=== PATIENT | male | born 1950 | race Caucasian/White ===

== ENCOUNTER 2023-01-18 11:16 | Outpatient (OUT) | payer MEDICARE, SELFPAY ==
--- NOTE | 2023-01-18 11:25 | XR_ITS ---
[address] [address] Patient Name: JORDON JOHNSTON MRN: [id number] date: 1950 Sex: M Assigned Patient Location: RAD Current Patient Location: [facility] Accession/Order Number: [id number] Exam Date: 01/18/2023 11:35 Report Date: 01/18/2023 12:54 At the request of: YVES SNOWDEN Procedure: XR hip RT 2V w/ pelvis PROCEDURE: XR hip RT 2V w/ pelvis HISTORY: Pain in right hip M25.551 COMPARISON: None. FINDINGS: BONES:No fracture, acute abnormality, or significant arthropathy. SOFT TISSUES:No visible soft tissue swelling. EFFUSION:None visible. OTHER: Negative. IMPRESSION: 1. No acute bone abnormality. 2. Minimal degenerative changes. Electronically authenticated by: CINDY DUCKWORTH Date: 01/18/2023 12:54
--- NOTE | 2023-01-18 11:25 | XR_ITS ---
[address] [address] Patient Name: JORDON JOHNSTON MRN: [id number] date: 1950 Sex: M Assigned Patient Location: RAD Current Patient Location: [facility] Accession/Order Number: [id number] Exam Date: 01/18/2023 11:35 Report Date: 01/18/2023 12:46 At the request of: YVES SNOWDEN Procedure: XR lumbar spine 2-3V EXAM: XR lumbar spine 2-3V HISTORY: Low back pain M54.50 COMPARISON: None. TECHNIQUE: 2 views FINDINGS/IMPRESSION: Satisfactory alignment. Mild vertebral height loss of L4 and L5. Remainder of the vertebral body heights maintained. Maintained disc spaces. No acute fracture or subluxation. Unremarkable soft tissues. Electronically authenticated by: GUY JEFFERSON Date: 01/18/2023 12:46
== END 2023-01-18 11:17 | disposition home or self-care (01) ==
LOC: RAD 11:19
PROVIDERS: PCP Family Medicine; Visit Provider Family Medicine
DX: M54.40 Lumbago with sciatica, unspecified side (principal); M25.551 Pain in right hip; M16.11 Unilateral primary osteoarthritis, right hip; M48.8X6 Other specified spondylopathies, lumbar region
CPT/HCPCS: 72100; 73502

== ENCOUNTER 2023-01-25 08:52 | Outpatient (OUT) | payer MEDICARE, SELFPAY ==
--- NOTE | 2023-01-25 09:50 | P.CN_ITS ---
Consult Note: HPI Data of Consult Patient: new to practice Consult date: 01/25/23 Requesting Physician: Mercy Vincent MD Primary Care Provider: Smitha Cartagena MD Consult Narrative Reason for consult: Low back, right hip and leg pain Narrative: this is a pleasant 73-year-old gentleman who presents for evaluation. He notes that several months ago, he had to begin pain that began in his right low back that has now started to radiate into the right hip, groin, and lower extremity. He is engaged in chiropractic therapy for greater than three months. This has not provided any benefit. He has tried various medications, including a steroid Dosepak, ibuprofen eight hundred, tramadol, and Percocet. He recently underwent a right hip x-ray and lumbar spine x-rays, which showed age-appropriate degenerative changes, but no acute pathology. He otherwise denies of his medication side effects loss of bowel or bladder control. cc:: CC: Mercy Vincent MD Review of Systems ROS Status of ROS 10 or more systems reviewed and unremarkable except as noted in history and below Exam Constitutional Common normals: no apparent distress, oriented x3 and healthy appearing Respiratory Common normals: normal respiratory effort Effort & inspection: able to speak in complete sentences Back & Pelvis Other: tenderness to palpation throughout the lumbar spine paraspinal musculature. Pain is elicited with flexion, extension, and lateral rotation of the lumbar spine. Facet loading maneuvers are positive bilaterally. Strength noted to be unremark able throughout the bilateral lower extremities except for decreased strength rated 4/5 in the right quadriceps femoris, anterior tibialis. patient noted to be unremarkable throughout the bilateral lower extremities except for dysesthesia in the right L2, L3, L4 dermatomal distributions. coordination remains intact. Gait remains mildly antalgic. Extremity Common normals: normal to inspection Neuro Common normals: oriented x3, CN's II-XII intact bilaterally and no focal motor deficits Psych Common normals: mental status grossly normal and cooperative Assessment and Plan Assessment and Plan (1) Lumbar stenosis with neurogenic claudication: (2) Lumbar spondylosis: (3) Sacroiliac pain: Plan this is a pleasant 73-year-old gentleman who presents for evaluation. He has health physical and medical modalities, as listed above. He has undergone various conservative measures over the last three months, but these have failed to provide any reprieve. given his current symptomatology and exam parents, are likely to undergo a lumbar MRI without contrast to further assess for the etiology of his pain. He is in agreement with this plan. Medications were reviewed. I agreed to prescribe [place] 5 mg 3 times a day when necessary. He expressed understanding. A urine drug screen was obtained today. He will follow up after the imaging is complete.
== END 2023-01-25 08:53 | disposition home or self-care (01) ==
LOC: PM 08:53
PROVIDERS: PCP Family Medicine; Visit Provider Anesthesiology
DX: M47.816 Spondylosis without myelopathy or radiculopathy, lumbar region (principal); M48.062 Spinal stenosis, lumbar region with neurogenic claudication; M53.3 Sacrococcygeal disorders, not elsewhere classified
CPT/HCPCS: G0463

== ENCOUNTER 2023-01-26 08:43 | Outpatient (OUT) | payer MEDICARE, SELFPAY ==
--- NOTE | 2023-01-26 09:00 | MR_ITS ---
[address] [address] Patient Name: JORDON JOHNSTON MRN: [id number] date: 1950 Sex: M Assigned Patient Location: MRI Current Patient Location: MRI Accession/Order Number: [id number] Exam Date: 01/26/2023 09:00 Report Date: 01/26/2023 12:07 At the request of: PETERSON GIEDRALAVONNE Procedure: MR lumbar spine wo con EXAMINATION: MR lumbar spine wo con HISTORY: lumbar stenosis ; low back pain, acute right hip and leg pain COMPARISON: XR lumbar spine 01/18/2023, XR hip right 01/18/2023 TECHNIQUE: A variety of imaging planes and parameters were utilized for visualization of suspected pathology. FINDINGS: For the purposes of numbering, sagittal T2 image # 9 extends from the T11-12 vertebral body superiorly to the S2-3 level inferiorly. PARASPINAL AREA: Normal with no visible mass. BONES: No fracture, pars defect, or osseous lesion. CORD/CAUDA EQUINA: Normal caliber, contour, and signal intensity. DISC LEVELS: 12-L1: No significant disc/facet abnormality, spinal stenosis, or foraminal stenosis. L1-L2: No significant disc/facet abnormality, spinal stenosis, or foraminal stenosis. L2-L3: No significant disc/facet abnormality, spinal stenosis, or foraminal stenosis. L3-L4: Early degenerative disc disease is present without focal protrusion or neural impingement. L4-L5: Mild central canal and moderate bilateral foramen narrowing. Moderate diffuse disc bulging with mild disc height reduction. Mild degenerative facet arthropathy and ligamentum flavum thickening. L5-S1: No significant central canal narrowing. Moderate foramen narrowing bilaterally. Mild diffuse disc bulging and moderate degenerative facet arthropathy bilaterally. MR/MR lumbar spine wo con IMPRESSION: 1. Moderate foramen narrowing bilaterally at L4-5 and L5-S1 secondary to degenerative disc disease and facet arthropathy. 2. Mild central canal narrowing L4-5. Electronically authenticated by: CINDY DUCKWORTH Date: 01/26/2023 12:07
== END 2023-01-26 08:44 | disposition home or self-care (01) ==
LOC: MRI 08:44
PROVIDERS: PCP Family Medicine; Visit Provider Anesthesiology
DX: M48.061 Spinal stenosis, lumbar region without neurogenic claudication (principal)
CPT/HCPCS: 72148

== ENCOUNTER 2023-02-01 12:01 | Outpatient (OUT) | payer MEDICARE, SELFPAY ==
--- NOTE | 2023-02-01 13:14 | PM.CN ---
Consult Note: HPI Data of Consult Patient: known to practice within the last 3 years Consult date: 02/01/23 Requesting Physician: Mercy Vincent MD Primary Care Provider: Smitha Cartagena MD Consult Narrative Reason for consult: low back, right leg pain Narrative: this is a pleasant 73-year-old gentleman who presents for assessment. He notes persistence of pain that radiates from his low back into his right lower extremity. He recently underwent a lumbar MRI, which is significant for multilevel foraminal narrowing, worse at L4-L5 and L5-S1. He also has multilevel facet degeneration noted in the lower lumbar spine. He continues to engage in provider directed exercises, which she has attempted for greater than three months. He recently tried [place], but does not provide lasting relief. he previously tried ccbw-idn-waklims medications for greater than three months, which did not provide relief. He recently had a urine drug screen that came back with THC in his urine. He otherwise denies adverse medication side effects or loss of bowel or bladder control. cc:: CC: Mercy Vincent MD Review of Systems ROS Status of ROS 10 or more systems reviewed and unremarkable except as noted in history and below Meds Home Medications and Allergies Home Medications Medication Instructions Recorded Confirmed Type bupropion HCl 150 mg 24 hr tablet, 150 mg PO DAILY 01/25/23 01/25/23 History extended release hydrocodone 5 mg-acetaminophen 325 1 tab PO TID 01/25/23 01/25/23 History mg tablet ibuprofen 200 mg tablet 200 mg PO TID 01/25/23 01/25/23 History Allergies Allergy/AdvReac Type Severity Reaction Status Date / Time acetaminophen [From Percocet] Allergy Mild ITCH Verified 01/25/23 10:02 oxycodone [From Percocet] Allergy Mild ITCH Verified 01/25/23 10:02 Exam Constitutional Common normals: no apparent distress, oriented x3 and healthy appearing Respiratory Common normals: normal respiratory effort Effort & inspection: able to speak in complete sentences Back & Pelvis Other: tenderness to palpation throughout the lumbar spine and paraspinal musculature. Pain is elicited with flexion, extension, and lateral rotation of the lumbar spine. Facet loading maneuvers are positive bilaterally. Strength is noted to be unremarkable throughout the bilateral lower extremities except for decreased strength rated at four out of five in the right quadriceps femoris, anterior tibialis. Sensation noted to be unremarkable throughout the bilateral lower extremities except for dysesthesia in the right L3, L4, L5 dermatomal distributions. Tenderness to palpation over the right PSIS. Abdi's maneuver is positive on the right. Thigh thrust is positive on the right. Coordination remains intact. Gait remains nonantalgic. Extremity Common normals: normal to inspection Neuro Common normals: oriented x3, CN's II-XII intact bilaterally and no focal motor deficits Psych Common normals: mental status grossly normal and cooperative Assessment and Plan Assessment and Plan (1) Lumbar spondylosis: (2) Lumbar stenosis with neurogenic claudication: (3) Right hip pain: Plan this is a pleasant 73-year-old gentleman who presents for assessment. He has failed physical medical modalities, as listed above. his imaging was reviewed, as noted above. Given his symptomatology and imaging finding, it is prudent to attempt a right L4-L5, L5-S1 transfemoral epidural straight injection to provide analgesia. He may even benefit from a right sacroiliac joint injection. He is in agreement with this plan. Medications were reviewed. He will be deemed nonopioid candidate because of his THC in the urine drug screen. I will have him trial Lyrica 50 mg 3 times a day. He expressed understanding. I will also have him undergo a right hip x-ray to assess for any hip pathology. He expressed understanding. He will follow up after the imaging and procedure are complete.
== END 2023-02-01 12:02 | disposition home or self-care (01) ==
PROVIDERS: PCP Family Medicine; Visit Provider Anesthesiology
DX: R10.31 Right lower quadrant pain (principal); M47.816 Spondylosis without myelopathy or radiculopathy, lumbar region; M48.062 Spinal stenosis, lumbar region with neurogenic claudication; M25.551 Pain in right hip
CPT/HCPCS: 73502; G0463

== ENCOUNTER 2023-02-01 12:52 | Outpatient (OUT) | payer MEDICARE, SELFPAY ==
--- NOTE | 2023-02-01 13:05 | XR_ITS ---
[address] [address] Patient Name: JORDON JOHNSTON MRN: [id number] date: 1950 Sex: M Assigned Patient Location: [facility] Current Patient Location: Accession/Order Number: [id number] Exam Date: 02/01/2023 13:18 Report Date: 02/02/2023 07:20 At the request of: ANDRI GIEDRAITIS Procedure: XR hip RT min 2V PROCEDURE: XR hip RT min 2V COMPARISON: 01/18/2023 HISTORY: Right Groin Pain FINDINGS: BONES:No fracture, acute abnormality, or significant arthropathy. SOFT TISSUES:Negative. No visible soft tissue swelling. EFFUSION:None visible. OTHER: Negative. XR/XR hip RT min 2V IMPRESSION: No acute abnormality Electronically authenticated by: KEITH GOOD Date: 02/02/2023 07:20
== END 2023-02-01 12:53 | disposition home or self-care (01) ==
LOC: RAD 12:54
PROVIDERS: PCP Family Medicine; Visit Provider Anesthesiology
DX: R10.31 Right lower quadrant pain (principal)
CPT/HCPCS: 73502

== ENCOUNTER 2023-02-15 09:10 | Day surgery (SDC) | payer MEDICARE, SELFPAY ==
[2023-02-15 09:54] VITALS: BP 131/88; PULSE 72; RESP 16; TEMP 36.5; O2SAT 95
[2023-02-15] MEDS: BUPIVACAINE HCL 0.25% PF 25 MG/10 ML VIAL INJ (10:43)
[2023-02-15] MEDS: IOHEXOL 240 MG/ML - 10 ML VIAL INJ (10:43)
[2023-02-15] MEDS: LIDOCAINE HCL 2% PF 100 MG/5 ML VIAL INJ (10:43)
[2023-02-15] MEDS: TRIAMCINOLONE ACETONIDE 40 MG/ML VIAL INJ (10:44)
--- NOTE | 2023-02-15 10:46 | P.ON_ITS ---
Date of procedure: 02/15/23 Pre-op diagnosis: Lumbar stenosis with neurogenic claudication Post-op diagnosis: same Procedure: Procedure: Right L4-5, L5-S1 transforaminal epidural steroid injection Medications: Bupivacaine 0.25% 2cc, lidocaine 1% 1cc, kenalog 80mg The patient was seen and examined in the preoperative holding area.? Informed consent was obtained and placed on the chart.? Patient was brought to the medical procedure unit and placed in the prone position where a timeout was completed verifying the correct patient, procedure site, position, and planned special equipment using sterile aseptic technique.? Under direct fluoroscopic visualization a 25-gauge Quincke tipped spinal needle was advanced to the designated neural foramen where contrast dye was injected to show adequate spread.? The needle was inserted at level right L4-5. There was no evidence of vascular or adverse uptake.? Epidural spread was appreciated.? The above- mentioned injectate was then placed in a 1.5 mL aliquot preceded by negative aspiration.? The needle was removed. The needle was inserted and the procedure repeated at level right L5-S1.? The surgery site was covered.? Patient was taken to the postprocedural recovery area and monitored for an appropriate length of time before found suitable for discharge in the accompaniment of a responsible adult. Anesthesia: None Surgeon: Mercy Vincent Pathology: none sent Condition: stable Disposition: no change
[2023-02-15 14:17] VITALS: BP 160/88; BP 165/95; PULSE 68; PULSE 74; RESP 18; O2SAT 97
== END 2023-02-15 10:50 | disposition home or self-care (01) ==
LOC: SURGOUT 09:13
PROVIDERS: PCP Family Medicine; Visit Provider Anesthesiology
DX: M48.062 Spinal stenosis, lumbar region with neurogenic claudication (principal)
CPT/HCPCS: 64483; 64484; Q9966

== ENCOUNTER 2023-03-01 09:36 | Day surgery (SDC) | payer MEDICARE, SELFPAY ==
[2023-03-01 10:44] VITALS: BP 153/88; PULSE 64; RESP 16; TEMP 36.4; O2SAT 97
[2023-03-01] MEDS: LIDOCAINE HCL 2% PF 100 MG/5 ML VIAL INJ (11:18)
[2023-03-01] MEDS: BUPIVACAINE HCL 0.25% PF 25 MG/10 ML VIAL INJ (11:18)
[2023-03-01] MEDS: TRIAMCINOLONE ACETONIDE 40 MG/ML VIAL INJ (11:18)
[2023-03-01] MEDS: IOHEXOL 240 MG/ML - 10 ML VIAL INJ (11:19)
--- NOTE | 2023-03-01 11:19 | W.PM.PROCNOT ---
Date of procedure: 03/01/23 Pre-op diagnosis: Sacroiliitis, right Post-op diagnosis: same as pre-op Procedure: Procedure: Right block of the nerve innervating the sacroiliac joint Medications: Bupivacaine 0.25% 3cc, kenalog 40mg After informed consent was obtained, the patient was brought to the medical procedure unit and placed in the prone position, when a timeout was completed verifying correct patient, procedure, site, positioning, implant, and/or special equipment.? The skin overlying the area was prepped and draped in standard sterile fashion using alcohol.? A 25-gauge needle was inserted into the right sacroiliac joint under direct fluoroscopic imaging.? Needle tip was advanced until the joint surface was encountered.? Along the joint surface we instilled a total of 3 mL of solution.? Postoperatively needles were removed.? The patient tolerated the procedure well without complication.? The patient reported reduction in pain symptoms postoperatively. Anesthesia: None Surgeon: Mercy Vincent Pathology: none sent Condition: stable Disposition: no change
[2023-03-01 14:49] VITALS: BP 171/92; BP 190/91; PULSE 65; PULSE 70; RESP 16; RESP 20; O2SAT 97; O2SAT 98
== END 2023-03-01 11:24 | disposition home or self-care (01) ==
PROVIDERS: PCP Family Medicine; Visit Provider Anesthesiology
DX: M46.1 Sacroiliitis, not elsewhere classified (principal)
CPT/HCPCS: 64451; 77002; Q9966

== ENCOUNTER 2023-03-11 10:37 | Outpatient (OUT) | payer MEDICARE, SELFPAY ==
--- NOTE | 2023-03-11 10:44 | PM.CN ---
Consult Note: HPI Data of Consult Patient: known to practice within the last 3 years Requesting Physician: GRISELDA FISHER NP Primary Care Provider: Smitha Cartagena MD Consult Narrative Reason for consult: R L 4/5 L5/S1 TFESI and R SIJ injection f/u Narrative: Merlin Gamez a pleasant 73 year old male presents for evaluation of chronic low back and right hip pain. Pt underwent right L4/5 L5/S1 TFESI and R SIJ injection with 95-100% pain relief. Patient reports he has had nearly no pain since these injections. Patient has taken motrin 400mg PRN for mild pain. Patient stopped lyrica. Reports feeling really good an hardly any pain what so ever . cc:: CC: GRISELDA FISHER NP Review of Systems ROS Status of ROS 10 or more systems reviewed and unremarkable except as noted in history and below [facility] Medical History Surgical History Meds Home Medications and Allergies Home Medications Medication Instructions Recorded Confirmed Type bupropion HCl 150 mg 24 hr tablet, 150 mg PO DAILY 01/25/23 03/01/23 History extended release hydrocodone 5 mg-acetaminophen 325 1 tab PO TID 01/25/23 03/01/23 History mg tablet ibuprofen 200 mg tablet 200 mg PO TID 01/25/23 03/01/23 History Allergies Allergy/AdvReac Type Severity Reaction Status Date / Time oxycodone [From Percocet] Allergy Mild ITCH Verified 02/15/23 09:52 Exam Constitutional Documenting provider has reviewed patient's vital signs: yes Common normals: no apparent distress, oriented x3, no limitations, healthy appearing, alert and well nourished General appearance: cooperative [facility] Common normals: normocephalic, hearing grossly normal bilaterally and moist oral mucous membranes Head and scalp: normocephalic Eye Common normals: PERRL Pupil: PERRL Neck & C-Spine Common normals: full ROM General: normal visual inspection Chest Common normals: inspection of chest normal Respiratory Common normals: normal respiratory effort, no retractions and no use of accessory muscles Back & Pelvis Common normals: straight leg raise negative bilaterally Thoracic spine/upper back: normal to inspection and thoracic ROM normal Lumbar spine/lower back: normal to inspection and lumbar ROM normal Sacroiliac joints: SI joints normal Extremity Common normals: normal to inspection, full ROM and no joint enlargement Neuro Common normals: oriented x3, CN's II-XII intact bilaterally, moves all extremities, no focal motor deficits, no sensory deficits noted and deep tendon reflexes 2+ bilaterally Sensorium/orientation: alert Gait (neuro): normal gait Motor exam: strength 5/5 throughout and no movement abnormalities noted Psych Common normals: mental status grossly normal, thought process normal, cooperative, affect normal, speech normal and activity/motor behavior normal Speech: normal speech Thought process: normal thought process Results Additional Findings Additional findings: I have checked an OARRS report on this patient today and there are no aberrancies noted in the prescribing history.?? A drug screen was completed and reviewed within the last year, and if there has not been a drug screen completed we ordered one today to monitor higher risk, state monitored pain medication use. As part of providing excellent, safe, comprehensive care, the following was completed at our patient's visit: 1. A medication reconciliation and review to ensure accurate knowledge of current/active medications, including asking our patients to inform us about any puib-erk-ayzrtre medications or herbal remedies/nutritional supplements/alternative remedies. 2. A review to specifically ensure our patients have had annual screening for: elevated body mass index (BMI), tobacco use, screening for depression, and screening for unhealthy alcohol use. When screening is concerning, patients are provided with education and the specific recommendation to discuss the concerning health issue and treatment options with their primary care provider. Assessment and Plan Assessment and Plan (1) Right hip pain: (2) Lumbar spondylosis: (3) Sacroiliac pain: (4) Marijuana use: Assessment and Plan: non narcotic care plan, patient agreeable Plan ADAM kauffman, patient stopped taking on his own continue prn motrin use f/u 3 months, sooner if needed
== END 2023-03-11 10:38 | disposition home or self-care (01) ==
PROVIDERS: PCP Family Medicine; Visit Provider Nurse Practitioner
DX: M25.551 Pain in right hip (principal); M47.816 Spondylosis without myelopathy or radiculopathy, lumbar region; M53.3 Sacrococcygeal disorders, not elsewhere classified
CPT/HCPCS: G0463

== ENCOUNTER 2023-03-31 09:42 | Outpatient (OUT) | payer MEDICARE, SELFPAY ==
--- NOTE | 2023-03-31 09:45 | US_ITS ---
The [address] [address] Patient Name: JORDON JOHNSTON MRN: [id number] date: 1950 Sex: M Assigned Patient Location: US Current Patient Location: [place] Accession/Order Number: [id number] Exam Date: 03/31/2023 10:00 Report Date: 03/31/2023 11:08 At the request of: DOUGLAS BUSBY Procedure: US scrotum EXAMINATION: US scrotum HISTORY: Spermatocele N43.40 COMPARISON: No relevant comparison available. TECHNIQUE: High-resolution sonographic imaging of the scrotum and contents was performed. FINDINGS: The right testicle measures 4.8 x 3.2 x 3.0 cm. Normal color and Doppler flow. A 5 x 4 x 4 mm area of identical echotexture extends from the inferior testicle possibly a testicular appendage. The right epididymis is asymmetrically enlarged, heterogeneous with multiple cystic areas and septations. Small right hydrocele. No right varicocele The left testicle is normal in size, contour and echotexture measuring 4.3 x 2.7 x 3.0 cm. Normal color Doppler flow The left epididymis is within normal limits identified adjacent to the epididymis is 1.2 x 1 cm area of anechoic echogenicity is. Spermatocele versus epididymal cyst Small left hydrocele. No left varicocele. US/US scrotum IMPRESSION: 1.2 cm left epididymal cyst or spermatocele Heterogeneous right epididymis, nonspecific with no hypervascularity to suggest epididymitis Small bilateral hydroceles Electronically authenticated by: KEITH GOOD Date: 03/31/2023 11:08
== END 2023-03-31 09:43 | disposition home or self-care (01) ==
LOC: US 09:42
PROVIDERS: PCP Family Medicine; Visit Provider Urology
DX: N43.40 Spermatocele of epididymis, unspecified (principal)
CPT/HCPCS: 76870

== ENCOUNTER 2023-06-03 09:36 | Outpatient (OUT) | payer MEDICARE, SELFPAY ==
--- NOTE | 2023-06-03 09:55 | PM.CN ---
Consult Note: HPI Data of Consult Patient: known to practice within the last 3 years Requesting Physician: Bozena Carty NP Primary Care Provider: Smitha Cartagena MD Consult Narrative Reason for consult: f/u Narrative: Merlin Gamez a pleasant 73 year old male presents for evaluation and management of chronic low back and right SIJ pain. Pain today 2/10 in right buttock and posterior thigh cc:: CC: Bozena Carty NP Review of Systems ROS Status of ROS 10 or more systems reviewed and unremarkable except as noted in history and below Musculoskeletal Reports: joint pain PFSH PFSH Medical History Surgical History H/O elbow surgery ?Z98.890 - Other specified postprocedural states (ICD-10) History of tonsillectomy and adenoidectomy ?Z90.89 - Acquired absence of other organs (ICD-10) Meds Home Medications and Allergies Home Medications Medication Instructions Recorded Confirmed Type bupropion HCl 150 mg 24 hr tablet, 150 mg PO DAILY 01/25/23 03/01/23 History extended release hydrocodone 5 mg-acetaminophen 325 1 tab PO TID 01/25/23 03/01/23 History mg tablet ibuprofen 200 mg tablet 200 mg PO TID 01/25/23 03/01/23 History Allergies Allergy/AdvReac Type Severity Reaction Status Date / Time oxycodone [From Percocet] Allergy Mild ITCH Verified 02/15/23 09:52 Exam Constitutional Documenting provider has reviewed patient's vital signs: yes Common normals: no apparent distress, oriented x3, no limitations, healthy appearing, alert and well nourished General appearance: cooperative [facility] Common normals: normocephalic, hearing grossly normal bilaterally and moist oral mucous membranes Head and scalp: normocephalic Eye Common normals: PERRL Pupil: PERRL Neck & C-Spine Common normals: full ROM General: normal visual inspection Chest Common normals: inspection of chest normal Respiratory Common normals: normal respiratory effort, no retractions and no use of accessory muscles Back & Pelvis Common normals: straight leg raise negative bilaterally Thoracic spine/upper back: normal to inspection and thoracic ROM normal Lumbar spine/lower back: normal to inspection and lumbar ROM normal Sacroiliac joints: SI joints normal Extremity Common normals: normal to inspection, full ROM and no joint enlargement Neuro Common normals: oriented x3, CN's II-XII intact bilaterally, moves all extremities, no focal motor deficits, no sensory deficits noted and deep tendon reflexes 2+ bilaterally Sensorium/orientation: alert Gait (neuro): normal gait Motor exam: strength 5/5 throughout and no movement abnormalities noted Psych Common normals: mental status grossly normal, thought process normal, cooperative, affect normal, speech normal and activity/motor behavior normal Speech: normal speech Thought process: normal thought process Assessment and Plan Assessment and Plan (1) Marijuana use: (2) Sacroiliac pain: (3) Lumbar spondylosis: Plan repeat nerve block innervating right SIJ injection in the future as needed if pain worsens or functional ability decreases, mild to no pain at this time NNCP due to failed drug screen and THC use f/u as needed [place] 18% today
== END 2023-06-03 09:37 | disposition home or self-care (01) ==
LOC: PM 09:37
PROVIDERS: PCP Family Medicine; Visit Provider Nurse Practitioner
DX: Z79.899 Other long term (current) drug therapy (principal); M53.3 Sacrococcygeal disorders, not elsewhere classified; M47.816 Spondylosis without myelopathy or radiculopathy, lumbar region
CPT/HCPCS: G0463

== ENCOUNTER 2023-10-07 10:01 | Outpatient (OUT) | payer MEDICARE, SELFPAY ==
--- NOTE | 2023-10-07 10:03 | P.CN_ITS ---
Consult Note: HPI Data of Consult Patient: known to practice within the last 3 years Requesting Physician: Bozena Carty NP Primary Care Provider: Smitha Cartagena MD Consult Narrative Reason for consult: f/u Narrative: Merlin Gamez a pleasant 73 year old male presents for evaluation and management of chronic low back and right SIJ pain. Pain today 2/10 in right buttock and posterior thigh increasing to 7-8/10 with activity. Patient previously underwent right L4-5 L5-S1 TFESI and nerve block innervating right SIJ with >80% pain relief and functional improvement greater than 3 months. Patient reporting increase in pain over the last few weeks and wants to discuss repeating injections. cc:: CC: Bozena Carty NP Review of Systems ROS Status of ROS 10 or more systems reviewed and unremark able except as noted in history and below Musculoskeletal Reports: back pain and joint pain PFSH PFSH Medical History Surgical History History of tonsillectomy and adenoidectomy ?Z90.89 - Acquired absence of other organs (ICD-10) H/O elbow surgery ?Z98.890 - Other specified postprocedural states (ICD-10) Meds Home Medications and Allergies Home Medications ?Medication ?Instructions ?Recorded ?Confirmed ?Type bupropion HCl 150 mg 24 hr tablet, 150 mg PO DAILY 01/25/23 03/01/23 History extended release hydrocodone 5 mg-acetaminophen 325 1 tab PO TID 01/25/23 03/01/23 History mg tablet ibuprofen 200 mg tablet 200 mg PO TID 01/25/23 03/01/23 History Allergies Allergy/AdvReac Type Severity Reaction Status Date / Time oxycodone [From Percocet] Allergy Mild ITCH Verified 02/15/23 09:52 Exam Constitutional Documenting provider has reviewed patient's vital signs: yes Common normals: no apparent distress, oriented x3, healthy appearing, alert and well nourished General appearance: cooperative HENKY Common normals: normocephalic, hearing grossly normal bilaterally and moist oral mucous membranes Head and scalp: normocephalic Eye Common normals: PERRL Pupil: PERRL Neck & C-Spine Common normals: full ROM General: normal visual inspection Chest Common normals: inspection of chest normal Respiratory Common normals: normal respiratory effort, no retractions and no use of accessory muscles Effort & inspection: able to speak in complete sentences Back & Pelvis Other: tenderness to palpation throughout the lumbar spine and paraspinal musculature. Pain is elicited with flexion, extension, and lateral rotation of the lumbar spine. Facet loading maneuvers are positive bilaterally. Strength is noted to be unremarkable throughout the bilateral lower extremities except for decreased strength rated at four out of five in the right quadriceps femoris, anterior ti bialis. Sensation noted to be unremarkable throughout the bilateral lower extremities except for dysesthesia in the right L3, L4, L5 dermatomal distributions. Tenderness to palpation over the right PSIS. Abdi's maneuver is positive on the right. Thigh thrust is positive on the right. Coordination remains intact. Gait remains nonantalgic. Extremity Common normals: normal to inspection Neuro Common normals: oriented x3, CN's II-XII intact bilaterally, moves all extremities, no focal motor deficits, no sensory deficits noted and deep tendon reflexes 2+ bilaterally Sensorium/orientation: alert Motor exam: strength 5/5 throughout and no movement abnormalities noted Psych Common normals: mental status grossly normal, thought process normal, cooperative, affect normal, speech normal and activity/motor behavior normal Speech: normal speech Thought process: normal thought process Results Additional Findings Additional findings: If on a controlled substance or opioids, I have checked an [facility] report on this patient and there are no aberrancies noted in the prescribing history.??If on a controlled substance or opioid a drug screen was completed and reviewed within the last year, and if there has not been a drug screen completed we ordered one today to monitor higher risk, state monitored pain medication use. As part of providing excellent, safe, comprehensive care, the following was completed at our patient's visit: 1. A medication reconciliation and review to ensure accurate knowledge of current/active medications, including asking our patients to inform us about any [id number] medications or herbal remedies/nutritional suppleme nts/alternative remedies. 2. A review to specifically ensure our patients have had annual screening for screening for depression, screening for tobacco use, and screening for unhealthy alcohol use. For concerning screenings had a discussion with the patient, provided patient education, and recommended follow-up with primary care provider when appropriate. If patient noted with a risk of falling, they received education on strength, gait, and balance training to prevent future risk of falling. Assessment and Plan Assessment and Plan (1) Lumbar spondylosis: (2) Lumbar stenosis with neurogenic claudication: (3) Sacroiliac pain: Plan repeat right L4-5 L5-S1 TFESI and nerve block innervating right SIJ, pt to call to schedule, previously had significant functional improvement and pain relief greater than 80% greater than 3 months from these injections. Procedures to be completed under fluoroscopy continue HEP as tolerated f/u 2 weeks after completion of injections
--- OUTSIDE RECORDS SUMMARY | 2023-10-07 10:18 | XMS_ITS | CCD ---
Author Organization [facility] Care Team Providers Care Data Modeling Specialist Name Role Phone Julius Carson Admitting Unavailable Julius Carson Attending Unavailable Smitha Snowden Primary Care Unavailable Smitha Snowden Primary Care Provider Smitha Snowden MD Primary Care Provider SMITHA SNOWDEN Attending Unavailable SMITHA SNOWDEN Consulting Unavailable SMITHA SNOWDEN Primary Care Unavailable SMITHA SNOWDEN Admitting Unavailable Smitha Snowden Unavailable Melisa CRUZ, Mercy Gomes Attending Unavailable Gimaddie CRUZ, Andlefty Gomes Attending Unavailable Melisa CRUZ, Andrius Mireya Attending Unavailable Melisa CRUZ, Andrius Gomes Attending Unavailable SMITHA SNOWDEN Primary Care Unavailable KATHI HER Admitting Unavailable KATHI HER Attending Unavailable SMITHA SNOWDEN Primary Care Unavailable SMITHA SNOWDEN Referring Unavailable SMITHA SNOWDEN Primary Care Unavailable SMITHA SNOWDEN Referring Unavailable SP, SMITHA Primary Care Unavailable SP, SMITHA Primary Care Unavailable KATHI HER Admitting Unavailable KATHI HER Attending Unavailable SMITHA SNOWDEN Primary Care Physician Abdi MCINTOSH Attending Unavailable SMITHA SNOWDEN Referring Unavailable Abdi MCINTOSH Attending Unavailable Abdi MCINTOSH Attending Unavailable Allergies Allergy Classification Reported Allergen(s) Allergy Type Date of Onset Reaction(s) Facility (7 sources) Acetaminophen / oxyCODONE Drug Allergy itching [facility] Other (1 source) No Known Medication Allergies; Translations: [No Known Medication Allergies] Propensity to adverse reactions (disorder) [facility] Repository Medications Current Medications Medication Drug Class(es) Dates Sig (Normalized) Sig (Original) azithromycin 250 mg oral tablet (4 sources) Macrolide Antimicrobial Start: 06-30-2023 Azithromycin 250 MG as directed Orally 2 tabs po today, then 1 tab daily x 4 more days for 5 Jun, Active Start: 04-01-2023 Azithromycin 2 50 MG as directed Orally 2 tabs po today, then 1 tab daily x 4 more days for 5 Mar, Active 12 hr buPROPion hydrochloride 150 mg extended release oral tablet (14 sources) Aminoketone Start: 03-29-2023 take 1 tablet by mouth twice daily Wellbutrin SR 150 mg Tab-ER 150 mg = 1 tab(s), Oral, BID Start Date: 03/29/23 Status: Ordered buPROPion HCl ER (XL) 150 MG TAKE 1 TABLET EVERY DAY for 90 Active take 1 tablet by mouth once ofelia y buPROPion (WELLBUTRIN) 75 MG tablet Take 1 tablet by mouth daily 0 Active calcium chloride 0.0014 meq/ml / potassium chloride 0.004 meq/ml / sodium chloride 0.103 meq/ml / sodium lactate 0.028 meq/ml injectable solution (1 source) Start: 11-09-2022 lactated ringe rs IV soln infusion hydrOXYzine hydrochloride 25 mg oral tablet (8 sources) Antihistamine Start: 11-05-2022 take 0.5 tablet by mouth once daily hydrOXYzine HCl 25 MG 1/2 tab Orally Once a day for 90 days Oct, Active Start: 11-05-2022 take 1 tablet by charla th once daily at bedtime as needed hydrOXYzine HCl 25 MG 1 tablet at bedtime as needed for itching Orally Once a day for 90 days Oct, Active ibuprofen 200 mg oral tablet (1 source) Nonsteroidal Anti-inflammatory Drug take 1 tablet by mouth every six hours as needed for pain ibuprofen (ADVIL;MOTRIN) 200 MG tablet Take 1 tablet by mouth every 6 hours as needed for Pain 0 Active Multi Vitamin+ (1 source) Start: Multi Vitamin+ Start Date: 03/29/23 Status: Ordered phenylephrine hydrochloride 25 mg/ml ophthalmic solution (1 source) alpha-1 Adrenergic Agonist Start: phenylephrine (MYDFRIN) 2.5 % ophthalmic solution 1 drop predniSONE 20 mg oral tablet (1 source) Start: take 2 tablets by mouth every twenty-four hours predniSONE 20 MG 2 tablets Orally Once a day for 5 days Dec, Active proparacaine hydrochloride 5 mg/ml ophthalmic solution (1 source) Local Anesthetic Start: proparacaine (ALCAINE) 0.5 % ophthalmic solution 1 drop 1000 ml sodium chloride 9 mg/ml injection (4 sources) Start: 023 0.9 % sodium chloride infusion Start: 11-09-2022 sodium chlorid e flush 0.9 % injection 5-40 mL tamsulosin hydrochloride 0.4 mg oral capsule (5 sources) alpha-Adrenergic Tavia Start: 03-29-2023 take 1 capsule by mouth once daily tamsulosin 0.4 mg Cap 0.4 mg = 1 cap(s), Oral, Daily, # 30 cap(s), Refills(s) 11, Pharmacy: [facility] [id number], 175, cm, 03/29/23 11:17:00 EDT, Height/Length Dosing, 78.2, kg, 03/29/23 11:17:00 EDT, Weight Dosing Start Date: 03/29/23 Status: Ordered Flomax Active tetracaine hydrochloride 5 mg/ml ophthalmic solution (1 source) Mary Local Anesthetic Start: 11-09-2022 tetracaine (TETRAVISC) 0.5 % ophthalmic solution 1 drop traMADol hydrochloride 50 mg oral tablet (7 sources) Opioid Agonist Start: 01-18-2023 take 1 tablet by mouth three times daily as needed traMADol HCl 50 MG 1 tablet as needed Orally tid prn for 7 days Jan, Active tropicamide 10 mg/ml ophthalmic solution (1 source) Anticholinergic Start: 11-09-2022 tropicamide (MYDRIACYL) 1 % ophthalmic solution 1 drop zolpidem tartrate 10 mg oral tablet (8 sources) gamma-Aminobutyric Acid-ergic Agonist Start: 08-24-2023 take 1 tablet by mouth every twenty-four hours Ambien 10 MG 1 tablet at bedtime as needed Orally Once a day for 90 days Aug, Active Start: 11-05-2022 take 1 tablet by charla th every twenty-four hours Ambien 10 MG 1 tablet at bedtime as needed Orally Once a day for 90 days Oct, Active Completed/Discontinued Medications Medication Drug Class(es) Dates Sig (Normalized) Sig (Original) cephalexin 500 mg oral capsule (5 sources) Cephalosporin Antibacterial Start: 01-13-2014 End: 10-23-2022 take 1 capsule by mouth three times daily cephALEXin (KEFLEX) 500 MG capsule Take 1 capsule by mouth 3 times daily. 10 capsule 0 01/13/2014 10/23/2022 Discontinued (Therapy completed) triamcinolone acetonide 40 mg/ml injectable suspension (8 sources) Corticosteroid Start: 12-02-2022 Kenalog-40 November, 60 mg Problems Active Problems Problem Classification Problem Date Documented Da te Episodic/Chronic Allergic reactions (8 sources) Atopic dermatitis; Translations: [Atopic dermatitis, unspecified] Chronic Cataract (6 sources) Age-related nuclear cataract of left eye; Translations: [Age-related nuclear cataract, left eye] Onset: 11-08-2022 Resolved: 11-09-2022 Chronic Essential hypertension (12 sources) Essential (primary) hypertension; Translations: [Essential hypertension] Onset: 11-23-2022 Chronic Hyperplasia of prostate (10 sources) Benign prostatic hypertrophy with outflow obstruction; Translations: [Benign prostatic hyperplasia with lower urinary tract symptoms] Onset: 06-28-2023 Chronic Mood disorders (1 source) Depressive disorder 03-29-2023 Chronic Other circulatory disease (1 source) Hypotension, unspecified; Translations: [Hypotension, unspecified] Onset: 02-10-2023 Episodic Other diseases of kidney and ureters (8 sources) Disorder of urinary tract; Translations: [Other obstructive and reflux uropathy] Episodic Other inflammatory condition of skin (1 source) Pruritus, unspecified Episodic Other male genital disorders (1 source) Hydrocele of testis; Translations: [Hydrocele, unspecified] Onset: 06-28-2023 Episodic Other male genital disorders (2 sources) Spermatocele; Translations: [Spermatocele of epididymis, unspecified] Onset: 06-28-2023 Episodic Other male genital disorders (1 source) Disorder of male genital organ 06-28-2023 Episodic Other non-traumatic joint disorders (2 sources) Pain in right hip Episodic Other screening for suspected conditions (not mental disorders or infectious disease) (10 sources) Encounter for screening for malignant neoplasm of prostate; Translations: [Abnormal arterial blood gas] Onset: 11-26-2022 Episodic Other upper respiratory disease (8 sources) Allergic rhinitis due to pollen; Translations: [Allergic rhinitis due to pollen] Chronic Other upper respiratory infections (1 source) Acute maxillary sinusitis, unspecified Episodic Residual codes; unclassified (8 sources) Obstructive sleep apnea syndrome; Translations: [Obstructive sleep apnea (adult) (pediatric)] Chronic Residual codes; unclassified (4 sources) Obstructive sleep apnea (adult) (pediatric); Translations: [Obstructive sleep apnea (adult) (pediatric)] Onset: 12-29-2022 Chronic Residual codes; unclassified (8 sources) Insomnia; Translations: [Insomnia, unspecified] Episodic Residual codes; unclassified (8 sources) Family history of breast cancer; Translations: [Family history of malignant neoplasm of breast] Episodic Screening and history of mental health and substance abuse codes (2 sources) H/O: Disorder; Translations: [Personal history of nicotine dependence] Onset: 06-28-2023 Episodic Spondylosis; intervertebral disc disorders; other back problems (16 sources) Low back pain; Translations: [Low back pain, unspecified] Episodic Syncope (1 source) Syncope and collapse; Translations: [Syncope and collapse] Onset: 02-10-2023 Episodic Unclassified (1 source) Z12.11 - Encounter for screening for malignant neoplasm of colon; Translations: [Z12.11 - Encounter for screening for malignant neoplasm of colon] Onset: 10-05-2018 Unclassified (1 source) Acute tear of medial meniscus of left knee; Translations: [Acute medial meniscal tear, left, subsequent encounter] Past or Other Problems Problem Classification Problem Date Documented Da te Episodic/Chronic Unclassified (1 source) Lumbar pain M54.50 Results Test Name Value Interpretation Reference Range Facility Ambulatory Visit Summaryon 1 08-29-2022 Ambulatory Visit Summary MERLIN JOHNSTON :1950 Visit Date:06/28/2023 Ambulatory Visit Instructions Your Diagnosis BPH with urinary obstruction Spermatocele Hydrocele Former smoker Tests Performed Urnls Dip Stick Auto w/o Microscopy POC 51801 Your Care Team Attending Physician - KEHINDE CRUZ, Abdi Santana Primary Care Physician - SMITHA SNOWDEN MD This Is Your Medications List tamsulosin (tamsulosin 0.4 mg Cap) Contact prescribing physician if questions or concerns buPROPion (Wellbutrin SR 150 mg Tab-ER) multivitamin (Multi Vitamin+) Procedures Performed Cataract, Colonoscopy, Tonsillectomy. Discharge Vitals Heart Rate (Peripheral) 69 Respiratory Rate 16 Blood Pressure 129/72 Height 175 cm Height 69 in Weight 78 kg Weight 171.6 lb BMI 25.47 What to do next Scheduled Follow-Up Appointments Wednesday. 2023 10:45 AM EDT With: KEHINDE CRUZ, Abdi Santana Where: [facility] Patient Educationon 06-28-20 Patient Education Urology Testicular Self-Exam A self-examination of your testicles (testicular self-exam) involves looking at and feeling your testicles for abnormal lumps or swelling. Several things can cause swelling, lumps, or pain in your testicles. Some of these causes are: ? Injuries. ? Inflammation. ? Infection. ? Buildup of fluids around the testicle (hydrocele). ? Twisted testicles (testicular torsion). ? Testicular cancer. You may be at risk for testicular cancer if you have: ? An undescended testicle (cryptorchidism). ? A history of previous testicular cancer. ? A family history of testicular cancer. General tips and recommendations ? The testicles are easiest to examine after a warm bath or shower. They are more difficult to examine when you are cold because the muscles attached to the testicles retract and pull them up higher or into the abdomen. ? A normal testicle is egg-shaped and feels firm. It is smooth and not tender. ? It is normal to feel a firm, spaghetti-like cord at the back of your testicle. This is the spermatic cord. How to do a testicular self-exam 1. Stand and hold your penis away from your body. 2. Look at each testicle to check for changes in appearance, such as swelling or changes in size or shape. 3. Roll each testicle between your thumb and forefinger, feeling the entire testicle. Feel for: ? Lumps. ? Swelling. ? Discomfort. 4. Check the groin area between your abdomen and upper thighs on both sides of your body. Look and feel for any swelling or bumps that are tender. These could be enlarged lymph nodes. Contact a health care provider if: ? You find any bumps or lumps, such as a small, hard, pea-sized lump. ? You find swelling, pain, or soreness. ? You see or feel any other changes in your testicles. Summary ? A self-examination of your testicles (testicular self-exam) involves looking at and feeling your testicles for any changes. ? Check each of your testicles for lumps, swelling, or discomfort. These changes can be caused by many things. ? Check for swelling or tender bumps in your groin area between your lower abdomen and upper thighs. This information is not intended to replace advice given to you by your health care provider. Make sure you discuss any questions you have with your health care provider. Document Revised: 06/10/2020 Document Reviewed: 06/10/2020 [employer] Patient Education ? 2022 [place]. Spermatocele A spermatocele is a fluid-filled sac (cyst) inside the sac that holds the testicles (scrotum). This type of cyst often forms in the epididymis. The epididymis is a coiled tube at the top of each testicle, and this tube is where sperm are stored. The cyst sometimes forms along a tube called the vas deferens, which is a tube that carries sperm away from the epididymis. Spermatoceles are usually painless. Most cysts are small, but they can grow larger. Spermatoceles are not cancerous (are benign). What are the causes? The cause of this condition is not known. However, this condition usually results from a blockage in one of the many small tubes (tubules) that carry sperm from your testicle to your vas deferens. What are the signs or symptoms? In most cases, small cysts do not cause symptoms. However, symptoms sometimes occur. Symptoms of this condition include: ? Dull pain. ? A feeling of heaviness. ? An enlarged scrotum, if your cyst is large. How is this diagnosed? This condition is diagnosed based on a physical exam. ? You or your health care provider may notice your cyst when feeling your scrotum. ? Your health care provider may shine a light through (transilluminate) your scrotum to see if light will pass through your cyst. You may have an ultrasound of the scrotum to rule out a tumor. How is this treated? Small spermatoceles do not need to be treated. If your spermatocele has grown large or is uncomfortable, your health care provider may recommend surgery to remove it. Follow these instructions at home: ? Check your spermatocele regularly for any changes. ? Do regular self-exams of your scrotum. ? Keep all follow-up visits. This is important. Contact a health care provider if: ? Your spermatocele gets larger. ? You have pain in your scrotum. ? Your spermatocele comes back after treatment. Get help right away if: ? You experience severe pain and redness of your scrotum. Summary ? A spermatocele is a fluid-filled sac, or a cyst, inside the sac that holds the testicles (scrotum). This condition is usually painless, and it is not cancerous (is benign). ? Your health care provider may recommend surgery to remove your spermatocele if it grows large or is uncomfortable. ? If you have a spermatocele, check for any changes and do self-exams of your scrotum. ? Keep all follow-up visits. This is important. This information is not intended to replace advice given to you b (more content not included)... [facility] Urology Office/Clinic Noteon 06-28-2023 Urology Office/Clinic Note Chief Complaint 3m Scrotal US HPI Staff 3m Scrotal US DX: BPH & Spermatocele *Started on Tamsulosin 0.4mg qd therapy at time of last encounter Scrotal US 03/31/23 Now only getting 1x/night. Prior to Tamsulosin it was sometimes 3x/night. States he has always had good stream. Frequency depends on fluid intake and activity level. Denies to scrotal pain. History of Present Illness Tests reviewed: reviewed UA and Scrotal US. I have reviewed the previous health record information and history for this patient from . I have reviewed and verified the staff HPI to be accurate for this encounter. There have been no associated fever, chills, flank pain, or blood in the urine. Denies any urinary infections since last encounter. Review of Systems PHQ Score Initial Depression Screen Score: 0 SCORE ROS - Provider Constitutional: denies weight loss, denies hot flashes. Eyes: denies eye problems. Gastrointestinal: denies nausea, denies vomiting. Cardiovascular: denies chest pain or angina. Integumentary: no dryness Musculoskeletal: denies musculoskeletal symptoms. ENMT: denies otolaryngeal symptoms. Respiratory: no shortness of breath. Heme/Lymph: denies easy bleeding tendency, denies easy bruising tendency. Psychiatric: no confusion, no anxiety. Genitourinary: See HPI. Physical Exam Vitals & Measurements HR: 69(Peripheral) RR: 16 BP: 129/72 HT: 69 in HT: 175 cm WT: 78 kg WT: 171.6 lb BMI: 25.47 General Appearance: alert, no distress, well nourished, well developed male. Assessment/Plan 1. BPH with urinary obstruction (N40.1: Benign prostatic hyperplasia with lower urinary tract symptoms) PSA 07/09/22 - 1.70 11/23/22 - 2.45 LOLITA 03/29/23: 35gms. Pt is currently taking Tamsulosin 0.4mg QD. UA today shows trace leuks and no signs of blood. Pt states that he is now only getting 1x/night. Prior to Tamsulosin it was sometimes 3x/night. States he has always had good stream, strong, and frequency depends on fluid intake and activity level. Pt states that he feels he is emptying better, when he voids in the morning, he thinks he is empty, but has to void about 15 minutes later. Discussed increasing the dose of the Tamsulosin to BID to help with his morning sxs. Advised pt that if he wanted to try to take the one dose in the evening, he could but it is recommended to do BID. Pt states that he will try to start taking the Tamsulosin BID. Pt denies any burning when he voids, does have a strong smell but thins this is due to not drinking enough water. Advised pt that he should increase his water intake to prevent any possible infections. Advised pt that we will need to get a repeat PSA. Follow up in 6 mos w/PSA. All questions/concerns were discussed. Pt to call the office if he encounters any issues prior. Pt acknowledges understanding. -Will send new script for Tamsulosin 0.4mg BID to pharmacy on file. Discussed the medication side effects, and the patient will monitor closely for these, as well as for symptom improvement. If severe side effects occur, the medication should be stopped and the office notified. -Will order PSA. 2. Spermatocele (N43.40: Spermatocele of epididymis, unspecified) PE 03/29/23:Spermatocele on Lt Epididymis Scrotal US 03/31/23 - 1.2cm Lt epididymal cyst or spermatocele, heterogeneous Rt epididymis, nonspecific w/no hypervascularity to suggest epididymitis Pt denies to scrotal pain. Discussed imaging results with pt, has a small spermatocele. 3. Hydrocele (N43.3: Hydrocele, unspecified) Scrotal US 03/31/23 - small bilateral hydroceles. 4. Former smoker (Z87.891: Personal history of nicotine dependence) Quit in 2012, Smoked 1 PPD. Follow-up With When Contact Information Abdi MCINTOSH MD, URL In 6 months [facility] [address], [place] [address]- Additional Instructions: w/PSA Patient Education Testicular Self-Exam Spermatocele I, Alexa Cronin , personally scribed for Dr. Mcintosh on 06/28/2023 12:05:22. . Documentation recorded by the scribe, Alexa Cronin, accurately reflects the services(s) I performed and decisions made by me. Problem List/Past Medical History Ongoing BPH with urinary obstruction Depression Former smoker Hydrocele Spermatocele Historical No qualifying data Procedure/Surgical History Cataract, Colonoscopy, Tonsillectomy. Medications Multi Vitamin+ tamsulosin 0.4 mg Cap, 0.4 mg= 1 cap(s), Oral, Daily, 11 refills Wellbutrin SR 150 mg Tab-ER, 150 mg= 1 tab(s), Oral, BID Allergies No Known Medication Allergies Social History Tobacco Former smoker, quit more than 30 days ago Tobacco Use:. Never Smokeless Tobacco Use:. Cigarettes, Stopped age 63 Years. Household tobacco concerns: No. Yes, 06/28/2023 Family History Primary malignant neoplasm of bone: Father. Primary malignant neoplasm of female breast: Mother. Immunizat (more content not included)... [facility] Comment on above: Result Comment: Elec tronically Signed By: Abdi MCINTOSH MD\.br\Date and Time Signed: 06/28/23 12:06 EST\.br\Electronically Co-Signed By: Alexa Cronin.br\Date and Time Co-Signed: 06/28/23 12:05 EST Ambulatory Visit Summaryon 1 Ambulatory Visit Summary MERLIN JOHNSTON :1950 Visit Date:06/28/2023 Ambulatory Visit Instructions Your Care Team Attending Physician - KEHINDE CRUZ, Abdi Santana Primary Care Physician - SMITHA SNOWDEN MD This Is Your Medications List buPROPion (Wellbutrin SR 150 mg Tab-ER) multivitamin (Multi Vitamin+) tamsulosin (tamsulosin 0.4 mg Cap) Procedures Performed Cataract, Colonoscopy, Tonsillectomy. What to do next Scheduled Follow-Up Appointments Wednesday 10:30 AM EST With: Abdi MCINTOSH MD Where: [facility] RAD - Ultrasound Reporton RAD - Ultrasound Report [id number]: 127 [facility] Lab Reportson 03-30-2023 Lab Reports [id number]:1 27 [facility] Lab Reports [id number]: 127 [facility] Ambulatory Visit Summaryon 0 - Ambulatory Visit Summary MERLIN JHONSTON :1950 Visit Date:03/29/2023 Ambulatory Visit Instructions Your Diagnosis BPH with urinary obstruction Former smoker Spermatocele Tests Performed US Scrotum (Contents) -- Results Pending -- Please visit your patient portal for your results or contact your primary care physician. Your Care Team Attending Physician - KEHINDE CRUZ, Abdi Santana Primary Care Physician - SMITHA SNWODEN MD Referring Physician - SMITHA SNOWDEN MD This Is Your Medications List Contact prescribing physician if questions or concerns buPROPion (Wellbutrin SR 150 mg Tab-ER) multivitamin (Multi Vitamin+) Procedures Performed Cataract, Colonoscopy, Tonsillectomy. Discharge Vitals Heart Rate (Peripheral) 76 Blood Pressure 128/79 Height 175 cm Height 69 in Weight 78.2 kg Weight 172.04 lb BMI 25.53 What to do next You Need to Schedule the Following Appointments Follow Up with KEHINDE CRUZ, JOHN Miller When: In 3 months Comments: w/Scrotal US Where: [facility] [address], [place] [address]- [id number] Medications What How Much When Instructions Unchanged buPROPion (Wellbutrin SR 150 mg Tab-ER) 1 Tablets By Mouth 2 times a day Contact prescribing physician if questions or concerns Unchanged multivitamin (Multi Vitamin+) Contact prescribing physician if questions or concerns Allergies No Known Medication Allergies Problems Ongoing - Any problem that you are currently receiving treatment for. Depression Former smoker Spermatocele Education [employer] Benign Prostatic Hyperplasia Benign prostatic hyperplasia (BPH) is an enlarged prostate gland that is caused by the normal aging process. The prostate may get bigger as a man gets older. The condition is not caused by cancer. The prostate is a walnut-sized gland that is involved in the production of semen. It is located in front of the rectum and below the bladder. The bladder stores urine. The urethra carries stored urine out of the body. An enlarged prostate can press on the urethra. This can make it harder to pass urine. The buildup of urine in the bladder can cause infection. Back pressure and infection may progress to bladder damage and kidney (renal) failure. What are the causes? This condition is part of the normal aging process. However, not all men develop problems from this condition. If the prostate enlarges away from the urethra, urine flow will not be blocked. If it enlarges toward the urethra and compresses it, there will be problems passing urine. What increases the risk? This condition is more likely to develop in men older than 50 years. What are the signs or symptoms? Symptoms of this condition include: ? Getting up often during the night to urinate. ? Needing to urinate frequently during the day. ? Difficulty starting urine flow. ? Decrease in size and strength of your urine stream. ? Leaking (dribbling) after urinating. ? Inability to pass urine. This needs immediate treatment. ? Inability to completely empty your bladder. ? Pain when you pass urine. This is more common if there is also an infection. ? Urinary tract infection (UTI). How is this diagnosed? This condition is diagnosed based on your medical history, a physical exam, and your symptoms. Tests will also be done, such as: ? A post-void bladder scan. This measures any amount of urine that may remain in your bladder after you finish urinating. ? A digital rectal exam. In a rectal exam, your health care provider checks your prostate by putting a lubricated, gloved finger into your rectum to feel the back of your prostate gland. This exam detects the size of your gland and any abnormal lumps or growths. ? An exam of your urine (urinalysis). ? A prostate specific antigen (PSA) screening. This is a blood test used to screen for prostate cancer. ? An ultrasound. This test uses sound waves to electronically produce a picture of your prostate gland. Your health care provider may refer you to a specialist in kidney and prostate diseases (urologist). How is this treated? Once symptoms begin, your health care provider will monitor your condition (active surveillance or watchful waiting). Treatment for this condition will depend on the severity of your condition. Treatment may include: ? Observation and yearly exams. This may be the only treatment needed if your condition and symptoms are mild. ? Medicines to relieve your symptoms, including: ? Medicines to shrink the prostate. ? Medicines to relax the muscle of the prostate. ? Surgery in severe cases. Surgery may include: ? Prostatectomy. In this procedure, the prostate tissue is removed completely through an open incision or with a laparoscope or robotics. ? Transurethral resection of the prostate (TURP). In this procedure, a tool is inserted through the opening at the (more content not included)... Normal [facility] Formson 03-29-2023 Forms [id number]: 127 Normal [facility] Patient Educationon 03-29-20 23 Patient Education Urology Benign Prostatic Hyperplasia Benign prostatic hyperplasia (BPH) is an enlarged prostate gland that is caused by the normal aging process. The prostate may get bigger as a man gets older. The condition is not caused by cancer. The prostate is a walnut-sized gland that is involved in the production of semen. It is located in front of the rectum and below the bladder. The bladder stores urine. The urethra carries stored urine out of the body. An enlarged prostate can press on the urethra. This can make it harder to pass urine. The buildup of urine in the bladder can cause infection. Back pressure and infection may progress to bladder damage and kidney (renal) failure. What are the causes? This condition is part of the normal aging process. However, not all men develop problems from this condition. If the prostate enlarges away from the urethra, urine flow will not be blocked. If it enlarges toward the urethra and compresses it, there will be problems passing urine. What increases the risk? This condition is more likely to develop in men older than 50 years. What are the signs or symptoms? Symptoms of this condition include: ? Getting up often during the night to urinate. ? Needing to urinate frequently during the day. ? Difficulty starting urine flow. ? Decrease in size and strength of your urine stream. ? Leaking (dribbling) after urinating. ? Inability to pass urine. This needs immediate treatment. ? Inability to completely empty your bladder. ? Pain when you pass urine. This is more common if there is also an infection. ? Urinary tract infection (UTI). How is this diagnosed? This condition is diagnosed based on your medical history, a physical exam, and your symptoms. Tests will also be done, such as: ? A post-void bladder scan. This measures any amount of urine that may remain in your bladder after you finish urinating. ? A digital rectal exam. In a rectal exam, your health care provider checks your prostate by putting a lubricated, gloved finger into your rectum to feel the back of your prostate gland. This exam detects the size of your gland and any abnormal lumps or growths. ? An exam of your urine (urinalysis). ? A prostate specific antigen (PSA) screening. This is a blood test used to screen for prostate cancer. ? An ultrasound. This test uses sound waves to electronically produce a picture of your prostate gland. Your health care provider may refer you to a specialist in kidney and prostate diseases (urologist). How is this treated? Once symptoms begin, your health care provider will monitor your condition (active surveillance or watchful waiting). Treatment for this condition will depend on the severity of your condition. Treatment may include: ? Observation and yearly exams. This may be the only treatment needed if your condition and symptoms are mild. ? Medicines to relieve your symptoms, including: ? Medicines to shrink the prostate. ? Medicines to relax the muscle of the prostate. ? Surgery in severe cases. Surgery may include: ? Prostatectomy. In this procedure, the prostate tissue is removed completely through an open incision or with a laparoscope or robotics. ? Transurethral resection of the prostate (TURP). In this procedure, a tool is inserted through the opening at the tip of the penis (urethra). It is used to cut away tissue of the inner core of the prostate. The pieces are removed through the same opening of the penis. This removes the blockage. ? Transurethral incision (TUIP). In this procedure, small cuts are made in the prostate. This lessens the prostate's pressure on the urethra. ? Transurethral microwave thermotherapy (TUMT). This procedure uses microwaves to create heat. The heat destroys and removes a small amount of prostate tissue. ? Transurethral needle ablation (TUNA). This procedure uses radio frequencies to destroy and remove a small amount of prostate tissue. ? Interstitial laser coagulation (ILC). This procedure uses a laser to destroy and remove a small amount of prostate tissue. ? Transurethral electrovaporization (TUVP). This procedure uses electrodes to destroy and remove a small amount of prostate tissue. ? Prostatic urethral lift. This procedure inserts an implant to push the lobes of the prostate away from the urethra. Follow these instructions at home: ? Take fran-olb-vcoqjtg and prescription medicines only as told by your health care provider. ? Monitor your symptoms for any changes. Contact your health care provider with any changes. ? Avoid drinking large amounts of liquid before going to bed or out in public. ? Avoid or reduce how much caffeine or alcohol you drink. ? Give yourself time when you urinate. ? Keep all follow-up visits. This is important. Contact a health care provider if: ? You have unexplained back pain. ? Your symptoms do not get better with treatment. ? You develop side effects from the medicine (more content not included)... Normal [facility] Basic Metabolic Profon 02-10 Anion gap [Moles/Vol] 16 mmol/L Normal 9-17 [facility] Comment on above: Performed By: #### C DINORA RICE, TROPI #### [facility] [address] [place] [address] Tin Cutter: Ming Costello MD BUN/CRE Ratio 15 Normal - [facility] Comment on above: Performed By: #### C DINORA RICE, TROPI #### [facility] [address] [place], [place] [address] Tin Cutter: Ming Costello MD Calcium [Mass/Vol] 9.3 mg/dL Normal 8.6-10.4 [facility] Comment on above: Performed By: #### C DP, BMP, TROPI #### [facility] [address] [place], [place] [id number] Tin Cutter: Ming Costello MD Chloride [Moles/Vol] 93 mmol/L Low 98-107 [facility] Comment on above: Performed By: #### C DP, BMP, TROPI #### [facility] [address] [place], [place] [address] Tin Cutter: Ming Costello MD CO2 [Moles/Vol] 22 mmol/L Normal 20-31 [facility] Comment on above: Performed By: #### C DP, BMP, TROPI #### [facility] [address] [place], [place] [address] Tin Cutter: Ming Costello MD Creatinine [Mass/Vol] 0.8 mg/dL Normal 0.7-1.2 [facility] Comment on above: Performed By: #### C DP, BMP, TROPI #### [facility] [address] [place], [place] [address] Tin Cutter: Ming Costello MD GFR/1.73 sq M.predicted among non-blacks MDRD (S/P/Bld) [Vol rate/Area] mL/min/{1.73_m2} Normal >60 [facility] Comment on above: Result Comment: These results are not intended for use in patients <18 years of age. eGFR results are calculated without a race factor using the 2020 CKD-EPI equation. Careful clinical correlation is recommended, particularly when comparing to results calculated using previous equations. The CKD-EPI equation is less accurate in patients with extremes of muscle mass, extra-renal metabolism of creatine, excessive creatine ingestion, or following therapy that affects renal tubular secretion. Performed By: #### C DP, BMP, TROPI #### [facility] [address] [place], [place] [address] Tin Cutter: Ming Costello MD Glucose [Mass/Vol] 123 mg/dL High 70-99 [facility] Comment on above: Performed By: #### C DP, BMP, TROPI #### [facility] [address] [place] [address] Tin Cutter: Ming Costello MD Potassium [Moles/Vol] 3.9 mmol/L Normal 3.7-5.3 [facility] Comment on above: Performed By: #### C DP, BMP, TROPI #### [facility] [address] [place], [place] [address] Tin Cutter: Ming Costello MD Sodium [Moles/Vol] 131 mmol/L Low 135-144 [facility] Comment on above: Performed By: #### C DP, BMP, TROPI #### [facility] [address] [place], [place] [address] Tin Cutter: Ming Costello MD Urea nitrogen [Mass/Vol] 12 mg/dL Normal 8-23 [facility] Comment on above: Performed By: #### C DP, BMP, TROPI #### [facility] [address] [place], [place] [address] Tin Cutter: Ming Costello MD CBC with Diffon 02-10-2023 Abs. Basophil 0.06 k/uL Normal 0.00-0.20 [facility] Comment on above: Performed By: #### C DP, BMP, TROPI #### [facility] [address] [place], [place] [address] Tin Cutter: Ming Costello MD Abs.Imm.Granulocyte 0.03 k/uL Normal 0.00-0.30 [facility] Comment on above: Performed By: #### C DP, BMP, TROPI #### [facility] [address] [place], [facility]83 Tin Cutter: Ming Costello MD Abs.Neutrophil (Seg) 5.01 k/uL Normal 1.50-8.10 [facility] Comment on above: Performed By: #### C DP, BMP, TROPI #### [address] [place], [place] [address] Tin Cutter: Ming Costello MD Basophils/100 WBC (Bld) 1 % Normal 0-2 [facility] Comment on above: Performed By: #### C DP, BMP, TROPI #### [address] [place], [place] [address] Tin Cutter: Ming Costello MD Eosinophils (Bld) [#/Vol] 0.39 10*3/uL Normal 0.00-0.44 [facility] Comment on above: Performed By: #### C DP, BMP, TROPI #### [address] [place], [place] [address] Tin Cutter: Ming Costello MD Eosinophils/100 WBC (Bld) 4 % Normal 1-4 [facility] Comment on above: Performed By: #### C DP, BMP, TROPI #### [address] [place], [facility]83 Tin Cutter: Ming Costello MD Erythrocyte distribution width (RBC) [Ratio] 12.8 % Normal 11.8-14.4 [facility] Comment on above: Performed By: #### C DP, BMP, TROPI #### [address] [place], [facility]83 Tin Cutter: Ming Costello MD Hematocrit (Bld) [Volume fraction] 45.4 % Normal 40.7-50.3 [facility] Comment on above: Performed By: #### C DP, BMP, TROPI #### [address] [place], [facility]83 Tin Cutter: Ming Costello MD Hemoglobin (Bld) [Mass/Vol] 15.3 g/dL Normal 13.0-17.0 [facility] Comment on above: Performed By: #### C DP, BMP, TROPI #### [address] [place], [place] [address] Tin Cutter: Ming Costello MD Immature granulocytes/100 WBC (Bld) 0 % Normal 0 [facility] Comment on above: Performed By: #### C DP, BMP, TROPI #### [address] [place], [facility]83 Tin Cutter: Ming Costello MD Lymphocytes (Bld) [#/Vol] 2.63 10*3/uL Normal 1.10-3.70 [facility] Comment on above: Performed By: #### C DP, BMP, TROPI #### [address] [place], [facility]83 Tin Cutter: Ming Costello MD Lymphocytes/100 WBC (Bld) 29 % Normal 24-43 [facility] Comment on above: Performed By: #### C DP, BMP, TROPI #### [address] [place], [facility]83 Tin Cutter: Ming Costello MD MCH (RBC) [Entitic mass] 30.8 pg Normal 25.2-33.5 [facility] Comment on above: Performed By: #### C DP, BMP, TROPI #### [address] [place] [address] Tin Cutter: Ming Costello MD MCHC (RBC) [Mass/Vol] 33.7 g/dL Normal 28.4-34.8 [facility] Comment on above: Performed By: #### C DP, BMP, TROPI #### [address] [place], [place] [id number] Tin Cutter: Ming Costello MD MCV (RBC) [Entitic vol] 91.5 fL Normal 82.6-102.9 [facility] Comment on above: Performed By: #### C DP, BMP, TROPI #### [facility] [address] [place] [address] Tin Cutter: Ming Costello MD Monocytes (Bld) [#/Vol] 1.08 10*3/uL Normal 0.10-1.20 [facility] Comment on above: Performed By: #### C DP, BMP, TROPI #### [address] [place], [facility]83 Tin Cutter: Ming Costello MD Monocytes/100 WBC (Bld) 12 % Normal 3-12 [facility] Comment on above: Performed By: #### C DWAYNE, BMP, TROPI #### [address] [place], [facility]83 Tin Cutter: Ming Costello MD Neutrophil (Seg) 54 % Normal 36-65 [facility] Comment on above: Performed By: #### C DP, BMP, TROPI #### [address] [place], [place] [address] Tin Cutter: Ming Costello MD NRBC Automated 0.0 per 100 WBC Normal 0.0 [facility] Comment on above: Performed By: #### C DP, BMP, TROPI #### [facility] [address] [place] [address] Dr[address] [place], [place] [id number] Tin Cutter: Ming Costello MD Platelet mean volume (Bld) [Entitic vol] 9.6 fL Normal 8.1-13.5 [facility] Comment on above: Performed By: #### C DP, BMP, TROPI #### [facility] [address] [place], [place] [address] Tin Cutter: Ming Costello MD Platelets (Bld) [#/Vol] 289 10*3/uL Normal 138-453 [facility] Comment on above: Performed By: #### C DINORA RICE, TROPI #### [facility] [address] [place] [address] Tin Cutter: Ming Costello MD RBC (Bld) [#/Vol] 4.96 10*6/uL Normal 4.21-5.77 [facility] Comment on above: Performed By: #### C DINORA RICE, TROPI #### [facility] [address] [place] [address] Tin Cutter: Ming Costello MD WBC (Bld) [#/Vol] 9.2 10*3/uL Normal 3.5-11.3 [facility] Comment on above: Performed By: #### C DINORA RICE, TROPI #### [facility] [address] [place], [place] [address] Tin Cutter: Ming Costello MD CT HEAD WO CONTRASTon 2022 CT HEAD WO CONTRAST EXAMINATION: CT OF THE HEAD WITHOUT CONTRAST 02/10/2023 7:32 pm TECHNIQUE: CT of the head was performed without the administration of intravenous contrast. Automated exposure control, iterative reconstruction, and/or weight based adjustment of the mA/kV was utilized to reduce the radiation dose to as low as reasonably achievable. COMPARISON: None. HISTORY: ORDERING SYSTEM PROVIDED HISTORY: syncope TECHNOLOGIST PROVIDED HISTORY: syncope Decision Support Exception - unselect if not a suspected or confirmed emergency medical condition->Emergency Medical Condition (MA) FINDINGS: BRAIN/VENTRICLES: There is no acute intracranial hemorrhage, mass effect or midline shift. No abnormal extra-axial fluid collection. The jackson-white differentiation is maintained without evidence of an acute infarct. There is no evidence of hydrocephalus. Mild age-appropriate atrophy. ORBITS: The visualized portion of the orbits demonstrate no acute abnormality. SINUSES: The visualized paranasal sinuses and mastoid air cells demonstrate no acute abnormality. SOFT TISSUES/SKULL: No acute abnormality of the visualized skull or soft tissues. IMPRESSION: No acute intracranial abnormality. Mild age-appropriate atrophy. Interpreted by: Shayy Muse MD Signed by: Shayy Muse MD 02/10/23 Final result Normal [facility] Ethanol Alcoholon 02-10-2023 Ethanol [Mass/Vol] 159 mg/dL High <10 [facility] Comment on above: Performed By: #### A LCB #### [facility] [address] [place] [address] Tin Cutter: Ming Costello MD Ethanol percent 0.159 % High <0.010 [facility] Comment on above: Performed By: #### A LCB #### [facility] [address] [place] [address] Tin Cutter: Ming Costello MD Troponinon 02-10-2023 Troponin, High Sens 17 ng/L Normal 0-22 [facility] Comment on above: Result Comment: High Sensitivity Troponin values cannot be compared with other Troponin methodologies. Performed By: #### C DP, BMP, TROPI #### [facility] [address] [place] [address] Tin Cutter: Ming Costello MD XR CHEST PORTABLEon 02-11-20 XR CHEST PORTABLE EXAMINATION: ONE XRAY VIEW OF THE CHEST 02/10/2023 6:40 pm COMPARISON: March 08, 2019 HISTORY: ORDERING SYSTEM PROVIDED HISTORY: syncope TECHNOLOGIST PROVIDED HISTORY: syncope FINDINGS: The lungs are without acute focal process. There is no effusion or pneumothorax. Mild congestion. The cardiomediastinal silhouette is without acute process. The osseous structures are without acute process. IMPRESSION: No acute process. Mild congestion. Interpreted by: Shayy Muse MD Signed by: Shayy Muse MD 02/10/23 Final result Normal [facility] CBC AUTO DIFFon 11-23-2022 BASO # 0.1 103/ul Normal 0.0-0.1 [facility] Comment on above: Performed By: #### C BC #### [facility] [address] [place], [place] [address] Dr. Micheline Ventura Basophils/100 WBC (Bld) 1.0 % Normal 0.2-2.0 [facility] Comment on above: Performed By: #### C BC #### [facility] [address] [place] [address] Dr. Micheline Ventura EO # 0.3 103/ul Normal 0.0-0.7 [facility] Comment on above: Performed By: #### C BC #### [facility] [address] [place] [address] Dr. Micheline Ventura Eosinophils/100 WBC (Bld) 5.8 % Normal 0.9-7.0 [facility] Comment on above: Performed By: #### C BC #### [facility] [address] [place] [address] Dr. Micheline Ventura Erythrocyte distribution width (RBC) [Ratio] 13.3 % Normal 11.0-15.0 [facility] Comment on above: Performed By: #### C BC #### [facility] [address] [place] [address] Dr. Micheline Ventura Hematocrit (Bld) [Volume fraction] 45.8 % Normal 42.0-54.0 [facility] Comment on above: Performed By: #### C BC #### [facility] [address] [place] [address] Dr. Micheline Ventura Hemoglobin (Bld) [Mass/Vol] 15.3 g/dL Normal 14.0-18.0 [facility] Comment on above: Performed By: #### C BC #### [facility] [address] [place] [address] Dr. Micheline Ventura IG # 0.00 10e3/ul Normal 0.00-0.03 [facility] Comment on above: Performed By: #### C BC #### [facility] [address] [place] [address] Dr. Micheline Ventura IG % 0.0 % Normal 0.0-0.[address] [facility] Comment on above: Performed By: #### C BC #### [facility] [address] [place] [address] Dr. Micheline Ventura LYMPH # 1.9 103/ul Normal 1.2-3.[address] [facility] Comment on above: Performed By: #### C BC #### [facility] [address] [place] [address] [address] Micheline Ventura Lymphocytes/100 WBC (Bld) 37.1 % Normal 20.5-60.0 [facility] Comment on above: Performed By: #### C BC #### [facility] [address] [place] [address] [address] Micheline Ventura MANUAL DIFF REQ NO Normal [facility] Comment on above: Performed By: #### C BC #### [facility] [address] [place] [address] Dr. Micheline Ventura MCH (RBC) [Entitic mass] 30.7 pg Normal 25.9-34.[address] [facility] Comment on above: Performed By: #### C BC #### [facility] [address] [place] [address] Dr. Micheline Ventura MCHC (RBC) [Mass/Vol] 33.4 g/dL Normal 29.9-35.[address] [facility] Comment on above: Performed By: #### C BC #### [facility] [address] [place] [address] Dr. Micheline Ventura MCV (RBC) [Entitic vol] 91.8 fL Normal 80.0-94.0 [facility] Comment on above: Performed By: #### C BC #### [facility] [address] [place] [address] Dr. Micheline Ventura MONO # 0.6 103/ul Normal 0.3-0.[address] [facility] Comment on above: Performed By: #### C BC #### [facility] [address] [place] [address] Dr. Micheline Ventura Monocytes/100 WBC (Bld) 11.3 % Normal 1.7-12.[address] [facility] Comment on above: Performed By: #### C BC #### [facility] [address] [place] [address] Dr. Micheline Ventura NEUT # 2.3 103/ul Normal 1.4-6.[address] [facility] Comment on above: Performed By: #### C BC #### [facility] [address] [place] [address] [address] Micheline Ventura Neutrophils/100 WBC (Bld) 44.8 % Normal 43.0-75.0 [facility] Comment on above: Performed By: #### C BC #### [facility] [address] [place] [address] Dr. Micheline Ventura Platelet mean volume (Bld) [Entitic vol] 9.5 fL Normal 9.5-13.[address] [facility] Comment on above: Performed By: #### C BC #### [facility] [address] [place] [address] Dr. Micheline Ventura PLT 292 103/ul Normal 150-450 [facility] Comment on above: Performed By: #### C BC #### [facility] [address] [place] [address] Dr. Micheline Ventura RBC 4.99 106/ul Normal 4.70-6.10 [facility] Comment on above: Performed By: #### C BC #### [facility] [address] [place] [address] Dr. Micheline Ventura WBC 5.2 103/ul Normal 4.0-11.0 [facility] Comment on above: Performed By: #### C BC #### [facility] [address] [place] [address] Dr. Micheline Ventura LIPID PROFILEon 11-23-2022 CHOL-HDL RATIO NORM SEE BELOW Normal [facility] Comment on above: Result Comment: 3.3 - 4.4 LOW RISK 4.4 - 7.1 AVERAGE RISK 7.1 - 11.0 MODERATE RISK >11.0 HIGH RISK Performed By: #### C MP, LIPID #### [facility] [address] [place] [address] Dr. Micheline Ventura Cholesterol [Mass/Vol] 169 mg/dL Normal <=[address] [facility] Comment on above: Performed By: #### C MP, LIPID #### [facility] [address] [place] [address] Dr. Micheline Ventura Cholesterol in HDL [Mass/Vol] 49 mg/dL Normal 40-[address] [facility] Comment on above: Performed By: #### C MP, LIPID #### [facility] [address] [address] [address] Micheline Ventura Cholesterol in LDL [Mass/Vol] 97.6 mg/dL Normal [facility] Comment on above: Performed By: #### C MP, LIPID #### [facility] [address] [address] [address] Micheline Ventura Cholesterol.total/C holesterol in HDL [Mass ratio] 3.4 {ratio} Normal [facility] Comment on above: Performed By: #### C MP, LIPID #### [facility] [address] [place] [address] Dr. Micheline Ventura HDL NORMAL > or = 60 mg/dl - LO W CARDIOVASCULAR RISK <40 mg/dl - HIGH CARDIOVASCULAR RISK Normal [facility] Comment on above: Performed By: #### C MP, LIPID #### [facility] [address] [place] [address] Dr. Micheline Ventura LDL CALC NORMAL SEE BELOW Normal [facility] Comment on above: Result Comment: <100 mg/dl OPTIMAL 100 - 129 mg/dl NEAR OR ABOVE OPTIMAL 130 - 159 mg/dl BORDERLINE HIGH 160 - 189 mg/dl HIGH >190 mg/dl VERY HIGH Performed By: #### C MP, LIPID #### [facility] [address] [place] [address] Dr. Micheline Ventura Triglyceride [Mass/Vol] 112 mg/dL Normal <=150 [facility] Comment on above: Performed By: #### C MP, LIPID #### [facility] [address] [place] [address] Dr. Micheline Ventura VLDL CALC 22.4 mg/dL Normal [facility] Comment on above: Performed By: #### C MP, LIPID #### [facility] [address] [place] [address] Dr. Micheline Ventura PROF 14(COMP METB)on 023 Albumin [Mass/Vol] 4.0 g/dL Normal 3.4-5.0 [facility] Comment on above: Performed By: #### C MP, LIPID #### [facility] [address] [place] [address] Dr. Micheline Ventura Albumin/Globulin [Mass ratio] 1.1 {ratio} Normal [facility] Comment on above: Performed By: #### C MP, LIPID #### [facility] [address] [place] [address] Dr. Michleine Ventura ALP [Catalytic activity/Vol] 70 U/L Normal 46-116 [facility] Comment on above: Performed By: #### C MP, LIPID #### [facility] [address] [place] [address] Dr. Micheline Ventura ALT [Catalytic activity/Vol] 80 U/L Critically high 16-63 [facility] Comment on above: Performed By: #### C MP, LIPID #### [facility] [address] [place] [address] Dr. Micheline Ventura Anion gap [Moles/Vol] 12.6 mmol/L Normal [facility] Comment on above: Performed By: #### C MP, LIPID #### [facility] [address] [place] [address] Dr. Micheline Ventura AST [Catalytic activity/Vol] 37 U/L Normal 15-37 [facility] Comment on above: Performed By: #### C MP, LIPID #### [facility] [address] [place] [address] Dr. Micheline Ventura Bilirubin [Mass/Vol] 1.1 mg/dL Critically high 0.2-1.0 [facility] Comment on above: Performed By: #### C MP, LIPID #### [facility] [address] [place] [address] Dr. Micheline Ventura Calcium [Mass/Vol] 9.5 mg/dL Normal 8.5-10.1 [facility] Comment on above: Performed By: #### C MP, LIPID #### [facility] [address] [place] [address] Dr. Micheline Ventura Chloride [Moles/Vol] 105 mmol/L Normal 98-107 [facility] Comment on above: Performed By: #### C MP, LIPID #### [facility] [address] [place] [address] Dr. Micheline Ventura CO2 [Moles/Vol] 29.8 mmol/L Normal 21.0-32.0 [facility] Comment on above: Performed By: #### C MP, LIPID #### [facility] [address] [place] [address] Dr. Micheline Ventura Creatinine [Mass/Vol] 0.99 mg/dL Normal 0.70-1.[address] [facility] Comment on above: Performed By: #### C MP, LIPID #### [facility] [address] [place] [address] Dr. Micheline Ventura EGFR-AF BENINESE >60 Normal >=60 [facility] Comment on above: Performed By: #### C MP, LIPID #### [facility] [address] [place] [address] Dr. Micheline Ventura EGFR-NON AF BENINESE >60 Normal >=[address] [facility] Comment on above: Performed By: #### C MP, LIPID #### [facility] [address] [place] [address] Dr. Micheline Ventura Globulin (S) [Mass/Vol] 3.8 g/dL Normal [facility] Comment on above: Performed By: #### C MP, LIPID #### [facility] [address] [place] [address] Dr. Micheline Ventura Glucose [Mass/Vol] 99 mg/dL Normal 74-106 [facility] Comment on above: Performed By: #### C MP, LIPID #### [facility] [address] [place] [address] Dr. Micheline Ventura Potassium [Moles/Vol] 4.4 mmol/L Normal 3.5-5.[address] [facility] Comment on above: Performed By: #### C MP, LIPID #### [facility] [address] [place] [address] Dr. Micheline Ventura Protein [Mass/Vol] 7.8 g/dL Normal 6.4-8.2 [facility] Comment on above: Performed By: #### C MP, LIPID #### [facility] [address] [place] [address] Dr. Micheline Ventura Sodium [Moles/Vol] 143 mmol/L Normal 136-145 [facility] Comment on above: Performed By: #### C MP, LIPID #### [facility] [address] [place], [place] [address] Dr. Micheline Ventura Urea nitrogen [Mass/Vol] 8.0 mg/dL Normal 7.0-18.0 [facility] Comment on above: Performed By: #### C MP, LIPID #### [facility] [address] [place], [place] [address] Dr. Micheline Ventura Urea nitrogen/Creatinine [Mass ratio] 8.1 mg/mg Normal [facility] Comment on above: Performed By: #### C MP, LIPID #### [facility] [address] [place], [place] [address] Dr. Micheline Ventura Basic Metabolic Panelon 02-17 Anion gap [Moles/Vol] 12 mmol/L 9 - 17 mmol/L [place] Bun/Cre Ratio 15 [place] Calcium [Mass/Vol] 10.3 mg/dL 8.6 - 10. 4 mg/dL [place] Chloride [Moles/Vol] 100 mmol/L 98 - 107 mmol/L [place] CO2 [Moles/Vol] 28 mmol/L 20 - 31 mmol/L [place] Creatinine [Mass/Vol] 0.79 mg/dL 0.7 - 1.2 mg/dL [place] GFR >60 >60 mL/min [place] GFR Non- >60 >60 mL/min [place] Glucose [Mass/Vol] 96 mg/dL 70 - 99 mg/dL [place] Potassium [Moles/Vol] 4.4 mmol/L 3.7 - 5.3 mmol/L [place] Sodium [Moles/Vol] 140 mmol/L 135 - 144 mmol/L [place] Urea nitrogen [Mass/Vol] 12 mg/dL 8 - 23 mg/dL [place] CBC Auto Differentialon 02-17 Basophils (Bld) [#/Vol] 0.05 10*3/uL [place] Basophils/100 WBC (Bld) 1 % 0 - 2 % [place] Differential Type NOT REPORTED [place] Eosinophils (Bld) [#/Vol] 0.35 10*3/uL [place] Eosinophils/100 WBC (Bld) 6 % High 1 - 4 % [place] Erythrocyte distribution width (RBC) [Ratio] 13.2 % 11.8 - 14.4 % [place] Hematocrit (Bld) [Volume fraction] 48.2 % 40.7 - 50.3 % [place] Hemoglobin (Bld) [Mass/Vol] 15.9 g/dL 13 - 17 g/dL [place] Immature granulocytes (Bld) [#/Vol] 0 % 0 [place] Immature granulocytes (Bld) [#/Vol] 10*3/uL [place] Interpretation and review of laboratory results Abnormal [place] Lymphocytes (Bld) [#/Vol] 2.00 10*3/uL [place] Lymphocytes/100 WBC (Bld) 32 % 24 - 43 % [place] MCH (RBC) [Entitic mass] 30.5 pg 25.2 - 33.5 pg [place] MCHC (RBC) [Mass/Vol] 33.0 g/dL 28.4 - 34.8 g/dL [place] MCV (RBC) [Entitic vol] 92.3 fL 82.6 - 102.9 fL [place] Monocytes (Bld) [#/Vol] 0.78 10*3/uL [place] Monocytes/100 WBC (Bld) 12 % 3 - 12 % [place] Platelet mean volume (Bld) [Entitic vol] 9.5 fL 8.1 - 13.5 fL [place] Platelets (Bld) [#/Vol] 248 10*3/uL [place] Platelets (Bld) [#/Vol] NOT REPORTED [place] RBC (Bld) [#/Vol] 5.22 10*6/uL 4.21 - 5.7 7 m/uL [place] RBC morphology finding Nom (Bld) NOT REPORTED [place] Segmented neutrophils/100 WBC (Bld) 49 % 36 - 65 % [place] Segs Absolute 3.13 [place] WBC (Bld) [#/Vol] 0.0 10*3/uL 0.0 per 10 0 WBC [place] WBC (Bld) [#/Vol] 6.3 10*3/uL [place] WBC Morphology NOT REPORTED [place] Metabolic Panelon 03-08-2019 GFR/1.73 sq M predicted among non-blacks MDRD (S/P/Bld) [Vol rate/Area] [place] Comment on above: Stage 1: Some kidney damage normal GFR Stage 2: Mild kidney damage GFR 60-89 Stage 3: Moderate kidney damage GFR 30-59 Stage 4: Severe kidney damage GFR 15-29 Stage 5: Severe kidney damage GFR <15 ESRD - chronic treatment by dialysis or transplant Average GFR for 60-6 9 years old: 85 mL/min/1.73sq m Chronic Kidney Disease: <60 mL/min/1.73sq m Kidney failure: <15 mL/min/1.73sq m eGFR calculated using average adult body mass. Additional eGFR calculator available at: http://www.Effective Measure/multiple_crcl_2012.htm XR CHEST STANDARD (2 VW)on 0 03-08-2019 No acute cardiopulmo nary process. [place] EXAMINATION: TWO XRA Y VIEWS OF THE CHEST 03/08/2019 9:49 am COMPARISON: None. HISTORY: ORDERING SYSTEM PROVIDED HISTORY: Acute medial meniscal tear, left, subsequent encounter TECHNOLOGIST PROVIDED HISTORY: left knee meniscus tear FINDINGS: The cardiomediastinal contours are within normal limits. The lungs are clear bilaterally. There is no evidence of focal consolidation, pulmonary edema, pleural effusion or pneumothorax. There is no blunting of the costophrenic angles on the lateral view. [place] Abran, [facility] Incoming Radiant Results From [employer] - 03/08/2019 10:48 AM EDT EXAMINATION: TWO XRAY VIEWS OF THE CHEST 03/08/2019 9:49 am COMPARISON: None. HISTORY: ORDERING SYSTEM PROVIDED HISTORY: Acute medial meniscal tear, left, subsequent encounter TECHNOLOGIST PROVIDED HISTORY: left knee meniscus tear FINDINGS: The cardiomediastinal contours are within normal limits. The lungs are clear bilaterally. There is no evidence of focal consolidation, pulmonary edema, pleural effusion or pneumothorax. There is no blunting of the costophrenic angles on the lateral view. IMPRESSION: No acute cardiopulmonary process. [facility] L ---- Specimen: [id number] Received: 10/05/18 Status: LEIDA Bates Num: [id number] Spec Type: Surgical Subm Dr: Julius Carson DO Tissues: A Colon - Polyp (COLON POLYP @ 70 CM) Procedures: HE Stain/2, Gross/Micro L4 Patient Age/Sex Location Account Attending Physician Merlin Johnston 68/M RT4 [id number] Julius Carson DO SPEC NUM: [id number] RECD: 10/05/18 STATUS: LEIDA BATES NUM: [id number] VAMSI: 10/05/18- SUBM DR: Julius Carson DO ENTERED: 10/05/18 [facility] : [facility] TYPE: Surgical DEPT: S ORDERED: HE Stain/2, Gross/Micro L4 ORDERED: HE Stain/2, Gross/Micro L4 Pathological Diagnosis Colon polyp at 70 cm, polypectomy: - Tubular adenoma. Specimen Clinical Information Screening; colonoscopy with polypectomy and cauterization of polyp Gross Received in formalin, labeled with the patient's name, number and colon polyp at 70 cm . The specimen consists of a narayan mucosal tissue measuring 0.3 x 0.2 x 0.1 cm. The specimen is entirely submitted in one cassette. (BraulioJ/leonela) Microscopic Two glass slides with H E stained material have been examined. The microscopic findings support the above pathologic diagnosis. [id number] A. - - COLON POLYP @ 70 CM Specimen: [id number] Received: 10/05/18 Status: LEIDA Bates Num: [id number] Spec Type: Surgical Subm Dr: Julius Carson DO Tissues: A Colon - Polyp (COLON POLYP @ 70 CM) Procedures: HE Stain/2, Gross/Micro L4 Patient: Merlin Johnston [id number] (Continued) Signed (signature on file) Chalo Ibrahim MD 10/06/18 1330 [facility] Vital Signs Date Time Vital Sign Value Performing Clinician Facility 06-28-2023 11:08-0500 Blood Pressure Location Abdi MCINTOSH [facility] 06-28-2023 11:08-0500 Diastolic blood pressure 72 mm[Hg] Abdi MCINTOSH [facility] 06-28-2023 11:08-0500 Heart rate 69 /min Abdi MCINTOSH [facility] 06-28-2023 11:08-0500 Respiratory rate 16 /min Abdi MCINTOSH [facility] 06-28-2023 11:08-0500 Systolic blood pressure 129 mm[Hg] Abdi MCINTOSH [facility] 05-10-2023 09:30-0400 Body height 177.8 cm Smitha Snowden Other [facility] Other 05-10-2023 09:30-0400 Body mass index (BMI) [Ratio] 25.54 kg/m2 Smitha Snowden Other [facility] Other 05-10-2023 09:30-0400 Body weight 80.74 kg Smitha Snowden Other [facility] Other 05-10-2023 09:30-0400 Diastolic blood pressure 86 mm[Hg] Smitha Snowden Other [facility] Other 05-10-2023 09:30-0400 Systolic blood pressure 146 mm[Hg] Smitha Snowden Other [facility] Other 01-18-2023 10:45-0400 Body height 177.8 cm Smitha Snowden Other [facility] Other 01-18-2023 10:45-0400 Body mass index (BMI) [Ratio] 25.54 kg/m2 Smitha Snowden Other [facility] Other 01-18-2023 10:45-0400 Body weight 80.74 kg Smitha Snowden Other [facility] Other 01-18-2023 10:45-0400 Diastolic blood pressure 79 mm[Hg] Smitha Snowden Other [facility] Other 01-18-2023 10:45-0400 Systolic blood pressure 129 mm[Hg] Smitha Snowden Other [facility] Other 11-09-2022 11:00-0400 Diastolic blood pressure 66 mm[Hg] Kathi Her DO Work Phone: [employer] 11-09-2022 11:00-0400 Heart rate 74 /min Kathi Francisco Javier DO Work Phone: [employer] 11-09-2022 11:00-0400 Respiratory rate 20 /min Kathi Her DO Work Phone: [employer] 11-09-2022 11:00-0400 SaO2% (BldA) [Mass fraction] 94 % Kathi Her DO Work Phone: [employer] 11-09-2022 11:00-0400 Systolic blood pressure 123 mm[Hg] Kathi Her DO Work Phone: [employer] 11-09-2022 10:30-0400 Body temperature 98.01 [degF] Kathi Her DO Work Phone: [employer] 11-09-2022 08:56-0400 Body height 177.8 cm Kathi Her DO Work Phone: [employer] 10-23-2022 13:11-0400 Body mass index (BMI) [Ratio] 40.18 kg/m2 Kathidarren Her DO Work Phone: [employer] 10-23-2022 13:11-0400 Body weight 127.01 kg Kathi Her DO Work Phone: [employer] Encounters Encounter Date Encounter Type Care Provider Facility Start: 01-03-2024 ambulatory Abdi Resendez ty:[facility] Start: 08-25-2023 End: 08-25-2023 ambulatory Smitha Snowden Other [facility] Other Start: 08-25-2023 Telephone encounter Smitha Snowden [facility] Start: 08-24-2023 End: 08-24-2023 ambulatory Smitha Sp Other [facility] Other Start: 08-24-2023 Telephone encounter Smitha Sp [facility] Start: 06-30-2023 (Televisit) Televisit Smitha Sp [facility] Start: 06-30-2023 End: 06-30-2023 ambulatory Smitha Sp Other [facility] Other Start: 06-28-2023 End: 06-29-2023 ambulatory Abdi MCINTOSH Facility:[facility] Start: 06-28-2023 End: 06-28-2023 Patient encounter procedure Abdi MCINTOSH [facility] Start: 05-10-2023 End: 05-10-2023 ambulatory Smitha Sp Other [facility] Other Start: 05-10-2023 Office outpatient visit 15 minutes Smitha Sp [facility] Start: 04-12-2023 End: 04-13-2023 ambulatory SMITHA SP [facility] Start: 04-01-2023 End: 04-01-2023 ambulatory Smitha Sp Other [facility] Other Start: 04-01-2023 Telephone encounter Smitha Sp [facility] Start: 03-29-2023 End: 03-30-2023 ambulatory Abdi MCINTOSH Facility:[facility] Start: 03-01-2023 End: 03-02-2023 ambulatory Mercy Vincent MD Facility:[facility] Start: 02-15-2023 End: 02-16-2023 [facility] Start: 02-10-2023 End: 02-10-2023 Emergency department patient visit SMITHA SNOWDEN [facility] Start: 02-01-2023 End: 02-02-2023 ambulatory Mercy Vincent MD Facility:[facility] Start: 01-25-2023 End: 01-26-2023 [facility] Start: 01-18-2023 End: 01-18-2023 ambulatory Smitha Snowden Other [facility] Other Start: 01-18-2023 Office outpatient visit 25 minutes Smitha Snowden [facility] Start: 01-18-2023 Telephone encounter Smitha Sp [facility] Start: 01-08-2023 End: 01-08-2023 ambulatory Smitha Snowden Other [facility] Other Start: 01-08-2023 Telephone encounter Smitha Sp [facility] Start: 12-29-2022 End: 12-30-2022 ambulatory [facility] SNOWDEN [facility] Start: 12-02-2022 [facility]ulatory [facility] Start: 11-23-2022 End: 11-23-2022 ambulatory [facility]A SNOWDEN [facility] Start: 11-23-2022 End: 11-24-2022 ambulatory SMITHA SONWDEN Facility: Start: 11-09-2022 End: 11-09-2022 ambulatory SMITHA SNOWDEN [facility] Start: 11-09-2022 End: 11-09-2022 Subsequent hospital visit by physician Kathi Her DO Work Phone: [facility] Start: 03-08-2019 End: 03-10-2019 Subsequent hospital visit by physician Nikos Hansen Dr Room 2 [facility] Comment on above: Acute medial menisca l tear, left, subsequent encounter Start: 10-05-2018 End: 10-05-2018 Patient encounter procedure Julius Carson Facility:[facility] Procedures Date Procedure Procedure Detail Performing Clinician Start: 11-23-2022 PSA screening SMITHA MATOS Comment on above: Performed By: #### P [facility] #### [facility] [address] [place] [address] Dr. Micheline Ventura Start: 03-08-2019 Radiologic exam ches t 2 views Trever Crystal Work Phone: Start: 03-08-2019 Ecg routine ecg w/le ast 12 lds w/i&r Trever Crystal Work Phone: Start: 03-08-2019 Basic metabolic pane l calcium total Trever Crystal Work Phone: Start: 03-08-2019 Blood count complete auto&auto difrntl wbc Trever Crystal Work Phone: Cataract (disorder) Abdi MCINTOSH Colonoscopy Abdi MCINTOSH Tonsillectomy Abdi MCINTOSH Plan of Treatment Date Care Activity Detail Author Start: 02-16-2023 Influenza vaccination Flu vacc ine (Season Ended) [facility] Start: 11-09-2022 End: 11-09-2022 Xcapsl ctrc rmvl insj io lens prosth w/o ecp EYE CATARACT EMULSIFICATION IOL IMPLANT Nuclear sclerotic cataract of both eyes 11/09/2022 10:05 AM EDT [facility] Start: 03-19-2019 Influenza vaccination Flu vaccine (# 1) [place] Start: 01-15-2016 Abdominal aortic aneurysm screening AAA screen [facility] Start: 01-15-2016 Pneumococcal 65+ yea rs Vaccine (1 - PCV) Pneumococcal 65+ years Vaccine (1 - PCV) [facility] Start: 01-15-2016 Pneumococcal 65+ yea rs Vaccine (1 of 2 - PCV13) Pneumococcal 65+ years Vaccine (1 of 2 - PCV13) [place] Start: 2001 Colon cancer screen colonoscopy Colon cancer screen colonoscopy [place], [place] Start: 2001 Shingles Vaccine (1 of 2) Shingles Vaccine (1 of 2) [facility] Start: 01-15-1996 Screening for malign ant neoplasm of colon [facility] Start: 1991 Lipid panel Lipids [facility] Start: 1991 Lipid screen Lipid screen [place], [place] Start: 1970 DTaP/Tdap/Td vaccine (1 - Tdap) DTaP/Tdap/Td vaccine (1 - Tdap) [facility] Start: 1969 Hepatitis C screening Hepatitis C sc reen [facility] Start: 1963 Depression Screen Depression Screen [facility] Start: 1950 COVID-19 Vaccine (#1) COVID-19 Vacci ne (#1) [facility] Start: 1950 AAA screen AAA screen [place], [place] Start: 1950 Hepatitis C screen Hepatitis C scree n [place] EKG 12 Lead EKG 12 Lead ECG Routine 03/08/2019 9:20 AM EDT [place] Oxygen therapy [[facility] Data Set] Initiate Oxygen Therapy Protocol Respiratory Care Routine Daily until discontinued starting 11/09/2022 [facility] Work Phone: Comment on above: Daily until disconti nued starting 11/09/2022 Immunizations Immunization Date Immunization Notes Care Provider Jitendra sargent 06-24-2023 influenza virus vacc ine, unspecified formulation [facility] 05-11-2022 influenza virus vacc ine, unspecified formulation [facility] 03-11-2022 zoster vaccine recombinant [facility] 12-25-2021 zoster vaccine recombinant [facility] 07-24-2021 influenza virus vacc ine, unspecified formulation [facility] 07-24-2021 pneumococcal conjuga te vaccine, 13 valent [facility] 07-03-2021 SARS-CoV-2 (COVID-19 ) mRNA-1273 vaccine Abdi MCINTOSH [facility] 10-16-2020 SARS-CoV-2 (COVID-19 ) mRNA-1273 vaccine Abdi MCINTOSH [facility] 09-17-2020 SARS-CoV-2 (COVID-19 ) mRNA-1273 vaccine Abdi MCINTOSH [facility] Comment on above: Result Comment: 2022: [id number] 06-08-2019 tetanus toxoid, redu triston diphtheria toxoid, and acellular pertussis vaccine, adsorbed Abdi MCINOTSH [facility] 04-24-2019 influenza virus vacc ine, unspecified formulation [facility] 05-13-2018 influenza virus vacc ine, unspecified formulation [facility] 05-13-2018 pneumococcal polysaccharide vaccine, 23 valent Abdi [facility] [facility] 04-22-2017 influenza virus vacc ine, unspecified formulation [facility] 04-22-2017 pneumococcal conjuga te vaccine, 13 valent Abdi MCINTOSH [facility] 04-25-2016 influenza virus vacc ine, unspecified formulation [facility] 05-05-2014 influenza virus vacc ine, unspecified formulation [facility] 05-18-2013 influenza virus vacc ine, unspecified formulation Abdi MCINTOSH [facility] Payers Date Payer Category Payer Medicare 2022 Unknown 2018 Medicare [id number] 2018 Self-pay 2018 Medicare MEDICARE MEDICAR E PART A AND B xxxxxxxxxxx 2018-Present [phone] [place] [address] xxxxxxxxxxx [id number] 2018 Unknown GENERIC COMMERCI AL GENERIC COMMERCIAL xxxxxxxxxx 2018-Present Indemnity xxxxxxxxxx [id number] 1959 Medicare [id number] 1959 Unknown [id number] 1951 Unknown [id number] 1951 Unknown [id number] [id number] 1951 Unknown [id number] 2.16.840.1.305025.3.579.2.196 1951 Unknown [id number] 2.16.840.1.570163.3.579.2.196 1951 Unknown [id number] 2.16.840.1.845124.3.579.2.196 1951 Unknown [id number] 2.16.840.1.588506.3.579.2.173 1951 Unknown [id number] 2.16.840.1.423064.3.579.2.173 1951 Unknown [id number] 2.16.840.1.944281.3.579.2.173 1951 Unknown [id number] 2.16.840.1.755878.3.579.2.173 1951 Unknown [id number] 2.16.840.1.118362.3.579.2.173 1951 Unknown [id number] 2.16.840.1.818511.3.579.2.727 1951 Unknown [id number] 2.16.840.1.588212.3.579.2.727 1951 Unknown [id number] 2.16.840.1.025896.3.579.2.727 1951 Unknown [id number] 2.16.840.1.878495.3.579.2.727 Unknown [id number] Social History Date Type Detail Facility Start: 01-13-2014 End: 06-28-2023 Tobacco smoking status NHIS Former smoker [place], [place] Start: 1950 Sex Assigned At Not on file [place] History of tobacco use Current smoker [employer] Phone: Start: 11-09-2022 Alcohol intake Current drinke r of alcohol (finding) [facility]: Start: 11-09-2022 Alcohol intake [facility] [email or web address] Phone: Start: 11-09-2022 Alcohol Comment daily GRZEGORZ [employer] [facility] [email or web address] Phone: Start: 10-30-2022 End: 11-09-2022 Exposure to SARS-CoV-2 (event) Not sure [employer] Phone: Sex Assigned At [facility] Tobacco smoking status Never [facility] Medical Equipment Procedure Code Equipment Code Equipment Origin al Text Equipment Identifier Dates Lens Intraocular Bcnvx 22+ Diopt 6x12.5 Mm Acryl Envista - [id number] Start: 11-09-2022 Functional Status Date Assessment Result Facility 06-28-2023 Functional Status N/A [facility] Clinical Notes 10-23-2022 to 08-25-2023 Note Date & Type Note Facility 08-25-2023 Evaluation note Encounter Date Diagnosis Assessment Notes Aug, Colon cancer screening (ICD-10 - Z12.11) [facility] Other 12-13-2023 Evaluation note* Encounter Date Diagnosis Assessment Notes Treatment Notes Treatment Clinical Notes Jun, Acute non-recurrent maxillary sinusitis (ICD-10 - J01.00) Sinus infections can be triggered by a secondary infection from a viral URI or even seasonal allergies. Take medications as directed. Use saline nasal spray prior to presciption nasal spray. Take medications as directed, and complete all doses of medication even if you start to feel better. Patient advised to follow up with PCP if symptoms persist or worsen. Patient verbalized understanding and agreement with treatment plan. [facility] Other 12-11-2023 Hospital Discharge instructions Patient Education 06/28/2023 11:53:30 Testicular Self-Exam Testicular Self-Exam A self-examination of your testicles (testicular self-exam) involves looking at and feeling your testicles for abnormal lumps or swelling. Several things can cause swelling, lumps, or pain in your testicles. Some of these causes are: Injuries. Inflammation. Infection. Buildup of fluids around the testicle (hydrocele). Twisted testicles (testicular torsion). Testicular cancer. You may be at risk for testicular cancer if you have: ?An undescended testicle (cryptorchidism). ?A history of previous testicular cancer. ?A family history of testicular cancer. General tips and recommendations The testicles are easiest to examine after a warm bath or shower. They are more difficult to examine when you are cold because the muscles attached to the testicles retract and pull them up higher orinto the abdomen. A normal testicle is egg-shaped and feels firm. It is smooth and not tender. It is normal to feel a firm, spaghetti-like cord at the back of your testicle. This is the spermatic cord. How to do a testicular self-exam 1.Stand and hold your penis away from your body. 2.Look at each testicle to check for changes in appearance, such as swelling or changes in size or shape. 3.Roll each testicle between your thumb and forefinger, feeling the entire testicle. Feel for: Lumps. Swelling. Discomfort. 4.Check the groin area between your abdomen and upper thighs on both sides of your body. Look and feel for any swelling or bumps that are tender. These could be enlarged lymph nodes. Contact a health care provider if: You find any bumps or lumps, such as a small, hard, pea-sized lump. You find swelling, pain, or soreness. You see or feel any other changes in your testicles. Summary A self-examination of your testicles (testicular self-exam) involves looking at and feeling your testicles for any changes. Check each of your testicles for lumps, swelling, or discomfort. These changes can be caused by many things. Check for swelling or tender bumps in your groin area between your lower abdomen and upper thighs. This information is not intended to replace advice given to you by your health care provider. Make sure you discuss any questions you have with your health care provider. Document Revised: 06/10/2020 Document Reviewed: 06/10/2020 [employer] Patient Education 2022 [employer] 06/28/2023 11:53:29 Spermatocele Spermatocele A spermatocele is a fluid-filled sac (cyst) inside the sac that holds the testicles (scrotum). Thistype of cyst often forms in the epididymis. The epididymis is a coiled tube at the top of each testicle, and this tube is where sperm are stored. The cyst sometimes forms along a tube called the vas deferens, which is a tube that carries sperm away from the epididymis. Spermatoceles are usually painless. Most cysts are small, but they can grow larger. Spermatoceles are not cancerous (are benign). What are the causes? The cause of this condition is not known. However, this condition usually results from a blockage in one of the many small tubes (tubules) that carry sperm from your testicle to your vas deferens. What are the signs or symptoms? In most cases, small cysts do not cause symptoms. However, symptoms sometimes occur. Symptoms of this condition include: Dull pain. A feeling of heaviness. An enlarged scrotum, if your cyst is large. How is this diagnosed? This condition is diagnosed based on a physical exam. You or your health care provider may notice your cyst when feeling your scrotum. Your health care provider may shine a light through (transilluminate) your scrotum to see if light will pass through your cyst. You may have an ultrasound of the scrotum to rule out a tumor. How is this treated? Small spermatoceles do not need to be treated. If your spermatocele has grown large or is uncomfortable, your health care provider may recommend surgery to remove it. Follow these instructions at home: Check your spermatocele regularly for any changes. Do regular self-exams of your scrotum. Keep all follow-up visits. This is important. Contact a health care provider if: Your spermatocele gets larger. You have pain in your scrotum. Your spermatocele comes back after treatment. Get help right away if: You experience severe pain and redness of your scrotum. Summary A spermatocele is a fluid-filled sac, or a cyst, inside the sac that holds the testicles (scrotum).This condition is usually painless, and it is not cancerous (is benign). Your health care provider may recommend surgery to remove your spermatocele if it grows large or isuncomfortable. If you have a spermatocele, check for any changes and do self-exams of your scrotum. Keep all follow-up visits. This is important. This information is not intended to replace advice given to you by your health care provider. Make sure you discuss any questions you have with your health care provider. Document Revised: 02/23/2022 Document Reviewed: 02/23/2022 [employer] Patient Education 2022 [employer]. Follow Up Care 03/29/2023 12:07:33 With:KEHINDE CRUZ, Abdi Santana, URL Address: [facility] [address], [place] [address]- When:Within 6 Month(s) Comments:w/PSA [facility] [place] 10-23-2023 Evaluation note* Encounter Date Diagnosis Assessment Notes Treatment Notes Treatment Clinical Notes Apr, MEHDI (obstructive sleep apnea) (ICD-10 - G47.33) Discussed MEHDI in detail today. Discussed contributing factors and how we can make lifestyle changes to improve outcomes. Discussed sleep studies as well as sleep medicine referral. Discussed CPAP and equipment briefly today. Discussed the countless benefits that can be had with CPAP use. [facility] Other 09-11-2023 NoteChief Complaint Referral HPI Staff New Pt. Referral per Smitha Snowden due to BPH. Never been seen before seen in our office. PSA 2.45 done 11/23/22, 1.70 done 07/09/22 Dysuria: denies pain or burning Incomplete bladder emptying: sometimes Hematuria: denies Frequency: more frequent in the morning vs the rest of the day Urgency: mild intermittent Nocturia: 2x a night Stream: denies hesitancy, yes weak stream, denies start/stop stream Leaking: denies Post void dripping: denies Wearing pads/ Depends: denies Urge incontinence: denies Stress incontinence: denies Incontinence without Sensory Awareness: denies Abdominal pain: denies Flank pain: denies Sexual complaints: denies History of Present Illness Tests reviewed: reviewed UA and External Records I have reviewed the previous health record information and history for this patient from External Provider. I have reviewed and verified the staff HPI to be accurate for this encounter. There have been no associated fever, chills, flank pain, or blood in the urine. Denies any urinary infections since last encounter. Review of Systems PHQ Score Initial Depression Screen Score: 0 ROS - Provider Constitutional: denies weight loss, denies hot flashes. Eyes: denies eye problems. Gastrointestinal: denies nausea, denies vomiting. Cardiovascular: denies chest pain or angina. Integumentary: no dryness Musculoskeletal: denies musculoskeletal symptoms. ENMT: denies otolaryngeal symptoms. Respiratory: no shortness of breath. Heme/Lymph: denies easy bleeding tendency, denies easy bruising tendency. Psychiatric: no confusion, no anxiety. Genitourinary: See HPI. Physical Exam Vitals & Measurements HR: 76(Peripheral) BP: 128/79 HT: 69 in HT: 175 cm WT: 78.2 kg WT: 172.04 lb BMI: 25.53 General Appearance: alert, no distress, well nourished, well developed male. Head: normocephalic . Eyes: normal orbit and globe. ENMT: normal examination of external ears. Chest: Lungs CTA, respirations non labored. Cardiovascular: regular rate and rhythm. Abdomen: soft, non distended, no tenderness, no mass or organomegaly, no hernia. Genitourinary: normal scrotum, normal testes, normal urethra, normal epididymis, 2cm spermatocele on the LT, normal vas deferens/spermatic cord. Flank Pain: none. Bladder: nonpalpable. Penis: normal shaft, normal glans. Prostate: normal prostate, estimated weight 35 gms, no hard nodule observed. Lymph Nodes: unremarkable palpation of the cervical area. Skin: warm, dry, no bruising. Psychiatric: cooperative, affect appropriate for age, normal judgement, euthymic mood. Assessment/Plan 1. BPH with urinary obstruction (N40.1: Benign prostatic hyperplasia with lower urinary tract symptoms) PSA 07/09/22 - 1.70 11/23/22 - 2.45 LOLITA: 35gms. Advised pt that his PSA is in the normal range, has increased slightly. Pt states that he gets up about 2-3x a night, normally gets leg cramps. Pt denies fam hx of prostate cancer. Pt states that his stream has gotten weak and he feels he does not empty completely due to having frequency. Discussed starting a new med to help with sxs. Pt inquired if sitting to void would help him empty better, advised pt that this is not the case. Will continue to monitor. -Will start Tamsulosin 0.4mg QD. Discussed the medication side effects, and the patient will monitor closely for these, as well as for symptom improvement. If severe side effects occur, the medication should be stopped and the office notified. 2. Former smoker (Z87.891: Personal history of nicotine dependence) Quit in 2012, Smoked 1 PPD. 3. Spermatocele (N43.40: Spermatocele of epididymis, unspecified) Found on PE today, on the Lt epididymis. Discussed getting a scrotal US done. -Will order Scrotal US. Follow up in 3 mos w/Scrotal US. All questions/concerns were discussed. Pt to call the office if heencounters any issues prior. Pt acknowledges understanding. Follow-up With When Contact Information KEHINDE CRUZ, Abdi R, URL In 3 months [facility] [address], [place] [address] [phone] Additional Instructions: w/Scrotal US Patient Education Benign Prostatic Hyperplasia I, Alexa Cronin , personally scribed for Dr. Mcintosh on 03/29/2023 12:01:28. . Documentation recorded by the scribe, Alexa Cronin, accurately reflects the services(s) I performed and decisions made by me. Problem List/Past Medical History Ongoing Depression Former smoker Spermatocele Historical No qualifying data Procedure/Surgical History Cataract, Colonoscopy, Tonsillectomy. Medications Multi Vitamin+ Wellbutrin SR 150 mg Tab-ER, 150 mg= 1 tab(s), Oral, BID Allergies No Known Medication Allergies Social History Tobacco Never (less than 100 in lifetime), Former smoker, quit more than 30 days ago Tobacco Use:. Never Smokeless Tobacco Use:. (more content not included)...[facility]Result Comment: Electronically Signed By: Abdi MCINTOSH MD\.br\Date and Time Signed: 03/29/23 12:08 EDT\.br\Electronically Co-Signed By: Alexa Cronin\.br\Date and Time Co- Signed: 03/29/23 12:01 [id number] Evaluation note* Encounter Date Diagnosis Assessment Notes Treatment Notes Treatment Clinical Notes Jan, Lumbago of lumbar region with sciatica (ICD-10 - M54.40) Pt agrees to pain med for short term and will get xray today. Will call w xray result patito Jan, Right hip pain (ICD-10 - M25.551) as above Jan, MEHDI (obstructive sleep apnea) (ICD-10 - G47.33) Discussed moderately + sleep test. He declines followup on this at [facility] at this time. Jan, Itching (ICD-10 - L29.9) Requests decreased dose of med. Educated him that it would make him tired. [facility] Other 07-03-2023 Evaluation note* Encounter Date Diagnosis Assessment Notes Treatment Notes Treatment Clinical Notes Jan, Lumbar pain (ICD-10 - M54.50) Jan, Right hip pain (ICD-10 - M25.551) [facility] Other 04-24-2023 Hospital Discharge instructions* Discharge Instructions* Kathi Braulio Francisco Javier, - 11/09/2022 10:35 AM EDT SAME DAY SURGERY DISCHARGE INSTRUCTIONS 1. Do not drive or operate hazardous machinery for 24 hours. 2. Do not make important personal or business decisions for 24 hours. 3. Do not drink alcoholic beverages for 24 hours. 4. Do not smoke tobacco products for 24 hours. 5. Limit your activities for 24 hours. Do not engage in heavy work until your surgeon gives you permission. 6. Patient should not be left alone for 12-24 hours following surgical procedure. 7. Wash hands before and after incision care. It is important to practice good personal hygiene during the post op period. 8. Report the following signs or any questions regarding your physical condition to your surgeon immediately: Excessive swelling of, or around the wound area. Redness. Temperature of 100 degrees (F) or above. Excessive pain. 9. Call your surgeon for any questions regarding your surgery. CATARACT DISCHARGE INSTRUCTIONS Do not remove eye patch/shield today. Protect the operated eye during sleep by covering it with clear plastic shield. Tape the shield securely to the face before retiring . Do this for one week after surgery. Avoid bumping the operated eye during the daytime. Sensitivity to light and watering of the eye is normal during the first month. Wearing of dark glasses will help these symptoms and this is optional. Minor crusting and discharge adherent to the lid margins will persist till the incision heals. Cleanse the lids by application of a warm compress several times a day as needed. Use of either the operated eye or unoperated eye is not harmful. Until the new glasses are prescribed, the operated eye may be out of focus and may not see details clearly. Vision maybe clearer in the operated eye without glasses. You may do everything necessary to care for yourself, including hair care, tooth brushing, dressing, etc. Light work,including stooping over and lifting, is not harmful. Please phone if any problems arise during the healing period. The office number is [phone]. Take surgery bag and all eye drops to Dr. Her's office tomorrow at 9:05am. You may resume your normal diet. Start your eye drops tomorrow after your post-op appointment: Ofloxacin/Polytrim one drop to the operated eye 4 times daily Prednisolone one drop to the operated eye 4 times daily [facility] [employer] Phone: [phone]) [phone] History of Present illness Narrative* Lori Weir RN - 10/23/2022 1:14 PM EDT Patient received NPO instructions and pre-op medication instructions to be taken on the day of the procedure with a small sip of water. Pt was also given pre-op eye drop instructions from Dr. Bouchersoffice. Instructed pt to take wellbutrin with a small sip of water prior to arriving to the hospital the day of surgery. Instructed pt to avoid smoking marijuana within 5 days of surgery. 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 documented in this encounter [facility] [employer] Phone: [email or web address] noteNo InformationNort [employer] Other History general Narrative - Reported* Type Description Date Medical History Essential (primary) hypertension Medical History Borderline low oxygen saturation level Medical History Low back pain, unspecified Medical History Atopic dermatitis Medical History Insomnia, persistent Medical History Family history of malignant neop lasm of breast Surgical History KNEE ARTHROSCOPY X2 Surgical History CATARACT SURGERY Hospitalization History SEE SURGICAL HX [facility] Other Hospital course Narrative No data available for this section [facility] progress note No data available for this section [facility] Summary Purpose Family History No Family History Records FoundNo Family History Records FoundNo Family History Records FoundNo Family History Records Found No data available for this section No Family History Records Found Advance Directives Documents on File Type Date Recorded 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 Thanks Diagnosis 1 Lumbar pain (M54.50) Referral Organization [facility] von Referring Provider First Name Smitha Referring Provider Last Name Sp Referring Provider Specialty Family [facility] Referred Organization [facility] Referred Address [address] [place], [place],[address] Referred Provider Specialty Pain Medicin e Referral Priority Routine Referral Appointment Date 2023-01-25 General Notes Jessica Mason 06:43:12 AM >received today, attachments made, referral faxed Jessica Mason 01/20/2023 03:44:38 PM >received fax with appt date Clinical Notes F: [id number] Additional Source Comments (unrecognized sect ion and content) No Status Records FoundNo Status Records FoundNo Status Records FoundNo Status Records FoundNo Status Records Found INFORMATION SOURCE (unrecogn ized section and content) DATE CREATED AUTHOR 10/20/2018 [facility] DATE CREATED AUTHOR AUTHOR'S ORGANIZ ATION 11/27/2022 [facility] DATE CREATED AUTHOR AUTHOR'S ORGANIZ ATION 03/11/2023 [facility] DATE CREATED AUTHOR AUTHOR'S ORGANIZ ATION 04/20/2023 [facility] DATE CREATED AUTHOR AUTHOR'S ORGANIZ ATION 07/04/2023 [facility] Reason for Visit (unrecogniz ed section and content) message Specialty Diagnoses / Procedures Referred By Rasheed funes Referred To Contact Diagnoses Nuclear sclerotic cataract of both eyes AGE RELATED NUCLEAR CAT 2+NS Procedures ID XCAPSL CTRC RMVL INSJ IO LENS PROSTH W/O ECP EYE CATARACT EMULSIFICATION IOL IMPLANT Kathi Her, DO [address] [place] [address] [facility] [address] [place] [address] Referral ID Status Reason Start Date Expiration Date Visits Re quested Visits Authorized [id number] 1 1 Scheduled Active and Recently Administ ered Medications (unrecognized section and content) Medication Order 11/07/2022 11/08/2022 11/09/2022 phenylephrine (MYDFRIN) 2.5 % ophthalmic solution 1 drop 1 drop, Left Eye, SEE ADMIN INSTRUCTIONS, 5 doses, Starting on Wed11/09/22 at 0844, Until Discontinued, To operative eye(s) for 3-5 doses every 5 minutes, starting 30 minutes prior to surgery until dilated, h - enter number of doses based on parameters defined by the physician in the admin. comments., Pre-op (day of surgery) 09 (Given - Provid er: Justina Gardner RN)09 (Given - Provider: Justina Gardner RN)0914 (Given - Provider: Justina Gardner RN) proparacaine (ALCAINE) 0.5 % ophthalmic solution 1 drop 1 drop, Left Eye, SEE ADMIN INSTRUCTIONS, Starting on Wed11/09/22 at 0844, Until Discontinued, Into the operative eye(s) every 5 minutes for PRN doses starting 30 minutes prior to surgery., Pre-op (day of surgery) 0901 (Given - Provid er: Justina Gardner RN)0907 (Given - Provider: Justina Gardner RN)0914 (Given - Provider: Justina Gradner RN) sodium chloride flush 0.9 % injection 5-40 mL 5-40 mL, IntraVENous, EVERY 12 HOURS SCHEDULED (2 times per day), First dose on Wed11/09/22 at 0900, Until Discontinued, For Line Patency: Peripheral IV = 5 mL; Midline or Central Line = 10 mL/lumen. If following IV push medication, administer flush at same rate as the IV push. Flush volume is determined by type of infusion therapy being given. For non-viscous solutions use: Peripheral IV = 5 mL Midline or Central Line = 10 mL/lumen For viscous solutions (i.e. blood components, parenteral nutrition, contrast media, or after obtaining blood sample) use: Peripheral IV = 10 mL Midline or Central Line = 20 mL/lumen, Pre-op (day of surgery) 0900 (Due)2100 (Due) tetracaine (TETRAVISC) 0.5 % ophthalmic solution 1 drop 1 drop, Left Eye, SEE ADMIN INSTRUCTIONS, Starting on Wed11/09/22 at 0844, Until Discontinued, Into the operative eye(s) every 5 minutes for PRN doses starting 30 minutes prior to surgery., Pre-op (day of surgery) tropicamide (MYDRIACYL) 1 % ophthalmic solution 1 drop 1 drop, Left Eye, SEE ADMIN INSTRUCTIONS, 5 doses, Starting on Wed11/09/22 at 0844, Until Discontinued, To operative eye(s) for 3-5 doses every 5 minutes, starting 30 minutes prior to surgery until dilated, RPh - enter number of doses based on parameters defined by the physician in the admin. comments., Pre-op (day of surgery) 0901 (Given - Provid er: Justina Gardner RN)0907 (Given - Provider: Justina Gardner RN)0914 (Given - Provider: Justina Gradner RN) Continuous Medication Order 11/07/2022 11/08/2022 11/09/2022 0.9 % sodium chloride infusion IntraVENous, at 125 mL/hr, CONTINUOUS, Starting on Wed11/09/22 at 0900, Pre-op (day of surgery) 0900 (Due) lactated ringers IV soln infusion IntraVENous, at 100 mL/hr, CONTINUOUS, Starting on Wed11/09/22 at 0900, Pre-op (day of surgery) 0913 (New Bag - Prov ider: Justina Gardner RN)1004 (NoRateChange - Provider: SHANA Tracey CELLO TEACHER)1036 (Rate/Dose Change - Provider: Eden L Adrien, BOX PULLER - CELLO TEACHER)1100 (Stopped - Provider: Rosy Shearer RN) PRN Medication Order 11/07/2022 11/08/2022 11/09/2022 0.9 % sodium chloride infusion IntraVENous, at 5-250 mL/hr, PRN, if patient receiving piggyback infusions and maintenance fluids are not ordered OR KVO fluids to protect IV site / prevent frequent line interruptions/ long duration, Starting on Wed11/09/22 at 0844, For piggyback infusion, administer at same rate as piggyback for a total of 25 mL. Enter 25 mL into dose field and piggyback rate into rate field of order. If piggyback is infusing at a rate less than 100 mL/hr, enter 25 mL into dose field and 100 mL/hr into rate field of order. For KVO fluids, enter rate of 20 mL/hr or less into rate field of order., Pre-op (day of surgery) balanced salts (BSS) 500 mL, EPINEPHrine (EPINEPHrine HCL) 1 mg/mL 0.5 mg (CANCELED) PRN, Starting on Wed11/09/22 at 1017, Intra-op 1017 (Given - Provid er: Kathi Her DO) lidocaine PF 1 % injection (CANCELED) PRN, Starting on Wed11/09/22 at 1017, Until Wed11/09/22 at 1035, Intra-op 1017 (Given - Provid er: Kathi Her DO) sodium chloride flush 0.9 % injection 5-40 mL 5-40 mL, IntraVENous, PRN, Starting on Wed11/09/22 at 0844, Until Discontinued, Line Care, After every IV line use, For Line Patency: Peripheral IV = 5 mL; Midline or Central Line = 10 mL/lumen. If following IV push medication, administer flush at same rate as the IV push. Flush volume is determined by type of infusion therapy being given. For non-viscous solutions use: Peripheral IV = 5 mL Midline or Central Line = 10 mL/lumen For viscous solutions (i.e. blood components, parenteral nutrition, contrast media, or after obtaining blood sample) use: Peripheral IV = 10 mL Midline or Central Line = 20 mL/lumen, Pre-op (day of surgery) tetracaine (TETRAVISC) 0.5 % ophthalmic solution (CANCELED) PRN, Starting on Wed11/09/22 at 1018, Until Wed11/09/22 at 1035, Intra-op 1018 (Given - Provid er: Kathi Her DO) Care Teams (unrecognized sec tion and content) Data Modeling Specialist Relationship Specialty Start Date End Date Smitha Snowden MD [address] [place], [place] [id number] PCP - General 01/13/14 FOR RECORDS PERTAINING TO PATIENTS WHO ARE OR HAVE BEEN ENROLLED IN A CHEMICAL DEPENDENCY/SUBSTANCEABUSE PROGRAM, SOME INFORMATION MAY BE OMITTED. This clinical summary was aggregated from multiple sources. Caution should be exercised in using it in the provision of clinical care. This summary normalizes information from multiple sources, and as a consequence, information in this document may materially change the coding, format and clinical context of patient data. In addition, data may be omitted in some cases. CLINICAL DECISIONS SHOULD BE BASED ON THE PRIMARY CLINICAL RECORDS. [employer] provides no warranty or guarantee of the accuracy or completeness of information in this document.
== END 2023-10-07 10:02 | disposition home or self-care (01) ==
LOC: PM 10:01
PROVIDERS: PCP Family Medicine; Visit Provider Nurse Practitioner
DX: M47.816 Spondylosis without myelopathy or radiculopathy, lumbar region (principal); M48.062 Spinal stenosis, lumbar region with neurogenic claudication; M53.3 Sacrococcygeal disorders, not elsewhere classified
CPT/HCPCS: G0463

== ENCOUNTER 2023-10-13 10:49 | Outpatient (OUT) | payer MEDICARE, SELFPAY ==
--- NOTE | 2023-10-13 10:51 | US_ITS ---
[address] [address] Patient Name: JORDON JOHNSTON MRN: [id number] date: 1950 Sex: M Assigned Patient Location: Current Patient Location: US Accession/Order Number: [id number] Exam Date: 10/13/2023 10:55 Report Date: 10/13/2023 13:15 At the request of: YVES SNOWDEN Procedure: US carotid duplex BI EXAMINATION: US carotid duplex BI HISTORY: Carotid Bruit R09.89 COMPARISON: No relevant comparison available. TECHNIQUE: Duplex Doppler ultrasound analysis of carotid and vertebral arteries. . Bilateral carotid arterial duplex examination was performed using B-mode, color flow and spectral analysis. Carotid stenosis is reported according to validated velocity parameters, similar to NASCET criteria. FINDINGS: RIGHT CAROTID ARTERY: No visible stenosis or significant plaque. RIGHT VERTEBRAL: Antegrade flow. Subclavian: PSV: 169.3 cm/s EDV: 0.0 cm/s CCA: Prox: PSV: 104.3 cm/s EDV: 23.0 cm/s Mid: PSV: 92.6 cm/s EDV: 18.3 cm/s Distal: PSV: 85.7 cm/s EDV: 16.0 cm/s BULB: PSV: 65.9 cm/s EDV: 10.2 cm/s ICA: Prox: PSV: 55.5 cm/s EDV: 12.8 cm/s Mid: PSV: 60.7 cm/s EDV: 18.0 cm/s Distal: PSV: 76.2 cm/s EDV: 20.6 cm/s ECA: PSV: 68.5 cm/s EDV: 11.5 cm/s VERTEBRAL: PSV: 38.7 cm/s EDV: 10.2 cm/s ICA/CCA ratio: PSV: 0.7 EDV: 0.9 LEFT CAROTID ARTERY: Moderate atherosclerotic disease of the bulb and ICA with 68% area reduction of proximal ICA. LEFT VERTEBRAL: Antegrade flow. Subclavian: PSV: 120.0 cm/s EDV: 0.0 cm/s CCA: Prox: PSV: 129.9 cm/s EDV: 21.5 cm/s Mid: PSV: 74.7 cm/s EDV: 17.5 cm/s Distal: PSV: 64.4 cm/s EDV: 14.4 cm/s BULB: PSV: 66.1 cm/s EDV: 12.8 cm/s ICA: Prox: PSV: 83.8 cm/s EDV: 22.4 cm/s Mid: PSV: 52.6 cm/s EDV: 19.7 cm/s Distal: PSV: 66.9 cm/s EDV: 19.7 cm/s ECA: PSV: 95.1 cm/s EDV: 12.8 cm/s VERTEBRAL: PSV: 36.5 cm/s EDV: 10.4 cm/s ICA/CCA ratio: PSV: 0.6 EDV: 1.0 US/US carotid duplex BI IMPRESSION: 1. 0-49% flow stenosis within the right and left carotid arteries. 2. 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 Spectral Doppler US Thresholds Stenosis (%) PSV (cm/sec) VICA/VCCA 0-49 <150 <2.5 50-69 150-225 2.5-4.0 >70 >225 >4.0 Electronically authenticated by: CINDY DUCKWORTH Date: 10/13/2023 13:15
--- OUTSIDE RECORDS SUMMARY | 2023-10-13 11:10 | XMS_ITS | CCD ---
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 Name Role Phone Julius Carson Admitting Unavailable [...] Care Physician Abdi MCINTOSH Attending Unavailable SMITHA SNWODEN Referring Unavailable Abdi MCINTOSH Attending Unavailable Abdi MCINTOSH Attending Unavailable Allergies Allergy Classification Reported Allergen(s) Allergy Type Date of Onset Reaction(s) Facility (7 sources) Acetaminophen / oxyCODONE Drug Allergy itching [facility] Other (1 source) No Known Medication Allergies; Translations: [No Known Medication Allergies] Propensity to adverse reactions (disorder) [facility] Repository Medications Current Medications Medication Drug Class(es) [...] Daily, # 30 cap(s), Refills(s) 11, Pharmacy: [facility] [id number], 175, cm, 03/29/23 11:17:00 EDT, Height/Length Dosing, [...] Urnls Dip Stick Auto w/o Microscopy POC [id number] Your Care Team Attending Physician - KEHINDE [...] CRUZ, Abdi Santana Where: [facility] Zahira Normal [facility] Patient Educationon 06-28-20 Patient Education Urology Testicular [...] provider. Document Revised: 06/10/2020 Document Reviewed: 06/10/2020 [employer] Patient Education ? 2022 [employer]. Spermatocele A spermatocele is a fluid-filled sac [...] you b (more content not included)... Normal [facility] Urology Office/Clinic Noteon 06-28-2023 Urology Office/Clinic Note [...] [facility] [address], [place] [address]- Additional Instructions: w/PSA Patient Education Testicular Self-Exam [...] Mother. Immunizat (more content not included)... Normal [facility] Comment on above: Result Comment: Elec tronically [...] Abdi MCINTOSH MD Where: [facility] RAD - Ultrasound Reporton RAD - Ultrasound Report [id number]: 127 [facility] Lab Reportson 03-30-2023 Lab Reports [id number]:1 27 Normal [facility] Lab Reports [id number]: 127 [facility] Ambulatory Visit Summaryon 0 - Ambulatory Visit Summary MERLIN JOHNSTON :1950 Visit Date:03/29/2023 Ambulatory Visit Instructions Your Diagnosis BPH with urinary obstruction Former smoker Spermatocele Tests Performed US Scrotum (Contents) -- Results Pending -- Please visit your patient portal for your results or contact your primary care physician. Your Care Team Attending Physician - KEHINDE CRUZ, Abdi Santana Primary Care Physician - SMITHA SNOWDEN MD Referring Physician - SMITHA SNOWDEN MD [...] [facility] [address], [place] [address] [id number] Medications What How Much When Instructions Unchanged [...] at the (more content not included)... Normal [facility] Formson 03-29-2023 Forms [id number]: 127 Normal [facility] Patient Educationon 03-29-20 23 Patient Education Urology [...] Follow these instructions at home: ? Take agvy-fgi-ljgeokr and prescription medicines only as told by [...] the medicine (more content not included)... Normal [facility] Basic Metabolic Profon 02-10 Anion gap [Moles/Vol] 16 mmol/L Normal 9-17 [facility] Comment on above: Performed By: #### C DINORA RICE, TROPI #### Lab [address] [place] [address] Health And Safety Instructor: Ming Costello MD BUN/CRE Ratio 15 Normal - [facility] Comment on above: Performed By: #### C DINORA RICE, TROPI #### Lab [address] [place], [place] [address]83 Health And Safety Instructor: Ming Costello MD Calcium [Mass/Vol] 9.3 mg/dL Normal 8.6-10.4 [facility] Comment on above: Performed By: #### C DP, BMP, TROPI #### Lab [address] [place], [place] 1299383 Health And Safety Instructor: Ming Costello MD Chloride [Moles/Vol] 93 mmol/L Low 98-107 [facility] Comment on above: Performed By: #### C DP, BMP, TROPI #### Lab [address] [place], [place] 829[address]83 Health And Safety Instructor: Ming Costello MD CO2 [Moles/Vol] 22 mmol/L Normal 20-31 [facility] Comment on above: Performed By: #### C DP, BMP, TROPI #### Lab [address] [place], [place] 1174283 Health And Safety Instructor: Ming Costello MD Creatinine [Mass/Vol] 0.8 mg/dL Normal 0.7-1.2 [facility] Comment on above: Performed By: #### C DP, BMP, TROPI #### [facility] [address] [place], [place] [id number] Health And Safety Instructor: Ming Costello MD GFR/1.73 sq M.predicted among non-blacks MDRD (S/P/Bld) [Vol rate/Area] mL/min/{1.73_m2} Normal >60 [facility] Comment on above: Result Comment: These [...] By: #### C DP, BMP, TROPI #### Lab [address] [place], [place] 1750083 Health And Safety Instructor: Ming Costello MD Glucose [Mass/Vol] 123 mg/dL High 70-99 [facility] Comment on above: Performed By: #### C DP, BMP, TROPI #### Lab [address] [place] [address] Health And Safety Instructor: Ming Costello MD Potassium [Moles/Vol] 3.9 mmol/L Normal 3.7-5.3 [facility] Comment on above: Performed By: #### C DP, BMP, TROPI #### Lab [address] [place], [place] [address]468583 Health And Safety Instructor: Ming Costello MD Sodium [Moles/Vol] 131 mmol/L Low 135-144 [facility] Comment on above: Performed By: #### C DP, BMP, TROPI #### Lab [address] [place], [place] 3806283 Health And Safety Instructor: Ming Costello MD Urea nitrogen [Mass/Vol] 12 mg/dL Normal 8-23 [facility] Comment on above: Performed By: #### C DP, BMP, TROPI #### Lab [address] [place], [place] 37[address]83 Health And Safety Instructor: Ming Costello MD CBC with Diffon 02-10-2023 Abs. Basophil 0.06 k/uL Normal 0.00-0.20 [facility] Comment on above: Performed By: #### C DP, BMP, TROPI #### Lab [address] [place], [place] 108[address]83 Health And Safety Instructor: Ming Costello MD Abs.Imm.Granulocyte 0.03 k/uL Normal 0.00-0.30 [facility] Comment on above: Performed By: #### C DP, BMP, TROPI #### [facility] [address] [place], [facility]83 Health And Safety Instructor: Ming Costello MD Abs.Neutrophil (Seg) 5.01 k/uL Normal 1.50-8.10 [facility] Comment on above: Performed By: #### C DP, BMP, TROPI #### [address] [place], [place] [address] Health And Safety Instructor: Ming Costello MD Basophils/100 WBC (Bld) 1 % Normal 0-2 [facility] Comment on above: Performed By: #### C DP, BMP, TROPI #### [address] [place], [place] [address] Health And Safety Instructor: Ming Costello MD Eosinophils (Bld) [#/Vol] 0.39 10*3/uL Normal 0.00-0.44 [facility] Comment on above: Performed By: #### C DP, BMP, TROPI #### [address] [place], [place] [address] Health And Safety Instructor: Ming Costello MD Eosinophils/100 WBC (Bld) 4 % Normal 1-4 [facility] Comment on above: Performed By: #### C DP, BMP, TROPI #### [address] [place], [facility]83 Health And Safety Instructor: Ming Costello MD Erythrocyte distribution width (RBC) [Ratio] 12.8 % Normal 11.8-14.4 [facility] Comment on above: Performed By: #### C DP, BMP, TROPI #### [address] [place], [facility]83 Health And Safety Instructor: Ming Costello MD Hematocrit (Bld) [Volume fraction] 45.4 % Normal 40.7-50.3 [facility] Comment on above: Performed By: #### C DP, BMP, TROPI #### [address] [place], [facility]83 Health And Safety Instructor: Ming Costello MD Hemoglobin (Bld) [Mass/Vol] 15.3 g/dL Normal 13.0-17.0 [facility] Comment on above: Performed By: #### C DP, BMP, TROPI #### [address] [place], [place] [address]83 Health And Safety Instructor: Ming Costello MD Immature granulocytes/100 WBC (Bld) 0 % Normal 0 [facility] Comment on above: Performed By: #### C DP, BMP, TROPI #### [address] [place], [facility]83 Health And Safety Instructor: Ming Costello MD Lymphocytes (Bld) [#/Vol] 2.63 10*3/uL Normal 1.10-3.70 [facility] Comment on above: Performed By: #### C DP, BMP, TROPI #### [address] [place], [facility]83 Health And Safety Instructor: Ming Costello MD Lymphocytes/100 WBC (Bld) 29 % Normal 24-43 [facility] Comment on above: Performed By: #### C DP, BMP, TROPI #### [address] [place], [facility]83 Health And Safety Instructor: Ming Costello MD MCH (RBC) [Entitic mass] 30.8 pg Normal 25.2-33.5 [facility] Comment on above: Performed By: #### C DP, BMP, TROPI #### [address] [place] [address] Health And Safety Instructor: Ming Costello MD MCHC (RBC) [Mass/Vol] 33.7 g/dL Normal 28.4-34.8 [facility] Comment on above: Performed By: #### C DP, BMP, TROPI #### [address] [place], [place] [address]83 Health And Safety Instructor: Ming Costello MD MCV (RBC) [Entitic vol] 91.5 fL Normal 82.6-102.9 [facility] Comment on above: Performed By: #### C DP, BMP, TROPI #### Lab [address] [place] [address] Health And Safety Instructor: Ming Costello MD Monocytes (Bld) [#/Vol] 1.08 10*3/uL Normal 0.10-1.20 [facility] Comment on above: Performed By: #### C DP, BMP, TROPI #### [address] [place], [facility]83 Health And Safety Instructor: Ming Costello MD Monocytes/100 WBC (Bld) 12 % Normal 3-12 [facility] Comment on above: Performed By: #### C DWAYNE, BMP, TROPI #### [address] [place], [facility]83 Health And Safety Instructor: Ming Costello MD Neutrophil (Seg) 54 % Normal 36-65 [facility] Comment on above: Performed By: #### C DP, BMP, TROPI #### [address] [place], [place] [address]83 Health And Safety Instructor: Ming Costello MD NRBC Automated 0.0 per 100 WBC Normal 0.0 [facility] Comment on above: Performed By: #### C DP, BMP, TROPI #### Lab [address] [place] [address] Dr. [place], [place] 9[address]83 Health And Safety Instructor: Ming Costello MD Platelet mean volume (Bld) [Entitic vol] 9.6 fL Normal 8.1-13.5 [facility] Comment on above: Performed By: #### C DP, BMP, TROPI #### [facility] [address] [place], [place] [address]83 Health And Safety Instructor: Ming Costello MD Platelets (Bld) [#/Vol] 289 10*3/uL Normal 138-453 [facility] Comment on above: Performed By: #### C DINORA RICE, TROPI #### Lab [address] [place] [address] Health And Safety Instructor: Ming Costello MD RBC (Bld) [#/Vol] 4.96 10*6/uL Normal 4.21-5.77 [facility] Comment on above: Performed By: #### C DINORA RICE, TROPI #### Lab [address] [place] [address] Health And Safety Instructor: Ming Costello MD WBC (Bld) [#/Vol] 9.2 10*3/uL Normal 3.5-11.3 [facility] Comment on above: Performed By: #### C DINORA RICE, TROPI #### [facility] [address] [place], [place] [address]83 Health And Safety Instructor: Ming Costello MD CT HEAD WO CONTRASTon [...] Shayy Muse MD 02/10/23 Final result Normal [facility] Ethanol Alcoholon 02-10-2023 Ethanol [Mass/Vol] 159 mg/dL High <10 [facility] Comment on above: Performed By: #### A LCB #### Lab [address] [place] [address] Health And Safety Instructor: Ming Costello MD Ethanol percent 0.159 % High <0.010 [facility] Comment on above: Performed By: #### A LCB #### Lab [address] [place] [address] Health And Safety Instructor: Ming Costello MD Troponinon 02-10-2023 Troponin, High Sens 17 ng/L Normal 0-22 [facility] Comment on above: Result Comment: High Sensitivity Troponin values cannot be compared with other Troponin methodologies. Performed By: #### C DP, BMP, TROPI #### Lab [address] [place] [address] Health And Safety Instructor: Ming Costello MD XR CHEST PORTABLEon 02-11-20 [...] Shayy Muse MD 02/10/23 Final result Normal [facility] CBC AUTO DIFFon 11-23-2022 BASO # 0.1 103/ul Normal 0.0-0.1 [facility] Comment on above: Performed By: #### C BC #### [facility] [address] [place], [place] [address] Dr. Micheline Ventura Basophils/100 WBC (Bld) 1.0 % Normal 0.2-2.0 [facility] Comment on above: Performed By: #### C BC #### [facility] [address] [place] [address] Dr. Micheline Ventura EO # 0.3 103/ul Normal 0.0-0.7 [facility] Comment on above: Performed By: #### C BC #### [facility] [address] [place] [address] Dr. Micheline Ventura Eosinophils/100 WBC (Bld) 5.8 % Normal 0.9-7.0 [facility] Comment on above: Performed By: #### C BC #### [facility] [address] [place] [address] Dr. Micheline Ventura Erythrocyte distribution width (RBC) [Ratio] 13.3 % Normal 11.0-15.0 [facility] Comment on above: Performed By: #### C BC #### [facility] [address] [place] [address] Dr. Micheline Ventura Hematocrit (Bld) [Volume fraction] 45.8 % Normal 42.0-54.0 [facility] Comment on above: Performed By: #### C BC #### [facility] [address] [place] [address] Dr. Micheline Ventura Hemoglobin (Bld) [Mass/Vol] 15.3 g/dL Normal 14.0-18.0 [facility] Comment on above: Performed By: #### C BC #### [facility] [address] [place] [address] Dr. Micheline Ventura IG # 0.00 10e3/ul Normal 0.00-0.03 [facility] Comment on above: Performed By: #### C BC #### [facility] [address] [place] [address] Dr. Micheline Ventura IG % 0.0 % Normal 0.0-0.5 [facility] Comment on above: Performed By: #### C BC #### [facility] [address] [place] [address] Dr. Micheline Ventura LYMPH # 1.9 103/ul Normal 1.2-3.8 [facility] Comment on above: Performed By: #### C BC #### [facility] [address] [place] [address] [address] Micheline Ventura Lymphocytes/100 WBC (Bld) 37.1 % Normal 20.5-60.0 [facility] Comment on above: Performed By: #### C BC #### [facility] [address] [place] [address] [address] Micheline Ventura MANUAL DIFF REQ NO Normal [facility] Comment on above: Performed By: #### C BC #### [facility] [address] [place] [address] Dr. Micheline Ventura MCH (RBC) [Entitic mass] 30.7 pg Normal 25.9-34.0 [facility] Comment on above: Performed By: #### C BC #### [facility] [address] [place] [address] Dr. Micheline Ventura MCHC (RBC) [Mass/Vol] 33.4 g/dL Normal 29.9-35.2 [facility] Comment on above: Performed By: #### C BC #### [facility] [address] [place] [address] Dr. Micheline Ventura MCV (RBC) [Entitic vol] 91.8 fL Normal 80.0-94.0 [facility] Comment on above: Performed By: #### C BC #### [facility] [address] [place] [address] Dr. Micheline Ventura MONO # 0.6 103/ul Normal 0.3-0.8 [facility] Comment on above: Performed By: #### C BC #### [facility] [address] [place] [address] Dr. Micheline Ventura Monocytes/100 WBC (Bld) 11.3 % Normal 1.7-12.0 [facility] Comment on above: Performed By: #### C BC #### [facility] [address] [place] [address] Dr. Micheline Ventura NEUT # 2.3 103/ul Normal 1.4-6.5 [facility] Comment on above: Performed By: #### C BC #### [facility] [address] [place] [address] [address] Micheline Ventura Neutrophils/100 WBC (Bld) 44.8 % Normal 43.0-75.0 [facility] Comment on above: Performed By: #### C BC #### [facility] [address] [place] [address] Dr. Micheline Ventura Platelet mean volume (Bld) [Entitic vol] 9.5 fL Normal 9.5-13.5 [facility] Comment on above: Performed By: #### C BC #### [facility] [address] [place] [address] Dr. Micheline Ventura PLT 292 103/ul Normal 150-450 [facility] Comment on above: Performed By: #### C BC #### [facility] [address] [place] [address] Dr. Micheline Ventura RBC 4.99 106/ul Normal 4.70-6.10 [facility] Comment on above: Performed By: #### C BC #### [facility] [address] [place] [address] Dr. Micheline Ventura WBC 5.2 103/ul Normal 4.0-11.0 [facility] Comment on above: Performed By: #### C BC #### [facility] [address] [place] [address] Dr. Micheline Ventura LIPID PROFILEon 11-23-2022 CHOL-HDL RATIO NORM SEE BELOW Normal [facility] Comment on above: Result Comment: 3.3 - 4.4 LOW RISK 4.4 - 7.1 AVERAGE RISK 7.1 - 11.0 MODERATE RISK >11.0 HIGH RISK Performed By: #### C MP, LIPID #### [facility] [address] [place] [address] Dr. Micheline Ventura Cholesterol [Mass/Vol] 169 mg/dL Normal <=200 [facility] Comment on above: Performed By: #### C MP, LIPID #### [facility] [address] [place] [address] Dr. Micheline Ventura Cholesterol in HDL [Mass/Vol] 49 mg/dL Normal 40-60 [facility] Comment on above: Performed By: #### C MP, LIPID #### [facility] [address] [place] [address] [address] Micheline Ventura Cholesterol in LDL [Mass/Vol] 97.6 mg/dL Normal [facility] Comment on above: Performed By: #### C MP, LIPID #### [facility] [address] [place] [address] [address] Micheline Ventura Cholesterol.total/C holesterol in HDL [Mass ratio] 3.4 {ratio} Normal [facility] Comment on above: Performed By: #### C MP, LIPID #### [facility] [address] [place] [address] Dr. Micheline Ventura HDL NORMAL > or = 60 mg/dl - LO W CARDIOVASCULAR RISK <40 mg/dl - HIGH CARDIOVASCULAR RISK Normal [facility] Comment on above: Performed By: #### C MP, LIPID #### [facility] [address] [place] [address] Dr. Micheline Ventura LDL CALC NORMAL SEE BELOW Normal [facility] Comment on above: Result Comment: <100 mg/dl OPTIMAL 100 - 129 mg/dl NEAR OR ABOVE OPTIMAL 130 - 159 mg/dl BORDERLINE HIGH 160 - 189 mg/dl HIGH >190 mg/dl VERY HIGH Performed By: #### C MP, LIPID #### [facility] [address] [place] [address] Dr. Micheline Ventura Triglyceride [Mass/Vol] 112 mg/dL Normal <=150 [facility] Comment on above: Performed By: #### C MP, LIPID #### [facility] [address] [place] [address] Dr. Micheline Ventura VLDL CALC 22.4 mg/dL Normal [facility] Comment on above: Performed By: #### C MP, LIPID #### [facility] [address] [place] [address] Dr. Micheline Ventura PROF 14(COMP METB)on 023 Albumin [Mass/Vol] 4.0 g/dL Normal 3.4-5.0 [facility] Comment on above: Performed By: #### C MP, LIPID #### [facility] [address] [place] [address] Dr. Micheline Ventura Albumin/Globulin [Mass ratio] 1.1 {ratio} Normal [facility] Comment on above: Performed By: #### C MP, LIPID #### [facility] [address] [place] [address] Dr. Micheline Ventura ALP [Catalytic activity/Vol] 70 U/L Normal 46-116 [facility] Comment on above: Performed By: #### C MP, LIPID #### [facility] [address] [place] [address] Dr. Micheline Ventura ALT [Catalytic activity/Vol] 80 U/L Critically high 16-63 [facility] Comment on above: Performed By: #### C MP, LIPID #### [facility] [address] [place] [address] Dr. Micheline Ventura Anion gap [Moles/Vol] 12.6 mmol/L Normal [facility] Comment on above: Performed By: #### C MP, LIPID #### [facility] [address] [place] [address] Dr. Micheline Ventura AST [Catalytic activity/Vol] 37 U/L Normal 15-37 [facility] Comment on above: Performed By: #### C MP, LIPID #### [facility] [address] [place] [address] Dr. Micheline Ventura Bilirubin [Mass/Vol] 1.1 mg/dL Critically high 0.2-1.0 [facility] Comment on above: Performed By: #### C MP, LIPID #### [facility] [address] [place] [address] Dr. Micheline Ventura Calcium [Mass/Vol] 9.5 mg/dL Normal 8.5-10.1 [facility] Comment on above: Performed By: #### C MP, LIPID #### [facility] [address] [place] [address] Dr. Micheline Ventura Chloride [Moles/Vol] 105 mmol/L Normal 98-107 [facility] Comment on above: Performed By: #### C MP, LIPID #### [facility] [address] [place] [address] Dr. Micheline Ventura CO2 [Moles/Vol] 29.8 mmol/L Normal 21.0-32.0 [facility] Comment on above: Performed By: #### C MP, LIPID #### [facility] [address] [place] [address] Dr. Micheline Ventura Creatinine [Mass/Vol] 0.99 mg/dL Normal 0.70-1.30 [facility] Comment on above: Performed By: #### C MP, LIPID #### [facility] [address] [place] [address] Dr. Micheline Ventura EGFR-AF KENYAN >60 Normal >=60 [facility] Comment on above: Performed By: #### C MP, LIPID #### [facility] [address] [place] [address] Dr. Micheline Ventura EGFR-NON AF KENYAN >60 Normal >=60 [facility] Comment on above: Performed By: #### C MP, LIPID #### [facility] [address] [place] [address] Dr. Micheline Ventura Globulin (S) [Mass/Vol] 3.8 g/dL Normal [facility] Comment on above: Performed By: #### C MP, LIPID #### [facility] [address] [place] [address] Dr. Micheline Ventura Glucose [Mass/Vol] 99 mg/dL Normal 74-106 [facility] Comment on above: Performed By: #### C MP, LIPID #### [facility] [address] [place] [address] Dr. Micheline Ventura Potassium [Moles/Vol] 4.4 mmol/L Normal 3.5-5.1 [facility] Comment on above: Performed By: #### C MP, LIPID #### [facility] [address] [place] [address] Dr. Micheline Ventura Protein [Mass/Vol] 7.8 g/dL Normal 6.4-8.2 [facility] Comment on above: Performed By: #### C MP, LIPID #### [facility] [address] [place] [address] Dr. Micheline Ventura Sodium [Moles/Vol] 143 mmol/L Normal 136-145 [facility] Comment on above: Performed By: #### C MP, LIPID #### [facility] [address] [place], [place] [address] Dr. Micheline Ventura Urea nitrogen [Mass/Vol] 8.0 mg/dL Normal 7.0-18.0 [facility] Comment on above: Performed By: #### C MP, LIPID #### [facility] [address] [place], [place] [address] Dr. Micheline Ventura Urea nitrogen/Creatinine [Mass ratio] 8.1 mg/mg Normal [facility] Comment on above: Performed By: #### C MP, LIPID #### [facility] [address] [place], [place] [address] Dr. Micheline Ventura Basic Metabolic Panelon 02-17 Anion gap [Moles/Vol] 12 mmol/L 9 - 17 mmol/L [place] Bun/Cre Ratio 15 [place] Calcium [Mass/Vol] 10.3 mg/dL 8.6 - 10. 4 mg/dL [place] Chloride [Moles/Vol] 100 mmol/L 98 - 107 mmol/L [place] CO2 [Moles/Vol] 28 mmol/L 20 - 31 mmol/L [place] Creatinine [Mass/Vol] 0.79 mg/dL 0.7 - 1.2 mg/dL [place] GFR >60 >60 mL/min [place] GFR Non- >60 >60 mL/min [place] Glucose [Mass/Vol] 96 mg/dL 70 - 99 mg/dL [place] Potassium [Moles/Vol] 4.4 mmol/L 3.7 - 5.3 mmol/L [place] Sodium [Moles/Vol] 140 mmol/L 135 - 144 mmol/L [place] Urea nitrogen [Mass/Vol] 12 mg/dL 8 - 23 mg/dL [place] CBC Auto Differentialon 02-17 Basophils (Bld) [#/Vol] 0.05 10*3/uL [place] Basophils/100 WBC (Bld) 1 % 0 - 2 % [place] Differential Type NOT REPORTED [place] Eosinophils (Bld) [#/Vol] 0.35 10*3/uL [place] Eosinophils/100 WBC (Bld) 6 % High 1 - 4 % [place] Erythrocyte distribution width (RBC) [Ratio] 13.2 % 11.8 - 14.4 % [place] Hematocrit (Bld) [Volume fraction] 48.2 % 40.7 - 50.3 % [place] Hemoglobin (Bld) [Mass/Vol] 15.9 g/dL 13 - 17 g/dL [place] Immature granulocytes (Bld) [#/Vol] 0 % 0 [place] Immature granulocytes (Bld) [#/Vol] 10*3/uL [place] Interpretation and review of laboratory results Abnormal [place] Lymphocytes (Bld) [#/Vol] 2.00 10*3/uL [place] Lymphocytes/100 WBC (Bld) 32 % 24 - 43 % [place] MCH (RBC) [Entitic mass] 30.5 pg 25.2 - 33.5 pg [place] MCHC (RBC) [Mass/Vol] 33.0 g/dL 28.4 - 34.8 g/dL [place] MCV (RBC) [Entitic vol] 92.3 fL 82.6 - 102.9 fL [place] Monocytes (Bld) [#/Vol] 0.78 10*3/uL [place] Monocytes/100 WBC (Bld) 12 % 3 - 12 % [place] Platelet mean volume (Bld) [Entitic vol] 9.5 fL 8.1 - 13.5 fL [place] Platelets (Bld) [#/Vol] 248 10*3/uL [place] Platelets (Bld) [#/Vol] NOT REPORTED [place] RBC (Bld) [#/Vol] 5.22 10*6/uL 4.21 - 5.7 7 m/uL [place] RBC morphology finding Nom (Bld) NOT REPORTED [place] Segmented neutrophils/100 WBC (Bld) 49 % 36 - 65 % [place] Segs Absolute 3.13 [place] WBC (Bld) [#/Vol] 0.0 10*3/uL 0.0 per 10 0 WBC [place] WBC (Bld) [#/Vol] 6.3 10*3/uL [place] WBC Morphology NOT REPORTED [place] Metabolic Panelon 03-08-2019 GFR/1.73 sq M predicted among non-blacks MDRD (S/P/Bld) [Vol rate/Area] [place] Comment on above: Stage 1: Some [...] body mass. Additional eGFR calculator available at: http://www.Twitt2go/multiple_crcl_2012.htm XR CHEST STANDARD (2 VW)on 0 03-08-2019 No acute cardiopulmo nary process. [place] EXAMINATION: TWO XRA Y VIEWS OF [...] the costophrenic angles on the lateral view. [place] Abran, Mhpn Incoming Radiant Results From [employer] - 03/08/2019 10:48 AM EDT EXAMINATION: TWO [...] lateral view. IMPRESSION: No acute cardiopulmonary process. [facility]2018 L ---- Specimen: [id number] Received: 10/05/18 Status: LEIDA Bates Num: [id number] Spec Type: Surgical Subm Dr: Julius Carson DO Tissues: A Colon - Polyp (COLON POLYP @ 70 CM) Procedures: HE Stain/2, Gross/Micro L4 Patient Age/Sex Location Account Attending Physician Merlin Johnston 68/M RT4 [id number] Julius Carson DO SPEC NUM: [id number] RECD: 10/05/18 STATUS: LEIDA BATES NUM: [id number] VAMSI: 10/05/18- SUBM DR: Julius Carson DO ENTERED: 10/05/18 [facility] : [facility] TYPE: Surgical DEPT: S [...] microscopic findings support the above pathologic diagnosis. [id number] A. - - COLON POLYP @ 70 CM Specimen: [id number] Received: 10/05/18 Status: LEIDA Bates Num: [id number] Spec Type: Surgical Subm Dr: Julius Carson DO Tissues: A Colon - Polyp (COLON POLYP @ 70 CM) Procedures: HE Stain/2, Gross/Micro L4 Patient: Merlin Johnston [id number] (Continued) Signed (signature on file) Chalo Ibrahim MD 10/06/18 1330 [facility] Vital Signs Date Time Vital Sign Value Performing Clinician Facility 06-28-2023 11:08-0500 Blood Pressure Location Abdi MCINTOSH [facility] 06-28-2023 11:08-0500 Diastolic blood pressure 72 mm[Hg] Abdi MCINTOSH [facility] 06-28-2023 11:08-0500 Heart rate 69 /min Abdi MCINTOSH [facility] 06-28-2023 11:08-0500 Respiratory rate 16 /min Abdi MCINTOSH [facility] 06-28-2023 11:08-0500 Systolic blood pressure 129 mm[Hg] Abdi MCINTOSH [facility] 05-10-2023 09:30-0400 Body height 177.8 cm Smitha Snowden Other [facility] Other 05-10-2023 09:30-0400 Body mass index (BMI) [Ratio] 25.54 kg/m2 Smitha Snowden Other [facility] Other 05-10-2023 09:30-0400 Body weight 80.74 kg Smitha Snowden Other [facility] Other 05-10-2023 09:30-0400 Diastolic blood pressure 86 mm[Hg] Smitha Snowden Other [facility] Other 05-10-2023 09:30-0400 Systolic blood pressure 146 mm[Hg] Smitha Snowden Other [facility] Other 01-18-2023 10:45-0400 Body height 177.8 cm Smitha Snowden Other [facility] Other 01-18-2023 10:45-0400 Body mass index (BMI) [Ratio] 25.54 kg/m2 Smitha Snowden Other [facility] Other 01-18-2023 10:45-0400 Body weight 80.74 kg Smitha Snowden Other [facility] Other 01-18-2023 10:45-0400 Diastolic blood pressure 79 mm[Hg] Smitha Snowden Other [facility] Other 01-18-2023 10:45-0400 Systolic blood pressure 129 mm[Hg] Smitha Snowden Other [facility] Other 11-09-2022 11:00-0400 Diastolic blood pressure 66 mm[Hg] Kathi Her DO Work Phone: [employer] 11-09-2022 11:00-0400 Heart rate 74 /min Kathi Francisco Javier DO Work Phone: [employer] 11-09-2022 11:00-0400 Respiratory rate 20 /min Kathi Her DO Work Phone: [employer] 11-09-2022 11:00-0400 SaO2% (BldA) [Mass fraction] 94 % Kathi Her DO Work Phone: [employer] 11-09-2022 11:00-0400 Systolic blood pressure 123 mm[Hg] Kathi Her DO Work Phone: [employer] 11-09-2022 10:30-0400 Body temperature 98.01 [degF] Kathi Her DO Work Phone: [employer] 11-09-2022 08:56-0400 Body height 177.8 cm Kathi Her DO Work Phone: [employer] 10-23-2022 13:11-0400 Body mass index (BMI) [Ratio] 40.18 kg/m2 Kathidarren Her DO Work Phone: [employer] 10-23-2022 13:11-0400 Body weight 127.01 kg Kathi Her DO Work Phone: [employer] Encounters Encounter Date Encounter Type Care Provider Facility Start: 01-03-2024 ambulatory Abdi Resendez ty:[facility] [place] Start: 08-25-2023 End: 08-25-2023 ambulatory Smitha Snowden Other [facility] Other Start: 08-25-2023 Telephone encounter Smitha Snowden [facility] Start: 08-24-2023 End: 08-24-2023 ambulatory Smitha Sp Other [facility] Other Start: 08-24-2023 Telephone encounter Smitha Sp [facility] Start: 06-30-2023 (Televisit) Televisit Smitha Sp [facility] Start: 06-30-2023 End: 06-30-2023 ambulatory Smitha Sp Other [facility] Other Start: 06-28-2023 End: 06-29-2023 ambulatory Abdi MCINTOSH Facility:[facility] [place] Start: 06-28-2023 End: 06-28-2023 Patient encounter procedure Abdi MCINTOSH [facility] Start: 05-10-2023 End: 05-10-2023 ambulatory Smitha Sp Other [facility] Other Start: 05-10-2023 Office outpatient visit 15 minutes Smitha Sp [facility] Start: 04-12-2023 End: 04-13-2023 ambulatory SMITAH SP [facility] Start: 04-01-2023 End: 04-01-2023 ambulatory Smitha Sp Other [facility] Other Start: 04-01-2023 Telephone encounter Smitha Sp [facility] Start: 03-29-2023 End: 03-30-2023 ambulatory Abdi MCINTOSH Facility:[facility] Start: 03-01-2023 End: 03-02-2023 ambulatory Mercy Vincent MD Facility:[facility] [place] Start: 02-15-2023 End: 02-16-2023 ambulatory [facility] Start: 02-10-2023 End: 02-10-2023 Emergency department patient visit SMITHA SNOWDEN [facility] Start: 02-01-2023 End: 02-02-2023 ambulatory Mercy Vincent MD Facility:[facility] [place] Start: 01-25-2023 End: 01-26-2023 [facility]ulatory [facility] Start: 01-18-2023 End: 01-18-2023 ambulatory Smitha Snowden Other [facility] Other Start: 01-18-2023 Office outpatient visit 25 minutes Smitha Snowden [facility] Start: 01-18-2023 Telephone encounter Smitha Sp [facility] Start: 01-08-2023 End: 01-08-2023 ambulatory Smitha Snowden Other [facility] Other Start: 01-08-2023 Telephone encounter Smitha Sp [facility] Start: 12-29-2022 End: 12-30-2022 ambulatory [facility]ITHA SNOWDEN [facility] Start: 12-02-2022 ambulatory [facility] Start: 11-23-2022 End: 11-23-2022 ambulatory SMITHA SNOWDEN [facility] Start: 11-23-2022 End: 11-24-2022 ambulatory SMITHA SNOWDEN Facility: Start: 11-09-2022 End: 11-09-2022 ambulatory SMITHA SNOWDEN [facility] Start: 11-09-2022 End: 11-09-2022 Subsequent hospital visit by physician Kathi Her DO Work Phone: [facility] Start: 03-08-2019 End: 03-10-2019 Subsequent hospital visit by physician Nikos Hansen Dr Room 2 [facility] Comment on above: Acute medial menisca l tear, left, subsequent encounter Start: 10-05-2018 End: 10-05-2018 Patient encounter procedure Julius Carson Facility:[facility] Procedures Date Procedure Procedure Detail Performing Clinician Start: 11-23-2022 PSA screening SMITHA MATOS Comment on above: Performed By: #### P [facility] #### [facility] [address] [place] [address] Dr. Micheline Ventura Start: 03-08-2019 Radiologic exam [...] Influenza vaccination Flu vacc ine (Season Ended) [facility] Start: 11-09-2022 End: 11-09-2022 Xcapsl ctrc rmvl insj io lens prosth w/o ecp EYE CATARACT EMULSIFICATION IOL IMPLANT Nuclear sclerotic cataract of both eyes 11/09/2022 10:05 AM EDT Start: 03-19-2019 Influenza vaccination Flu vaccine (# 1) [place] Start: 01-15-2016 Abdominal aortic aneurysm screening AAA screen [facility] Start: 01-15-2016 Pneumococcal 65+ yea rs Vaccine (1 - PCV) Pneumococcal 65+ years Vaccine (1 - PCV) [facility] Start: 01-15-2016 Pneumococcal 65+ yea rs Vaccine (1 of 2 - PCV13) Pneumococcal 65+ years Vaccine (1 of 2 - PCV13) [place] Start: 2001 Colon cancer screen colonoscopy Colon cancer screen colonoscopy [place] Start: 2001 Shingles Vaccine (1 of 2) Shingles Vaccine (1 of 2) [facility] Start: 01-15-1996 Screening for malign ant neoplasm of colon [facility] Start: 1991 Lipid panel Lipids [facility] Start: 1991 Lipid screen Lipid screen [place], [place] Start: 1970 DTaP/Tdap/Td vaccine (1 - Tdap) DTaP/Tdap/Td vaccine (1 - Tdap) [facility] Start: 1969 Hepatitis C screening Hepatitis C sc reen [facility] Start: 1963 Depression Screen Depression Screen [facility] Start: 1950 COVID-19 Vaccine (#1) COVID-19 Vacci ne (#1) [facility] Start: 1950 AAA screen AAA screen [place], [place] Start: 1950 Hepatitis C screen Hepatitis C scree [place] EKG 12 Lead EKG 12 Lead ECG Routine 03/08/2019 9:20 AM EDT [place] Oxygen therapy [[facility] Data Set] Initiate Oxygen Therapy Protocol Respiratory Care Routine Daily until discontinued starting 11/09/2022 [facility] Work Phone: Comment on above: Daily until disconti nued starting 11/09/2022 Immunizations Immunization Date Immunization Notes Care Provider Jitendra sargent 06-24-2023 influenza virus vacc ine, unspecified formulation [facility] 05-11-2022 influenza virus vacc ine, unspecified formulation [employer] [facility] 03-11-2022 zoster vaccine recombinant [employer] [facility] 12-25-2021 zoster vaccine recombinant [employer] [facility] 07-24-2021 influenza virus vacc ine, unspecified formulation [facility] 07-24-2021 pneumococcal conjuga te vaccine, 13 valent [facility] 07-03-2021 SARS-CoV-2 (COVID-19 ) mRNA-1273 vaccine Abdi MCINTOSH [facility] 10-16-2020 SARS-CoV-2 (COVID-19 ) mRNA-1273 vaccine Abdi MCINTOSH [facility] 09-17-2020 SARS-CoV-2 (COVID-19 ) mRNA-1273 vaccine Abdi MCINTOSH [facility] Comment on above: Result Comment: 2022: [id number] 06-08-2019 tetanus toxoid, redu triston diphtheria toxoid, and acellular pertussis vaccine, adsorbed Abdi MCINTOSH [facility] 04-24-2019 influenza virus vacc ine, unspecified formulation [employer] [facility] 05-13-2018 influenza virus vacc ine, unspecified formulation [employer] [facility] 05-13-2018 pneumococcal polysaccharide vaccine, 23 valent Abdi Zouxiu [facility] 04-22-2017 influenza virus vacc ine, unspecified formulation [employer] [facility] 04-22-2017 pneumococcal conjuga te vaccine, 13 valent Abdi MCINTOSH [facility] 04-25-2016 influenza virus vacc ine, unspecified formulation [employer] [facility] 05-05-2014 influenza virus vacc ine, unspecified formulation [employer] [facility] 05-18-2013 influenza virus vacc ine, unspecified formulation Abdi MCINTOSH [facility] Payers Date Payer Category Payer Medicare 2022 Unknown 2018 Medicare [id number] 2018 Self-pay 2018 Medicare MEDICARE MEDICAR E PART A AND B xxxxxxxxxxx 2018-Present [phone] [place] [address] xxxxxxxxxxx [id number] 2018 Unknown GENERIC [employer]ER[employer]IC COMMERCIAL xxxxxxxxxx 2018-Present Indemnity xxxxxxxxxx [id number] 1959 Medicare [id number] 1959 Unknown [id number] 1951 Unknown [id number] 1951 Unknown [id number] 2.16.840.1.755912.3.579.2.196 1951 Unknown [id number] 2.16.840.1.525316.3.579.2.196 1951 Unknown [id number] 2.16.840.1.505856.3.579.2.196 1951 Unknown [id number] 2.16.840.1.888120.3.579.2.196 1951 Unknown [id number] 2.16.840.1.194168.3.579.2.173 1951 Unknown [id number] 2.16.840.1.785382.3.579.2.173 1951 Unknown [id number] 2.16.840.1.051214.3.579.2.173 1951 Unknown [id number] 2.16.840.1.527799.3.579.2.173 1951 Unknown [id number] 2.16.840.1.423362.3.579.2.173 1951 Unknown [id number] 2.16.840.1.842144.3.579.2.727 1951 Unknown [id number] 2.16.840.1.817380.3.579.2.727 1951 Unknown [id number] 2.16.840.1.999995.3.579.2.727 1951 Unknown [id number] [id number] Unknown [id number] [id number] Social History Date Type Detail Facility Start: 01-13-2014 End: 06-28-2023 Tobacco smoking status NHIS Former smoker [place], [place] Start: 1950 Sex Assigned At Not on file [place] History of tobacco use Current smoker [employer] Phone: Start: 11-09-2022 Alcohol intake Current drinke r of alcohol (finding) [employer] [facility]: Start: 11-09-2022 Alcohol intake [employer] Phone: Start: 11-09-2022 Alcohol Comment daily [employer] Phone: Start: 10-30-2022 End: 11-09-2022 Exposure to SARS-CoV-2 (event) Not sure [employer] Phone: Sex Assigned At [facility] Tobacco smoking status Never [facility] Medical Equipment Procedure Code Equipment Code Equipment Origin al Text Equipment Identifier Dates Lens Intraocular Bcnvx 22+ Diopt 6x12.5 Mm Acryl [employer] - [id number] Start: 11-09-2022 Functional Status Date Assessment Result Facility 06-28-2023 Functional Status N/A [facility] Clinical Notes 10-23-2022 to 08-25-2023 Note Date & Type Note Facility 08-25-2023 Evaluation note Encounter Date Diagnosis Assessment Notes Aug, Colon cancer screening (ICD-10 - Z12.11) [facility] Other 12-13-2023 Evaluation note* Encounter Date Diagnosis [...] verbalized understanding and agreement with treatment plan. [facility] Other 12-11-2023 Hospital Discharge instructions Patient Education [...] provider. Document Revised: 06/10/2020 Document Reviewed: 06/10/2020 [employer] Patient Education 2022 [employer] 06/28/2023 11:53:29 Spermatocele Spermatocele A spermatocele [...] provider. Document Revised: 02/23/2022 Document Reviewed: 02/23/2022 [employer] Patient Education 2022 [employer]. Follow Up Care 03/29/2023 12:07:33 With:KEHINDE CRUZ, Abdi Santana, URL Address: [facility] [address], [place] [address]- When:Within 6 Month(s) Comments:w/PSA [facility] [place] 10-23-2023 Evaluation note* Encounter Date Diagnosis [...] that can be had with CPAP use. [facility] Other 09-11-2023 NoteChief Complaint Referral HPI Staff [...] [facility] [address], [place] [address] [phone] Additional Instructions: w/Scrotal US Patient Education Benign [...] Never Smokeless Tobacco Use:. (more content not included)...[facility]Result Comment: Electronically Signed By: Abdi MCINTOSH MD\.br\Date and Time Signed: 03/29/23 12:08 EDT\.br\Electronically Co-Signed By: Alexa Cronin\.br\Date and Time Co- Signed: 03/29/23 12:01 [id number] Evaluation note* Encounter Date Diagnosis Assessment Notes [...] test. He declines followup on this at [facility] at this time. Jan, Itching (ICD-10 - L29.9) Requests decreased dose of med. Educated him that it would make him tired. [facility] Other 07-03-2023 Evaluation note* Encounter Date Diagnosis Assessment Notes Treatment Notes Treatment Clinical Notes Jan, Lumbar pain (ICD-10 - M54.50) Jan, Right hip pain (ICD-10 - M25.551) [facility] Other 04-24-2023 Hospital Discharge instructions* Discharge Instructions* [...] the healing period. The office number is [phone]. Take surgery bag and all eye drops to Dr. Her's office tomorrow at 9:05am. You may resume your normal diet. Start your eye drops tomorrow after your post-op appointment: Ofloxacin/Polytrim one drop to the operated eye 4 times daily Prednisolone one drop to the operated eye 4 times daily [facility] [employer] Phone: [phone] 139-220204-07-2023 History of Present illness Narrative* Lori Weir [...] 5 days of surgery. documented [facility] [employer] Phone: evaluation + Plan note Future Appointments Appointment Date:01/03/2024 10:45:00 AM Scheduled Provider:Abdi MCINTOSH MD Location:[facility] Appointment Type:URO Office Visit Diagnostic Tests Pending * PSA Total 06/28/23 [facility] evaluation note* Diagnosis 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 documented in this encounter [facility] [employer] Phone: [email or web address] noteNo InformationNort [employer] Other History general Narrative - Reported* Type Description Date Medical History Essential (primary) hypertension Medical History Borderline low oxygen saturation level Medical History Low back pain, unspecified Medical History Atopic dermatitis Medical History Insomnia, persistent Medical History Family history of malignant neop lasm of breast Surgical History KNEE ARTHROSCOPY X2 Surgical History CATARACT SURGERY Hospitalization History SEE SURGICAL HX [facility] Other Hospital course Narrative No data available for this section [facility] progress note No data available for this section [facility] Summary Purpose Family History No Family History Records FoundNo Family History Records FoundNo Family History Records FoundNo Family History Records Found No data available for this section No Family History Records Found Advance Directives Documents on File Type Date Recorded Patient Scratcher Expl anation Advance Directives and Living Will Power of Marine Steward Latest Code Status on File Code Status Date Activated Date Inactivated Comments Full Code 11/09/2022 8:44 AM Assessments Diagnosis Acute medial meniscal tear, left, subsequent encounter Reason for Referral Reason 01/25/23 Last OV a nd xrays from today. Thanks Diagnosis 1 Lumbar pain (M54.50) Referral Organization [facility] von Referring Provider First Name Smitha Referring Provider Last Name Sp Referring Provider Specialty [facility] Referred Organization [facility] Referred Address [address] [place], [place],[address] Referred Provider Specialty Pain Medicin e Referral Priority Routine Referral Appointment Date 2023-01-25 General Notes Jessica Mason 06:43:12 AM >received today, attachments made, referral faxed Jessica Mason 01/20/2023 03:44:38 PM >received fax with appt date Clinical Notes F: [id number] Additional Source Comments (unrecognized sect ion and content) No Status Records FoundNo Status Records FoundNo Status Records FoundNo Status Records FoundNo Status Records Found INFORMATION SOURCE (unrecogn ized section and content) DATE CREATED AUTHOR 10/20/2018 [facility] DATE CREATED AUTHOR AUTHOR'S ORGANIZ ATION 11/27/2022 [facility] DATE CREATED AUTHOR AUTHOR'S ORGANIZ ATION 03/11/2023 [facility] DATE CREATED AUTHOR AUTHOR'S ORGANIZ ATION 04/20/2023 [facility] DATE CREATED AUTHOR AUTHOR'S ORGANIZ ATION 07/04/2023 [facility] Reason for Visit (unrecogniz ed section and content) message Specialty Diagnoses / Procedures Referred By Rasheed funes Referred To Contact Diagnoses Nuclear sclerotic cataract of both eyes AGE RELATED NUCLEAR CAT 2+NS Procedures GA XCAPSL CTRC RMVL INSJ IO LENS PROSTH W/O ECP EYE CATARACT EMULSIFICATION IOL IMPLANT Kathi Her, DO [address] [place] [address] [facility] [address] [place] [address] Referral ID Status Reason Start Date Expiration Date Visits Re quested Visits Authorized [id number] 1 1 Scheduled Active and Recently Administ [...] RN)[id number] (Given - Provider: Justina Gardner RN) sodium chloride flush 0.9 % injection [...] Provider: Justina Gardner RN)0914 (Given - Provider: uJstina Gardner RN) Continuous Medication Order 11/07/2022 11/08/2022 11/09/2022 0.9 % sodium chloride infusion IntraVENous, at 125 mL/hr, CONTINUOUS, Starting on Wed11/09/22 at 0900, Pre-op (day of surgery) 0900 (Due) lactated ringers IV soln infusion IntraVENous, at 100 mL/hr, CONTINUOUS, Starting on Wed11/09/22 at 0900, Pre-op (day of surgery) 0913 (New Bag - Prov ider: Justina Gardner RN)1004 (NoRateChange - Provider: SHANA Tracey TEXTILE EXAMINER)1036 (Rate/Dose Change - Provider: Eden L Adrien, ASSEMBLER DIELECTRIC HEATER - TEXTILE EXAMINER)1100 (Stopped - Provider: Rosy Shearer RN) PRN [...] Care Teams (unrecognized sec tion and content) Board Lining Machine Operator Relationship Specialty Start Date End Date Smitha Snowden MD [address] [place] [id number] PCP - General 01/13/14 FOR RECORDS PERTAINING [...] BE BASED ON THE PRIMARY CLINICAL RECORDS. [employer] provides no warranty or guarantee of the accuracy or completeness of information in this document.
== END 2023-10-13 10:50 | disposition home or self-care (01) ==
LOC: US 10:49
PROVIDERS: PCP Family Medicine; Visit Provider Family Medicine
DX: R09.89 Other specified symptoms and signs involving the circulatory and respiratory systems (principal)
CPT/HCPCS: 93880

== ENCOUNTER 2023-12-20 10:25 | Day surgery (SDC) | payer MEDICARE, SELFPAY ==
--- OUTSIDE RECORDS SUMMARY | 2023-12-20 10:48 | XMS_ITS | CCD ---
Author Organization [facility] Care Team Providers Care Switch Technician Name Role Phone Julius Carson Admitting Unavailable Julius Carson Attending Unavailable Smitha Snowden Primary Care Unavailable Smitha Snowden Primary Care Provider Smitha Snowden MD Primary Care Provider [phone] SMITHA SNOWDEN Attending Unavailable SMITHA SNOWDEN Consulting Unavailable SMITHA SNOWDEN Primary Care Unavailable SMITHA SNOWDEN Admitting Unavailable Smitha Snowden Unavailable Melisa CRUZ, Mercy Gomes Attending Unavailable Melisa CRUZ, Mercy Gomes Attending Unavailable Melisa CRUZ, Mercy Gomes Attending Unavailable Melisa CRUZ, Mercy Gomes Attending Unavailable SMITHA SNOWDEN Primary Care Unavailable KATHI HER Admitting Unavailable KATHI HER Attending Unavailable SMITHA SNOWDEN Primary Care Unavailable SMITHA SNOWDEN Referring Unavailable SMITHA SNOWDEN Primary Care Unavailable SMITHA SNOWDEN Referring Unavailable SMITHA SNOWDEN Primary Care Unavailable SMITHA SNOWDEN Primary Care Unavailable KATHI HER Admitting Unavailable KATHI HER Attending Unavailable SMITHA SNOWDEN Primary Care Physician [phone] Abdi MCINTOSH Attending Unavailable SMITHA SNOWDEN Referring Unavailable Abdi MCINTOSH Attending Unavailable Abdi MCINTOSH Attending Unavailable Allergies Allergy Classification Reported Allergen(s) Allergy Type Date of Onset Reaction(s) Facility (7 sources) Acetaminophen / oxyCODONE Drug Allergy itching [facility] Other (1 source) No Known Medication Allergies; Translations: [No Known Medication Allergies] Propensity to adverse reactions (disorder) [facility] Repository Medications Current Medications Medication Drug [...] hydrochloride 150 mg extended release oral tablet (15 sources) Aminoketone Start: 03-29-2023 take 1 tablet by mouth twice daily Wellbutrin SR 150 mg Tab-ER 150 mg = 1 tab(s), Oral, BID Start Date: 03/29/23 Status: Ordered Start: 09-09-2018 take 1 tablet by charla th once daily in the morning Bupropion Hcl (Wellbutrin Xl) 300 mg Tablet Extended Release 24 Hr Active 300 MG PO Every morning September 09, 2018 1:00am buPROPion HCl ER (XL) 150 MG TAKE 1 TABLET EVERY DAY for 90 Active take 1 tablet by charla th once daily buPROPion (WELLBUTRIN) 75 MG tablet Take 1 [...] 0 Active Multi Vitamin+ (1 source) Start: 023 Multi Vitamin+ Start Date: 03/29/23 Status: Ordered [...] chloride 9 mg/ml injection (4 sources) Start: 0.9 % sodium chloride infusion Start: 11-09-2022 sodium chlorid e flush 0.9 % injection 5-40 mL tamsulosin hydrochloride 0.4 mg oral capsule (6 sources) alpha-Adrenergic Tavia Start: 11-03-2023 Tamsu losin Active MG PO November 03, 2023 12:00am Start: 03-29-2023 take 1 capsule by [facility] once daily tamsulosin 0.4 mg Cap 0.4 mg = 1 cap(s), Oral, Daily, # 30 cap(s), Refills(s) 11, Pharmacy: [facility] [id number], 175, cm, 03/29/23 11:17:00 EDT, Height/Length Dosing, [...] capsule 0 01/13/2014 10/23/2022 Discontinued (Therapy completed) diclofenac sodium 75 mg delayed release oral tablet (1 source) Nonsteroidal Anti-inflammatory Drug Start: 09-09-2018 End: 11-03-2023 take 1 tablet by mouth once daily Diclofenac Sodium Discontinued 1 TAB PO Daily September 09, 2018 1:00am November 03, 2023 11:03am triamcinolone acetonide 40 mg/ml injectable suspension (8 [...] Translations: [Hypotension, unspecified] Onset: 02-10-2023 Episodic Other circulatory disease (1 source) Carotid bruit; Translations: [Other specified symptoms and signs involving the circulatory and respiratory systems] 10-01-2023 Episodic Other diseases of kidney and ureters [...] conditions (not mental disorders or infectious disease) (1 source) Carotid artery finding; Translations: [Abnormal findings on diagnostic imaging of other specified body structures] 10-19-2023 Chronic Other screening for suspected conditions (not mental [...] Urnls Dip Stick Auto w/o Microscopy POC [id number] Your Care Team Attending Physician - KEHINDE [...] CRUZ, Abdi Santana Where: [facility] Patient Educationon 06-28-20 Patient Education Urology Testicular [...] provider. Document Revised: 06/10/2020 Document Reviewed: 06/10/2020 [employer] Patient Education ? 2022 [employer]. Spermatocele A spermatocele is a fluid-filled sac [...] you b (more content not included)... Normal [facility] Urology Office/Clinic Noteon 06-28-2023 Urology Office/Clinic Note Chief Complaint Scrotal US HPI Staff Scrotal US DX: BPH & Spermatocele *Started [...] 1 PPD. Follow-up With When Contact Information KEHINDE CRUZ, Abdi Santana, JOHN In 6 months [facility] [address], [place] [address]- Additional Instructions: w/PSA Patient Education Testicular Self-Exam [...] Mother. Immunizat (more content not included)... Normal [facility] Comment on above: Result Comment: Elec tronically Signed By: Abdi MCINTOSH MD\.br\Date and Time Signed: 06/28/23 12:06 EST\.br\Electronically Co-Signed By: Alexa Cronin\.br\Date and Time Co-Signed: 06/28/23 12:05 EST Ambulatory Visit Summaryon 1 Ambulatory Visit Summary MERLIN JOHNSTON :1950 Visit Date:06/28/2023 Ambulatory Visit Instructions Your Care Team Attending Physician - Abdi MCINTOSH MD Primary Care Physician - SMITHA SNOWDEN MD This Is Your Medications List buPROPion (Wellbutrin SR 150 mg Tab-ER) multivitamin (Multi Vitamin+) tamsulosin (tamsulosin 0.4 mg Cap) Procedures Performed Cataract, Colonoscopy, Tonsillectomy. What to do next Scheduled Follow-Up Appointments Wednesday 10:30 AM EST With: Abdi MCINTOSH MD Where: [facility] RAD - Ultrasound Reporton RAD - Ultrasound Report [id number]: 127 [facility] Ambulatory Visit Summaryon 0 03-29-2023 Ambulatory Visit Summary MERLIN JOHNSTON :1950 Visit Date:03/29/2023 Ambulatory Visit Instructions Your Diagnosis BPH with urinary obstruction Former smoker Spermatocele Tests Performed US Scrotum (Contents) -- Results Pending -- Please visit your patient portal for your results or contact your primary care physician. Your Care Team Attending Physician - Abdi MCINTOSH MD Primary Care Physician - SMITHA SNOWDEN MD [...] Following Appointments Follow Up with KEHINDE CRUZ, Abdi Santana, URL When: In 3 months Comments: w/Scrotal US Where: [facility] [address], [place] [address]- [id number] Medications What How Much When Instructions Unchanged [...] at the (more content not included)... Normal [facility] Formson 03-29-2023 Forms [id number]: 127 Normal [facility] Patient Educationon 03-29-20 Patient Education Urology Benign Prostatic Hyperplasia Benign [...] Follow these instructions at home: ? Take haky-kib-kveqhay and prescription medicines only as told by [...] the medicine (more content not included)... Normal [facility] Basic Metabolic Profon 02-10 Anion gap [Moles/Vol] 16 mmol/L Normal -17 [facility] Comment on above: Performed By: #### C DP, BMP, TROPI #### [facility] [address] [place], [place] [id number] Manager Technical Services: Ming Costello MD BUN/CRE Ratio 15 Normal 9- [facility] Comment on above: Performed By: #### C DP, BMP, TROPI #### [facility] [address] [place], [place] [id number] Manager Technical Services: Ming Costello MD Calcium [Mass/Vol] 9.3 mg/dL Normal 8.6-10.4 [facility] Comment on above: Performed By: #### C DP, BMP, TROPI #### [facility] [address] [place] [address] Manager Technical Services: Ming Costello MD Chloride [Moles/Vol] 93 mmol/L Low 98-107 [facility] Comment on above: Performed By: #### C DP, BMP, TROPI #### [facility] [address] [place], [place] [id number] Manager Technical Services: Ming Costello MD CO2 [Moles/Vol] 22 mmol/L Normal 20-31 [facility] Comment on above: Performed By: #### C DP, BMP, TROPI #### [facility] [address] [place], [place] [phone] Manager Technical Services: Ming Costello MD Creatinine [Mass/Vol] 0.8 mg/dL Normal 0.7-1.2 [facility] Comment on above: Performed By: #### C DP, BMP, TROPI #### [facility] [address] [place] [address] Manager Technical Services: Ming Costello MD GFR/1.73 sq M.predicted among non-blacks MDRD (S/P/Bld) [Vol rate/Area] mL/min/{1.73_m2} Normal >60 [facility] Comment on above: Result Comment: These [...] renal tubular secretion. Performed By: #### C DWAYNE BMP, TROPI #### [address] [place] [address] Manager Technical Services: Ming Costello MD Glucose [Mass/Vol] 123 mg/dL High 70-99 [facility] Comment on above: Performed By: #### C DWAYNE BMP, TROPI #### [address] [place] [address] Manager Technical Services: Ming Costello MD Potassium [Moles/Vol] 3.9 mmol/L Normal 3.7-5.3 [facility] Comment on above: Performed By: #### C DWAYNE BMP, TROPI #### [address] [place] [address] Manager Technical Services: Ming Costello MD Sodium [Moles/Vol] 131 mmol/L Low 135-144 [facility] Comment on above: Performed By: #### C DWAYNE BMP, TROPI #### [address] [place] [address] Manager Technical Services: Ming Costello MD Urea nitrogen [Mass/Vol] 12 mg/dL Normal 8-23 [facility] Comment on above: Performed By: #### C DP BMP, TROPI #### [address] [place], [facility]83 Manager Technical Services: Ming Costello MD CBC with Diffon 02-10-2023 Abs. Basophil 0.06 k/uL Normal 0.00-0.20 [facility] Comment on above: Performed By: #### C DP, BMP, TROPI #### [facility] [address] [place] [address] [address]. [place] [phone] Manager Technical Services: Ming Costello MD Abs.Imm.Granulocyte 0.03 k/uL Normal 0.00-0.30 [facility] Comment on above: Performed By: #### C DP, BMP, TROPI #### [address] [place] [address] Manager Technical Services: Ming Costello MD Abs.Neutrophil (Seg) 5.01 k/uL Normal 1.50-8.10 [facility] Comment on above: Performed By: #### C DP, BMP, TROPI #### [facility] [address] [place] [address] Dr. [place], [place] [address] Manager Technical Services: Ming Costello MD Basophils/100 WBC (Bld) 1 % Normal 0-2 [facility] Comment on above: Performed By: #### C DP, BMP, TROPI #### [address] [place], [place] [address] Manager Technical Services: Ming Costello MD Eosinophils (Bld) [#/Vol] 0.39 10*3/uL Normal 0.00-0.44 [facility] Comment on above: Performed By: #### C DP, BMP, TROPI #### [address] [place] [address] Manager Technical Services: Ming Costello MD Eosinophils/100 WBC (Bld) 4 % Normal 1-4 [facility] Comment on above: Performed By: #### C DP, BMP, TROPI #### [address] [place] [phone] Manager Technical Services: Ming Costello MD Erythrocyte distribution width (RBC) [Ratio] 12.8 % Normal 11.8-14.4 [facility] Comment on above: Performed By: #### C DP, BMP, TROPI #### [facility] [address] [place], [place] [phone] Manager Technical Services: Ming Costello MD Hematocrit (Bld) [Volume fraction] 45.4 % Normal 40.7-50.3 [facility] Comment on above: Performed By: #### C DP, BMP, TROPI #### [facility] [address] [place] [phone] Manager Technical Services: Ming Costello MD Hemoglobin (Bld) [Mass/Vol] 15.3 g/dL Normal 13.0-17.0 [facility] Comment on above: Performed By: #### C DP, BMP, TROPI #### [facility] [address] [place], [place] [address] Manager Technical Services: Ming Costello MD Immature granulocytes/100 WBC (Bld) 0 % Normal 0 [facility] Comment on above: Performed By: #### C DP, BMP, TROPI #### [facility] [address] [place], [facility]83 Manager Technical Services: Ming Costello MD Lymphocytes (Bld) [#/Vol] 2.63 10*3/uL Normal 1.10-3.70 [facility] Comment on above: Performed By: #### C DP, BMP, TROPI #### [facility] [address] [place], [place] [phone] Manager Technical Services: Ming Costello MD Lymphocytes/100 WBC (Bld) 29 % Normal 24-43 [facility] Comment on above: Performed By: #### C DP, BMP, TROPI #### [facility] [address] [place], [facility]83 Manager Technical Services: Ming Costello MD MCH (RBC) [Entitic mass] 30.8 pg Normal 25.2-33.5 [facility] Comment on above: Performed By: #### C DP, BMP, TROPI #### [facility] [address] [place], [place] [phone] Manager Technical Services: Ming Costello MD MCHC (RBC) [Mass/Vol] 33.7 g/dL Normal 28.4-34.8 [facility] Comment on above: Performed By: #### C DP, BMP, TROPI #### [facility] [address] [place], [place] [phone] Manager Technical Services: Ming Costello MD MCV (RBC) [Entitic vol] 91.5 fL Normal 82.6-102.9 [facility] Comment on above: Performed By: #### C DP, BMP, TROPI #### [address] [place], [facility]83 Manager Technical Services: Ming Costello MD Monocytes (Bld) [#/Vol] 1.08 10*3/uL Normal 0.10-1.20 [facility] Comment on above: Performed By: #### C DP, BMP, TROPI #### [address] [place] [address] Manager Technical Services: Ming Costello MD Monocytes/100 WBC (Bld) 12 % Normal 3-12 [facility] Comment on above: Performed By: #### C DP, BMP, TROPI #### [facility] [address] [place] [address] Manager Technical Services: Ming Costello MD Neutrophil (Seg) 54 % Normal 36-65 [facility] Comment on above: Performed By: #### C DP, BMP, TROPI #### [facility] [address] [place], [place] [phone] Manager Technical Services: Ming Costello MD NRBC Automated 0.0 per 100 WBC Normal 0.0 [facility] Comment on above: Performed By: #### C DP, BMP, TROPI #### [address] [place], [facility]83 Manager Technical Services: Ming Costello MD Platelet mean volume (Bld) [Entitic vol] 9.6 fL Normal 8.1-13.5 [facility] Comment on above: Performed By: #### C DP, BMP, TROPI #### [address] [place] [address] Manager Technical Services: Ming Costello MD Platelets (Bld) [#/Vol] 289 10*3/uL Normal 138-453 [facility] Comment on above: Performed By: #### C DP BMP, TROPI #### [address] [place], [facility]83 Manager Technical Services: Ming Costello MD RBC (Bld) [#/Vol] 4.96 10*6/uL Normal 4.21-5.77 [facility] Comment on above: Performed By: #### C DWAYNE BMP, TROPI #### [address] [place], [place] [phone] Manager Technical Services: Ming Costello MD WBC (Bld) [#/Vol] 9.2 10*3/uL Normal 3.5-11.3 [facility] Comment on above: Performed By: #### C DP, BMP, TROPI #### [address] [place], [facility]83 Manager Technical Services: Ming Costello MD CT HEAD WO CONTRASTon [...] Shayy Muse MD 02/10/23 Final result Normal [facility] Ethanol Alcoholon 02-10-2023 Ethanol [Mass/Vol] 159 mg/dL High <10 [facility] Comment on above: Performed By: #### A LCB #### [facility] [address] [place] [address] Manager Technical Services: Ming Costello MD Ethanol percent 0.159 % High <0.010 [facility] Comment on above: Performed By: #### A LCB #### [facility] [address] [place] [address] Manager Technical Services: Ming Costello MD Troponinon 02-10-2023 Troponin, High Sens 17 ng/L Normal 0-22 [facility] Comment on above: Result Comment: High Sensitivity Troponin values cannot be compared with other Troponin methodologies. Performed By: #### C DP, BMP, TROPI #### [facility] [address] [place] [address] Manager Technical Services: Ming Costello MD XR CHEST PORTABLEon 02-11-20 [...] Shayy Muse MD 02/10/23 Final result Normal [facility] CBC AUTO DIFFon 11-23-2022 BASO # 0.1 103/ul Normal 0.0-0.1 [facility] Comment on above: Performed By: #### C BC #### [facility] [address] [place] [address] [address] Micheline Ventura Basophils/100 WBC (Bld) 1.0 % Normal 0.2-2.0 [facility] Comment on above: Performed By: #### C BC #### [facility] [address] [place] [address] Dr. iMcheline Ventura EO # 0.3 103/ul Normal 0.0-0.7 [facility] Comment on above: Performed By: #### C BC #### [facility] [address] [place] [address] [address] Micheline Ventura Eosinophils/100 WBC (Bld) 5.8 % Normal 0.9-7.0 [facility] Comment on above: Performed By: #### C BC #### [facility] [address] [place] [address] Dr. Micheline Ventura Erythrocyte distribution width (RBC) [Ratio] 13.3 % Normal 11.0-15.0 [facility] Comment on above: Performed By: #### C BC #### [facility] [address] [place] [address] Dr. Mciheline Ventura Hematocrit (Bld) [Volume fraction] 45.8 % Normal 42.0-54.0 [facility] Comment on above: Performed By: #### C BC #### [facility] [address] [place] [address] Dr. Micheline Ventura Hemoglobin (Bld) [Mass/Vol] 15.3 g/dL Normal 14.0-18.0 [facility] Comment on above: Performed By: #### C BC #### [facility] [address] [place] [address] Dr. Micheline Ventura IG # 0.00 10e3/ul Normal 0.00-0.03 [facility] Comment on above: Performed By: #### C BC #### [facility] [address] [place] [address] Dr. Micheline Ventura IG % 0.0 % Normal 0.0-0.5 [facility] Comment on above: Performed By: #### C BC #### [facility] [address] [place] [address] Dr. Micheline Ventura LYMPH # 1.9 103/ul Normal 1.2-3.8 [facility] Comment on above: Performed By: #### C BC #### [facility] [address] [place] [address] Dr. Micheline Ventura Lymphocytes/100 WBC (Bld) 37.1 % Normal 20.5-60.0 [facility] Comment on above: Performed By: #### C BC #### [facility] [address] [place] [address] Dr. Micheline Ventura MANUAL DIFF REQ NO Normal [facility] Comment on above: Performed By: #### C BC #### [facility] [address] [place] [address] Dr. Micheline Ventura MCH (RBC) [Entitic mass] 30.7 pg Normal 25.9-34.0 [facility] Comment on above: Performed By: #### C BC #### [facility] [address] [place] [address] Dr. Micheline Ventura MCHC (RBC) [Mass/Vol] 33.4 g/dL Normal 29.9-35.2 [facility] Comment on above: Performed By: #### C BC #### [facility] [address] [place] [address] Dr. Micheline Ventura MCV (RBC) [Entitic vol] 91.8 fL Normal 80.0-94.0 [facility] Comment on above: Performed By: #### C BC #### [facility] [address] [place] [address] Dr. Micheline Ventura MONO # 0.6 103/ul Normal 0.3-0.8 [facility] Comment on above: Performed By: #### C BC #### [facility] [address] [place] [address] [address] Micheline Ventura Monocytes/100 WBC (Bld) 11.3 % Normal 1.7-12.0 [facility] Comment on above: Performed By: #### C BC #### [facility] [address] [place] [address] [address] Micheline Ventura NEUT # 2.3 103/ul Normal 1.4-6.5 [facility] Comment on above: Performed By: #### C BC #### [facility] [address] [place] [address] Dr. Micheline Ventura Neutrophils/100 WBC (Bld) 44.8 % Normal 43.0-75.0 [facility] Comment on above: Performed By: #### C BC #### [facility] [address] [place] [address] Dr. Micheline Ventura Platelet mean volume (Bld) [Entitic vol] 9.5 fL Normal 9.5-13.5 [facility] Comment on above: Performed By: #### C BC #### [facility] [address] [place] [address] Dr. Micheline Ventura PLT 292 103/ul Normal 150-450 [facility] Comment on above: Performed By: #### C BC #### [facility] [address] [place] [address] Dr. Micheline Ventura RBC 4.99 106/ul Normal 4.70-6.10 [facility] Comment on above: Performed By: #### C BC #### [facility] [address] [place] [address] Dr. Micheline Ventura WBC 5.2 103/ul Normal 4.0-11.0 [facility] Comment on above: Performed By: #### C BC #### [facility] [address] [place] [address] Dr. Micheline Ventura LIPID PROFILEon 11-23-2022 CHOL-HDL RATIO NORM SEE BELOW Normal [facility] Comment on above: Result Comment: 3.3 - 4.4 LOW RISK 4.4 - 7.1 AVERAGE RISK 7.1 - 11.0 MODERATE RISK >11.0 HIGH RISK Performed By: #### C MP, LIPID #### [facility] [address] [address] [address] Micheline Ventura Cholesterol [Mass/Vol] 169 mg/dL Normal <=200 [facility] Comment on above: Performed By: #### C MP, LIPID #### [facility] [address] [address] [address] Micheline Ventura Cholesterol in HDL [Mass/Vol] 49 mg/dL Normal 40-60 [facility] Comment on above: Performed By: #### C MP, LIPID #### [facility] [address] [place] [address] Dr. Micheline Ventura Cholesterol in LDL [Mass/Vol] 97.6 mg/dL Normal [facility] Comment on above: Performed By: #### C MP, LIPID #### [facility] [address] [place] [address] Dr. Micheline Ventura Cholesterol.total/C holesterol in HDL [Mass ratio] 3.4 {ratio} Normal [facility] Comment on above: Performed By: #### C MP, LIPID #### [facility] [address] [place] [address] Dr. Micheline Ventura HDL NORMAL > or = 60 mg/dl - LO W CARDIOVASCULAR RISK <40 mg/dl - HIGH CARDIOVASCULAR RISK Normal [facility] Comment on above: Performed By: #### C MP, LIPID #### [facility] [address] [place] [address] Dr. Micheline Ventura LDL CALC NORMAL SEE BELOW Normal [facility] Comment on above: Result Comment: <100 mg/dl OPTIMAL 100 - 129 mg/dl NEAR OR ABOVE OPTIMAL 130 - 159 mg/dl BORDERLINE HIGH 160 - 189 mg/dl HIGH >190 mg/dl VERY HIGH Performed By: #### C MP, LIPID #### [facility] [address] [place] [address] Dr. Micheline Ventura Triglyceride [Mass/Vol] 112 mg/dL Normal <=150 [facility] Comment on above: Performed By: #### C MP, LIPID #### [facility] [address] [address] [address] Micheline Ventura VLDL CALC 22.4 mg/dL Normal [facility] Comment on above: Performed By: #### C MP, LIPID #### [facility] [address] [address] [address] Micheline Ventura PROF 14(COMP METB)on 023 Albumin [Mass/Vol] 4.0 g/dL Normal 3.4-5.0 [facility] Comment on above: Performed By: #### C MP, LIPID #### [facility] [address] [address] [address] Micheline Ventura Albumin/Globulin [Mass ratio] 1.1 {ratio} Normal [facility] Comment on above: Performed By: #### C MP, LIPID #### [facility] [address] [place] [address] Dr. Micheline Ventura ALP [Catalytic activity/Vol] 70 U/L Normal 46-116 [facility] Comment on above: Performed By: #### C MP, LIPID #### [facility] [address] [address] [address] Micheline Ventura ALT [Catalytic activity/Vol] 80 U/L Critically high 16-63 [facility] Comment on above: Performed By: #### C MP, LIPID #### [facility] [address] [place] [address] Dr. Micheline Ventura Anion gap [Moles/Vol] 12.6 mmol/L Normal [facility] Comment on above: Performed By: #### C MP, LIPID #### [facility] [address] [place] [address] Dr. Micheline Ventura AST [Catalytic activity/Vol] 37 U/L Normal 15-37 [facility] Comment on above: Performed By: #### C MP, LIPID #### [facility] [address] [address] [address] Micheline Ventura Bilirubin [Mass/Vol] 1.1 mg/dL Critically high 0.2-1.0 [facility] Comment on above: Performed By: #### C MP, LIPID #### [facility] [address] [address] [address] Micheline Ventura Calcium [Mass/Vol] 9.5 mg/dL Normal 8.5-10.1 [facility] Comment on above: Performed By: #### C MP, LIPID #### [facility] [address] [address] [address] Micheline Ventura Chloride [Moles/Vol] 105 mmol/L Normal 98-107 [facility] Comment on above: Performed By: #### C MP, LIPID #### [facility] [address] [address] [address] Micheline Ventura CO2 [Moles/Vol] 29.8 mmol/L Normal 21.0-32.0 [facility] Comment on above: Performed By: #### C MP, LIPID #### [facility] [address] [place] [address] Dr. Micheline Ventura Creatinine [Mass/Vol] 0.99 mg/dL Normal 0.70-1.30 [facility] Comment on above: Performed By: #### C MP, LIPID #### [facility] [address] [address] [address] Micheline Ventura EGFR-AF NIUEAN >60 Normal >=60 [facility] Comment on above: Performed By: #### C MP, LIPID #### [facility] [address] [place] [address] Dr. Micheline Ventura EGFR-NON AF NIUEAN >60 Normal >=60 [facility] Comment on above: Performed By: #### C MP, LIPID #### [facility] [address] [address] [address] Micheline Ventura Globulin (S) [Mass/Vol] 3.8 g/dL Normal [facility] Comment on above: Performed By: #### C MP, LIPID #### [facility] [address] [address] [address] Micheline Ventura Glucose [Mass/Vol] 99 mg/dL Normal 74-106 [facility] Comment on above: Performed By: #### C MP, LIPID #### [facility] [address] [address] [address] Micheline Ventura Potassium [Moles/Vol] 4.4 mmol/L Normal 3.5-5.1 [facility] Comment on above: Performed By: #### C MP, LIPID #### [facility] [address] [address] [address] Micheline Ventura Protein [Mass/Vol] 7.8 g/dL Normal 6.4-8.2 [facility] Comment on above: Performed By: #### C MP, LIPID #### [facility] [address] [address] [address] Micheline Ventura Sodium [Moles/Vol] 143 mmol/L Normal 136-145 [facility] Comment on above: Performed By: #### C MP, LIPID #### [facility] [address] [address] [address] Micheline Ventura Urea nitrogen [Mass/Vol] 8.0 mg/dL Normal 7.0-18.0 [facility] Comment on above: Performed By: #### C MP, LIPID #### [facility] [address] [address] [address] Micheline Ventura Urea nitrogen/Creatinine [Mass ratio] 8.1 mg/mg Normal [facility] Comment on above: Performed By: #### C MP, LIPID #### [facility] [address] [address] [address] Micheline Ventura Basic Metabolic Panelon 08-2 Anion gap [Moles/Vol] 12 mmol/L 9 - 17 mmol/L [place] Bun/Cre Ratio 15 [place] Calcium [Mass/Vol] 10.3 mg/dL 8.6 - 10. 4 mg/dL [place] Chloride [Moles/Vol] 100 mmol/L 98 - 107 mmol/L [place] CO2 [Moles/Vol] 28 mmol/L 20 - 31 mmol/L [place] Creatinine [Mass/Vol] 0.79 mg/dL 0.7 - 1.2 mg/dL [place] GFR >60 >60 mL/min [place] GFR Non- >60 >60 mL/min [place] Glucose [Mass/Vol] 96 mg/dL 70 - 99 mg/dL [place] Potassium [Moles/Vol] 4.4 mmol/L 3.7 - 5.3 mmol/L [place] Sodium [Moles/Vol] 140 mmol/L 135 - 144 mmol/L [place] Urea nitrogen [Mass/Vol] 12 mg/dL 8 - 23 mg/dL [place] CBC Auto Differentialon 02-17 Basophils (Bld) [#/Vol] 0.05 10*3/uL [place] Basophils/100 WBC (Bld) 1 % 0 - 2 % [place] Differential Type NOT REPORTED [place] Eosinophils (Bld) [#/Vol] 0.35 10*3/uL [place] Eosinophils/100 WBC (Bld) 6 % High 1 - 4 % [place] Erythrocyte distribution width (RBC) [Ratio] 13.2 % 11.8 - 14.4 % [place] Hematocrit (Bld) [Volume fraction] 48.2 % 40.7 - 50.3 % [place] Hemoglobin (Bld) [Mass/Vol] 15.9 g/dL 13 - 17 g/dL [place] Immature granulocytes (Bld) [#/Vol] 0 % 0 [place] Immature granulocytes (Bld) [#/Vol] 10*3/uL [place] Interpretation and review of laboratory results Abnormal [place] Lymphocytes (Bld) [#/Vol] 2.00 10*3/uL [place] Lymphocytes/100 WBC (Bld) 32 % 24 - 43 % [place] MCH (RBC) [Entitic mass] 30.5 pg 25.2 - 33.5 pg [place] MCHC (RBC) [Mass/Vol] 33.0 g/dL 28.4 - 34.8 g/dL [place] MCV (RBC) [Entitic vol] 92.3 fL 82.6 - 102.9 fL [place] Monocytes (Bld) [#/Vol] 0.78 10*3/uL [place] Monocytes/100 WBC (Bld) 12 % 3 - 12 % [place] Platelet mean volume (Bld) [Entitic vol] 9.5 fL 8.1 - 13.5 fL [place] Platelets (Bld) [#/Vol] 248 10*3/uL [place] Platelets (Bld) [#/Vol] NOT REPORTED [place] RBC (Bld) [#/Vol] 5.22 10*6/uL 4.21 - 5.7 7 m/uL [place] RBC morphology finding Nom (Bld) NOT REPORTED [place] Segmented neutrophils/100 WBC (Bld) 49 % 36 - 65 % [place] Segs Absolute 3.13 [place] WBC (Bld) [#/Vol] 0.0 10*3/uL 0.0 per 10 0 WBC [place] WBC (Bld) [#/Vol] 6.3 10*3/uL [place] WBC Morphology NOT REPORTED [place] Metabolic Panelon 03-08-2019 GFR/1.73 sq M predicted among non-blacks MDRD (S/P/Bld) [Vol rate/Area] [place] Comment on above: Stage 1: Some [...] body mass. Additional eGFR calculator available at: http://www.Unruly.SNSplus/multiple_crcl_2011.htm XR CHEST STANDARD (2 VW)on 0 03-08-2019 No acute cardiopulmo nary process. [place] EXAMINATION: TWO XRA Y VIEWS OF [...] the costophrenic angles on the lateral view. [place] Abran, Mhpn Incoming Radiant Results From Scrip-t - 03/08/2019 10:48 AM EDT EXAMINATION: TWO [...] lateral view. IMPRESSION: No acute cardiopulmonary process. [place] Kamari 10-05-2018 L ---- Specimen: [id number] Received: 10/05/18 Status: LEIDA Bates Num: [id number] Spec Type: Surgical Subm Dr: Julius Carson DO Tissues: A Colon - Polyp (COLON POLYP @ 70 CM) Procedures: HE Stain/2, Gross/Micro L4 Patient Age/Sex Location Account Attending Physician Merlin Johnston 68/M RT4 [id number] Julius Carson DO SPEC NUM: [id number] RECD: 10/05/18-4 STATUS: LEIDA BATES NUM: [id number] VAMSI: 10/05/18- SUBM DR: Julius Carson DO ENTERED: 10/05/18-1015 [facility] VIKA STALLWORTH TYPE: Surgical DEPT: S ORDERED: HE Stain/2, [...] specimen is entirely submitted in one cassette. (LANCE/leonela) Microscopic Two glass slides with H E stained material have been examined. The microscopic findings support the above pathologic diagnosis. [id number] A. - - COLON POLYP @ 70 CM Specimen: [id number] Received: 10/05/18 Status: LEIDA Jana Num: [id number] Spec Type: Surgical Subm Dr: Julius Carson DO Tissues: A Colon - Polyp (COLON POLYP @ 70 CM) Procedures: HE Stain/2, Gross/Micro L4 Patient: Merlin Johnston [id number] (Continued) Signed (signature on file) Chalo Ibrahim MD 10/06/18 1330 [facility] Vital Signs Date Time Vital Sign Value Performing Clinician Facility 11-03-2023 11:06-0400 Body height 177.8 cm [facility] 11-03-2023 11:06-0400 Body mass index (BMI) [Ratio] 26.5 kg/m2 [facility] 11-03-2023 11:06-0400 Body temperature 97.8 [degF] [facility] 11-03-2023 11:06-0400 Body weight 83.91 kg [facility] 11-03-2023 11:06-0400 Diastolic blood pressure 80 mm[Hg] [facility] 11-03-2023 11:06-0400 Heart rate 77 /min [facility] 11-03-2023 11:06-0400 SaO2% (BldA) [Mass fraction] 97 % [facility] 11-03-2023 11:06-0400 Systolic blood pressure 130 mm[Hg] [facility] 06-28-2023 11:08-0500 Blood Pressure Location Abdi MCINTOHS [facility] 06-28-2023 11:08-0500 Diastolic blood pressure 72 mm[Hg] Abdi MCINTOSH [facility] 06-28-2023 11:08-0500 Heart rate 69 /min Abdi MCINTOSH [facility] 06-28-2023 11:08-0500 Respiratory rate 16 /min Abdi MCINTOSH [facility] 06-28-2023 11:08-0500 Systolic blood pressure 129 mm[Hg] Abdi MCINTOSH [facility] 05-10-2023 09:30-0400 Body height 177.8 cm Smitha Snowden Other [facility] Other 05-10-2023 09:30-0400 Body mass index (BMI) [Ratio] 25.54 kg/m2 Smitha Snowden Other [facility] Other 05-10-2023 09:30-0400 Body weight 80.74 kg Smitha Snowden Other [facility] Other 05-10-2023 09:30-0400 Diastolic blood pressure 86 mm[Hg] Smitha Snowden Other [facility] Other 05-10-2023 09:30-0400 Systolic blood pressure 146 mm[Hg] Smitha Snowden Other [facility] Other 01-18-2023 10:45-0400 Body height 177.8 cm Smitha Snowden Other [facility] Other 01-18-2023 10:45-0400 Body mass index (BMI) [Ratio] 25.54 kg/m2 Smitha Snowden Other [facility] Other 01-18-2023 10:45-0400 Body weight 80.74 kg Smitha Snowden Other [facility] Other 01-18-2023 10:45-0400 Diastolic blood pressure 79 mm[Hg] Smitha Snowden Other [facility] Other 01-18-2023 10:45-0400 Systolic blood pressure 129 mm[Hg] Smitha Snowden Other [facility] Other 11-09-2022 11:00-0400 Diastolic blood pressure 66 mm[Hg] Kathi Francisco Javier DO Work Phone: [employer] 11-09-2022 11:00-0400 Heart rate 74 /min Kathi Francisco Javier DO Work Phone: [employer] [facility] 11-09-2022 11:00-0400 Respiratory rate 20 /min Kathi Francisco Javier DO Work Phone: [facility] 11-09-2022 11:00-0400 SaO2% (BldA) [Mass fraction] 94 % Kathi Her DO Work Phone: [employer] [facility] 11-09-2022 11:00-0400 Systolic blood pressure 123 mm[Hg] Kathi Her DO Work Phone: [facility] 11-09-2022 10:30-0400 Body temperature 98.01 [degF] Kathi Her DO Work Phone: [facility] [employer] 11-09-2022 08:56-0400 Body height 177.8 cm Kathi Her DO Work Phone: [facility] 10-23-2022 13:11-0400 Body mass index (BMI) [Ratio] 40.18 kg/m2 Kathi Her DO Work Phone: [facility] 10-23-2022 13:11-0400 Body weight 127.01 kg Kathi Her DO Work Phone: [employer] Encounters Encounter Date Encounter Type Care Provider Facility Start: 01-24-2024 ambulatory Abdi Resendez ty:[facility] [place] Start: 11-03-2023 End: 11-03-2023 ambulatory [facility] Work Phone: Start: 11-03-2023 End: 11-03-2023 Patient encounter procedure [facility] Work Phone: Start: 08-25-2023 End: 08-25-2023 ambulatory Smitha Snowden Other [facility] Other Start: 08-25-2023 Telephone encounter Smitha Snowden [facility] Start: 08-24-2023 End: 08-24-2023 ambulatory Smitha Snowden Other [facility] Other Start: 08-24-2023 Telephone encounter Smitha Snowden [facility] Start: 06-30-2023 (Televisit) Televisit Smitha Pascual [facility] Start: 06-30-2023 End: 06-30-2023 ambulatory Smitha Snowden Other [facility] Other Start: 06-28-2023 End: 06-29-2023 ambulatory Abdi MCINTOSH Facility: [place] Start: 06-28-2023 End: 06-28-2023 Patient encounter procedure Abdi MCINTOSH [facility] Start: 05-10-2023 End: 05-10-2023 ambulatory Smitha Snowden Other [facility] Other Start: 05-10-2023 Office outpatient visit 15 minutes Smitha Snowden [facility] Start: 04-12-2023 End: 04-13-2023 ambulatory SMITHA SNOWDEN [facility] Start: 04-01-2023 End: 04-01-2023 ambulatory Smitha Snowden Other [facility] Other Start: 04-01-2023 Telephone encounter Smitha Snowden [facility] Start: 03-29-2023 End: 03-30-2023 ambulatory Abdi MCINTOSH Facility: [place] Start: 03-01-2023 End: 03-02-2023 ambulatory Mercy Vincent MD Facility: [place] Start: 02-15-2023 End: 02-16-2023 ambulatory Mercy Vincent MD Facility: [place] Start: 02-10-2023 End: 02-10-2023 Emergency department patient visit SMITHA SNOWDEN [facility] Start: 02-01-2023 End: 02-02-2023 ambulatory Mercy Vincent MD Facility: [place] Start: 01-25-2023 End: 01-26-2023 ambulatory Mercy Vincent MD Facility: [place] Start: 01-18-2023 End: 01-18-2023 ambulatory Smitha Snowden Other [facility] Other Start: 01-18-2023 Office outpatient visit 25 minutes Smitha Snowden [facility] Start: 01-18-2023 Telephone encounter Smitha Snowden [facility] Start: 01-08-2023 End: 01-08-2023 ambulatory Smitha Snowden Other [facility] Other Start: 01-08-2023 Telephone encounter Smitha Snowden [facility] Start: 12-29-2022 End: 12-30-2022 ambulatory [facility]A SNOWDEN [facility] Start: 11-23-2022 End: 11-23-2022 ambulatory SMITHA SNOWDEN [facility] Start: 11-23-2022 End: 11-24-2022 ambulatory SMITHA Charles SNOWDEN Facility: Start: 11-09-2022 End: 11-09-2022 ambulatory SMITHA SNOWDEN [facility] Start: 11-09-2022 End: 11-09-2022 Subsequent hospital visit by physician Kathi Her DO Work Phone: [facility] Start: 03-08-2019 End: 03-10-2019 Subsequent hospital visit by physician Nikos Hansen Dr Room 2 [facility] Comment on above: Acute medial menisca l tear, left, subsequent encounter Start: 10-05-2018 End: 10-05-2018 Patient encounter procedure Julius Carson Facility:[facility] Procedures Date Procedure Procedure Detail Performing Clinician Start: 11-23-2022 PSA screening SMITHA MATOS Comment on above: Performed By: #### P [facility] #### [facility] [address] [place] [address] Dr. Micheline Ventura Start: 03-08-2019 Radiologic exam ches t 2 views Trever Crystal Work Phone: Start: 03-08-2019 Ecg routine ecg w/le ast 12 lds w/i&r Trever Crystal Work Phone: Start: 03-08-2019 Basic metabolic pane l calcium total Trever Crystal Work Phone: Start: 03-08-2019 Blood count complete auto&auto difrntl wbc Trever Arslan Crystal Work Phone: Cataract (disorder) Abdi MCINTOSH Colonoscopy Abdi MCINTOSH Tonsillectomy Abdi MCINTOSH Plan of Treatment Date Care Activity Detail Author Start: 02-16-2023 Influenza vaccination Flu vacc ine (Season Ended) [facility] Start: 11-09-2022 End: 11-09-2022 Xcapsl ctrc rmvl insj io lens prosth w/o ecp EYE CATARACT EMULSIFICATION IOL IMPLANT Nuclear sclerotic cataract of both eyes 11/09/2022 10:05 AM EDT [facility] Start: 03-19-2019 Influenza vaccination Flu vaccine (# 1) [place] Start: 01-15-2016 Abdominal aortic aneurysm screening AAA screen [facility] Start: 01-15-2016 Pneumococcal 65+ yea rs Vaccine (1 - PCV) Pneumococcal 65+ years Vaccine (1 - PCV) [facility] Start: 01-15-2016 Pneumococcal 65+ yea rs Vaccine (1 of 2 - PCV13) Pneumococcal 65+ years Vaccine (1 of 2 - PCV13) [place] Start: 2001 Colon cancer screen colonoscopy Colon cancer screen colonoscopy [place] Start: 2001 Shingles Vaccine (1 of 2) Shingles Vaccine (1 of 2) [facility] Start: 01-15-1996 Screening for malign ant neoplasm of colon [facility] Start: 1991 Lipid panel Lipids [facility] Start: 1991 Lipid screen Lipid screen [place], [place] Start: 1970 DTaP/Tdap/Td vaccine (1 - Tdap) DTaP/Tdap/Td vaccine (1 - Tdap) [facility] Start: 1969 Hepatitis C screening Hepatitis C sc reen [facility] Start: 1963 Depression Screen Depression Screen [facility] Start: 1950 COVID-19 Vaccine (#1) COVID-19 Vacci ne (#1) [facility] Start: 1950 AAA screen AAA screen [place], [place] Start: 1950 Hepatitis C screen Hepatitis C scree [place] EKG 12 Lead EKG 12 Lead ECG Routine 03/08/2019 9:20 AM EDT [place] Oxygen therapy [[facility] Data Set] Initiate Oxygen Therapy Protocol Respiratory Care Routine Daily until discontinued starting 11/09/2022 [facility] Work Phone: Comment on above: Daily until disconti nued starting 11/09/2022 Immunizations Immunization Date Immunization Notes Care Provider Jitendra sargent 06-24-2023 influenza virus vacc ine, unspecified formulation Abdi Lalina [facility] 05-11-2022 influenza virus vacc ine, unspecified formulation Abdi Lalina [facility] 03-11-2022 zoster vaccine recombinant TappnGo [facility] 12-25-2021 zoster vaccine recombinant TappnGo [facility] 07-24-2021 influenza virus vacc ine, unspecified formulation Abdi Lalina [facility] 07-24-2021 pneumococcal conjuga te vaccine, 13 valent Abdi Lalina [facility] 07-03-2021 SARS-CoV-2 (COVID-19 ) mRNA-1273 vaccine Abdi Lalina [facility] 10-16-2020 SARS-CoV-2 (COVID-19 ) mRNA-1273 vaccine Adbi Lalina [facility] 09-17-2020 SARS-CoV-2 (COVID-19 ) [id number] vaccine Abdi MCINTOSH [facility] Comment on above: Result Comment: 2022: [id number] 06-08-2019 tetanus toxoid, redu triston diphtheria toxoid, and acellular pertussis vaccine, adsorbed Abdi MCINTOSH [facility] 04-24-2019 influenza virus vacc ine, unspecified formulation Abdi MCINTOSH [facility] 05-13-2018 influenza virus vacc ine, unspecified formulation Abdi MCINTOSH [facility] 05-13-2018 pneumococcal polysaccharide vaccine, 23 valent bAdi MCINTOSH [facility] 04-22-2017 influenza virus vacc ine, unspecified formulation Abdi MCINTOSH [facility] 04-22-2017 pneumococcal conjuga te vaccine, 13 valent Abdiluisa MCINTOSH [facility] 04-25-2016 influenza virus vacc ine, unspecified formulation Abdi MCINTOSH [facility] 05-05-2014 influenza virus vacc ine, unspecified formulation Abdi MCINTOSH [facility] 05-18-2013 influenza virus vacc ine, unspecified formulation Abdi Lalina [facility] Payers Date Payer Category Payer Medicare 2022 Unknown 2018 Medicare [id number] 2018 Self-pay 2018 Medicare MEDICARE MEDICAR E PART A AND B xxxxxxxxxxx 2018-Present [phone] [place] [address] xxxxxxxxxxx [id number] 2018 Unknown GENERIC COMMERCI AL GENERIC COMMERCIAL xxxxxxxxxx 2018-Present Indemnity xxxxxxxxxx [id number] 1959 Medicare [id number] 1959 Unknown [id number] 1951 Unknown [id number] 1951 Unknown [id number] [id number] 1951 Unknown [id number] 2.16.840.1.811780.3.579.2.196 1951 Unknown [id number] 2.16.840.1.367541.3.579.2.196 1951 Unknown [id number] 2.16.840.1.048020.3.579.2.196 1951 Unknown [id number] 2.16.840.1.707431.3.579.2.173 1951 Unknown [id number] 2.16.840.1.631806.3.579.2.173 1951 Unknown [id number] 2.16.840.1.451687.3.579.2.173 1951 Unknown [id number] 2.16.840.1.017976.3.579.2.173 1951 Unknown [id number] 2.16.840.1.666277.3.579.2.173 1951 Unknown [id number] 2.16.840.1.542366.3.579.2.727 1951 Unknown [id number] 2.16.840.1.452834.3.579.2.727 1951 Unknown [id number] [id number] Unknown [id number] [id number] Unknown [facility] [id number] Social History Date Type Detail Facility Start: 01-13-2014 End: 06-28-2023 Tobacco smoking status NHIS Former smoker [facility] [place] Start: 1950 Sex Assigned At Not on file [place] History of tobacco use Current smoker [facility] Phone: Start: 11-09-2022 Alcohol intake Current drinke r of alcohol (finding) [facility] Phone: Start: 11-09-2022 Alcohol intake [facility] Phone: Start: 11-09-2022 Alcohol Comment daily [facility] [employer] [facility] Phone: Start: 10-30-2022 End: 11-09-2022 Exposure to SARS-CoV-2 (event) Not sure [facility] Phone: Sex Assigned At [facility] Tobacco smoking status Never [facility] Start: 1950 Sex Assigned At Male F [facility] Medical Equipment Procedure Code Equipment Code Equipment Origin al Text Equipment Identifier Dates Lens Intraocular Bcnvx 22+ Diopt 6x12.5 Mm Acryl Envista - [id number] Start: 11-09-2022 Functional Status Date Assessment Result Facility 06-28-2023 Functional Status N/A [facility] Clinical Notes 10-23-2022 to 02-07-2024 Note Date & Type Note Facility 08-25-2023 Evaluation note Encounter Date Diagnosis Assessment Notes Aug, Colon cancer screening (ICD-10 - Z12.11) [facility] Other 12-13-2023 Evaluation note* Encounter Date Diagnosis [...] verbalized understanding and agreement with treatment plan. [facility] Other 12-11-2023 Hospital Discharge instructions Patient Education [...] provider. Document Revised: 06/10/2020 Document Reviewed: 06/10/2020 [employer] Patient Education 2022 [employer]. 06/28/2023 11:53:29 Spermatocele Spermatocele A spermatocele is [...] provider. Document Revised: 02/23/2022 Document Reviewed: 02/23/2022 [employer] Patient Education 2022 [employer]. Follow Up Care 03/29/2023 12:07:33 With:KEHINDE CRUZ, Abdi Santana, URL Address: [facility] [address], [place] [address]- When:Within 6 Month(s) Comments:[facility] Evaluation note* Encounter Date Diagnosis Assessment [...] that can be had with CPAP use. [facility] Other 09-11-2023 NoteChief Complaint Referral HPI Staff [...] With When Contact Information KEHINDE CRUZ, Abdi Santana, URL In 3 months [facility] [address], [place] [address] [id number] Additional Instructions: w/Scrotal US Patient Education Benign Prostatic Hyperplasia I, Alexa Cronin , personally scribed for Dr. Mcintosh on 03/29/2023 12:01:28. . Documentation recorded by the namrataibAlexa matos, accurately reflects the services(s) I performed and [...] Never Smokeless Tobacco Use:. (more content not included)...[facility]Result Comment: Electronically Signed By: Abdi MCINTOSH MD\.br\Date and Time Signed: 03/29/23 12:08 EDT\.br\Electronically Co-Signed By: Alexa Cronin\.br\Date and Time Co- Signed: 03/29/23 12:01 [id number] Evaluation note* Encounter Date Diagnosis Assessment Notes [...] test. He declines followup on this at [facility] at this time. Jan, Itching (ICD-10 - L29.9) Requests decreased dose of med. Educated him that it would make him tired. [facility] Other 07-03-2023 Evaluation note* Encounter Date Diagnosis Assessment Notes Treatment Notes Treatment Clinical Notes Jan, Lumbar pain (ICD-10 - M54.50) Jan, Right hip pain (ICD-10 - M25.551) [facility] Other 04-24-2023 Hospital Discharge instructions* Discharge Instructions* Kathi Her, DO - 11/09/2022 10:35 AM EDT SAME DAY [...] the healing period. The office number is [phone]. Take surgery bag and all eye drops to Dr. Her's office tomorrow at 9:05am. You may resume your normal diet. Start your eye drops tomorrow after your post-op appointment: Ofloxacin/Polytrim one drop to the operated eye 4 times daily Prednisolone one drop to the operated eye 4 times daily [facility] [place] Phone: [phone]) 998-804004-07-2023 History of Present illness Narrative* Lori Weir RN - 10/23/2022 1:14 PM EDT Patient received NPO instructions and pre-op medication instructions to be taken on the day of the procedure with a small sip of water. Pt was also given pre-op eye drop instructions from Dr. Johnson. Instructed pt to take wellbutrin with a small sip of water prior to arriving to the hospital the day of surgery. Instructed pt to avoid smoking marijuana within 5 days of surgery. documented in [facility] [place] Phone: evaluation + Plan note Future Appointments Appointment Date:01/03/2024 10:45:00 AM Scheduled Provider:Abdi MCINTOSH MD [facility] Appointment Type:URO Office Visit Diagnostic Tests Pending * PSA Total 06/28/[address] [facility] evalzciget note* Diagnosis 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 documented in this encounter [facility] Work Phone: evaluation noteNo InformationNortGeisinger St. [facility] [place] Other Evaluation noteNo assessment information available [facility] Work Phone: History general Narrative - Reported* Type Description Date Medical History Essential (primary) hypertension Medical History Borderline low oxygen saturation level Medical History Low back pain, unspecified Medical History Atopic dermatitis Medical History Insomnia, persistent Medical History Family history of malignant neop lasm of breast Surgical History KNEE ARTHROSCOPY X2 Surgical History CATARACT SURGERY Hospitalization History SEE SURGICAL HX [facility] [place] Other Hospital course Narrative No data available for this section [facility] progress note No data available for this section [facility] Summary Purpose Family History No Family History Records Found Relationship Condition Age at Onset Recorded Date/T manoj father Malignant neoplasm Unknown Family history of lung cancer Unknown Not Specified Malignant neoplasm of breast Unknown Malignant neoplasm Unknown Advance Directives No Advanced Directives Records FoundDocuments on File Type Date Recorded Patient Sand Bobber Expl anation Advance Directives and Living Will Power of Aviation Program Manager Latest Code Status on File Code Status Date Activated Date Inactivated Comments Full Code 11/09/2022 8:44 AM Advance Directive Response Recorded Date/ Time Advance Directives No October 03 2:25pm Assessments Diagnosis Acute medial meniscal tear, left, subsequent encounter Reason for Referral Reason 01/25/23 Last OV a nd xrays from today. Thanks Diagnosis 1 Lumbar pain (M54.50) Referral Organization [facility] von Referring Provider First Name Smitha Referring Provider Last Name Osiel Referring Provider Specialty Family [facility] cine Referred Organization [facility] Referred Address [address] [place], [place],[address] Referred Provider Specialty Pain Medicin e Referral Priority Routine Referral Appointment Date 2023-01-25 General Notes Jessica Mason 06:43:12 AM >received today, attachments made, referral faxed Jessica Mason 01/20/2023 03:44:38 PM >received fax with appt date Clinical Notes F: [id number] Chief Complaint and Reason for Visit Chief Complaint Referred carotid art nidia narrowing; duplex at [facility] Additional Source Comments (unrecognized sect ion and content) No Status Records FoundNo Status Records FoundNo Status Records FoundNo Status Records FoundNo Status Records Found INFORMATION SOURCE (unrecogn ized section and content) DATE CREATED AUTHOR 10/20/2018 [facility] DATE CREATED AUTHOR AUTHOR'S ORGANIZ ATION 11/27/2022 [facility] DATE CREATED AUTHOR AUTHOR'S ORGANIZ ATION 03/11/2023 [facility] DATE CREATED AUTHOR AUTHOR'S ORGANIZ ATION 04/20/2023 [facility] DATE CREATED AUTHOR AUTHOR'S ORGANIZ ATION 12/15/2023 [facility] Reason for Visit (unrecogniz ed section and content) Specialty Diagnoses / Procedures Referred By Rasheed funes Referred To Contact Diagnoses Nuclear sclerotic cataract of both eyes AGE RELATED NUCLEAR CAT 2+NS Procedures DC XCAPSL CTRC RMVL INSJ IO LENS PROSTH W/O ECP EYE CATARACT EMULSIFICATION IOL IMPLANT Francisco Javier Kathi Y, DO [address] [place] [address] [facility] [id number] [place] [address] Referral ID Status Reason Start Date Expiration Date Visits Re quested Visits Authorized [id number] 1 1 Scheduled Active and Recently Administ [...] Justina Gardner RN)0914 (Given - Provider: Justina Gardner, RN) proparacaine (ALCAINE) 0.5 % ophthalmic solution 1 drop 1 drop, Left Eye, SEE ADMIN INSTRUCTIONS, Starting on Wed11/09/22 at 0844, Until Discontinued, Into the operative eye(s) every 5 minutes for PRN doses starting 30 minutes prior to surgery., Pre-op (day of surgery) 09 (Given - [...] RN)0914 (Given - Provider: Justina Gardner RN) Continuous Medication Order 11/07/2022 11/08/2022 11/09/2022 0.9 % sodium chloride infusion IntraVENous, at 125 mL/hr, CONTINUOUS, Starting on Wed11/09/22 at 0900, Pre-op (day of surgery) 0900 (Due) lactated ringers IV soln infusion IntraVENous, at 100 mL/hr, CONTINUOUS, Starting on Wed11/09/22 at 0900, Pre-op (day of surgery) 0913 (New Bag - Prov ider: Justina Gardner RN)1004 (NoRateChange - Provider: Eden Jurado APRN - FLANGING ROLL OPERATOR)1036 (Rate/Dose Change - Provider: Eden Jurado, COORDINATE MEASURING EQUIPMENT OPERATOR - FLANGING ROLL OPERATOR)1100 (Stopped - Provider: Rosy Shearer RN) PRN [...] Care Teams (unrecognized sec tion and content) Switch Technician Relationship Specialty Start Date End Date Smitha Snowden MD [facility] [place] [address] PCP - General 01/13/14 Team Status: Active Member Role Status Dates Smitha Snowden MD Primary Care Provider Active Team Status: Inactive Member Role Status Dates Smitha Snowden MD Primary Care Provide r, Referring Provider Active Start: November 03, 2023 End: November 03, 2023 Elías Abraham MD Attending Provider Active Start: November 03, 2023 End: November 03, 2023 Goals (unrecognized section and content) Goals may be documented in a n alternate section FOR RECORDS PERTAINING TO PATIENTS WHO ARE [...] BE BASED ON THE PRIMARY CLINICAL RECORDS. [facility] [employer] [facility]. provides no warranty or guarantee of the accuracy or completeness of information in this document.
[2023-12-20 11:36] VITALS: BP 166/90; PULSE 72; TEMP 36.6; O2SAT 97
[2023-12-20] MEDS: 0.9 % SODIUM CHLORIDE 10 ML SYRINGE - SALINE FLUSH INJ (12:05)
[2023-12-20] MEDS: BUPIVACAINE HCL 0.25% PF 25 MG/10 ML VIAL INJ (12:05)
[2023-12-20] MEDS: TRIAMCINOLONE ACETONIDE 40 MG/ML VIAL INJ (12:06)
[2023-12-20] MEDS: IOHEXOL 240 MG/ML - 10 ML VIAL INJ (12:06)
[2023-12-20] MEDS: LIDOCAINE HCL 2% PF 100 MG/5 ML VIAL INJ (12:07)
[2023-12-20 12:08] VITALS: BP 172/94; BP 186/89; PULSE 75; PULSE 82; O2SAT 96; O2SAT 97
--- NOTE | 2023-12-20 12:08 | P.ON_ITS ---
Date of procedure: 12/20/23 Pre-op diagnosis: Lumbar stenosis with neurogenic claudication Post-op diagnosis: same as pre-op Procedure: Procedure: Right L4-5, L5-S1 transforaminal epidural steroid injection Medications: Bupivacaine 0.25% 2cc, lidocaine 2% 1cc, kenalog 80mg The patient was seen and examined in the preoperative holding area.? Informed consent was obtained and placed on the chart.? Patient was brought to the medical procedure unit and placed in the prone position where a timeout was completed verifying the correct patient, procedure site, position, and planned special equipment using sterile aseptic technique.? Under direct fluoroscopic visualization a 25-gauge Quincke tipped spinal needle was advanced to the designated neural foramen where contrast dye was injected to show adequate spread.? The needle was inserted at level right L4-5. There was no evidence of vascular or adverse uptake.? Epidural spread was appreciated.? The above- mentioned injectate was then placed in a 1.5 mL aliquot preceded by negative aspiration.? The needle was removed. The needle was inserted and the procedure repeated at level right L5-S1.? The surgery site was covered.? Patient was taken to the postprocedural recovery area and monitored for an appropriate length of time before found suitable for discharge in the accompaniment of a responsible adult. Anesthesia: Local Surgeon: Mercy Vincent Pathology: none sent Condition: stable Disposition: no change
== END 2023-12-20 12:12 | disposition home or self-care (01) ==
LOC: SURGOUT 10:26
PROVIDERS: PCP Family Medicine; Visit Provider Anesthesiology
DX: Z00.00 Encounter for general adult medical examination without abnormal findings (principal); M48.062 Spinal stenosis, lumbar region with neurogenic claudication; Z12.5 Encounter for screening for malignant neoplasm of prostate; I10 Essential (primary) hypertension
CPT/HCPCS: 36415; 64483; 64484; 80053; 80061; 85025; G0103; Q9966

== ENCOUNTER 2023-12-20 10:30 | Outpatient (OUT) | payer MEDICARE, SELFPAY ==
[2023-12-20 11:01] LABS: Basophils Absolute Auto 0.1 10^3/uL (0.0-0.1); Basophils Percent Auto 1.1 % (0.2-2.0); Eosinophils Absolute Auto 0.3 10^3/uL (0.0-0.7); Eosinophils Percent Auto 4.6 % (0.9-7.0); Hematocrit 45.4 % (42.0-54.0); Hemoglobin 15.1 g/dL (14.0-18.0); Immature Granulocytes Abs Auto 0.01 10^3/uL (0.00-0.03); Immature Granulocytes Pct Auto 0.2 % (0.0-0.5); Lymphocytes Absolute Auto 1.8 10^3/uL (1.2-3.8); Lymphocytes Percent Auto 32.7 % (20.5-60.0); Mean Corpuscular HGB Conc 33.3 g/dL (29.9-35.2); Mean Corpuscular Hemoglobin 30.6 pg (25.9-34.0); Mean Corpuscular Volume 92.1 fL (80.0-94.0); Mean Platelet Volume 9.4 fL (9.5-13.5); Monocytes Absolute Auto 0.6 10^3/uL (0.3-0.8); Monocytes Percent Auto 11.5 % (1.7-12.0); Neutrophils Absolute Auto 2.7 10^3/uL (1.4-6.5); Neutrophils Percent Auto 49.9 % (43.0-75.0); Platelet Count 268 10^3/uL (150-450); Red Blood Count 4.93 10^6/uL (4.70-6.10); Red Cell Distribution Width 13.3 % (11.0-15.0); White Blood Count 5.5 10^3/uL (4.0-11.0)
[2023-12-20 12:02] LABS: Alanine Aminotransferase 43 U/L (16-63); Albumin Globulin Ratio 1.1; Albumin Level 4.1 g/dL (3.4-5.0); Alkaline Phosphatase 84 U/L (46-116); Anion Gap 13.6; Aspartate Amino Transferase 29 U/L (15-37); BUN Creatinine Ratio 7.3; Bilirubin Total 1.3 mg/dL (0.2-1.0); Calcium 9.8 mg/dL (8.5-10.1); Carbon Dioxide 28.8 mmol/L (21.0-32.0); Chloride 104 mmol/L (98-107); Cholesterol 173 mg/dL (<=200); Estimated GFR (African America >60 (>=60); Estimated GFR (Non-African Ame >60 (>=60); Globulin 3.6 g/dL; Glucose 100 mg/dL (74-106); HDL Cholesterol 58 mg/dL (40-60); LDL Cholesterol Calculated 98.2 mg/dL; Potassium 4.4 mmol/L (3.5-5.1); Sodium 142 mmol/L (136-145); Total Protein 7.7 g/dL (6.4-8.2); Triglycerides 84 mg/dL (<=150); VLDL CHOLESTEROL 16.8 mg/dL
[2023-12-20 14:58] LABS: Prostate Specific Antigen Scrn 2.87 ng/mL (<=4.00)
== END 2023-12-20 10:31 | disposition home or self-care (01) ==
LOC: LAB 10:32
PROVIDERS: PCP Family Medicine; Visit Provider Family Medicine
DX: Z00.00 Encounter for general adult medical examination without abnormal findings (principal); I10 Essential (primary) hypertension; Z12.5 Encounter for screening for malignant neoplasm of prostate
CPT/HCPCS: 36415; 80053; 80061; 85025; G0103

== ENCOUNTER 2024-01-03 07:51 | Day surgery (SDC) | payer MEDICARE, SELFPAY ==
--- OUTSIDE RECORDS SUMMARY | 2024-01-03 07:55 | XMS_ITS | CCD ---
Author Organization [facility] Care Team Providers Care Band Manager Name Role Phone Julius Carson Admitting Unavailable Julius Carson Attending Unavailable Smitha Snowden Primary Care Unavailable Smitha Snowden Primary Care Provider Smitha Snowden MD Primary Care Provider SMITHA SNOWDEN Attending Unavailable SMITHA SNOWDEN Consulting Unavailable SMITHA SNOWDEN Primary Care Unavailable SMITHA SNOWDEN Admitting Unavailable mSitha Snowden Unavailable SMITHA SNOWDEN Primary Care Unavailable KATHI HER Admitting Unavailable KATHI HER Attending Unavailable SMITHA SNOWDEN Primary Care Unavailable SMITHA SNOWDEN Referring Unavailable SMITHA SNOWDEN Primary Care Unavailable SMITHA SNOWDEN Referring Unavailable SP, SMITHA Primary Care Unavailable SP, SMITHA Primary Care Unavailable KATHI HER Admitting Unavailable KATHI HER Attending Unavailable SMITHA SNOWDEN Primary Care Physician [phone] Abdi MCINTOSH Attending Unavailable SMITHA SNOWDEN Referring Unavailable Abdi MCINTOSH Attending Unavailable Abdi MCINTOSH Attending Unavailable Melisa CRUZ, Isidrarius Gomes Attending Unavailable Gimaddie CRUZ, Andrius Mireya Attending Unavailable Melisa CRUZ, Andrius Vlos Attending Unavailable Gimaddie CRUZ, Andrius Vyteli Attending Unavailable Gimaddie CRUZ, Andrius Mireya Attending Unavailable Allergies Allergy Classification Reported Allergen(s) Allergy Type Date of Onset Reaction(s) Facility (7 sources) Acetaminophen / oxyCODONE Drug Allergy itching [employer] Other (1 source) No Known Medication Allergies; Translations: [No Known Medication Allergies] Propensity to adverse reactions (disorder) [facility] Repository Medications Current Medications Medication Drug Class(es) [...] hydrochloride 150 mg extended release oral tablet (16 sources) Aminoketone Start: 03-29-2023 take 1 tablet [...] mL tamsulosin hydrochloride 0.4 mg oral capsule (7 sources) alpha-Adrenergic Tavia Start: 11-03-2023 Tamsu losin Active MG PO November 03, 2023 12:00am Start: 03-29-2023 take 1 capsule by [facility] once daily tamsulosin 0.4 mg Cap 0.4 mg = 1 cap(s), Oral, Daily, # 30 cap(s), Refills(s) 11, Pharmacy: [facility] [id number], 175, cm, 03/29/23 11:17:00 EDT, Height/Length Dosing, [...] drop zolpidem tartrate 10 mg oral tablet (9 sources) gamma-Aminobutyric Acid-ergic Agonist Start: 12-24-2023 take 10 mg by mouth once daily at bedtime Zolpidem Active 10 MG PO Daily at bedtime December 24, 2023 12:00am Start: 08-24-2023 take 1 tablet by charla th every [...] sodium 75 mg delayed release oral tablet (2 sources) Nonsteroidal Anti-inflammatory Drug Start: 09-09-2018 End: 11-03-2023 [...] Onset: 11-08-2022 Resolved: 11-09-2022 Chronic Essential hypertension (13 sources) Essential (primary) hypertension; Translations: [Essential hypertension] Onset: 11-23-2022 Chronic Hyperplasia of prostate (10 sources) Benign prostatic hypertrophy with outflow obstruction; Translations: [Benign prostatic hyperplasia with lower urinary tract symptoms] Onset: 06-28-2023 Chronic Mood disorders (1 source) Depressive disorder 03-29-2023 Chronic Other circulatory disease (1 source) Hypotension, unspecified; Translations: [Hypotension, unspecified] Onset: 02-10-2023 Episodic Other circulatory disease (2 sources) Carotid bruit; Translations: [Other specified symptoms and [...] conditions (not mental disorders or infectious disease) (3 sources) Carotid artery finding; Translations: [Abnormal findings on diagnostic imaging of other specified body structures] 10-19-2023 Chronic Other screening for suspected conditions (not mental disorders or infectious disease) (11 sources) Encounter for screening for malignant neoplasm [...] Test Name Value Interpretation Reference Range Facility Basophils Auto (Bld) [#/Vol] on 12-20-2023 Basophils (Bld) [#/Vol] 0.1 10 3/uL 0.0-0.1 [facility] Basophils/100 WBC Auto (Bld) on 12-20-2023 Basophils/100 WBC (Bld) 1.1 % 0.2-2.0 [facility] Cholesterol in LDL Calc [Mas s/Vol]on 12-20-2023 Cholesterol in LDL [Mass/Vol] 98.2 mg/dL [facility] Comment on above: <100 mg/dl [id number] 0-129 mg/dl NEAR OR ABOVE [id number] mg/dl BORDERLINE [id number] mg/dl HIGH>190 mg/dl VERY HIGH Cholesterol in VLDL Calc [Ma ss/Vol]on 12-20-2023 Cholesterol in VLDL [Mass/Vol] 16.8 mg/dL [facility] Eosinophils/100 WBC Auto (Bl d)on 12-20-2023 Eosinophils/100 WBC (Bld) 4.6 % 0.9-7.0 [facility] Erythrocyte distribution wid th Auto (RBC) [Ratio]on 12-20-2023 Erythrocyte distribution width (RBC) [Ratio] 13.3 % 11.0-15.0 [facility] Estimated glomerular filtrat ion rate (GFR) non- Americanon 12-20-2023 GFR/1.73 sq M.predicted among non-blacks MDRD (S/P/Bld) [Vol rate/Area] mL/min/{1.73_m2} >=60 [facility] Globulin Calc (S) [Mass/Vol] on 12-20-2023 Globulin (S) [Mass/Vol] 3.6 g/dL [facility] Hematocrit Auto (Bld) [Volum e fraction]on 12-20-2023 Hematocrit (Bld) [Volume fraction] 45.4 % 42.0-54.0 [facility] Hemoglobin [Mass/volume] in Bloodon 12-20-2023 Hemoglobin (Bld) [Mass/Vol] 15.1 g/dL 14.0-18.0 [facility] Laboratory - Chemistry and C hemistry - challengeon 12-20-2023 Albumin [Mass/Vol] 4.1 g/dL 3.4-5.0 [facility] ALP [Catalytic activity/Vol] 84 U/L 46-116 [facility] ALT [Catalytic activity/Vol] 43 U/L 16-63 [facility] AST [Catalytic activity/Vol] 29 U/L 15-37 [facility] Bilirubin [Mass/Vol] 1.3 mg/dL 0.2-1.0 [facility] Calcium [Mass/Vol] 9.8 mg/dL 8.5-10.1 [facility] Chloride [Moles/Vol] 104 mmol/L 98-107 [facility] Cholesterol [Mass/Vol] 173 mg/dL <=200 [facility] Cholesterol in HDL [Mass/Vol] 58 mg/dL 40-60 [facility] Comment on above: > or =60 mg/dl - LOW CARDIOVASCULAR RISK<40 mg/dl - HIGH CARDIOVASCULAR RISK CO2 [Moles/Vol] 28.8 mmol/L 21.0-32.0 [facility] Creatinine [Mass/Vol] 0.96 mg/dL 0.70-1.30 [facility] GFR/1.73 sq M.predicted MDRD (S/P/Bld) [Vol rate/Area] mL/min/{1.73_m2} >=60 [facility] Glucose [Mass/Vol] 100 mg/dL 74-106 [facility] Potassium [Moles/Vol] 4.4 mmol/L 3.5-5.1 [facility] Protein [Mass/Vol] 7.7 g/dL 6.4-8.2 [facility] Sodium [Moles/Vol] 142 mmol/L 136-145 [facility] Triglyceride [Mass/Vol] 84 mg/dL <=150 [facility] Urea nitrogen [Mass/Vol] 7.0 mg/dL 7.0-18.0 [facility] Urea nitrogen/Creatinine [Mass ratio] 7.3 mg/mg [facility] Laboratory - Hematology and Cell countson 12-20-2023 Immature granulocytes/100 WBC (Bld) 0.2 % 0.0-0.5 [facility] Leukocytes [#/volume] correc sophia for nucleated erythrocytes in Blood by Automated counon 12-20-2023 WBC corrected for nucl RBC Auto (Bld) [#/Vol] 5.5 10 3/uL 4.0-11.0 [facility] Lymphocytes Auto (Bld) [#/Vo l]on 12-20-2023 Lymphocytes (Bld) [#/Vol] 1.8 10 3/uL 1.2-3.8 [facility] Lymphocytes/100 WBC Auto (Bl d)on 12-20-2023 Lymphocytes/100 WBC (Bld) 32.7 % 20.5-60.0 [facility] MCH Auto (RBC) [Entitic mass ]on 12-20-2023 MCH (RBC) [Entitic mass] 30.6 pg 25.9-34.0 [facility] MCHC Auto (RBC) [Mass/Vol]on 12-20-2023 MCHC (RBC) [Mass/Vol] 33.3 g/dL 29.9-35.2 [facility] MCV Auto (RBC) [Entitic vol] on 12-20-2023 MCV (RBC) [Entitic vol] 92.1 fL 80.0-94.0 [facility] Monocytes Auto (Bld) [#/Vol] on 12-20-2023 Monocytes (Bld) [#/Vol] 0.6 10 3/uL 0.3-0.8 [facility] Monocytes/100 WBC Auto (Bld) on 12-20-2023 Monocytes/100 WBC (Bld) 11.5 % 1.7-12.0 [facility] Neutrophils Auto (Bld) [#/Vo l]on 12-20-2023 Neutrophils (Bld) [#/Vol] 2.7 10 3/uL 1.4-6.5 [facility] Neutrophils/100 WBC Auto (Bl d)on 12-20-2023 Neutrophils/100 WBC (Bld) 49.9 % 43.0-75.0 [facility] No Panel Informationon 12-19 Eosinophils # (Auto) 0.3 10 3/uL 0.0-0.7 [facility] Immature Granulocyte # (Auto) 0.01 10 3/uL 0.00-0.03 [facility] Prostate Specific Antigen Screen 2.87 ng/mL <=4.00 [facility] Platelet mean volume Auto (B ld) [Entitic vol]on 12-20-2023 Platelet mean volume (Bld) [Entitic vol] 9.4 fL 9.5-13.5 [facility] Platelets Auto (Bld) [#/Vol] on 12-20-2023 Platelets (Bld) [#/Vol] 268 10 3/uL 150-450 [facility] RBC Auto (Bld) [#/Vol]on RBC (Bld) [#/Vol] 4.93 10 6/uL 4.70-6.10 [facility] Serum or plasma albumin/glob ulin mass ratioon 12-20-2023 Albumin/Globulin [Mass ratio] 1.1 {ratio} [facility] Serum or plasma anion gap de terminationon 12-20-2023 Anion gap [Moles/Vol] 13.6 mmol/L [facility] Serum or plasma total choles terol/high density lipoprotein (HDL) cholesterol mass kaci 12-20-2023 Cholesterol.total/Ch olesterol in HDL [Mass ratio] 3.0 {ratio} [facility] Comment on above: 3.3 - 4.4 LOW RISK4. 4 - 7.1 AVERAGE RISK7.1 - 11.0 MODERATE RISK>11.0 HIGH RISK Ambulatory Visit Summaryon 1 08-29-2022 Ambulatory Visit Summary MERLIN JOHNSTON :1950 Visit Date:06/28/2023 Ambulatory Visit Instructions Your Diagnosis BPH with urinary obstruction Spermatocele Hydrocele Former smoker Tests Performed Urnls Dip Stick Auto w/o Microscopy POC 70625 Your Care Team Attending Physician - Abdi [...] to do next Scheduled Follow-Up Appointments Wednesday 10:45 AM EDT With: KEHINDE CRUZ, Abdi Santana Where: [facility] Patient Educationon 06-28-20 Patient Education [...] provider. Document Revised: 06/10/2020 Document Reviewed: 06/10/2020 [employer] Patient Education ? 2022 [employer]. Spermatocele A spermatocele is a fluid-filled sac [...] you b (more content not included)... Normal [facility] Urology Office/Clinic Noteon 06-28-2023 Urology Office/Clinic Note Chief Complaint 3m Scrotal US HPI Staff Scrotal US DX: [...] [facility] [address], [place] [address]- Additional Instructions: w/PSA Patient Education Testicular Self-Exam [...] Mother. Immunizat (more content not included)... Normal [facility] Comment on above: Result Comment: Elec tronically Signed By: Abdi MCINTOSH MD\.br\Date and Time Signed: 06/28/23 12:06 EST\.br\Electronically Co-Signed By: Alexa Cronin\.br\Date and Time Co-Signed: 06/28/23 12:05 EST Ambulatory Visit Summaryon 1 Ambulatory Visit Summary JOHNSTONMERLIN Katherine :1950 Visit Date:06/28/2023 Ambulatory Visit Instructions Your [...] Abdi MCINTOSH MD Where: [facility] RAD - Ultrasound Reporton RAD - Ultrasound Report [id number] D:127 Normal [facility] Ambulatory Visit Summaryon 0 03-29-2023 Ambulatory Visit Summary MERLIN JOHNSTON Katherine :1950 Visit Date:03/29/2023 Ambulatory Visit Instructions Your [...] w/Scrotal US Where: [facility] [address] , [place] [address]- [id number] Medications What How Much When Instructions Unchanged [...] at the (more content not included)... Normal [facility] Formson 03-29-2023 Forms [id number] D:127 Normal [facility] Patient Educationon 03-29-20 23 Patient Education [...] Follow these instructions at home: ? Take emco-kko-lozchao and prescription medicines only as told by [...] the medicine (more content not included)... Normal [facility] Basic Metabolic Profon 02-10 Anion gap [Moles/Vol] 16 mmol/L Normal - [facility] Comment on above: Performed By: #### C DP, BMP, TROPI #### [facility] [address] [place] [address] [employer] Operator: Ming Costello MD BUN/CRE Ratio 15 Normal 9-20 [facility] Comment on above: Performed By: #### C DP, BMP, TROPI #### [facility] [address] [place] [address] [employer] Operator: Ming Costello MD Calcium [Mass/Vol] 9.3 mg/dL Normal 8.6-10.4 [facility] Comment on above: Performed By: #### C DP, BMP, TROPI #### [facility] [address] [place] [address] [employer] Operator: Ming Costello MD Chloride [Moles/Vol] 93 mmol/L Low 98-107 [facility] Comment on above: Performed By: #### C DP, BMP, TROPI #### [facility] [address] [place] [address] [employer] Operator: Ming Costello MD CO2 [Moles/Vol] 22 mmol/L Normal 20-31 [facility] Comment on above: Performed By: #### C DP, BMP, TROPI #### [facility] [address] [place] [address] [employer] Operator: Ming Costello MD Creatinine [Mass/Vol] 0.8 mg/dL Normal 0.7-1.2 [facility] Comment on above: Performed By: #### C DP, BMP, TROPI #### [facility] [address] [place] [address] [employer] Operator: Ming Costello MD GFR/1.73 sq M.predicted among non-blacks MDRD (S/P/Bld) [Vol rate/Area] mL/min/{1.73_m2} Normal >60 [facility] Comment on above: Result Comment: These results [...] renal tubular secretion. Performed By: #### C DINORA RICE, TROPI #### [facility] [address] [place], [place] [id number] [employer] Operator: Ming Costello MD Glucose [Mass/Vol] 123 mg/dL High 70-99 [facility] Comment on above: Performed By: #### C DWAYNE BMP, TROPI #### [facility] [address] [place] [address] [employer] Operator: Ming Costello MD Potassium [Moles/Vol] 3.9 mmol/L Normal 3.7-5.3 [facility] Comment on above: Performed By: #### C DINORA RICE, TROPI #### [address] [place] [address] [employer] Operator: Ming Costello MD Sodium [Moles/Vol] 131 mmol/L Low 135-144 [facility] Comment on above: Performed By: #### C DINORA RICE, TROPI #### [address] [place] [address] [employer] Operator: Ming Costello MD Urea nitrogen [Mass/Vol] 12 mg/dL Normal 8-23 [facility] Comment on above: Performed By: #### C DINORA RICE, TROPI #### [facility] [address] [place] [address] [employer] Operator: Ming Costello MD CBC with Diffon 02-10-2023 Abs. Basophil 0.06 k/uL Normal 0.00-0.20 [facility] Comment on above: Performed By: #### C DWAYNE BMP, TROPI #### [facility] [address] [place], [place] [id number] [employer] Operator: Ming Costello MD Abs.Imm.Granulocyte 0.03 k/uL Normal 0.00-0.30 [facility] Comment on above: Performed By: #### C DP, BMP, TROPI #### [address] [place] [address] [employer] Operator: Ming Costello MD Abs.Neutrophil (Seg) 5.01 k/uL Normal 1.50-8.10 [facility] Comment on above: Performed By: #### C DP, BMP, TROPI #### [address] [place] [id number] [employer]: Ming Costello MD Basophils/100 WBC (Bld) 1 % Normal 0-2 [facility] Comment on above: Performed By: #### C DP, BMP, TROPI #### [address] [place] [id number] [employer]: Ming Costello MD Eosinophils (Bld) [#/Vol] 0.39 10*3/uL Normal 0.00-0.44 [facility] Comment on above: Performed By: #### C DP, BMP, TROPI #### [address] [place] [id number] [employer]: Ming Costello MD Eosinophils/100 WBC (Bld) 4 % Normal 1-4 [facility] Comment on above: Performed By: #### C DP, BMP, TROPI #### [address] [place], [facility] [employer] Operator: Ming Costello MD Erythrocyte distribution width (RBC) [Ratio] 12.8 % Normal 11.8-14.4 [facility] Comment on above: Performed By: #### C DP, BMP, TROPI #### [address] [place] [address] [employer] Operator: Ming Costello MD Hematocrit (Bld) [Volume fraction] 45.4 % Normal 40.7-50.3 [facility] Comment on above: Performed By: #### C DP, BMP, TROPI #### [facility] [address] [place], [place] [address] [employer] Operator: Ming Costello MD Hemoglobin (Bld) [Mass/Vol] 15.3 g/dL Normal 13.0-17.0 [facility] Comment on above: Performed By: #### C DP, BMP, TROPI #### [address] [place], [place] [address] [employer] Operator: Ming Costello MD Immature granulocytes/100 WBC (Bld) 0 % Normal 0 [facility] Comment on above: Performed By: #### C DP, BMP, TROPI #### [address] [place], [place] [address] [employer] Operator: Ming Costello MD Lymphocytes (Bld) [#/Vol] 2.63 10*3/uL Normal 1.10-3.70 [facility] Comment on above: Performed By: #### C DP, BMP, TROPI #### [address] [place], [place] [address] [employer] Operator: Ming Costello MD Lymphocytes/100 WBC (Bld) 29 % Normal 24-43 [facility] Comment on above: Performed By: #### C DP, BMP, TROPI #### [address] [place], [place] [address] [employer]: Ming Costello MD MCH (RBC) [Entitic mass] 30.8 pg Normal 25.2-33.5 [facility] Comment on above: Performed By: #### C DP, BMP, TROPI #### [address] [place], [facility]83 [employer] Operator: Ming Costello MD MCHC (RBC) [Mass/Vol] 33.7 g/dL Normal 28.4-34.8 [facility] Comment on above: Performed By: #### C DP, BMP, TROPI #### [facility] [address] [place] [address] [employer] Operator: Ming Costello MD MCV (RBC) [Entitic vol] 91.5 fL Normal 82.6-102.9 [facility] Comment on above: Performed By: #### C DP, BMP, TROPI #### [facility] [address] [place], [facility]83 [employer] Operator: Ming Costello MD Monocytes (Bld) [#/Vol] 1.08 10*3/uL Normal 0.10-1.20 [facility] Comment on above: Performed By: #### C DP, BMP, TROPI #### [address] [place], [facility]83 [employer] Operator: Ming Costello MD Monocytes/100 WBC (Bld) 12 % Normal 3-12 [facility] Comment on above: Performed By: #### C DP, BMP, TROPI #### [address] [place], [facility]83 [employer] Operator: Ming Costello MD Neutrophil (Seg) 54 % Normal 36-65 [facility] Comment on above: Performed By: #### C DP, BMP, TROPI #### [address] [place], [place] [address] [employer] Operator: Ming Costello MD NRBC Automated 0.0 per 100 WBC Normal 0.0 [facility] Comment on above: Performed By: #### C DP, BMP, TROPI #### [facility] [address] [place], [facility]83 [employer] Operator: Ming Costello MD Platelet mean volume (Bld) [Entitic vol] 9.6 fL Normal 8.1-13.5 [facility] Comment on above: Performed By: #### C DP, BMP, TROPI #### [facility] [address] [place], [place] [address] [employer]: Ming Costello MD Platelets (Bld) [#/Vol] 289 10*3/uL Normal 138-453 [facility] Comment on above: Performed By: #### C DP, BMP, TROPI #### [facility] [address] [place] [address] [employer] Operator: Ming Costello MD RBC (Bld) [#/Vol] 4.96 10*6/uL Normal 4.21-5.77 [facility] Comment on above: Performed By: #### C DP, BMP, TROPI #### [facility] [address] [place] [address] [employer] Operator: Ming Costello MD WBC (Bld) [#/Vol] 9.2 10*3/uL Normal 3.5-11.3 [facility] Comment on above: Performed By: #### C DP, BMP, TROPI #### [facility] [address] [place] [address] [employer] Operator: Ming Costello MD CT HEAD WO CONTRASTon [...] Shayy Muse MD 02/10/23 Final result Normal [facility] Ethanol Alcoholon 02-10-2023 Ethanol [Mass/Vol] 159 mg/dL High <10 [facility] Comment on above: Performed By: #### A LCB #### [facility] [address] [place] [place] [address] [employer] Operator: Ming Costello MD Ethanol percent 0.159 % High <0.010 [facility] Comment on above: Performed By: #### A LCB #### [facility] [address] [place] [place] [address] [employer] Operator: Ming Costello MD Troponinon 02-10-2023 Troponin, High Sens 17 ng/L Normal 0-22 [facility] Comment on above: Result Comment: High Sensitivity Troponin values cannot be compared with other Troponin methodologies. Performed By: #### C DP, BMP, TROPI #### [facility] [address] [place] [address] [employer] Operator: Ming Costello MD XR CHEST PORTABLEon 02-11-20 [...] Shayy Muse MD 02/10/23 Final result Normal [facility] CBC AUTO DIFFon 11-23-2022 BASO # 0.1 103/ul Normal 0.0-0.1 [facility] Comment on above: Performed By: #### C BC #### [facility] [address] [place] [address] Dr. Micheline Ventura Basophils/100 WBC (Bld) 1.0 % Normal 0.2-2.0 [facility] Comment on above: Performed By: #### C BC #### [facility] [address] [place] [address] Dr. Micheline Ventura EO # 0.3 103/ul Normal 0.0-0.7 [facility] Comment on above: Performed By: #### C BC #### [facility] [address] [place] [address] Dr. Micheline Ventura Eosinophils/100 WBC (Bld) 5.8 % Normal 0.9-7.0 [facility] Comment on above: Performed By: #### C BC #### [facility] [address] [place] [address] Dr. Micheline Ventura Erythrocyte distribution width (RBC) [Ratio] 13.3 % Normal 11.0-15.0 [facility] Comment on above: Performed By: #### C BC #### [facility] [address] [place] [address] Dr. Micheline Ventura Hematocrit (Bld) [Volume fraction] 45.8 % Normal 42.0-54.0 [facility] Comment on above: Performed By: #### C BC #### [facility] [address] [place] [address] Dr. Micheline Ventura Hemoglobin (Bld) [Mass/Vol] 15.3 g/dL Normal 14.0-18.0 [facility] Comment on above: Performed By: #### C BC #### [facility] [address] [place] [address] Dr. Micheline Ventura IG # 0.00 10e3/ul Normal 0.00-0.03 [facility] Comment on above: Performed By: #### C BC #### [facility] [address] [place] [address] Dr. Micheline Ventura IG % 0.0 % Normal 0.0-0.[address] [facility] Comment on above: Performed By: #### C BC #### [facility] [address] [place] [address] Dr. Micheline Ventura LYMPH # 1.9 103/ul Normal 1.2-3.8 [facility] Comment on above: Performed By: #### C BC #### [facility] [address] [place] [address] Dr. Micheline Ventura Lymphocytes/100 WBC (Bld) 37.1 % Normal 20.5-60.0 [facility] Comment on above: Performed By: #### C BC #### [facility] [facility] [address] [place] [address] Dr. Micheline Ventura MANUAL DIFF REQ NO Normal [facility] Comment on above: Performed By: #### C BC #### [facility] [address] [place] [address] Dr. Micheline Ventura MCH (RBC) [Entitic mass] 30.7 pg Normal 25.9-34.0 [facility] Comment on above: Performed By: #### C BC #### [facility] [address] [place] [address] Dr. Micheline Ventura MCHC (RBC) [Mass/Vol] 33.4 g/dL Normal 29.9-35.2 [facility] Comment on above: Performed By: #### C BC #### [facility] [address] [place] [address] Dr. Micheline Ventura MCV (RBC) [Entitic vol] 91.8 fL Normal 80.0-94.0 [facility] Comment on above: Performed By: #### C BC #### [facility] [address] [place] [address] Dr. Micheline Ventura MONO # 0.6 103/ul Normal 0.3-0.8 [facility] Comment on above: Performed By: #### C BC #### [facility] [address] [place] [address] Dr. Micheline Ventura Monocytes/100 WBC (Bld) 11.3 % Normal 1.7-12.0 [facility] Comment on above: Performed By: #### C BC #### [facility] [address] [place] [address] Dr. Micheline Ventura NEUT # 2.3 103/ul Normal 1.4-6.5 [facility] Comment on above: Performed By: #### C BC #### [facility] [address] [place] [address] Dr. Micheline Ventura Neutrophils/100 WBC (Bld) 44.8 % Normal 43.0-75.0 [facility] Comment on above: Performed By: #### C BC #### [facility] [address] [place] [address] Dr. Micheline Ventura Platelet mean volume (Bld) [Entitic vol] 9.5 fL Normal 9.5-13.5 [facility] Comment on above: Performed By: #### C BC #### [facility] [address] [place] [address] Dr. Micheline Ventura PLT 292 103/ul Normal 150-450 [facility] Comment on above: Performed By: #### C BC #### [facility] [address] [place] [address] Dr. Micheline Ventura RBC 4.99 106/ul Normal 4.70-6.10 [facility] Comment on above: Performed By: #### C BC #### [facility] [address] [place] [address] Dr. Micheline Ventura WBC 5.2 103/ul Normal 4.0-11.0 [facility] Comment on above: Performed By: #### C BC #### [facility] [address] [place] [address] Dr. Micheline Ventura LIPID PROFILEon 11-23-2022 CHOL-HDL RATIO NORM SEE BELOW Normal [facility] Comment on above: Result Comment: 3.3 - 4.4 LOW RISK 4.4 - 7.1 AVERAGE RISK 7.1 - 11.0 MODERATE RISK >11.0 HIGH RISK Performed By: #### C MP, LIPID #### [facility] [address] [place] [address] Dr. Micheline Ventura Cholesterol [Mass/Vol] 169 mg/dL Normal <=200 [facility] Comment on above: Performed By: #### C MP, LIPID #### [facility] [address] [place] [address] Dr. Micheline Ventura Cholesterol in HDL [Mass/Vol] 49 mg/dL Normal 40-60 [facility] Comment on above: Performed By: #### C MP, LIPID #### [facility] [address] [address] [address] Micheline Ventura Cholesterol in LDL [Mass/Vol] 97.6 mg/dL Normal [facility] Comment on above: Performed By: #### C MP, LIPID #### [facility] [address] [place] [address] Dr. Micheline Ventura Cholesterol.total/Ch olesterol in HDL [Mass ratio] 3.4 {ratio} Normal [facility] Comment on above: Performed By: #### C MP, LIPID #### [facility] [address] [place] [address] Dr. Micheline Ventura HDL NORMAL > or = 60 mg/dl - LO W CARDIOVASCULAR RISK <40 mg/dl - HIGH CARDIOVASCULAR RISK Normal [facility] Comment on above: Performed By: #### C MP, LIPID #### [facility] [address] [place] [address] Dr. Micheline Ventura LDL CALC NORMAL SEE BELOW Normal [facility] Comment on above: Result Comment: <100 mg/dl OPTIMAL 100 - 129 mg/dl NEAR OR ABOVE OPTIMAL 130 - 159 mg/dl BORDERLINE HIGH 160 - 189 mg/dl HIGH >190 mg/dl VERY HIGH Performed By: #### C MP, LIPID #### [facility] [address] [place] [address] Dr. Micheline Ventura Triglyceride [Mass/Vol] 112 mg/dL Normal <=150 [facility] Comment on above: Performed By: #### C MP, LIPID #### [facility] [address] [place] [address] Dr. Micheline Ventura VLDL CALC 22.4 mg/dL Normal [facility] Comment on above: Performed By: #### C MP, LIPID #### [facility] [address] [place] [address] Dr. Micheline Ventura PROF 14(COMP METB)on 023 Albumin [Mass/Vol] 4.0 g/dL Normal 3.4-5.0 [facility] Comment on above: Performed By: #### C MP, LIPID #### [facility] [address] [address] [address] Micheline Ventura Albumin/Globulin [Mass ratio] 1.1 {ratio} Normal [facility] Comment on above: Performed By: #### C MP, LIPID #### [facility] [address] [address] [address] Micheline Ventura ALP [Catalytic activity/Vol] 70 U/L Normal 46-116 [facility] Comment on above: Performed By: #### C MP, LIPID #### [facility] [address] [address] [address] Micheline Ventura ALT [Catalytic activity/Vol] 80 U/L Critically high 16-63 [facility] Comment on above: Performed By: #### C MP, LIPID #### [facility] [address] [address] [address] Micheline Ventura Anion gap [Moles/Vol] 12.6 mmol/L Normal [facility] Comment on above: Performed By: #### C MP, LIPID #### [facility] [address] [address] [address] Micheline Ventura AST [Catalytic activity/Vol] 37 U/L Normal 15-37 [facility] Comment on above: Performed By: #### C MP, LIPID #### [facility] [address] [address] [address] Micheline Ventura Bilirubin [Mass/Vol] 1.1 mg/dL Critically high 0.2-1.0 [facility] Comment on above: Performed By: #### C MP, LIPID #### [facility] [address] [address] [address] Micheline Ventura Calcium [Mass/Vol] 9.5 mg/dL Normal 8.5-10.1 [facility] Comment on above: Performed By: #### C MP, LIPID #### [facility] [address] [address] [address] Micheline Ventura Chloride [Moles/Vol] 105 mmol/L Normal 98-107 [facility] Comment on above: Performed By: #### C MP, LIPID #### [facility] [address] [address] [address] Micheline Ventura CO2 [Moles/Vol] 29.8 mmol/L Normal 21.0-32.0 [facility] Comment on above: Performed By: #### C MP, LIPID #### [facility] [address] [address] [address] Micheline Ventura Creatinine [Mass/Vol] 0.99 mg/dL Normal 0.70-1.[address] [facility] Comment on above: Performed By: #### C MP, LIPID #### [facility] [address] [address] [address] Micheline Ventura EGFR-AF SALVADOREAN >60 Normal >=60 [facility] Comment on above: Performed By: #### C MP, LIPID #### [facility] [address] [address] [address] Micheline Ventura EGFR-NON AF SALVADOREAN >60 Normal >=60 [facility] Comment on above: Performed By: #### C MP, LIPID #### [facility] [address] [address] [address] Micheline Ventura Globulin (S) [Mass/Vol] 3.8 g/dL Normal [facility] Comment on above: Performed By: #### C MP, LIPID #### [facility] [address] [address] [address] Micheline Ventura Glucose [Mass/Vol] 99 mg/dL Normal 74-106 [facility] Comment on above: Performed By: #### C MP, LIPID #### [facility] [address] [address] [address] Micheline Ventura Potassium [Moles/Vol] 4.4 mmol/L Normal 3.5-5.[address] [facility] Comment on above: Performed By: #### C MP, LIPID #### [facility] [address] [address] [address] Micheline Ventura Protein [Mass/Vol] 7.8 g/dL Normal 6.4-8.2 [facility] Comment on above: Performed By: #### C MP, LIPID #### [facility] [address] [place], [place] [address] Dr. Micheline Ventura Sodium [Moles/Vol] 143 mmol/L Normal 136-145 [facility] Comment on above: Performed By: #### C MP, LIPID #### [facility] [address] [place], [place] [address] Dr. Micheline Ventura Urea nitrogen [Mass/Vol] 8.0 mg/dL Normal 7.0-18.0 [facility] Comment on above: Performed By: #### C MP, LIPID #### [facility] [address] [place], [place] [address] Dr. Micheline Ventura Urea nitrogen/Creatinine [Mass ratio] 8.1 mg/mg Normal [facility] Comment on above: Performed By: #### C MP, LIPID #### [facility] [address] [address] [address] Micheline Ventura Basic Metabolic Panelon 02-17 Anion gap [Moles/Vol] 12 mmol/L 9 - 17 mmol/L [place] Bun/Cre Ratio 15 [place] Calcium [Mass/Vol] 10.3 mg/dL 8.6 - 10. 4 mg/dL [place] Chloride [Moles/Vol] 100 mmol/L 98 - 10 7 mmol/L [place] CO2 [Moles/Vol] 28 mmol/L 20 - 31 mmol/L [place] Creatinine [Mass/Vol] 0.79 mg/dL 0.7 - 1.2 mg/dL [place] GFR >60 >60 mL/min [place] GFR Non- >60 >60 mL/min [place] Glucose [Mass/Vol] 96 mg/dL 70 - 99 mg/dL [place] Potassium [Moles/Vol] 4.4 mmol/L 3.7 - 5.3 mmol/L [place] Sodium [Moles/Vol] 140 mmol/L 135 - 144 mmol/L [place] Urea nitrogen [Mass/Vol] 12 mg/dL 8 - 23 mg/dL [place] CBC Auto Differentialon 02-17 Basophils (Bld) [#/Vol] 0.05 10*3/uL [place] Basophils/100 WBC (Bld) 1 % 0 - 2 % [place] Differential Type NOT REPORTED [place] Eosinophils (Bld) [#/Vol] 0.35 10*3/uL [place] Eosinophils/100 WBC (Bld) 6 % High 1 - 4 % [place] Erythrocyte distribution width (RBC) [Ratio] 13.2 % 11.8 - 14.4 % [place] Hematocrit (Bld) [Volume fraction] 48.2 % 40.7 - 50.3 % [place] Hemoglobin (Bld) [Mass/Vol] 15.9 g/dL 13 - 17 g/dL [place] Immature granulocytes (Bld) [#/Vol] 0 % 0 [place] Immature granulocytes (Bld) [#/Vol] 10*3/uL [place] Interpretation and review of laboratory results Abnormal [place] Lymphocytes (Bld) [#/Vol] 2.00 10*3/uL [place] Lymphocytes/100 WBC (Bld) 32 % 24 - 43 % [place] MCH (RBC) [Entitic mass] 30.5 pg 25.2 - 33.5 pg [place] MCHC (RBC) [Mass/Vol] 33.0 g/dL 28.4 - 34.8 g/dL [place] MCV (RBC) [Entitic vol] 92.3 fL 82.6 - 102.9 fL [place] Monocytes (Bld) [#/Vol] 0.78 10*3/uL [place] Monocytes/100 WBC (Bld) 12 % 3 - 12 % [place] Platelet mean volume (Bld) [Entitic vol] 9.5 fL 8.1 - 13.5 fL [place] Platelets (Bld) [#/Vol] 248 10*3/uL [place] Platelets (Bld) [#/Vol] NOT REPORTED [place] RBC (Bld) [#/Vol] 5.22 10*6/uL 4.21 - 5.7 7 m/uL [place] RBC morphology finding Nom (Bld) NOT REPORTED [place] Segmented neutrophils/100 WBC (Bld) 49 % 36 - 65 % [place] Segs Absolute 3.13 [place] WBC (Bld) [#/Vol] 0.0 10*3/uL 0.0 per 10 0 WBC [place] WBC (Bld) [#/Vol] 6.3 10*3/uL [place] WBC Morphology NOT REPORTED [place] Metabolic Panelon 03-08-2019 GFR/1.73 sq M predicted among non-blacks MDRD (S/P/Bld) [Vol rate/Area] [place] Comment on above: Stage 1: Some [...] body mass. Additional eGFR calculator available at: http://www.Eviti.Imsys/multiple_crcl_2012.htm XR CHEST STANDARD (2 VW)on 0 03-08-2019 No acute cardiopulmonary process. [place] EXAMINATION: TWO XRA Y VIEWS OF [...] the costophrenic angles on the lateral view. [facility] [place], Mh[employer] Incoming Radiant Results From [employer] - 03/08/2019 10:48 AM EDT EXAMINATION: TWO [...] IMPRESSION: No acute cardiopulmonary process. [facility]2018 L --- Specimen: [id number] Received: 10/05/18 Status: LEIDA Bates Num: [id number] Spec Type: Surgical Subm Dr: Julius Carson DO Tissues: A Colon - Polyp (COLON POLYP @ 70 CM) Procedures: HE Stain/2, Gross/Micro L4 Patient Age/Sex Location Account Attending Physician Merlin Johnston 68/M RT4 [id number] Julius Carson DO SPEC NUM: [id number] RECD: 10/05/18 STATUS: LEIDA BATES NUM: [id number] VAMSI: 10/05/18- DR: Julius Carson DO ENTERED: 10/05/18 GABBIE ELDER: BASIM TYPE: Surgical DEPT: S ORDERED: HE [...] microscopic findings support the above pathologic diagnosis. [id number] A. - - COLON POLYP @ 70 CM Specimen: [id number] Received: 10/05/18 Status: LEIDA Bates Num: [id number] Spec Type: Surgical Subm Dr: Julius Carson DO Tissues: A Colon - Polyp (COLON POLYP @ 70 CM) Procedures: HE Stain/2, Gross/Micro L4 Patient: Merlin Johnston [id number] (Continued) Signed (signature on file) Chalo Ibrahim MD 10/06/18 1330 Normal [facility] Vital Signs Date Time Vital Sign Value Performing Clinician Facility 12-27-2023 11:14040 Body height 177.8 cm [facility] 12-27-2023 11:14-0400 Body mass index (BMI) [Ratio] 26.1 kg/m2 [facility] 12-27-2023 11:14040 Body weight 82.55 kg [facility] 12-27-2023 11:14-0400 Diastolic blood pressure 80 mm[Hg] [facility] 12-27-2023 11:14-0400 Heart rate 76 /min [facility] 12-27-2023 11:14-0400 Systolic blood pressure 130 mm[Hg] [facility] 11-03-2023 11:06-0400 Body height 177.8 cm [facility] 11-03-2023 11:06-0400 Body mass index (BMI) [Ratio] 26.5 kg/m2 [facility] 11-03-2023 11:06-0400 Body temperature 97.8 [degF] [facility] 11-03-2023 11:06-0400 Body weight 83.91 kg [facility] 11-03-2023 11:06-0400 Diastolic blood pressure 80 mm[Hg] [facility] 11-03-2023 11:06-0400 Heart rate 77 /min [facility] 11-03-2023 11:06-0400 SaO2% (BldA) [Mass fraction] 97 % [facility] 11-03-2023 11:06-0400 Systolic blood pressure 130 mm[Hg] [facility] 06-28-2023 11:08-0500 Blood Pressure Location Abdi MCINTOSH [facility] 06-28-2023 11:08-0500 Diastolic blood pressure 72 mm[Hg] Abdi MCINTOSH [facility] 06-28-2023 11:08-0500 Heart rate 69 /min Abdi MCINTOSH [facility] 06-28-2023 11:08-0500 Respiratory rate 16 /min Abdi MCINTOSH [facility] 06-28-2023 11:08-0500 Systolic blood pressure 129 mm[Hg] Abdi MCINTOSH [facility] 05-10-2023 09:30-0400 Body height 177.8 cm Smitha Snowden Other [employer] Other 05-10-2023 09:30-0400 Body mass index (BMI) [Ratio] 25.54 kg/m2 Smitha Snowden Other [employer] Other 05-10-2023 09:30-0400 Body weight 80.74 kg Smitha Snowden Other [employer] Other 05-10-2023 09:30-0400 Diastolic blood pressure 86 mm[Hg] Smitha Snowden Other [employer] Other 05-10-2023 09:30-0400 Systolic blood pressure 146 mm[Hg] Smitha Snowden Other [employer] Other 01-18-2023 10:45-0400 Body height 177.8 cm Smitha Snowden Other [employer] Other 01-18-2023 10:45-0400 Body mass index (BMI) [Ratio] 25.54 kg/m2 Smitha Snowden Other [employer] Other 01-18-2023 10:45-0400 Body weight 80.74 kg Smitha Snowden Other [employer] Other 01-18-2023 10:45-0400 Diastolic blood pressure 79 mm[Hg] Smitha Snowden Other [employer] Other 01-18-2023 10:45-0400 Systolic blood pressure 129 mm[Hg] Smitha Snowden Other [employer] Other 11-09-2022 11:00-0400 Diastolic blood pressure 66 mm[Hg] Kathi Her DO Work Phone: [facility] 11-09-2022 11:00-0400 Heart rate 74 /min Kathi Her DO Work Phone: [facility] 11-09-2022 11:00-0400 Respiratory rate 20 /min Kathi Her DO Work Phone: [facility] [employer] 11-09-2022 11:00-0400 SaO2% (BldA) [Mass fraction] 94 % Kathi Her DO Work Phone: [facility] 11-09-2022 11:00-0400 Systolic blood pressure 123 mm[Hg] Kathi Francisco Javier DO Work Phone: [facility] [employer] 11-09-2022 10:30-0400 Body temperature 98.01 [degF] Kathi Her DO Work Phone: [facility] [employer] 11-09-2022 08:56-0400 Body height 177.8 cm Kathi Francisco Javier [employer] Work Phone: [facility] 10-23-2022 13:11-0400 Body mass index (BMI) [Ratio] 40.18 kg/m2 Kathi Her Work Phone: [facility] 10-23-2022 13:11-0400 Body weight 127.01 kg Kathi Her DO Work Phone: [facility] [employer] Encounters Encounter Date Encounter Type Care Provider Facility Start: 01-24-2024 ambulatory Abdi Resendez ty:[facility] Start: 12-27-2023 End: 12-27-2023 ambulatory [facility] Work Phone: Start: 12-27-2023 End: 12-27-2023 Patient encounter procedure [facility] Work Phone: Start: 12-20-2023 Non-patient / Non-visit [facility] Work Phone: Start: 12-20-2023 End: 12-20-2023 ambulatory Mercy Vincent MD Facility: [facility] Start: 11-26-2023 Patient encounter status [facility] Start: 11-03-2023 End: 11-03-2023 ambulatory [facility] Work Phone: Start: 11-03-2023 End: 11-03-2023 Patient encounter procedure [facility] Work Phone: Start: 08-25-2023 End: 08-25-2023 ambulatory Smitha Snowden Other [employer] Other Start: 08-25-2023 Telephone encounter Smitha Snowden [facility] Start: 08-24-2023 End: 08-24-2023 ambulatory Smitha Snowden Other [employer] Other Start: 08-24-2023 Telephone encounter Smitha Snowden [facility] Start: 06-30-2023 (Televisit) Televisit Smitha Snowden [facility] Start: 06-30-2023 End: 06-30-2023 ambulatory Smitha Snowden Other [employer] Other Start: 06-28-2023 End: 06-29-2023 ambulatory Abdi MCINTOSH Facility:[facility] Start: 06-28-2023 End: 06-28-2023 Patient encounter procedure Abdi MCINTOSH [facility] Start: 05-10-2023 End: 05-10-2023 ambulatory Smitha Snowden Other [employer] Other Start: 05-10-2023 Office outpatient visit 15 minutes Smitha Snowden [facility] Start: 04-12-2023 End: 04-13-2023 ambulatory SMITHA SNOWDEN [facility] Start: 04-01-2023 End: 04-01-2023 ambulatory Smitha Snowden Other [employer] Other Start: 04-01-2023 Telephone encounter Smitha Snowden [facility] Start: 03-29-2023 End: 03-30-2023 ambulatory Abdi MCINTOSH Facility:[facility] Start: 03-01-2023 End: 03-01-2023 ambulatory Mercy Vincent MD Facility:[facility] Start: 02-15-2023 End: 02-15-2023 ambulatory Mercy Vincent MD Facility:[facility] Start: 02-10-2023 End: 02-10-2023 Emergency department patient visit SMITHA SNOWDEN [facility] Start: 02-01-2023 End: 02-01-2023 ambulatory Mercy Vincent MD Facility:[facility] Start: 01-25-2023 End: 01-25-2023 ambulatory Mercy Vincent MD Facility:[facility] Start: 01-18-2023 End: 01-18-2023 ambulatory Smitha Snowden Other [employer] Other Start: 01-18-2023 Office outpatient visit 25 minutes Smitha Snowden [facility] Start: 01-18-2023 Telephone encounter Smitha Sp [facility] Start: 01-08-2023 End: 01-08-2023 ambulatory Smitha Snowden Other [employer] Other Start: 01-08-2023 Telephone encounter Smitha Snowden [facility] Start: 12-29-2022 End: 12-30-2022 ambulatory SMITHA SP [facility] Start: 11-23-2022 End: 11-23-2022 [facility]ulatory [facility] Start: 11-23-2022 End: 11-24-2022 ambulatory SMITHA Charles SP Facility: Start: 11-09-2022 End: 11-09-2022 ambulatory SMITHA SNOWDEN [facility] Start: 11-09-2022 End: 11-09-2022 Subsequent hospital visit by physician Kathi Her DO Work Phone: [facility] Start: 03-08-2019 End: 03-10-2019 Subsequent hospital visit by physician Nikos Hansen Dr Room 2 [facility] Comment on above: Acute medial menisca l tear, left, subsequent encounter Start: 10-05-2018 End: 10-05-2018 Patient encounter procedure Julius Carson Facility:[facility] Procedures Date Procedure Procedure Detail Performing Clinician Start: 11-23-2022 PSA screening SMITHA MATOS Comment on above: Performed By: #### [facility] #### [facility] [address] [address] [address] Micheline Ventura Start: 03-08-2019 Radiologic exam [...] Influenza vaccination Flu vacc ine (Season Ended) [facility] Start: 11-09-2022 End: 11-09-2022 Xcapsl ctrc rmvl insj io lens prosth w/o ecp EYE CATARACT EMULSIFICATION IOL IMPLANT Nuclear sclerotic cataract of both eyes 11/09/2022 10:05 AM EDT [facility] Start: 03-19-2019 Influenza vaccination Flu vaccine (# 1) [place] Start: 01-15-2016 Abdominal aortic aneurysm screening AAA screen [facility] Start: 01-15-2016 Pneumococcal 65+ yea rs Vaccine (1 - PCV) Pneumococcal 65+ years Vaccine (1 - PCV) [facility] Start: 01-15-2016 Pneumococcal 65+ yea rs Vaccine (1 of 2 - PCV13) Pneumococcal 65+ years Vaccine (1 of 2 - PCV13) [place] Start: 2001 Colon cancer screen colonoscopy Colon cancer screen colonoscopy [place] Start: 2001 Shingles Vaccine (1 of 2) Shingles Vaccine (1 of 2) [facility] Start: 01-15-1996 Screening for malign ant neoplasm of colon [facility] Start: 1991 Lipid panel Lipids [facility] Start: 1991 Lipid screen Lipid screen [place], [place] Start: 1970 DTaP/Tdap/Td vaccine (1 - Tdap) DTaP/Tdap/Td vaccine (1 - Tdap) [facility] Start: 1969 Hepatitis C screening Hepatitis C sc reen [facility] Start: 1963 Depression Screen Depression Screen [facility] Start: 1951 COVID-19 Vaccine (#1) COVID-19 Vacci ne (#1) [facility] Start: 1951 AAA screen AAA screen [place], [place] Start: 1951 Hepatitis C screen Hepatitis C scree [place] EKG 12 Lead EKG 12 Lead ECG Routine 03/08/2019 9:20 AM EDT [place] Oxygen therapy [[facility] Data Set] Initiate Oxygen Therapy Protocol Respiratory Care Routine Daily until discontinued starting 11/09/2022 [facility] Work Phone: Comment on above: Daily until disconti nued starting 11/09/2022 Immunizations Immunization Date Immunization Notes Care Provider Jitendra sargent 06-24-2023 influenza virus vacc ine, unspecified formulation Abdi MCINTOSH [facility] 05-11-2022 influenza virus vacc ine, unspecified formulation Abdi MCINTOSH [facility] 03-11-2022 zoster vaccine recombinant [facility] [facility] 12-25-2021 zoster vaccine recombinant Abdi MCINTOSH [facility] 07-24-2021 influenza virus vacc ine, unspecified formulation [employer] [facility] 07-24-2021 pneumococcal conjuga te vaccine, 13 valent Abdiluisa MCINTOSH [facility] 07-03-2021 SARS-CoV-2 (COVID-19 ) mRNA-1273 vaccine [employer] [facility] 10-16-2020 SARS-CoV-2 (COVID-19 ) mRNA-1273 vaccine [employer] [facility] 09-17-2020 SARS-CoV-2 (COVID-19 ) mRNA-1273 vaccine [employer] [facility] Comment on above: Result Comment: 202211: [id number] 06-08-2019 tetanus toxoid, redu triston diphtheria toxoid, and acellular pertussis vaccine, adsorbed [employer] [facility] 04-24-2019 influenza virus vacc ine, unspecified formulation [employer] [facility] 05-13-2018 influenza virus vacc ine, unspecified formulation [employer] [facility] 05-13-2018 pneumococcal polysaccharide vaccine, 23 valent [employer] [facility] 04-22-2017 influenza virus vacc ine, unspecified formulation [employer] [facility] 04-22-2017 pneumococcal conjuga te vaccine, 13 valent Abdi MCINTOSH [facility] 04-25-2016 influenza virus vacc ine, unspecified formulation Abdi MCINTOSH [facility] 05-05-2014 influenza virus vacc ine, unspecified formulation Abdi MCINTOSH [facility] 05-18-2013 influenza virus vacc ine, unspecified formulation Abdi MCINTOSH [facility] Payers Date Payer Category Payer Medicare 2022 Unknown 2018 Medicare [id number] 2018 Self-pay 2018 Medicare MEDICARE MEDICAR E PART A AND B xxxxxxxxxxx 2018-Present [phone] [place] [address] xxxxxxxxxxx [id number] 2018 Unknown GENERIC [employer]IC [employer]ERCIAL xxxxxxxxxx 2018-Present Indemnity xxxxxxxxxx [id number] 1959 Medicare [id number] 1959 Unknown [id number] 1951 Unknown [id number] 2.16.840.1.932069.3.579.2.593 1950 Unknown [id number] 2.16.840.1.648504.3.579.2.173 1951 Unknown [id number] 2.16.840.1.985175.3.579.2.173 1951 Unknown [id number] 2.16.840.1.848586.3.579.2.173 1951 Unknown [id number] 2.16.840.1.440233.3.579.2.173 1951 Unknown [id number] 2.16.840.1.971291.3.579.2.173 1951 Unknown [id number] 2.16.840.1.175530.3.579.2.727 1951 Unknown [id number] 2.16.840.1.522677.3.579.2.727 1951 Unknown [id number] 2.16.840.1.767306.3.579.2.727 1951 Unknown [id number] 2.16.840.1.807093.3.579.2.196 1950 Unknown [id number] 2.16.840.1.140500.3.579.2.196 1951 Unknown [id number] 2.16.840.1.914397.3.579.2.196 1951 Unknown [id number] 2.16.840.1.344288.3.579.2.196 1950 Unknown [id number] 2.16.840.1.883478.3.579.2.196 Unknown [id number] 2.16.840.1.847017.3.579.2.531 Unknown [employer] [id number] Social History Date Type Detail Facility Start: 01-13-2014 End: 06-28-2023 Tobacco smoking status NHIS Former smoker [place], [place] Start: 1950 Sex Assigned At Not on file M [place], [place] History of tobacco use Current smoker [facility] [employer] Phone: Start: 11-09-2022 Alcohol intake Current drinke r of alcohol (finding) [facility] [employer] Phone: Start: 11-09-2022 Alcohol intake [facility] [employer] Phone: Start: 11-09-2022 Alcohol Comment daily [facility] [employer] Phone: Start: 10-30-2022 End: 11-09-2022 Exposure to SARS-CoV-2 (event) Not sure [facility] [employer] Phone: Sex Assigned At [facility] Tobacco smoking status Never [facility] Start: 1950 Sex Assigned At Male [facility] Medical Equipment Procedure Code Equipment Code Equipment Origin al Text Equipment Identifier Dates Lens Intraocular Bcnvx 22+ Diopt 6x12.5 Mm Acryl [employer] - [id number] Start: 11-09-2022 Functional Status Date Assessment Result Facility 06-28-2023 Functional Status N/A [facility] Clinical Notes 10-23-2022 to 08-25-2023 Note Date & Type Note Facility 08-25-2023 Evaluation note Encounter Date Diagnosis Assessment Notes Aug, Colon cancer screening (ICD-10 - Z12.11) [employer] Other 12-13-2023 Evaluation note* Encounter Date Diagnosis [...] verbalized understanding and agreement with treatment plan. [employer] Other 12-11-2023 Hospital Discharge instructions Patient Education [...] provider. Document Revised: 06/10/2020 Document Reviewed: 06/10/2020 [employer] Patient Education 2022 [employer] 06/28/2023 11:53:29 Spermatocele Spermatocele A spermatocele [...] provider. Document Revised: 02/23/2022 Document Reviewed: 02/23/2022 [employer] Patient Education 2022 [employer]. Follow Up Care 03/29/2023 12:07:33 With:KEHINDE CRUZ, Abdi Santana, URL Address: [facility] [address], [place] [address]- When:Within 6 Month(s) Comments:w/PSA [facility] [place] 10-23-2023 Evaluation note* Encounter Date [...] that can be had with CPAP use. [employer] Other 09-11-2023 NoteChief Complaint Referral HPI Staff [...] [facility] [address], [place] [address] [phone] Additional Instructions: w/Scrotal US Patient Education Benign [...] Never Smokeless Tobacco Use:. (more content not included)...[facility]Result Comment: Electronically Signed By: Abdi MCINTOSH MD\.br\Date and Time Signed: 03/29/23 12:08 EDT\.br\Electronically Co-Signed By: Alexa Cronin\.br\Date and Time Co- Signed: 03/29/23 12:01 [id number] Evaluation note* Encounter Date Diagnosis Assessment Notes [...] test. He declines followup on this at [facility] at this time. Jan, Itching (ICD-10 - L29.9) Requests decreased dose of med. Educated him that it would make him tired. [employer] Other 07-03-2023 Evaluation note* Encounter Date Diagnosis Assessment Notes Treatment Notes Treatment Clinical Notes Jan, Lumbar pain (ICD-10 - M54.50) Jan, Right hip pain (ICD-10 - M25.551) [facility] Other 04-24-2023 Hospital Discharge instructions* Discharge Instructions* Kathi Her, - 11/09/2022 10:35 AM EDT SAME DAY [...] the healing period. The office number is [phone]. Take surgery bag and all eye drops to Dr. Her's office tomorrow at 9:05am. You may resume your normal diet. Start your eye drops tomorrow after your post-op appointment: Ofloxacin/Polytrim one drop to the operated eye 4 times daily Prednisolone one drop to the operated eye 4 times daily [facility] [employer] Phone: [phone] History of Present illness Narrative* Lori Weir RN - 10/23/2022 1:14 PM EDT Patient received NPO instructions and pre-op medication instructions to be taken on the day of the procedure with a small sip of water. Pt was also given pre-op eye drop instructions from Dr. Her'soffice. Instructed pt to take wellbutrin with a small sip of water prior to arriving to the hospital the day of surgery. Instructed pt to avoid smoking marijuana within 5 days of surgery. [facility] [facility] Phone: evaluation + Plan note Future Appointments Appointment Date:01/03/2024 10:45:00 AM Scheduled Provider:Abdi MCINTOSH MD Location:[facility] Appointment Type:URO Office Visit Diagnostic Tests Pending * PSA Total 06/28/23 [facility] evaluation note* Diagnosis 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 documented in this encounter [facility] Work Phone: evaluation noteNo InformationNortSelect Specialty [facility] Other Evaluation noteNo assessment information available [facility] Work Phone: Evaluation note* Diagnosis Onset Date Resolution Status Abnormal carotid ultrasound acute [facility] Work Phone: History general Narrative - Reported* Type Description Date Medical History Essential (primary) hypertension Medical History Borderline low oxygen saturation level Medical History Low back pain, unspecified Medical History Atopic dermatitis Medical History Insomnia, persistent Medical History Family history of malignant neop lasm of breast Surgical History KNEE ARTHROSCOPY X2 Surgical History CATARACT SURGERY Hospitalization History SEE SURGICAL HX [facility] [employer] Other Hospital course Narrative No data available for this section [facility] progress note No data available for this section [facility] Summary Purpose Family History No Family History Records Found Relationship Condition Age at Onset Recorded Date/T manoj father Malignant neoplasm Unknown Family history of lung cancer Unknown Not Specified Malignant neoplasm of breast Unknown Malignant neoplasm Unknown Advance Directives No Advanced Directives Records FoundDocuments on File Type Date 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 Thanks Diagnosis 1 Lumbar pain (M54.50) Referral Organization [facility] Referring Provider First Name Smitha Referring Provider Last Name Sp Referring Provider Specialty Family [facility] cine Referred Organization [facility] Referred Address [address], [place],[address] Referred Provider Specialty Pain Medicin e Referral Priority Routine Referral Appointment Date 2023-01-25 General Notes RosalidnajohnJessica 06:43:12 AM >received today, attachments made, referral faxed Rosalindajohn Jessica 01/20/2023 03:44:38 PM >received fax with appt date Clinical Notes F: [id number] Chief Complaint and Reason for Visit Chief Complaint Referred carotid art nidia narrowing; duplex at [facility] Chief Complaint Referred carotid art nidia narrowing; duplex at [facility] MAWV Reason for Visit Abnormal carotid ult rasound Additional Source Comments (unrecognized sect ion and content) No Status Records FoundNo Status Records FoundNo Status Records FoundNo Status Records FoundNo Status Records Found INFORMATION SOURCE (unrecogn ized section and content) DATE CREATED AUTHOR 10/20/2018 [facility] DATE CREATED AUTHOR AUTHOR'S ORGANIZ ATION 11/27/2022 [facility] [place] [facility] DATE CREATED AUTHOR AUTHOR'S ORGANIZ ATION [facility] DATE CREATED AUTHOR AUTHOR'S ORGANIZ ATION 12/15/2023 [facility] DATE CREATED AUTHOR AUTHOR'S ORGANIZ ATION 12/30/2023 [facility] Reason for Visit (unrecogniz ed section and content) Specialty Diagnoses / Procedures Referred By Rasheed funes Referred To Contact Diagnoses Nuclear sclerotic cataract of both eyes AGE RELATED NUCLEAR CAT 2+NS Procedures NM XCAPSL CTRC RMVL INSJ IO LENS PROSTH W/O ECP EYE CATARACT EMULSIFICATION IOL IMPLANT Kathi Her Y, DO [address] [place] [address] [facility] [address] [place] [address] Referral ID Status Reason Start Date Expiration Date Visits Re quested Visits Authorized [id number] 1 1 Scheduled Active and Recently Administ ered Medications (unrecognized section and content) Medication Order 11/07/2022 11/08/2022 11/09/2022 phenylephrine (MYDFRIN) 2.5 % ophthalmic solution 1 drop 1 drop, Left Eye, SEE ADMIN INSTRUCTIONS, 5 doses, Starting on 11/09/22 at 0844, Until Discontinued, To operative eye(s) [...] Gardner RN)1004 (NoRateChange - Provider: SHANA Tracey ETL APPLICATION DEVELOPER)1036 (Rate/Dose Change - Provider: SHANA Tracey CRNA)1100 (Stopped - Provider: Rosy Shearer RN) PRN [...] Care Teams (unrecognized sec tion and content) Band Manager Relationship Specialty Start Date End Date Smitha Snowden MD [address] [place] [phone] PCP - General 01/13/14 Team Status: Active Member Role Status Dates Smitha Snowden MD Primary Care Provider Active Team Status: Inactive Member Role Status Dates Smitha Snowden MD Primary Care Provide r, Referring Provider Active Start: November 03, 2023 End: November 03, 2023 Elías Abraham MD Attending Provider Active Start: November 03, 2023 End: November 03, 2023 Team Status: Active Member Role Status Dates Smitha Snowden MD Primary Care Provide r, Attending Provider Active Start: December 20, 2023 Team Status: Inactive Member Role Status Dates Smitha Snowden MD Primary Care Provide r, Attending Provider Active Start: December 27, 2023 End: December 27, 2023 Goals (unrecognized section and content) Goals [...] BE BASED ON THE PRIMARY CLINICAL RECORDS. [facility] [employer] [facility]. provides no warranty or guarantee of the accuracy or completeness of information in this document.
[2024-01-03 08:48] VITALS: BP 129/77; PULSE 72; TEMP 36.3; O2SAT 97
[2024-01-03 09:22] VITALS: BP 174/90; PULSE 69; O2SAT 96
[2024-01-03] MEDS: BUPIVACAINE HCL 0.25% PF 25 MG/10 ML VIAL 5 ML INJ (09:22)
[2024-01-03] MEDS: TRIAMCINOLONE ACETONIDE 40 MG/ML VIAL INJ (09:23)
[2024-01-03] MEDS: LIDOCAINE HCL 2% 400 MG/20 ML MDV 15 ML INJ (09:23)
[2024-01-03] MEDS: IOHEXOL 240 MG/ML - 10 ML VIAL INJ (09:24)
--- NOTE | 2024-01-03 09:24 | W.PM.PROCNOT ---
Date of procedure: 01/03/24 Pre-op diagnosis: Pain due to right sacroiliitis Post-op diagnosis: same as pre-op Procedure: Procedure: Right sacroiliac joint injection Medications: Bupivacaine 0.25% 3cc, kenalog 40mg After informed consent was obtained, the patient was brought to the medical procedure unit and placed in the prone position, when a timeout was completed verifying correct patient, procedure, site, positioning, implant, and/or special equipment.? The skin overlying the area was prepped and draped in standard sterile fashion using alcohol.? A 25-gauge needle was inserted towards the right sacroiliac joint under direct fluoroscopic imaging.? Needle tip was advanced until the joint was encountered.? We instilled a total of 2 mL of solution.? Postoperatively needles were removed.? The patient tolerated the procedure well without complication.? The patient reported reduction in pain symptoms postoperatively. Anesthesia: Local Surgeon: Mercy Vincent Pathology: none sent Condition: stable Disposition: no change
[2024-01-03 09:25] VITALS: BP 180/84; PULSE 68; O2SAT 96
== END 2024-01-03 09:28 | disposition home or self-care (01) ==
LOC: SURGOUT 07:51
PROVIDERS: PCP Family Medicine; Visit Provider Anesthesiology
DX: M46.1 Sacroiliitis, not elsewhere classified (principal)
CPT/HCPCS: 27096; J0665; J3301; Q9966

== ENCOUNTER 2024-01-13 08:52 | Outpatient (OUT) | payer MEDICARE, SELFPAY ==
--- NOTE | 2024-01-13 08:57 | P.CN_ITS ---
Consult Note: HPI Data of Consult Patient: known to practice within the last 3 years Requesting Physician: Bozena Carty NP Primary Care Provider: Smitha Cartagena MD Consult Narrative Reason for consult: f/u Narrative: Merlin Gamez a pleasant 73 year old male presents for evaluation and management of chronic low back and right SIJ pain. Pain today 0/10, at worst pain 3-4/10 in low back and right leg. Patient reports >80% improvement in pain and functional ability as a result of recent right L4-5 L5-S1 TFESI and right SIJ injection. Patient noticing increase in spasms and cramps in low back and right leg, especially at night. continues to engage in HEP without significant improvement. cc:: CC: Bozena Carty NP Review of Systems ROS Status of ROS 10 or more systems reviewed and unremark able except as noted in history and below [facility] Medical History Surgical History History of tonsillectomy and adenoidectomy ?Z90.89 - Acquired absence of other organs (ICD-10) H/O elbow surgery ?Z98.890 - Other specified postprocedural states (ICD-10) Meds Home Medications and Allergies Home Medications ?Medication ?Instructions ?Recorded ?Confirmed ?Type bupropion HCl 150 mg 24 hr tablet, 150 mg PO DAILY 01/25/23 01/03/24 History extended release ibuprofen 200 mg tablet 200 mg PO TID 01/25/23 01/03/24 History zolpidem 10 mg tablet (Ambien) 10 mg PO DAILY 12/10/23 01/03/24 History aspirin 81 mg capsule 81 mg PO DAILY 01/03/24 01/03/24 History Allergies Allergy/AdvReac Type Severity Reaction Status Date / Time oxycodone [From Percocet] Allergy Mild ITCH Verified 01/03/24 08:46 Exam Constitutional Documenting provider has reviewed patient's vital signs: yes Common normals: no apparent distress, oriented x3, healthy appearing, alert and well nourished General appearance: cooperative HENNM Common normals: normocephalic, hearing grossly normal bilaterally and moist oral mucous membranes Head and scalp: normocephalic Eye Common normals: PERRL Pupil: PERRL Neck & C-Spine Common normals: full ROM General: normal visual inspection Chest Common normals: inspection of chest normal Respiratory Common normals: normal respiratory effort, no retractions and no use of access ory muscles Effort & inspection: able to speak in complete sentences Back & Pelvis Lumbar spine/lower back: lumbar ROM normal, paraspinal muscle spasm and straight leg raise negative bilaterally Sacroiliac joints: SI joints normal Extremity Common normals: normal to inspection and full ROM Neuro Common normals: oriented x3, CN's II-XII intact bilaterally, moves all extremities, no focal motor deficits, no sensory deficits noted, deep tendon reflexes 2+ bilaterally and gait normal Sensorium/orientation: alert Motor exam: strength 5/5 throughout and no movement abnormalities noted Psych Common normals: mental status grossly normal, thought process normal, cooperative, affect normal, speech normal and activity/motor behavior normal Speech: normal speech Thought process: normal thought process Results Additional Findings Additional findings: If on a controlled substance or opioids, I have checked an [place]AR[place] report on this patient and there are no aberrancies noted in the prescribing history.??If on a controlled substance or opioid a drug screen was completed and reviewed within the last year, and if there has not been a drug screen completed we ordered one today to monitor higher risk, state monitored pain medication use. As part of providing excellent, safe, comprehensive care, the following was completed at our patient's visit: 1. A medication reconciliation and review to ensure accurate knowledge of current/active medications, including asking our patients to inform us about any [id number] medications or herbal remedies/nutritional supplemen ts/alternative remedies. 2. A review to specifically ensure our patients have had annual screening for screening for depression, screening for tobacco use, and screening for unhealthy alcohol use. For concerning screenings had a discussion with the patient, provided patient education, and recommended follow-up with primary care provider when appropriate. If patient noted with a risk of falling, they received education on strength, gait, and balance training to prevent future risk of falling. Assessment and Plan Assessment and Plan (1) Lumbar spondylosis: (2) Lumbar stenosis with neurogenic claudication: (3) Sacroiliac pain: (4) Myofascial pain: Plan repeat right L4-5 L5-S1 TFESI and nerve block innervating right SIJ providing >80% improvement ongoing start baclofen 10mg BID PRN myofascial pain/spasms. risks vs benefits and side effects reviewed continue HEP as tolerated f/u 6 months, sooner if needed
== END 2024-01-13 08:53 | disposition home or self-care (01) ==
LOC: PM 08:52
PROVIDERS: PCP Family Medicine; Visit Provider Nurse Practitioner
DX: M47.816 Spondylosis without myelopathy or radiculopathy, lumbar region (principal); M48.062 Spinal stenosis, lumbar region with neurogenic claudication; M53.3 Sacrococcygeal disorders, not elsewhere classified; M79.18 Myalgia, other site
CPT/HCPCS: G0463

== ENCOUNTER 2024-06-12 14:24 | Outpatient (OUT) | payer MEDICARE, SELFPAY ==
--- NOTE | 2024-06-12 15:44 | P.CN_ITS ---
Consult Note: HPI Data of Consult Patient: known to practice within the last 3 years Consult date: 06/12/24 Requesting Physician: Mercy Vincent MD Primary Care Provider: Smitha Cartagena MD Consult Narrative Reason for consult: right low back, leg pain Narrative: 74yom who presents for assessment. increasing pain throughout low back and right leg, similar to pain prior to lumbar tfesi and sij injection. these provide >50% relief for >3 months at a time. imaging significant for stenosis at l4-5 and l5- s1. continues in series of provider directed home exercises >6 weeks. uses otc pain meds as needed. cc:: CC: Mercy Vincent MD Review of Systems ROS Status of ROS 10 or more systems reviewed and unremark able except as noted in history and below [facility] Medical History Surgical History History of tonsillectomy and adenoidectomy ?Z90.89 - Acquired absence of other organs (ICD-10) H/O elbow surgery ?Z98.890 - Other specified postprocedural states (ICD-10) Meds Home Medications and Allergies Home Medications ?Medication ?Instructions ?Recorded ?Confirmed ?Type bupropion HCl 150 mg 24 hr tablet, 150 mg PO DAILY 01/25/23 01/03/24 History extended release ibuprofen 200 mg tablet 200 mg PO TID 01/25/23 01/03/24 History zolpidem 10 mg tablet (Ambien) 10 mg PO DAILY 12/10/23 01/03/24 History aspirin 81 mg capsule 81 mg PO DAILY 01/03/24 01/03/24 History Allergies Allergy/AdvReac Type Severity Reaction Status Date / Time oxycodone (From Percocet) Allergy Mild ITCH Verified 01/03/24 08:46 Exam Narrative Exam Narrative: Psych-alert and oriented x 3. Attentive and appropriate, constitutionally normal, displays normal mood and affect per situation. There are no obvious deficits in memory, reasoning, or intellect.? Skin-no obvious rashes, bruising, erythema noted to the patient's area of pain.? Extremities- extremities are warm with minimal edema and palpable pulses. Lumbar-tenderness to palpation noted in the lumbar spine and paraspinal musculature. Pain is elicited with flexion, extension, and lateral rotation of the lumbar spine. Range of motion is diminished with these motions. Facet loading maneuvers are positive. Strength-noted to be unremarkable Sensory-no notable sensory deficits in the bilateral lower extremities to touch or pinprick in all dermatomal distributions with the exception to decreased sensation to the right L4, 5 dermatomal distribution Coordination remains intact.? Gait remains non-antalgic. Assessment and Plan Assessment and Plan (1) Lumbar stenosis with neurogenic claudication: (2) Sacroiliac pain: Plan 74yom who presents for assessment. failed conservative measures, as noted. imaging reviewed, as noted. given symptoms, imaging, and previous relief, prudent to attempt right l4-5, l5-s1 tfesi under fluoroscopic guidance. may even benefit from right sij injection under fluoroscopic guidance. he is in agreement. meds reviewed, no changes. follow up after procedure.
== END 2024-06-12 14:25 | disposition home or self-care (01) ==
LOC: PM 14:24
PROVIDERS: PCP Family Medicine; Visit Provider Anesthesiology
DX: M48.062 Spinal stenosis, lumbar region with neurogenic claudication (principal); M53.3 Sacrococcygeal disorders, not elsewhere classified
CPT/HCPCS: G0463

== ENCOUNTER 2024-06-26 08:55 | Day surgery (SDC) | payer MEDICARE, SELFPAY ==
[2024-06-26 09:28] VITALS: BP 122/83; PULSE 78; TEMP 37; O2SAT 94
[2024-06-26 10:18] VITALS: BP 170/91; PULSE 82; O2SAT 94
[2024-06-26 10:20] VITALS: BP 158/88; PULSE 78; O2SAT 93
[2024-06-26] MEDS: 0.9 % SODIUM CHLORIDE 10 ML SYRINGE - SALINE FLUSH INJ (10:24)
[2024-06-26] MEDS: TRIAMCINOLONE ACETONIDE 40 MG/ML VIAL 80 MG INJ (10:25)
[2024-06-26] MEDS: IOHEXOL 240 MG/ML - 10 ML VIAL 24 MG INJ (10:25)
[2024-06-26] MEDS: LIDOCAINE HCL 2% 400 MG/20 ML MDV 3 ML INJ (10:25)
[2024-06-26] MEDS: BUPIVACAINE HCL 0.25% PF 25 MG/10 ML VIAL INJ (10:25)
--- NOTE | 2024-06-26 10:25 | P.ON_ITS ---
Date of procedure: 06/26/24 Pre-op diagnosis: Pain due to lumbar stenosis with neurogenic claudication Post-op diagnosis: same as pre-op Procedure: Procedure: Right L4-5, L5-S1 transforaminal epidural steroid injection Medications: Bupivacaine 0.25% 2cc, lidocaine 2% 1cc, kenalog 80mg The patient was seen and examined in the preoperative holding area.? Informed consent was obtained and placed on the chart.? Patient was brought to the medical procedure unit and placed in the prone position where a timeout was completed verifying the correct patient, procedure site, position, and planned special equipment using sterile aseptic technique.? Under direct fluoroscopic visualization a 25-gauge Quincke tipped spinal needle was advanced to the designated neural foramen where contrast dye was injected to show adequate spread.? The needle was inserted at level right L4-5. There was no evidence of vascular or adverse uptake.? Epidural spread was appreciated.? The above- mentioned injectate was then placed in a 1.5 mL aliquot preceded by negative aspiration.? The needle was removed. The needle was inserted and the procedure repeated at level right L5-S1.? The surgery site was covered.? Patient was taken to the postprocedural recovery area and monitored for an appropriate length of time before found suitable for discharge in the accompaniment of a responsible adult. Anesthesia: Local Surgeon: Mercy Vincent Pathology: none sent Condition: stable Disposition: no change
== END 2024-06-26 10:30 | disposition home or self-care (01) ==
LOC: SURGOUT 08:56
PROVIDERS: PCP Family Medicine; Visit Provider Anesthesiology
DX: M48.062 Spinal stenosis, lumbar region with neurogenic claudication (principal)
CPT/HCPCS: 64483; 64484; J0665; J3301; Q9966

== ENCOUNTER 2024-07-06 08:56 | Outpatient (OUT) | payer MEDICARE, SELFPAY ==
--- OUTSIDE RECORDS SUMMARY | 2024-07-06 09:22 | XMS_ITS | CCD ---
Author Organization [facility] Inform ion Partnership [facility] Care Team Providers Care Clinical Nurse Leader Name Role Phone Julius Carson Admitting Unavailable Julius Carson Attending Unavailable Smitha Snowden Primary Care Unavailable Smitha Snowden Primary Care Provider [phone] Smitha Snowden MD Primary Care Provider SMITHA SNOWDEN Attending Unavailable SMITHA SNOWDEN Consulting Unavailable SMITHA SNOWDEN Primary Care Unavailable SMITHA SNOWDEN Admitting Unavailable Smitha Snowden Unavailable SMITHA SNOWDEN Primary Care Unavailable KATHI HER Admitting Unavailable KATHI HER Attending Unavailable SMITHA SNOWDEN Primary Care Unavailable SMITHA SNOWDEN Referring Unavailable SMITHA SNOWDEN Primary Care Unavailable SMITHA SNOWDEN Referring Unavailable SMITHA SNOWDEN Primary Care Unavailable SMITHA SNOWDEN Primary Care Unavailable KATHI HER Admitting Unavailable KATHI HER Attending Unavailable SMITHA SNOWDEN Primary Care Physician [phone] MICHAEL LENZ Attending Unavailable Melisa CRUZ, Mercy Gomes Attending Unavailable Melisa CRUZ, Mercy Gomes Attending Unavailable Melisa CRUZ, Mercy Gomes Attending Unavailable Abdi MCINTOSH Attending Unavailable Abdi MCINTOSH Attending Unavailable Allergies Allergy Classification Reported Allergen(s) Allergy Type Date of Onset Reaction(s) Facility (7 sources) Acetaminophen / oxyCODONE Drug Allergy itching [place] Other (1 source) No Known Medication Allergies; Translations: [No Known Medication Allergies] Propensity to adverse reactions (disorder) [facility] Repository Medications Current Medications Medication [...] hydrochloride 150 mg extended release oral tablet (17 sources) Aminoketone Start: 03-29-2023 take 1 tablet [...] needed for Pain 0 Active Multi Vitamin+ (2 sources) Start: Multi Vitamin+ Start Date: 03/29/23 Status: Ordered phenylephrine hydrochloride 25 mg/ml ophthalmic solution (1 source) alpha-1 Adrenergic Agonist Start: 04-24-2 023 phenylephrine (MYDFRIN) 2.5 % ophthalmic solution 1 [...] mL tamsulosin hydrochloride 0.4 mg oral capsule (8 sources) alpha-Adrenergic Tavia Start: 11-03-2023 Tamsu losin Active MG PO November 03, 2023 12:00am Start: 07-02-2023 take 1 capsule by [facility] twice daily tamsulosin 0.4 mg Cap 0.4 mg = 1 cap(s), Oral, BID, # 60 cap(s), Refills(s) 11, Pharmacy: [facility] [id number], 175, cm, 06/28/23 11:11:00 EST, Height/Length Dosing, 78, kg, 06/28/23 11:11:00 EST, Weight Dosing Start Date: 07/02/23 Status: Ordered Start: 03-29-2023 take 1 capsule by [facility] once daily tamsulosin 0.4 mg Cap 0.4 mg = 1 cap(s), Oral, Daily, # 30 cap(s), Refills(s) 11, Pharmacy: [facility] [id number], 175, cm, 03/29/23 11:17:00 EDT, Height/Length Dosing, [...] hypertension; Translations: [Essential hypertension] Onset: 11-23-2022 Chronic Genitourinary symptoms and ill-defined conditions (1 source) Proteinuria; Translations: [Proteinuria, unspecified] Onset: 01-24-2024 Episodic Hyperplasia of prostate (12 sources) Benign prostatic hypertrophy with outflow obstruction; Translations: [Benign prostatic hyperplasia with lower urinary tract symptoms] Onset: 06-28-2023 Chronic Mood disorders (2 sources) Depressive disorder 03-29-2023 Chronic Other circulatory disease [...] Pruritus, unspecified Episodic Other male genital disorders (2 sources) Hydrocele of testis; Translations: [Hydrocele, unspecified] Onset: 06-28-2023 Episodic Other male genital disorders (4 sources) Spermatocele; Translations: [Spermatocele of epididymis, unspecified] Onset: 06-28-2023 Episodic Other male genital disorders (2 sources) Disorder of male genital organ 06-28-2023 Episodic Other non-traumatic joint disorders (2 sources) Pain in right hip Episodic Other screening for suspected conditions (not mental disorders or infectious disease) (3 sources) Carotid artery finding; Translations: [Abnormal findings on diagnostic imaging of other specified body structures] 10-19-2023 Chronic Other screening for suspected conditions (not mental disorders or infectious disease) (12 sources) Encounter for screening for malignant neoplasm [...] of mental health and substance abuse codes (4 sources) H/O: Disorder; Translations: [Personal history of [...] [Acute medial meniscal tear, left, subsequent encounter] Unclassified (1 source) Measurement finding 01-24-2024 Past or Other Problems Problem Classification Problem Date Documented Da te Episodic/Chronic Unclassified (1 source) Lumbar pain M54.50 Results Test Name Value Interpretation Reference Range Facility Reminderson 06-27-2024 Reminders Reminders From: Kiera Escalante To: CROW Mcintosh; Sent: 01/24/2024 14:26:44 EDT Show up: 06/25/2024 13:26:00 EST Subject: PSA Due Date/Time: 07/26/2024 13:26:00 EST Reminder Message Pt to complete PSA in 6 months. Has f/u in 1 year with repeat level (from PCP). Called pt today to remind him of getting the 6 month PSA and he is scanning his calls so I left voicemail asking for a return call to know where to send the order. Will monitor Pt wanted order faxed to [facility]. He said he would get it next week. Normal [facility] Ambulatory Visit Summaryon 0 01-24-2024 Ambulatory Visit Summary Ambulatory Visit Summary MERLIN JOHNSTON :1950 Visit Date:01/24/2024 Ambulatory Visit Instructions Your Diagnosis Rising PSA level BPH with urinary obstruction Proteinuria Spermatocele Hydrocele Former smoker Your Care Team Attending Physician - Abdi MCINTOSH MD Primary Care Physician - SMITHA SNOWDEN MD This Is Your Medications List tamsulosin (tamsulosin 0.4 mg Cap) Contact prescribing physician if questions or concerns buPROPion (Wellbutrin SR 150 mg Tab-ER) multivitamin (Multi Vitamin+) Procedures Performed Cataract, Colonoscopy, Tonsillectomy. Discharge Vitals Heart Rate (Peripheral) 106 Respiratory Rate 16 Blood Pressure 136/83 Height 175 cm Height 69 in Weight 78 kg Weight 171.6 lb BMI 25.47 What to do next You Need to Schedule the Following Appointments Follow Up with KEHINDE CRUZ, Abdi Santana, URL When: Comments: 1 year w/ PSA from PCP (PSA in 6 mos as well, will call with reuslts) Where: [facility] [address], [place] [address]- [phone] Medications What How Much When Instructions Unchanged tamsulosin (tamsulosin 0.4 mg Cap) 1 Capsules By Mouth 2 times a day Unchanged buPROPion (Wellbutrin SR 150 mg Tab-ER) 1 Tablets By Mouth 2 times a day Contact prescribing physician if questions or concerns Unchanged multivitamin (Multi Vitamin+) Contact prescribing physician if questions or concerns Allergies No Known Medication Allergies Problems Ongoing - Any problem that you are currently receiving treatment for. BPH with urinary obstruction Depression Former smoker Hydrocele Rising PSA level Spermatocele Patient Survey You may receive a survey via text or e-mail asking about your office visit. Please share your experience with us by completing your survey. We appreciate your feedback and thank you for choosing us for your care. Education Materials Proteinuria Proteinuria is when there is too much protein in the urine. Proteins are important for building muscles and bones. Proteins are also needed to fight infections, help the blood to clot, and keep body fluids in balance. Proteinuria may be mild and temporary, or it may be an early sign of kidney disease. The kidneys make urine. Healthy kidneys also keep substances like proteins from leaving the blood and ending up in the urine. What are the causes? This condition may be caused by damage to the kidneys or by temporary causes such as fever or stress. Proteinuria may happen when the kidneys are not working well. Healthy kidneys have filters (glomeruli) that keep proteins out of the urine. Proteinuria may mean that the glomeruli are damaged. The main causes of this type of damage are: ? Diabetes. ? High blood pressure. Other causes of kidney damage can also cause proteinuria, such as: ? Diseases of the immune system, such as lupus, rheumatoid arthritis, sarcoidosis, and Goodpasture syndrome. ? Heart disease or heart failure. ? Kidney infection. ? Certain cancers, including kidney cancer, lymphoma, leukemia, and multiple myeloma. ? Amyloidosis. This is a disease that causes abnormal proteins to build up in body tissues. ? Reactions to certain medicines, such as NSAIDs. ? Injuries or poisons (toxins). ? High blood pressure that occurs during (preeclampsia and eclampsia). Temporary proteinuria may result from conditions that put stress on the kidneys. These conditions usually do not cause kidney damage. They include: ? Fever. ? Exposure to cold or heat. ? Emotional or physical stress. ? Extreme exercise. ? Standing for long periods of time. What increases the risk? You are more likely to develop this condition if you: ? Have diabetes. ? Have high blood pressure. ? Have heart disease or heart failure. ? Have an immune disease, cancer, or other disease that affects the kidneys. ? Have a family history of kidney disease. ? Are 65 years of age or older. ? Are overweight. ? Are of , , /, or descent. ? Are . ? Have an infection. What are the signs or symptoms? Mild proteinuria may not cause symptoms. As more proteins enter the urine, symptoms of kidney disease may develop, such as: ? Foamy urine. ? Swelling of the face, abdomen, hands, legs, or feet (edema). ? Needing to urinate frequently. ? Fatigue. ? Difficulty sleeping. ? Dry and itchy skin. ? Nausea and vomiting. ? Muscle cramps. ? Shortness of breath. How is this diagnosed? This condition may be diagnosed with a urine test. You may have this test as part of a routine physical exam or because you have symptoms of kidney disease or risk factors for kidney disease. You may also have: ? Blood tests to measure the level of a certain substance (creatinine) that i (more content not included)... Normal [facility] Urology Office/Clinic Noteon 01-24-2024 Urology Office/Clinic Note Urology Office/Clinic Note Chief Complaint 6m PSA HPI Staff 6 month f/u with PSA Dx: BPH with obstruction, spermatocele, hydrocele *Tamsulosin 0.4mg BID PSA 12/20/23 - 2.87 Denies pain/burning and visible blood in urine. Denies hesitancy. Strong stream. No concerns at this time. History of Present Illness Tests reviewed: reviewed UA, PSA I have reviewed the previous health record information and history for this patient from Dr. Mcintosh. I have reviewed and verified the staff HPI to be accurate for this encounter. Review of Systems PHQ Score Initial [...] HPI. Physical Exam Vitals & Measurements HR: 106(Peripheral) RR: 16 BP: 136/83 HT: 69 in HT: 175 cm WT: 78 kg WT: 171.6 lb BMI: 25.47 General Appearance: alert, no distress, well nourished, well developed male. Assessment/Plan 1. Rising PSA level (R97.20: Elevated prostate specific antigen [PSA]) PSA 07/09/22 - 1.70 11/23/22 - 2.45 12/20/23 - 2.87 LOLITA 03/29/23: 35gms. PSA continues to increase. No indication for bx at this time. Advised pt level will need repeated and next steps will be determined at that time, including prostate MRI or bx. -Repeat PSA in 6 mos -Will get PSA w/ PCP December 2023. -F/u in 1 year to review levels 2. BPH with urinary obstruction (N40.1: Benign prostatic hyperplasia with lower urinary tract symptoms) UA today negative for infection. Taking Tamsulosin 0.4mg bid, increased from qd at prior OV. Gets up 1-2x/night (1x). Good stream. States he drinks a lot of water. -Cont Tamsulosin 0.4mg bid. Pt to call for refills. 3. Proteinuria (R80.9: Proteinuria, unspecified) UA today shows trace protein (not on prior UA). Advised pt this indicates possible kidney dysfunction which can be secondary to high BP or uncontrolled DM. Pt denies either at this time. Follows with PCP annually, denies awareness of abnormal renal function labs. -Cont routine UAs. If amount of proteinuria increases, consider referral to nephrology 4. Spermatocele (N43.40: Spermatocele of epididymis, unspecified) PE 03/29/23:Spermatocele on Lt Epididymis Scrotal US 03/31/23 - 1.2cm Lt epididymal cyst or spermatocele, heterogeneous Rt epididymis, nonspecific w/no hypervascularity to suggest epididymitis [1] 5. Hydrocele (N43.3: Hydrocele, unspecified) Scrotal US 03/31/23 - small bilateral hydroceles. [2] 6. Former smoker (Z87.891: Personal history of nicotine dependence) Quit in 2012, Smoked 1 PPD. [3] Follow-up With When Contact Information KEHINDE CRUZ, Abdi Santana, URL [facility] [address], [place] [address] [phone] Additional Instructions: 1 year w/ PSA from PCP (PSA in 6 mos as well, will call with reuslts) Patient Education Proteinuria I, Kiera Escalante, personally scribed for Dr. Mcintosh on 01/24/2024 14:22:46. . Documentation recorded by the scribe, Kiera Escalante, accurately reflects the services(s) I performed and decisions made by me. Authenticated by Dr. Mcintosh on 01/24/2024 14:26:42. Problem List/Past Medical History Ongoing BPH with urinary obstruction Depression Former smoker Hydrocele Rising PSA level Spermatocele Historical No qualifying data Procedure/Surgical History Cataract, Colonoscopy, Tonsillectomy. Medications Multi Vitamin+ tamsulosin 0.4 mg Cap, 0.4 mg= 1 cap(s), Oral, BID, 11 refills Wellbutrin SR 150 mg Tab-ER, 150 mg= 1 tab(s), Oral, BID Allergies No Known Medication Allergies Social History Tobacco Former smoker, quit more than 30 days ago Tobacco Use:. Never Smokeless Tobacco Use:. Cigarettes, Stopped age 63 Years. Household tobacco concerns: No. Yes, 01/24/2024 Family History Primary malignant neoplasm of bone: Father. Primary malignant neoplasm of female breast: Mother. Immunizations Vaccine Date Status Comments influenza virus vaccine, inactivated 06/24/2023 Recorded influenza virus vaccine, inactivated 05/11/2022 Recorded zoster vaccine, inactivated 03/11/2022 Recorded zoster vaccine, inactivated 12/25/2021 Recorded pneumococcal 13-valent vaccine 07/24/2021 Recorded influenza virus vaccine, inactivated 07/24/2021 Recorded SARS-CoV-2 (COVID-19) mRNA-1273 vaccine 07/03/2021 Recorded SARS-CoV-2 (COVID-19) mRNA-1273 vaccine 10/16/2020 Recorded SARS-CoV-2 (COVID-19) mRNA-1273 vaccine 09/17/2020 Recorded 2023-06-28: [id number] diphtheria/pertussis, acel/tetanus adult 06/08/2019 Recorded in (more content not included)... Normal [facility] Comment on above: Result Comment: Elec tronically Signed By: Abdi MCINTOSH MD\.br\Date and Time Signed: 01/24/24 14:26 EDT\.br\Electronically Co-Signed By: Kiera Escalante\.br\Date and Time Co-Signed: 01/24/24 14:25 EDT Lab Reportson 01-12-2024 Lab Reports [id number]#1.00 TIFF Normal [facility] Basophils Auto (Bld) [#/Vol] on 12-20-2023 Basophils (Bld) [#/Vol] 0.1 10 3/uL 0.0-0.1 [facility] Basophils/100 WBC Auto (Bld) on 12-20-2023 Basophils/100 WBC (Bld) 1.1 % 0.2-2.0 [facility] Cholesterol in LDL Calc [Mas s/Vol]on 12-20-2023 Cholesterol in LDL [Mass/Vol] 98.2 mg/dL [facility] Comment on above: <100 mg/dl [id number] 0-129 mg/dl NEAR OR ABOVE [id number] mg/dl BORDERLINE [id number] mg/dl HIGH>190 mg/dl VERY HIGH Cholesterol in VLDL Calc [Ma ss/Vol]on 12-20-2023 Cholesterol in VLDL [Mass/Vol] 16.8 mg/dL [facility] Eosinophils/100 WBC Auto (Bl d)on 12-20-2023 Eosinophils/100 WBC (Bld) 4.6 % 0.9-7.0 [facility] Erythrocyte distribution wid th Auto (RBC) [Ratio]on 12-20-2023 Erythrocyte distribution width (RBC) [Ratio] 13.3 % 11.0-15.0 [facility] Estimated glomerular filtrat ion rate (GFR) non- Americanon 12-20-2023 GFR/1.73 sq M.predicted among non-blacks MDRD (S/P/Bld) [Vol rate/Area] mL/min/{1.73_m2} >=60 [facility] Globulin Calc (S) [Mass/Vol] on 12-20-2023 Globulin (S) [Mass/Vol] 3.6 g/dL [facility] Hematocrit Auto (Bld) [Volum e fraction]on 12-20-2023 Hematocrit (Bld) [Volume fraction] 45.4 % 42.0-54.0 [facility] Hemoglobin [Mass/volume] in Bloodon 12-20-2023 Hemoglobin (Bld) [Mass/Vol] 15.1 g/dL 14.0-18.0 [facility] Laboratory - Chemistry and C hemistry - challengeon 12-20-2023 Albumin [Mass/Vol] 4.1 g/dL 3.4-5.0 [facility] ALP [Catalytic activity/Vol] 84 U/L 46-116 [facility] ALT [Catalytic activity/Vol] 43 U/L 16-63 [facility] AST [Catalytic activity/Vol] 29 U/L 15-37 [facility] Bilirubin [Mass/Vol] 1.3 mg/dL 0.2-1.0 [facility] Calcium [Mass/Vol] 9.8 mg/dL 8.5-10.1 [facility] Chloride [Moles/Vol] 104 mmol/L 98-107 [facility] Cholesterol [Mass/Vol] 173 mg/dL <=200 [facility] Cholesterol in HDL [Mass/Vol] 58 mg/dL 40-60 [facility] Comment on above: > or =60 mg/dl - LOW CARDIOVASCULAR RISK<40 mg/dl - HIGH CARDIOVASCULAR RISK CO2 [Moles/Vol] 28.8 mmol/L 21.0-32.0 [facility] Creatinine [Mass/Vol] 0.96 mg/dL 0.70-1.30 [facility] GFR/1.73 sq M.predicted MDRD (S/P/Bld) [Vol rate/Area] mL/min/{1.73_m2} >=60 [facility] Glucose [Mass/Vol] 100 mg/dL 74-106 [facility] Potassium [Moles/Vol] 4.4 mmol/L 3.5-5.1 [facility] Protein [Mass/Vol] 7.7 g/dL 6.4-8.2 [facility] Sodium [Moles/Vol] 142 mmol/L 136-145 [facility] Triglyceride [Mass/Vol] 84 mg/dL <=150 [facility] Urea nitrogen [Mass/Vol] 7.0 mg/dL 7.0-18.0 [facility] Urea nitrogen/Creatinine [Mass ratio] 7.3 mg/mg [facility] Laboratory - Hematology and Cell countson 12-20-2023 Immature granulocytes/100 WBC (Bld) 0.2 % 0.0-0.5 [facility] Leukocytes [#/volume] correc sophia for nucleated erythrocytes in Blood by Automated counon 12-20-2023 WBC corrected for nucl RBC Auto (Bld) [#/Vol] 5.5 10 3/uL 4.0-11.0 [facility] Lymphocytes Auto (Bld) [#/Vo l]on 12-20-2023 Lymphocytes (Bld) [#/Vol] 1.8 10 3/uL 1.2-3.8 [facility] Lymphocytes/100 WBC Auto (Bl d)on 12-20-2023 Lymphocytes/100 WBC (Bld) 32.7 % 20.5-60.0 [facility] MCH Auto (RBC) [Entitic mass ]on 12-20-2023 MCH (RBC) [Entitic mass] 30.6 pg 25.9-34.0 [facility] MCHC Auto (RBC) [Mass/Vol]on 12-20-2023 MCHC (RBC) [Mass/Vol] 33.3 g/dL 29.9-35.2 [facility] MCV Auto (RBC) [Entitic vol] on 12-20-2023 MCV (RBC) [Entitic vol] 92.1 fL 80.0-94.0 [facility] Monocytes Auto (Bld) [#/Vol] on 12-20-2023 Monocytes (Bld) [#/Vol] 0.6 10 3/uL 0.3-0.8 [facility] Monocytes/100 WBC Auto (Bld) on 12-20-2023 Monocytes/100 WBC (Bld) 11.5 % 1.7-12.0 [facility] Neutrophils Auto (Bld) [#/Vo l]on 12-20-2023 Neutrophils (Bld) [#/Vol] 2.7 10 3/uL 1.4-6.5 [facility] Neutrophils/100 WBC Auto (Bl d)on 12-20-2023 Neutrophils/100 WBC (Bld) 49.9 % 43.0-75.0 [facility] No Panel Informationon 12-19 Eosinophils # (Auto) 0.3 10 3/uL 0.0-0.7 [facility] Immature Granulocyte # (Auto) 0.01 10 3/uL 0.00-0.03 [facility] Prostate Specific Antigen Screen 2.87 ng/mL <=4.00 [facility] Platelet mean volume Auto (B ld) [Entitic vol]on 12-20-2023 Platelet mean volume (Bld) [Entitic vol] 9.4 fL 9.5-13.5 [facility] Platelets Auto (Bld) [#/Vol] on 12-20-2023 Platelets (Bld) [#/Vol] 268 10 3/uL 150-450 [facility] RBC Auto (Bld) [#/Vol]on RBC (Bld) [#/Vol] 4.93 10 6/uL 4.70-6.10 [facility] Serum or plasma albumin/glob ulin mass ratioon 12-20-2023 Albumin/Globulin [Mass ratio] 1.1 {ratio} [facility] Serum or plasma anion gap de terminationon 12-20-2023 Anion gap [Moles/Vol] 13.6 mmol/L [facility] Serum or plasma total choles terol/high density lipoprotein (HDL) cholesterol mass kaci 12-20-2023 Cholesterol.total/Ch olesterol in HDL [Mass ratio] 3.0 {ratio} [facility] Comment on above: 3.3 - 4.4 LOW RISK4. 4 - 7.1 AVERAGE RISK7.1 - 11.0 MODERATE RISK>11.0 HIGH RISK Basic Metabolic Profon 02-10 Anion gap [Moles/Vol] 16 mmol/L Normal 9-17 [facility] Comment on above: Performed By: #### C DWAYNE BMP, TROPI #### [facility] [address] [place] [address] [place] [address] [employer]: Ming Costello MD BUN/CRE Ratio 15 Normal 9-20 [facility] Comment on above: Performed By: #### C DWAYNE BMP, TROPI #### [facility] [address] [place] [address] [place] [address] [employer]: Ming Costello MD Calcium [Mass/Vol] 9.3 mg/dL Normal 8.6-10.4 [facility] Comment on above: Performed By: #### C DWAYNE BMP, TROPI #### [facility] [address] [place] [address] [employer]: Ming Costello MD Chloride [Moles/Vol] 93 mmol/L Low 98-107 [facility] Comment on above: Performed By: #### C DP BMP, TROPI #### [facility] [address] [place] [address] [employer]: Ming Costello MD CO2 [Moles/Vol] 22 mmol/L Normal 20-31 [facility] Comment on above: Performed By: #### C DWAYNE BMP, TROPI #### [facility] [address] [place] [address] [employer]: Ming Costello MD Creatinine [Mass/Vol] 0.8 mg/dL Normal 0.7-1.2 [facility] Comment on above: Performed By: #### C DWAYNE BMP, TROPI #### [facility] [address] [place] [address] [employer]: Ming Costello MD GFR/1.73 sq M.predicted among non-blacks MDRD (S/P/Bld) [Vol rate/Area] mL/min/{1.73_m2} Normal >60 [facility] Comment on above: Result Comment: These [...] By: #### C DINORA RICE, TROPI #### [facility] [address] [place] [address] [place] [address] [employer]: Ming Costello MD Glucose [Mass/Vol] 123 mg/dL High 70-99 [facility] Comment on above: Performed By: #### C DWAYNE BMP, TROPI #### [facility] [address] [place] [address] [employer]: Ming Costello MD Potassium [Moles/Vol] 3.9 mmol/L Normal 3.7-5.3 [facility] Comment on above: Performed By: #### C DWAYNE BMP, TROPI #### [facility] [address] [place] [address] [employer]: Ming Costello MD Sodium [Moles/Vol] 131 mmol/L Low 135-144 [facility] Comment on above: Performed By: #### C DP, BMP, TROPI #### [facility] [address] [place] [address] [employer]: Ming Costello MD Urea nitrogen [Mass/Vol] 12 mg/dL Normal 8-23 [facility] Comment on above: Performed By: #### C DP, BMP, TROPI #### [facility] [address] [place], [place] [address] [employer]: Ming Costello MD CBC with Diffon 02-10-2023 Abs. Basophil 0.06 k/uL Normal 0.00-0.20 [facility] Comment on above: Performed By: #### C DP, BMP, TROPI #### [address] [address] [employer]: Ming Costello MD Abs.Imm.Granulocyte 0.03 k/uL Normal 0.00-0.30 [facility] Comment on above: Performed By: #### C DP, BMP, TROPI #### [address] [place] [address] [employer]: Ming Costello MD Abs.Neutrophil (Seg) 5.01 k/uL Normal 1.50-8.10 [facility] Comment on above: Performed By: #### C DP, BMP, TROPI #### [facility] [address] [place], [place] [address] [employer]: Ming Costello MD Basophils/100 WBC (Bld) 1 % Normal 0-2 [facility] Comment on above: Performed By: #### C DP, BMP, TROPI #### [facility] [address] [place], [facility] [employer]: iMng Costello MD Eosinophils (Bld) [#/Vol] 0.39 10*3/uL Normal 0.00-0.44 [facility] Comment on above: Performed By: #### C DP, BMP, TROPI #### [facility] [address] [place], [place] [address] [employer]: Ming Costello MD Eosinophils/100 WBC (Bld) 4 % Normal 1-4 [facility] Comment on above: Performed By: #### C DP, BMP, TROPI #### [facility] [address] [place], [place] [address] [employer]: Ming Costello MD Erythrocyte distribution width (RBC) [Ratio] 12.8 % Normal 11.8-14.4 [facility] Comment on above: Performed By: #### C DP, BMP, TROPI #### [facility] [address] [place] [address] Dr. [place], [place] [address] [employer]: Ming Costello MD Hematocrit (Bld) [Volume fraction] 45.4 % Normal 40.7-50.3 [facility] Comment on above: Performed By: #### C DP, BMP, TROPI #### [address] [place], [place] [address] [employer]: Ming Costello MD Hemoglobin (Bld) [Mass/Vol] 15.3 g/dL Normal 13.0-17.0 [facility] Comment on above: Performed By: #### C DP, BMP, TROPI #### [facility] [address] [place] [address] Dr. [place], [place] [address] [employer]: Ming Costello MD Immature granulocytes/100 WBC (Bld) 0 % Normal 0 [facility] Comment on above: Performed By: #### C DP, BMP, TROPI #### [facility] [address] [place], [facility]83 [employer]: Ming Costello MD Lymphocytes (Bld) [#/Vol] 2.63 10*3/uL Normal 1.10-3.70 [facility] Comment on above: Performed By: #### C DP, BMP, TROPI #### [facility] [address] [place], [place] [id number] [employer]: Ming Costello MD Lymphocytes/100 WBC (Bld) 29 % Normal 24-43 [facility] Comment on above: Performed By: #### C DP, BMP, TROPI #### [facility] [address] [place], [facility]83 [employer]: Ming Costello MD MCH (RBC) [Entitic mass] 30.8 pg Normal 25.2-33.5 [facility] Comment on above: Performed By: #### C DP, BMP, TROPI #### [address] [place], [facility]83 [employer]: Ming Costello MD MCHC (RBC) [Mass/Vol] 33.7 g/dL Normal 28.4-34.8 [facility] Comment on above: Performed By: #### C DP, BMP, TROPI #### [address] [place], [facility]83 [employer]: Ming Costello MD MCV (RBC) [Entitic vol] 91.5 fL Normal 82.6-102.9 [facility] Comment on above: Performed By: #### C DP, BMP, TROPI #### [address] [place], [place] [address] [employer]: Ming Costello MD Monocytes (Bld) [#/Vol] 1.08 10*3/uL Normal 0.10-1.20 [facility] Comment on above: Performed By: #### C DP, BMP, TROPI #### [facility] [address] [place], [place] [id number] [employer]: Ming Costello MD Monocytes/100 WBC (Bld) 12 % Normal 3-12 [facility] Comment on above: Performed By: #### C DP, BMP, TROPI #### [facility] [address] [place], [place] [id number] [employer]: Ming Costello MD Neutrophil (Seg) 54 % Normal 36-65 [facility] Comment on above: Performed By: #### C DP, BMP, TROPI #### [facility] [address] [place], [place] [id number] [employer]: Ming Costello MD NRBC Automated 0.0 per 100 WBC Normal 0.0 [facility] Comment on above: Performed By: #### C DP, BMP, TROPI #### [facility] [address] [place], [place] [id number] [employer]: Ming Costello MD Platelet mean volume (Bld) [Entitic vol] 9.6 fL Normal 8.1-13.5 [facility] Comment on above: Performed By: #### C DP, BMP, TROPI #### [address] [place], [place] [id number] [employer]: iMng Costello MD Platelets (Bld) [#/Vol] 289 10*3/uL Normal 138-453 [facility] Comment on above: Performed By: #### C DP, BMP, TROPI #### [address] [place], [place] [id number] [employer]: Ming Costello MD RBC (Bld) [#/Vol] 4.96 10*6/uL Normal 4.21-5.77 [facility] Comment on above: Performed By: #### C DP, BMP, TROPI #### [facility] [address] [place] [address] [employer]: Ming Costello MD WBC (Bld) [#/Vol] 9.2 10*3/uL Normal 3.5-11.3 [facility] Comment on above: Performed By: #### C DP, BMP, TROPI #### [facility] [address] [place] [address] [employer]: Ming Costello MD CT HEAD WO CONTRASTon [...] Shayy Muse MD 02/10/23 Final result Normal [facility] Ethanol Alcoholon 02-10-2023 Ethanol [Mass/Vol] 159 mg/dL High <10 [facility] Comment on above: Performed By: #### A LCB #### [facility] [address] [place] [address] [employer]: Ming Costello MD Ethanol percent 0.159 % High <0.010 [facility] Comment on above: Performed By: #### A LCB #### [facility] [address] [place] [address] [employer]: Ming Costello MD Troponinon 02-10-2023 Troponin, High Sens 17 ng/L Normal 0-22 [facility] Comment on above: Result Comment: High Sensitivity Troponin values cannot be compared with other Troponin methodologies. Performed By: #### C DP, BMP, TROPI #### [facility] [address] [place] [address] [employer]: Ming Costello MD XR CHEST PORTABLEon 02-11-20 [...] Shayy Muse MD 02/10/23 Final result Normal [facility] CBC AUTO DIFFon 11-23-2022 BASO # 0.1 103/ul Normal 0.0-0.1 [facility] Comment on above: Performed By: #### C BC #### [facility] [address] [place] [address] Dr. Micheline Ventura Basophils/100 WBC (Bld) 1.0 % Normal 0.2-2.0 [facility] Comment on above: Performed By: #### C BC #### [facility] [address] [place] [address] Dr. Micheline Ventura EO # 0.3 103/ul Normal 0.0-0.7 [facility] Comment on above: Performed By: #### C BC #### [facility] [address] [place] [address] Dr. Micheline Ventura Eosinophils/100 WBC (Bld) 5.8 % Normal 0.9-7.0 [facility] Comment on above: Performed By: #### C BC #### [facility] [address] [place] [address] Dr. Micheline Ventura Erythrocyte distribution width (RBC) [Ratio] 13.3 % Normal 11.0-15.0 [facility] Comment on above: Performed By: #### C BC #### [facility] [address] [place] [address] Dr. Micheline Ventura Hematocrit (Bld) [Volume fraction] 45.8 % Normal 42.0-54.0 [facility] Comment on above: Performed By: #### C BC #### [facility] [address] [place] [address] Dr. Micheline Ventura Hemoglobin (Bld) [Mass/Vol] 15.3 g/dL Normal 14.0-18.0 [facility] Comment on above: Performed By: #### C BC #### [facility] [address] [place] [address] Dr. Micheline Ventura IG # 0.00 10e3/ul Normal 0.00-0.03 [facility] Comment on above: Performed By: #### C BC #### [facility] [address] [place] [address] Dr. Micheline Ventura IG % 0.0 % Normal 0.0-0.5 [facility] Comment on above: Performed By: #### C BC #### [facility] [address] [place] [address] Dr. Micheline Ventura LYMPH # 1.9 103/ul Normal 1.2-3.8 [facility] Comment on above: Performed By: #### C BC #### [facility] [address] [place] [address] Dr. Micheline Ventura Lymphocytes/100 WBC (Bld) 37.1 % Normal 20.5-60.0 [facility] Comment on above: Performed By: #### C BC #### [facility] [address] [place] [address] Dr. Micheline Ventura MANUAL DIFF REQ NO Normal [facility] Comment on above: Performed By: #### C BC #### [facility] [address] [place] [address] Dr. Micheline Ventrua MCH (RBC) [Entitic mass] 30.7 pg Normal 25.9-34.0 [facility] Comment on above: Performed By: #### C BC #### [facility] [address] [place] [address] Dr. Micheline Ventura MCHC (RBC) [Mass/Vol] 33.4 g/dL Normal 29.9-35.2 [facility] Comment on above: Performed By: #### C BC #### [facility] [address] [address] [address] Micheline Ventura MCV (RBC) [Entitic vol] 91.8 fL Normal 80.0-94.0 [facility] Comment on above: Performed By: #### C BC #### [facility] [address] [place] [address] [address] Micheline Ventura MONO # 0.6 103/ul Normal 0.3-0.8 [facility] Comment on above: Performed By: #### C BC #### [facility] [address] [place] [address] [address] Micheline Ventura Monocytes/100 WBC (Bld) 11.3 % Normal 1.7-12.0 [facility] Comment on above: Performed By: #### C BC #### [facility] [address] [place] [address] Dr. Micheline Ventura NEUT # 2.3 103/ul Normal 1.4-6.5 [facility] Comment on above: Performed By: #### C BC #### [facility] [address] [place] [address] Dr. Micheline Ventura Neutrophils/100 WBC (Bld) 44.8 % Normal 43.0-75.0 [facility] Comment on above: Performed By: #### C BC #### [facility] [address] [place] [address] [address] Micheline Ventura Platelet mean volume (Bld) [Entitic vol] 9.5 fL Normal 9.5-13.5 [facility] Comment on above: Performed By: #### C BC #### [facility] [address] [place] [address] [address] Micheline Ventura PLT 292 103/ul Normal 150-450 [facility] Comment on above: Performed By: #### C BC #### [facility] [address] [place] [address] [address] Micheline Ventura RBC 4.99 106/ul Normal 4.70-6.10 [facility] Comment on above: Performed By: #### C BC #### [facility] [address] [place] [address] [address] Micheline Ventura WBC 5.2 103/ul Normal 4.0-11.0 [facility] Comment on above: Performed By: #### C BC #### [facility] [address] [place] [address] [address] Micheline Ventura LIPID PROFILEon 11-23-2022 CHOL-HDL RATIO NORM SEE BELOW Normal [facility] Comment on above: Result Comment: 3.3 - 4.4 LOW RISK 4.4 - 7.1 AVERAGE RISK 7.1 - 11.0 MODERATE RISK >11.0 HIGH RISK Performed By: #### C MP, LIPID #### [facility] [address] [place] [address] Dr. Micheline Ventura Cholesterol [Mass/Vol] 169 mg/dL Normal <=200 [facility] Comment on above: Performed By: #### C MP, LIPID #### [facility] [address] [place] [address] Dr. Micheline Ventura Cholesterol in HDL [Mass/Vol] 49 mg/dL Normal 40-60 [facility] Comment on above: Performed By: #### C MP, LIPID #### [facility] [address] [place] [address] Dr. Micheline Ventura Cholesterol in LDL [Mass/Vol] 97.6 mg/dL Normal [facility] Comment on above: Performed By: #### C MP, LIPID #### [facility] [address] [place] [address] Dr. Micheline Ventura Cholesterol.total/Ch olesterol in HDL [Mass ratio] 3.4 {ratio} Normal [facility] Comment on above: Performed By: #### C MP, LIPID #### [facility] [address] [place] [address] Dr. Micheline Ventura HDL NORMAL > or = 60 mg/dl - LO W CARDIOVASCULAR RISK <40 mg/dl - HIGH CARDIOVASCULAR RISK Normal [facility] Comment on above: Performed By: #### C MP, LIPID #### [facility] [address] [place] [address] Dr. Micheline Ventura LDL CALC NORMAL SEE BELOW Normal [facility] Comment on above: Result Comment: <100 mg/dl OPTIMAL 100 - 129 mg/dl NEAR OR ABOVE OPTIMAL 130 - 159 mg/dl BORDERLINE HIGH 160 - 189 mg/dl HIGH >190 mg/dl VERY HIGH Performed By: #### C MP, LIPID #### [facility] [address] [address] [address] Micheline Ventura Triglyceride [Mass/Vol] 112 mg/dL Normal <=150 [facility] Comment on above: Performed By: #### C MP, LIPID #### [facility] [address] [address] [address] Micheline Ventura VLDL CALC 22.4 mg/dL Normal [facility] Comment on above: Performed By: #### C MP, LIPID #### [facility] [address] [place] [address] Dr. Micheline Ventura PROF 14(COMP METB)on 023 Albumin [Mass/Vol] 4.0 g/dL Normal 3.4-5.0 [facility] Comment on above: Performed By: #### C MP, LIPID #### [facility] [address] [address] [address] Micheline Ventura Albumin/Globulin [Mass ratio] 1.1 {ratio} Normal [facility] Comment on above: Performed By: #### C MP, LIPID #### [facility] [address] [address] [address] Micheline Ventura ALP [Catalytic activity/Vol] 70 U/L Normal 46-116 [facility] Comment on above: Performed By: #### C MP, LIPID #### [facility] [address] [address] [address] Micheline Ventura ALT [Catalytic activity/Vol] 80 U/L Critically high 16-63 [facility] Comment on above: Performed By: #### C MP, LIPID #### [facility] [address] [address] [address] Micheline Ventura Anion gap [Moles/Vol] 12.6 mmol/L Normal [facility] Comment on above: Performed By: #### C MP, LIPID #### [facility] [address] [address] [address] Micheline Ventura AST [Catalytic activity/Vol] 37 U/L Normal 15-37 [facility] Comment on above: Performed By: #### C MP, LIPID #### [facility] [address] [address] [address] Micheline Ventura Bilirubin [Mass/Vol] 1.1 mg/dL Critically high 0.2-1.0 [facility] Comment on above: Performed By: #### C MP, LIPID #### [facility] [address] [address] [address] Micheline Ventura Calcium [Mass/Vol] 9.5 mg/dL Normal 8.5-10.1 [facility] Comment on above: Performed By: #### C MP, LIPID #### [facility] [address] [place] [address] Dr. Micheline Ventura Chloride [Moles/Vol] 105 mmol/L Normal 98-107 [facility] Comment on above: Performed By: #### C MP, LIPID #### [facility] [address] [place] [address] Dr. Micheline Ventura CO2 [Moles/Vol] 29.8 mmol/L Normal 21.0-32.[address] [facility] Comment on above: Performed By: #### C MP, LIPID #### [facility] [address] [place] [address] Dr. Micheline Ventura Creatinine [Mass/Vol] 0.99 mg/dL Normal 0.70-1.30 [facility] Comment on above: Performed By: #### C MP, LIPID #### [facility] [address] [place] [address] Dr. Micheline Ventura EGFR-AF HAITIAN >60 Normal >=[address] [facility] Comment on above: Performed By: #### C MP, LIPID #### [facility] [address] [address] [address] Micheline Ventura EGFR-NON AF HAITIAN >60 Normal >=60 [facility] Comment on above: Performed By: #### C MP, LIPID #### [facility] [address] [address] [address] Micheline Ventura Globulin (S) [Mass/Vol] 3.8 g/dL Normal [facility] Comment on above: Performed By: #### C MP, LIPID #### [facility] [address] [address] [address] Micheline Ventura Glucose [Mass/Vol] 99 mg/dL Normal 74-106 [facility] Comment on above: Performed By: #### C MP, LIPID #### [facility] [address] [address] [address] Micheline Ventura Potassium [Moles/Vol] 4.4 mmol/L Normal 3.5-5.1 [facility] Comment on above: Performed By: #### C MP, LIPID #### [facility] [address] [place] [address] Dr. Micheline Ventura Protein [Mass/Vol] 7.8 g/dL Normal 6.4-8.2 [facility] Comment on above: Performed By: #### C MP, LIPID #### [facility] [address] [address] [address] Micheline Ventura Sodium [Moles/Vol] 143 mmol/L Normal 136-145 [facility] Comment on above: Performed By: #### C MP, LIPID #### [facility] [address] [address] [address] Micheline Ventura Urea nitrogen [Mass/Vol] 8.0 mg/dL Normal 7.0-18.0 [facility] Comment on above: Performed By: #### C MP, LIPID #### [facility] [address] [address] [address] Micheline Ventura Urea nitrogen/Creatinine [Mass ratio] 8.1 mg/mg Normal [facility] Comment on above: Performed By: #### C MP, LIPID #### [facility] [address] [address] [address] Micheline Ventura Basic Metabolic Panelon 08-2 Anion gap [Moles/Vol] 12 mmol/L 9 - 17 mmol/L [facility] [place] Bun/Cre Ratio 15 [place], [place] Calcium [Mass/Vol] 10.3 mg/dL 8.6 - 10. 4 mg/dL [place] Chloride [Moles/Vol] 100 mmol/L 98 - 10 7 mmol/L [place] CO2 [Moles/Vol] 28 mmol/L 20 - 31 mmol/L [place] Creatinine [Mass/Vol] 0.79 mg/dL 0.7 - 1.2 mg/dL [place] GFR >60 >60 mL/min [place] GFR Non- >60 >60 mL/min [place] Glucose [Mass/Vol] 96 mg/dL 70 - 99 mg/dL [place] Potassium [Moles/Vol] 4.4 mmol/L 3.7 - 5.3 mmol/L [place] Sodium [Moles/Vol] 140 mmol/L 135 - 144 mmol/L [place] Urea nitrogen [Mass/Vol] 12 mg/dL 8 - 23 mg/dL [place] CBC Auto Differentialon -2 Basophils (Bld) [#/Vol] 0.05 10*3/uL [place] Basophils/100 WBC (Bld) 1 % 0 - 2 % [place] Differential Type NOT REPORTED [place] Eosinophils (Bld) [#/Vol] 0.35 10*3/uL [place] Eosinophils/100 WBC (Bld) 6 % High 1 - 4 % [place] Erythrocyte distribution width (RBC) [Ratio] 13.2 % 11.8 - 14.4 % [place] Hematocrit (Bld) [Volume fraction] 48.2 % 40.7 - 50.3 % [place] Hemoglobin (Bld) [Mass/Vol] 15.9 g/dL 13 - 17 g/dL [place] Immature granulocytes (Bld) [#/Vol] 0 % 0 [place] Immature granulocytes (Bld) [#/Vol] 10*3/uL [place] Interpretation and review of laboratory results Abnormal [place] Lymphocytes (Bld) [#/Vol] 2.00 10*3/uL [place] Lymphocytes/100 WBC (Bld) 32 % 24 - 43 % [place] MCH (RBC) [Entitic mass] 30.5 pg 25.2 - 33.5 pg [place] MCHC (RBC) [Mass/Vol] 33.0 g/dL 28.4 - 34.8 g/dL [place] MCV (RBC) [Entitic vol] 92.3 fL 82.6 - 102.9 fL [place] Monocytes (Bld) [#/Vol] 0.78 10*3/uL [place] Monocytes/100 WBC (Bld) 12 % 3 - 12 % [place] Platelet mean volume (Bld) [Entitic vol] 9.5 fL 8.1 - 13.5 fL [place] Platelets (Bld) [#/Vol] 248 10*3/uL [place] Platelets (Bld) [#/Vol] NOT REPORTED [place] RBC (Bld) [#/Vol] 5.22 10*6/uL 4.21 - 5.7 7 m/uL [place] RBC morphology finding Nom (Bld) NOT REPORTED [place] Segmented neutrophils/100 WBC (Bld) 49 % 36 - 65 % [place] Segs Absolute 3.13 [place] WBC (Bld) [#/Vol] 0.0 10*3/uL 0.0 per 10 0 WBC [place] WBC (Bld) [#/Vol] 6.3 10*3/uL [place] WBC Morphology NOT REPORTED [place] Metabolic Panelon 03-08-2019 GFR/1.73 sq M predicted among non-blacks MDRD (S/P/Bld) [Vol rate/Area] [place], [place] Comment on above: Stage 1: Some [...] body mass. Additional eGFR calculator available at: http://www.[employer]/multiple_crcl_2012.htm XR CHEST STANDARD (2 VW)on 0 03-08-2019 No acute cardiopulmonary process. [facility] TWO XRA Y VIEWS OF THE [...] the costophrenic angles on the lateral view. [facility], pn Incoming Radiant Results From [facility] - 03/08/2019 10:48 AM EDT EXAMINATION: TWO [...] lateral view. IMPRESSION: No acute cardiopulmonary process. [facility] 10-05-2018 L -- ---- Specimen: [id number] Received: 10/05/18 Status: LEIDA Bates Num: [id number] Spec Type: Surgical Subm Dr: Julius Carson DO Tissues: A Colon - Polyp (COLON POLYP @ 70 CM) Procedures: HE Stain/2, Gross/Micro L4 ---- Patient Age/Sex Location Account Attending Physician ---- Merlin Johnston 68/M RT4 [id number] Julius Carson DO ---- SPEC NUM: [id number] RECD: 10/05/18 STATUS: LEIDA OCAMPOLora NUM: [id number] VAMSI: 10/05/18- SUBM DR: Julius Carson DO ENTERED: 10/05/18 GABBIE ELDER: SPEC TYPE: Surgical DEPT: S ORDERED: HE Stain/2, [...] specimen is entirely submitted in one cassette. (YJ/myrnal) Microscopic Two glass slides with H E stained material have been examined. The microscopic findings support the above pathologic diagnosis. [id number] A. - - COLON POLYP @ 70 CM ---- ---- Specimen: [id number] Received: 10/05/18 Status: LEIDA Bates Num: [id number] Spec Type: Surgical Subm Dr: Julius Carson DO Tissues: A Colon - Polyp (COLON POLYP @ 70 CM) Procedures: HE Stain/2, Gross/Micro L4 ---- Patient: FrancoMerlin [id number] (Continued) ---- Signed (signature on file) Chalo Ibrahim MD 10/06/[address] [facility] Vital Signs Date Time Vital Sign Value Performing Clinician Facility 01-24-2024 13:26-0400 Blood Pressure Location Abdi MCINTOSH [facility] 01-24-2024 13:26-0400 Diastolic blood pressure 83 mm[Hg] Abdi MCINTOSH [facility] 01-24-2024 13:26-0400 Heart rate 106 /min Abdi MCINTOSH [facility] 01-24-2024 13:26-0400 Respiratory rate 16 /min Abdi MCINTOSH [facility] 01-24-2024 13:26-0400 Systolic blood pressure 136 mm[Hg] Abdi MCINTOSH [facility] 12-27-2023 11:14-0400 Body height 177.8 cm [facility] 12-27-2023 11:14-0400 Body mass index (BMI) [Ratio] 26.1 kg/m2 [facility] 12-27-2023 11:140400 Body weight 82.55 kg [facility] 12-27-2023 11:14-0400 Diastolic blood pressure 80 mm[Hg] [facility] 12-27-2023 11:14-0400 Heart rate 76 /min [facility] 12-27-2023 11:14-0400 Systolic blood pressure 130 mm[Hg] [facility] 11-03-2023 [id number] Body height 177.8 cm [facility] 11-03-2023 11:06-0400 Body mass index (BMI) [Ratio] 26.5 kg/m2 [facility] 11-03-2023 11:06-0400 Body temperature 97.8 [degF] [facility] 11-03-2023 11:06-0400 Body weight 83.91 kg [facility] 11-03-2023 11:06-0400 Diastolic blood pressure 80 mm[Hg] [facility] 11-03-2023 11:06-0400 Heart rate 77 /min [facility] 11-03-2023 11:06-0400 SaO2% (BldA) [Mass fraction] 97 % [facility] 11-03-2023 11:06-0400 Systolic blood pressure 130 mm[Hg] [facility] 06-28-2023 11:08-0500 Blood Pressure Location Abdi MCINTOSH [facility] 06-28-2023 11:08-0500 Diastolic blood pressure 72 mm[Hg] [facility] [facility] 06-28-2023 11:08-0500 Heart rate 69 /min Abdi MCINTOSH [facility] 06-28-2023 11:08-0500 Respiratory rate 16 /min Abdi MCINTOSH [facility] 06-28-2023 11:08-0500 Systolic blood pressure 129 mm[Hg] Abdi MCINTOSH [facility] 05-10-2023 09:30-0400 Body height 177.8 cm Smitha Snowden Other [facility] Other 05-10-2023 09:30-0400 Body mass index (BMI) [Ratio] 25.54 kg/m2 Smitha Snowden Other [facility] Other 05-10-2023 09:30-0400 Body weight 80.74 kg Smitha Snowden Other [facility] Other 05-10-2023 09:30-0400 Diastolic blood pressure 86 mm[Hg] Smitha Snowden Other [facility] Other 05-10-2023 09:30-0400 Systolic blood pressure 146 mm[Hg] Smitha Snowden Other [facility] Other 01-18-2023 10:45-0400 Body height 177.8 cm Smitha Snowden Other [facility] Other 01-18-2023 10:45-0400 Body mass index (BMI) [Ratio] 25.54 kg/m2 Smitha Snowden Other [facility] Other 01-18-2023 10:45-0400 Body weight 80.74 kg Smitha Snowden Other [facility] Other 01-18-2023 10:45-0400 Diastolic blood pressure 79 mm[Hg] Smitha Snowden Other [facility] Other 01-18-2023 10:45-0400 Systolic blood pressure 129 mm[Hg] Smitha Snowden Other [facility] Other 11-09-2022 11:00-0400 Diastolic blood pressure 66 mm[Hg] Kathi Francisco Javier DO Work Phone: [employer] 11-09-2022 11:00-0400 Heart rate 74 /min Kathi Francisco Javier DO Work Phone: [employer] 11-09-2022 11:00-0400 Respiratory rate 20 /min Kathi Francisco Javier DO Work Phone: [employer] 11-09-2022 11:00-0400 SaO2% (BldA) [Mass fraction] 94 % Kathi Her DO Work Phone: [facility] [employer] 11-09-2022 11:00-0400 Systolic blood pressure 123 mm[Hg] Kathi Her DO Work Phone: [employer] 11-09-2022 10:30-0400 Body temperature 98.01 [degF] Kathi Her DO Work Phone: [facility] [employer] 11-09-2022 08:56-0400 Body height 177.8 cm Kathi Her DO Work Phone: [facility] [employer] 10-23-2022 13:11-0400 Body mass index (BMI) [Ratio] 40.18 kg/m2 Kathi Her DO Work Phone: [facility] [employer] 10-23-2022 13:11-0400 Body weight 127.01 kg Kathi Her DO Work Phone: [facility] [employer] Encounters Encounter Date Encounter Type Care Provider Facility Start: 01-26-2025 ambulatory Abdi Resendez ty:[facility] Start: 06-12-2024 End: 06-12-2024 ambulatory Mercy Vincent MD Facility: [facility] Start: 02-01-2024 End: 02-01-2024 ambulatory MICHAEL LENZ Not Available Start: 01-24-2024 End: 01-24-2024 ambulatory Abdi MCINTOSH Facility:[facility] Start: 01-24-2024 End: 01-24-2024 Patient encounter procedure Abdi MCINTOSH [facility] Start: 01-03-2024 End: 01-03-2024 ambulatory Mercy Vincent MD Facility: [facility] Start: 12-27-2023 End: 12-27-2023 ambulatory [facility] Work Phone: Start: 12-27-2023 End: 12-27-2023 Patient encounter procedure [facility] Work Phone: Start: 12-20-2023 Non-patient / Non-visit [facility] [employer] Work Phone: Start: 12-20-2023 End: 12-20-2023 ambulatory Mercy Vincent MD Facility:[facility] Start: 11-26-[address] [facility] Start: 11-03-2023 End: 11-03-2023 ambulatory [facility] Work Phone: Start: 11-03-2023 End: 11-03-2023 Patient encounter procedure [facility] Physician [facility] Work Phone: Start: 08-25-2023 End: 08-25-2023 ambulatory Smitha Snowden Other [facility] Other Start: 08-25-2023 Telephone encounter Smitha Snowden [facility] Start: 08-24-2023 End: 08-24-2023 ambulatory Smitha Snowden Other [facility] Other Start: 08-24-2023 Telephone encounter Smitha Snowden [facility] Start: 06-30-2023 (Televisit) Televisit Smitha Snowden [facility] Start: 06-30-2023 End: 06-30-2023 ambulatory Smitha Snowden Other [facility] Other Start: 06-28-2023 End: 06-28-2023 Patient encounter procedure Abdi MCINTOSH [facility] Start: 05-10-2023 End: 05-10-2023 ambulatory Smitha Snowden Other [facility] Other Start: 05-10-2023 Office outpatient visit 15 minutes Smitha Snowden [facility] Start: 04-12-2023 End: 04-13-2023 ambulatory [facility] Start: 04-01-2023 End: 04-01-2023 ambulatory Smitha Snowden Other [facility] Other Start: 04-01-2023 Telephone encounter Smitha Snowden [facility] Start: 02-10-2023 End: 02-10-2023 [facility] department [facility] Start: 01-18-2023 End: 01-18-2023 ambulatory Smitha Snowden Other [facility] Other Start: 01-18-2023 Office outpatient visit 25 minutes Smitha Snowden [facility] Start: 01-18-2023 Telephone encounter Smitha Snowden [facility] Start: 01-08-2023 End: 01-08-2023 ambulatory Smitha Snowden Other [facility] Other Start: 01-08-2023 Telephone encounter Smitha Snowden [facility] Start: 12-29-2022 End: 12-30-2022 ambulatory [facility] Start: 11-23-2022 End: 11-23-2022 ambulatory [facility] Start: 11-23-2022 End: 11-24-2022 ambulatory SMITHA [facility] Facility: Start: 11-09-2022 End: 11-09-2022 ambulatory [facility] Start: 11-09-2022 End: 11-09-2022 Subsequent hospital visit by physician Kathi Her DO Work Phone: [facility] Start: 03-08-2019 End: 03-10-2019 Subsequent hospital visit by physician Nikos Hansen Dr Room 2 [facility] Comment on above: Acute medial menisca l tear, left, subsequent encounter Start: 10-05-2018 End: 10-05-2018 Patient encounter procedure Julius Carson Facility:[facility] Procedures Date Procedure Procedure Detail Performing Clinician Start: 11-23-2022 PSA screening SMITHA ALEXANDRA MATOS Comment on above: Performed By: #### [facility] #### [facility] [address] [place] [address] Dr. Micheline Ventura Start: 03-08-2019 Radiologic exam [...] vaccination Flu vacc ine (Season Ended) [facility] Start: 11-09-2022 End: 11-09-2022 Xcapsl ctrc rmvl insj io lens prosth w/o ecp EYE CATARACT EMULSIFICATION IOL IMPLANT Nuclear sclerotic cataract of both eyes 11/09/2022 10:05 AM EDT [facility] Start: 03-19-2019 Influenza vaccination Flu vaccine (# 1) [place], [place] Start: 01-15-2016 Abdominal aortic aneurysm screening AAA screen [facility] Start: 01-15-2016 Pneumococcal 65+ yea rs Vaccine (1 - PCV) Pneumococcal 65+ years Vaccine (1 - PCV) [facility] Start: 01-15-2016 Pneumococcal 65+ yea rs Vaccine (1 of 2 - PCV13) Pneumococcal 65+ years Vaccine (1 of 2 - PCV13) [place], [place] Start: 2001 Colon cancer screen colonoscopy Colon cancer screen colonoscopy [place], [place] Start: 2001 Shingles Vaccine (1 of 2) Shingles Vaccine (1 of 2) [facility] Start: 01-15-1996 Screening for malign ant neoplasm of colon [facility] Start: 1991 Lipid panel Lipids [facility] Start: 1991 Lipid screen Lipid screen [place], [place] Start: 1970 DTaP/Tdap/Td vaccine (1 - Tdap) DTaP/Tdap/Td vaccine (1 - Tdap) [facility] Start: 1969 Hepatitis C screening Hepatitis C sc reen [facility] Start: 1963 Depression Screen Depression Screen [facility] Start: 1950 COVID-19 Vaccine (#1) COVID-19 Vacci ne (#1) [facility] Start: 1950 AAA screen AAA screen [place], [place] Start: 1950 Hepatitis C screen Hepatitis C scree n [place], [place] EKG 12 Lead EKG 12 Lead ECG Routine 03/08/2019 9:20 AM EDT [place] Oxygen therapy [[facility] Heart Data Set] Initiate Oxygen Therapy Protocol Respiratory Care Routine Daily until discontinued starting 11/09/2022 [facility] Work Phone: Comment on above: Daily until disconti nued starting 11/09/2022 Immunizations Immunization Date Immunization Notes Care Provider Jitendra sargent 06-24-2023 influenza virus vacc ine, unspecified formulation IPPLEX [facility] 05-11-2022 influenza virus vacc ine, unspecified formulation [facility] 03-11-2022 zoster vaccine recombinant IPPLEX [facility] 12-25-2021 zoster vaccine recombinant IPPLEX [facility] 07-24-2021 influenza virus vacc ine, unspecified formulation IPPLEX [facility] 07-24-2021 pneumococcal conjuga te vaccine, 13 valent Abid MCINTOSH [facility] 07-03-2021 SARS-CoV-2 (COVID-19 ) mRNA-1273 vaccine Abdi MCINTOSH [facility] 10-16-2020 SARS-CoV-2 (COVID-19 ) mRNA-1273 vaccine [facility] 09-17-2020 SARS-CoV-2 (COVID-19 ) mRNA-1273 vaccine IPPLEX [facility] Comment on above: Result Comment: 2022: [id number] 06-08-2019 tetanus toxoid, redu triston diphtheria toxoid, and acellular pertussis vaccine, adsorbed Abdi MCINTOSH [facility] 04-24-2019 influenza virus vacc ine, unspecified formulation [facility]PPLEX [facility] 05-13-2018 influenza virus vacc ine, unspecified formulation IPPLEX [facility] 05-13-2018 pneumococcal polysaccharide vaccine, 23 valent Abdi MCINTOSH [facility] 04-22-2017 influenza virus vacc ine, unspecified formulation IPPLEX [facility] 04-22-2017 pneumococcal conjuga te vaccine, 13 valent Abdi MCINTOSH [facility] 04-25-2016 influenza virus vacc ine, unspecified formulation IPPLEX [facility] 05-05-2014 influenza virus vacc ine, unspecified formulation Abdi MCINTOSH [facility] 05-18-2013 influenza virus vacc ine, unspecified formulation Abid MCINTOSH [facility] Payers Date Payer Category Payer Medicare 2022 Unknown 2018 Medicare [id number] 2018 Self-pay 2018 Medicare MEDICARE MEDICAR E PART A AND B xxxxxxxxxxx 2018-Present [phone] [place] [address] xxxxxxxxxxx [id number] 2018 Unknown GENERIC COMMERCI AL GENERIC COMMERCIAL xxxxxxxxxx 2018-Present Indemnity xxxxxxxxxx [id number] 1959 Medicare [id number] 1959 Unknown [id number] 1951 Unknown [id number] 1951 Unknown [id number] 1951 Unknown [id number] 1951 Unknown [id number] 1951 Unknown [id number] 1951 Unknown [id number] 1951 Unknown [id number] [id number] 9 1951 Unknown [id number] [id number] 1951 Unknown [id number] [id number] 1951 Unknown [id number] [id number] 1951 Unknown [id number] 1951 Unknown [id number] [id number] Unknown [id number] Unknown [facility] [id number] Social History Date Type Detail Facility Start: 01-13-2014 End: 01-24-2024 Tobacco smoking status NHIS Former smoker [facility] Start: 1950 Sex Assigned At Not on file [place], [place] History of tobacco use Current smoker [facility] Phone: Start: 11-09-2022 Alcohol intake Current drinke r of alcohol (finding) [facility] Phone: Start: 11-09-2022 Alcohol intake [facility] [employer] Work Phone: Start: 11-09-2022 Alcohol Comment daily [facility] [employer] [employer] Phone: Start: 10-30-2022 End: 11-09-2022 Exposure to SARS-CoV-2 (event) Not sure [facility] Phone: Sex Assigned At [facility] Tobacco smoking status Never [facility] Start: 1950 Sex Assigned At Male [facility] Medical Equipment Procedure Code Equipment Code Equipment Origin al Text Equipment Identifier Dates Lens Intraocular Bcnvx 22+ Diopt 6x12.5 Mm Acryl [employer] - [id number] Start: 11-09-2022 Functional Status Date Assessment Result Facility 01-24-2024 Functional Status N/A [facility] 06-28-2023 Functional Status N/A [facility] Clinical Notes 10-23-2022 to 01-24-2024 Note Date & Type Note Facility 01-24-2024 Hospital Discharg e instructions Patient Education 01/24/2024 14:18:17 Proteinuria Proteinuria Proteinuria is when there is too much protein in the urine. Proteins are important for building muscles and bones. Proteins are also needed to fight infections, help the blood to clot, and keep body fluids in balance. Proteinuria may be mild and temporary, or it may be an early sign of kidney disease. The kidneys make urine. Healthy kidneys also keep substances like proteins from leaving the blood and ending up in the urine. What are the causes? This condition may be caused by damage to the kidneys or by temporary causes such as fever or stress. Proteinuria may happen when the kidneys are not working well. Healthy kidneys have filters (glomeruli) that keep proteins out of the urine. Proteinuria may mean that the glomeruli are damaged. The main causes of this type of damage are: Diabetes. High blood pressure. Other causes of kidney damage can also cause proteinuria, such as: Diseases of the immune system, such as lupus, rheumatoid arthritis, sarcoidosis, and Goodpasture syndrome. Heart disease or heart failure. Kidney infection. Certain cancers, including kidney cancer, lymphoma, leukemia, and multiple myeloma. Amyloidosis. This is a disease that causes abnormal proteins to build up in body tissues. Reactions to certain medicines, such as NSAIDs. Injuries or poisons (toxins). High blood pressure that occurs during (preeclampsia and eclampsia). Temporary proteinuria may result from conditions that put stress on the kidneys. These conditions usually do not cause kidney damage. They include: Fever. Exposure to cold or heat. Emotional or physical stress. Extreme exercise. Standing for long periods of time. What increases the risk? You are more likely to develop this condition if you: Have diabetes. Have high blood pressure. Have heart disease or heart failure. Have an immune disease, cancer, or other disease that affects the kidneys. Have a family history of kidney disease. Are 65 years of age or older. Are overweight. Are of , , /, or descent. Are . Have an infection. What are the signs or symptoms? Mild proteinuria may not cause symptoms. As more proteins enter the urine, symptoms of kidney disease may develop, such as: Foamy urine. Swelling of the face, abdomen, hands, legs, or feet (edema). Needing to urinate frequently. Fatigue. Difficulty sleeping. Dry and itchy skin. Nausea and vomiting. Muscle cramps. Shortness of breath. How is this diagnosed? This condition may be diagnosed with a urine test. You may have this test as part of a routine physical exam or because you have symptoms of kidney disease or risk factors for kidney disease. You may also have: Blood tests to measure the level of a certain substance (creatinine) that increases with kidney disease. Imaging tests of your kidney, such as a CT scan or an ultrasound, to look for signs of kidney damage. How is this treated? If your proteinuria is mild or temporary, treatment may not be needed for this condition. Your health care provider may show you how to monitor the level of protein in your urine at home. Identifying proteinuria early is important so that the cause of the condition can be treated. Treatment for this condition depends on the cause of your proteinuria. Treatment may include: Making diet and lifestyle changes. Getting blood pressure under control. Getting blood sugar under control, if you have diabetes. Managing any other medical conditions you have that affect your kidneys. Giving , if you are . Avoiding medicines that damage your kidneys. In severe cases, kidney disease may need to be treated with medicines or dialysis. Follow these instructions at home: Activity Return to your normal activities as told by your health care provider. Ask your health care provider what activities are safe for you. Ask your health care provider to recommend an exercise program. General instructions Check your protein levels at home if directed by your health care provider. Follow instructions from your health care provider about eating or drinking restrictions. If you are overweight, ask your health care provider about diets that can help you get to a healthy weight. Take gvtz-wwy-qropgxb and prescription medicines only as told by your health care provider. Keep all follow-up visits as told by your health care provider. This is important. Contact a health care provider if: You have new symptoms. Your symptoms get worse or do not improve. Get help right away if you: Have back pain. Have diarrhea. Vomit. Have a fever. Have a rash. Summary Proteinuria is when there is too much protein in the urine. Proteinuria may be mild and temporary, or it may be an early sign of kidney disease. This condition may be diagnosed with a urine test. Treatment for this condition depends on the cause of your proteinuria. Treatment may include diet and lifestyle changes, blood pressure and blood sugar management, and avoiding medicines that may damage the kidneys. If the proteinuria is severe, it may need to be treated with medicines or dialysis. This information is not intended to replace advice given to you by your health care provider. Make sure you discuss any questions you have with your health care provider. Document Revised: 10/12/2022 Document Reviewed: 02/24/2022 [employer] Patient Education 2022 [employer] Group. Follow Up Care 06/28/2023 12:08:24 With:KEHINDE CRUZ, Abdi Santana, URL Address: [facility] [address] , [place] [address]- [phone] When: Unknown Comments:1 year w/ PSA from PCP (PSA in 6 mos as well, will call with reuslts) [facility] 01-24-2024 Note Patient Education Immunology Proteinuria Proteinuria is when there is too much protein in the urine. Proteins are important for building muscles and bones. Proteins are also needed to fight infections, help the blood to clot, and keep body fluids in balance. Proteinuria may be mild and temporary, or it may be an early sign of kidney disease. The kidneys make urine. Healthy kidneys also keep substances like proteins from leaving the blood and ending up in the urine. What are the causes? This condition may be caused by damage to the kidneys or by temporary causes such as fever or stress. Proteinuria may happen when the kidneys are not working well. Healthy kidneys have filters (glomeruli) that keep proteins out of the urine. Proteinuria may mean that the glomeruli are damaged. The main causes of this type of damage are: ? Diabetes. ? High blood pressure. Other causes of kidney damage can also cause proteinuria, such as: ? Diseases of the immune system, such as lupus, rheumatoid arthritis, sarcoidosis, and Goodpasture syndrome. ? Heart disease or heart failure. ? Kidney infection. ? Certain cancers, including kidney cancer, lymphoma, leukemia, and multiple myeloma. ? Amyloidosis. This is a disease that causes abnormal proteins to build up in body tissues. ? Reactions to certain medicines, such as NSAIDs. ? Injuries or poisons (toxins). ? High blood pressure that occurs during (preeclampsia and eclampsia). Temporary proteinuria may result from conditions that put stress on the kidneys. These conditions usually do not cause kidney damage. They include: ? Fever. ? Exposure to cold or heat. ? Emotional or physical stress. ? Extreme exercise. ? Standing for long periods of time. What increases the risk? You are more likely to develop this condition if you: ? Have diabetes. ? Have high blood pressure. ? Have heart disease or heart failure. ? Have an immune disease, cancer, or other disease that affects the kidneys. ? Have a family history of kidney disease. ? Are 65 years of age or older. ? Are overweight. ? Are of , , /, or descent. ? Are . ? Have an infection. What are the signs or symptoms? Mild proteinuria may not cause symptoms. As more proteins enter the urine, symptoms of kidney disease may develop, such as: ? Foamy urine. ? Swelling of the face, abdomen, hands, legs, or feet (edema). ? Needing to urinate frequently. ? Fatigue. ? Difficulty sleeping. ? Dry and itchy skin. ? Nausea and vomiting. ? Muscle cramps. ? Shortness of breath. How is this diagnosed? This condition may be diagnosed with a urine test. You may have this test as part of a routine physical exam or because you have symptoms of kidney disease or risk factors for kidney disease. You may also have: ? Blood tests to measure the level of a certain substance (creatinine) that increases with kidney disease. ? Imaging tests of your kidney, such as a CT scan or an ultrasound, to look for signs of kidney damage. How is this treated? If your proteinuria is mild or temporary, treatment may not be needed for this condition. Your health care provider may show you how to monitor the level of protein in your urine at home. Identifying proteinuria early is important so that the cause of the condition can be treated. Treatment for this condition depends on the cause of your proteinuria. Treatment may include: ? Making diet and lifestyle changes. ? Getting blood pressure under control. ? Getting blood sugar under control, if you have diabetes. ? Managing any other medical conditions you have that affect your kidneys. ? Giving , if you are . ? Avoiding medicines that damage your kidneys. In severe cases, kidney disease may need to be treated with medicines or dialysis. Follow these instructions at home: Activity ? Return to your normal activities as told by your health care provider. Ask your health care provider what activities are safe for you. ? Ask your health care provider to recommend an exercise program. General instructions ? Check your protein levels at home if directed by your health care provider. ? Follow instructions from your health care provider about eating or drinking restrictions. ? If you are overweight, ask your health care provider about diets that can help you get to a healthy weight. ? Take djoh-srx-flmgnyi and prescription medicines only as told by your health care provider. ? Keep all follow-up visits as told by your health care provider. This is important. Contact a health care provider if: ? You have new symptoms. ? Your symptoms get worse or do not improve. Get help right away if you: ? Have back pain. ? Have diarrhea. ? Vomit. ? Have a fever. ? Have a rash. Summary ? Proteinuria is when there is too much protein in the urine. ? Proteinuria m (more content not included)... [facility] 08-25-2023 Evaluation note Encounter Date Diagnosis Assessment Notes Aug, Colon cancer screening (ICD-10 - Z12.11) [facility] Other 12-13-2023 Evaluation note* Encounter Date Diagnosis [...] verbalized understanding and agreement with treatment plan. [facility] Other 12-11-2023 Hospital Discharge instructions Patient Education [...] provider. Document Revised: 06/10/2020 Document Reviewed: 06/10/2020 [employer] Patient Education 2022 [employer]. 06/28/2023 11:53:29 Spermatocele Spermatocele A spermatocele is [...] provider. Document Revised: 02/23/2022 Document Reviewed: 02/23/2022 [employer] Patient Education 2022 [employer] Group. Follow Up Care 03/29/2023 12:07:33 With:KEHINDE CRUZ, Abdi Santana, URL Address: [facility] [address], [place] [address]- When:Within 6 Month(s) Comments[facility]* Encounter Date Diagnosis Assessment [...] that can be had with CPAP use. [facility] Other 07-03-2023 Evaluation note* Encounter Date Diagnosis [...] test. He declines followup on this at [facility] at this time. Jan, Itching (ICD-10 - L29.9) Requests decreased dose of med. Educated him that it would make him tired. [facility] Other 07-03-2023 Evaluation note* Encounter Date Diagnosis Assessment Notes Treatment Notes Treatment Clinical Notes Jan, Lumbar pain (ICD-10 - M54.50) Jan, Right hip pain (ICD-10 - M25.551) [facility] Other 04-24-2023 Hospital Discharge instructions* Discharge Instructions* Kathi Suarez Francisco Javier, DO - 11/09/2022 10:35 AM EDT SAME [...] the healing period. The office number is [phone]. Take surgery bag and all eye drops to Dr. Her's office tomorrow at 9:05am. You may resume your normal diet. Start your eye drops tomorrow after your post-op appointment: Ofloxacin/Polytrim one drop to the operated eye 4 times daily Prednisolone one drop to the operated eye 4 times daily documented in this encounterFR[facility] Phone: [phone]) 449-698504-07-2023 History of Present illness Narrative* Lori Weir [...] 5 days of surgery. documented in this encounterFR[facility] Phone: [email or web address] + Plan note Future Appointments Appointment Date:01/03/2024 10:45:00 AM Scheduled Provider:Abdi MCINTOSH MD Location:[facility] Appointment Type:URO Office Visit Diagnostic Tests Pending * PSA Total 06/28/23 [facility] evaluation + Plan note Future Appointments Appointment Date:01/26/2025 08:30:00 AM Scheduled Provider:Abdi MCINTOSH MD Location:[facility] Appointment Type:URO Office Visit Diagnostic Tests Pending * PSA Total 01/24/24 [facility] evalxbbovr note* Diagnosis 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 documented in this encounter [facility] Phone: evaluation noteNo [facility] Other Evaluation noteNo assessment information available [facility] Work Phone: Evaluation note* Diagnosis Onset Date Resolution Status Abnormal carotid ultrasound acute [facility] Work Phone: History general Narrative - Reported* Type Description Date Medical History Essential (primary) hypertension Medical History Borderline low oxygen saturation level Medical History Low back pain, unspecified Medical History Atopic dermatitis Medical History Insomnia, persistent Medical History Family history of malignant neop lasm of breast Surgical History KNEE ARTHROSCOPY X2 Surgical History CATARACT SURGERY Hospitalization History SEE SURGICAL HX [facility] Other Hospital course Narrative No data available for this section [facility] progress note No data available for this section [facility] Summary Purpose Family History No Family History Records Found Relationship Condition Age at Onset Recorded Date/T manoj father Malignant neoplasm Unknown Family history of lung cancer Unknown Not Specified Malignant neoplasm of breast Unknown Malignant neoplasm Unknown Advance Directives No Advanced Directives Records FoundDocuments on File Type Date Recorded 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 Directives and Living Will Power of Sash Sticker Latest Code Status on File Code Status [...] Last Name Sp Referring Provider Specialty Family [facility] Referred Organization [facility] Referred Address [address], [place],[address] Referred Provider Specialty Pain Medicin e Referral Priority Routine Referral Appointment Date 2023-01-25 General Notes Jessica Mason 06:43:12 AM >received today, attachments made, referral faxed Jessica Mason 01/20/2023 03:44:38 PM >received fax with appt date Clinical Notes F: [id number] Chief Complaint and Reason for Visit Chief Complaint Referred carotid art nidia narrowing; duplex at [facility] Chief Complaint Referred carotid art nidia narrowing; duplex at [facility] Reason for Visit Abnormal carotid ult rasound Additional Source Comments (unrecognized sect ion and content) No Status Records FoundNo Status Records FoundNo Status Records FoundNo Status Records FoundNo Status Records FoundNo Status Records Found INFORMATION SOURCE (unrecogn ized section and content) DATE CREATED AUTHOR 10/20/2018 [facility] DATE CREATED AUTHOR AUTHOR'S ORGANIZ ATION 11/27/2022 [facility] DATE CREATED AUTHOR AUTHOR'S ORGANIZ ATION 04/20/2023 [facility] DATE CREATED AUTHOR AUTHOR'S ORGANIZ ATION 02/05/2024 [facility] EPIC DATE CREATED AUTHOR AUTHOR'S ORGANIZ ATION 06/18/2024 [facility] DATE CREATED AUTHOR AUTHOR'S ORGANIZ ATION 06/30/2024 [facility] Reason for Visit (unrecogniz ed section and content) Specialty Diagnoses / Procedures Referred By Rasheed funes Referred To Contact Diagnoses Nuclear sclerotic cataract of both eyes AGE RELATED NUCLEAR CAT 2+NS Procedures ME XCAPSL CTRC RMVL INSJ IO LENS PROSTH W/O ECP EYE CATARACT EMULSIFICATION IOL IMPLANT Kathi Her Y, DO [address] [place] [address] [facility] [id number] [place] [address] Referral ID Status Reason Start Date Expiration Date Visits Re quested Visits Authorized [id number] 1 1 Scheduled Active and Recently Administ [...] Gardner RN)09 (Given - Provider: Justina Gardner RN)09 (Given - Provider: Justina Gardner RN) sodium [...] 0901 (Given - Provid er: Justina Gardner RN)09 [...] (NoRateChange - Provider: Eden Jurado APRN - PLC PROGRAMMER)1036 (Rate/Dose Change - Provider: SHANA Tracey [employer] PROGRAMMER)1100 (Stopped - Provider: Rosy Shearer RN) PRN [...] 1035, Intra-op 1018 (Given - Provid er: Ktahi Her DO) Care Teams (unrecognized sec tion and content) Clinical Nurse Leader Relationship Specialty Start Date End Date Smitha Snowden MD [address] [place] [id number] PCP - General 01/13/14 Team Status: [...] BE BASED ON THE PRIMARY CLINICAL RECORDS. [facility] provides no warranty or guarantee of the accuracy or completeness of information in this document.
[2024-07-06 09:55] LABS: Prostate Specific Antigen Dx 0.69 ng/mL (<=4.00)
== END 2024-07-06 08:57 | disposition home or self-care (01) ==
PROVIDERS: PCP Family Medicine; Visit Provider Urology
DX: R97.20 Elevated prostate specific antigen [PSA] (principal)
CPT/HCPCS: 36415; 84153

== ENCOUNTER 2024-07-06 09:10 | Outpatient (OUT) | payer MEDICARE, SELFPAY ==
--- NOTE | 2024-07-06 09:25 | P.CN_ITS ---
Consult Note: HPI Data of Consult Patient: known to practice within the last 3 years Consult date: 06/12/24 Requesting Physician: Bozena Carty NP Primary Care Provider: Smitha Cartagena MD Consult Narrative Reason for consult: right low back, leg pain Narrative: 74yom who presents for assessment. increasing pain throughout low back and right leg, similar to pain prior to lumbar tfesi and sij injection. these provide >50% relief for >3 months at a time. imaging significant for stenosis at l4-5 and l5- s1. continues in series of provider directed home exercises >6 weeks. uses otc pain meds as needed. pt underwent repeat right L4-5 L5-S1 TFESI with >90% improvement ongoing. pain 0/10 at this time cc:: CC: Bozena Carty NP Review of Systems ROS Status of ROS 10 or more systems reviewed and unremark able except as noted in history and below Musculoskeletal Denies: back pain or joint pain PFSH PFSH Medical History Surgical History History of tonsillectomy and adenoidectomy ?Z90.89 - Acquired absence of other organs (ICD-10) H/O elbow surgery ?Z98.890 - Other specified postprocedural states (ICD-10) Meds Home Medications and Allergies Home Medications ?Medication ?Instructions ?Recorded ?Confirmed ?Type bupropion HCl 150 mg 24 hr tablet, 150 mg PO DAILY 01/25/23 06/26/24 History extended release ibuprofen 200 mg tablet 200 mg PO TID 01/25/23 06/26/24 History baclofen 10 mg tablet mg 06/26/24 History Allergies Allergy/AdvReac Type Severity Reaction Status Date / Time oxycodone (From Percocet) Allergy Mild ITCH Verified 06/26/24 09:31 Exam Narrative Exam Narrative: Psych-alert and oriented x 3. Attentive and appropriate, constitutionally normal, displays normal mood and affect per situation. There are no obvious deficits in memory, reasoning, or intellect.? Skin-no obvious rashes, bruising, erythema noted to the patient's area of pain.? Extremities- extremities are warm with minimal edema and palpable pulses. Lumbar-no tenderness to palpation noted in the lumbar spine and paraspinal musculature. no pain is elicited with flexion, extension, and lateral rotation of the lumbar spine. Range of motion is not diminished with these motions. Facet loading maneuvers are negative. Strength-noted to be unremarkable Sensory-no notable sensory deficits in the bilateral lower extremities to touch or pinprick in all dermatomal distributions Coordination remains intact.? Gait remains non-antalgic. Assessment and Plan Assessment and Plan (1) Lumbar stenosis with neurogenic claudication: (2) Sacroiliac pain: Assessment and Plan: mildly positive right yotristian gaenslens thigh thrust. Plan defer right SIJ injection at this time, pt can call to schedule should pain worsen continue HEP as tolerated f/u 3 months, sooner if needed
--- OUTSIDE RECORDS SUMMARY | 2024-07-06 09:30 | XMS_ITS | CCD ---
Author Organization [facility] Inform ion Partnership [facility] Care Team Providers [place] [facility] Name Role Phone Julius Carson Admitting Unavailable Julius Carson Attending Unavailable Smitha Snowden Primary Care Unavailable Smitha Snowden Primary Care Provider [phone] Smitha Snowden MD Primary Care Provider SMITHA [...] Attending Unavailable SMITHA SNOWDEN Primary Care Physician [phone] MICHAEL LENZ Attending Unavailable Melisa CRUZ, Mercy Gomes Attending Unavailable Melisa CRUZ, Mercy Gomes Attending Unavailable Melisa CRUZ, Mercy Gomes Attending Unavailable Abdi MCINTOSH Attending Unavailable Abdi MCINTOSH Attending Unavailable Allergies Allergy Classification Reported Allergen(s) Allergy Type Date of Onset Reaction(s) Facility (7 sources) Acetaminophen / oxyCODONE Drug Allergy itching emoquo Other (1 source) No Known Medication Allergies; Translations: [No Known Medication Allergies] Propensity to adverse reactions (disorder) [facility] Repository Medications Current Medications Medication Drug [...] 12:00am Start: 07-02-2023 take 1 capsule by [facility] twice daily tamsulosin 0.4 mg Cap 0.4 mg = 1 cap(s), Oral, BID, # 60 cap(s), Refills(s) 11, Pharmacy: [facility] [id number], 175, cm, 06/28/23 11:11:00 EST, Height/Length Dosing, 78, kg, 06/28/23 11:11:00 EST, Weight Dosing Start Date: 07/02/23 Status: Ordered Start: 03-29-2023 take 1 capsule by [facility] once daily tamsulosin 0.4 mg Cap 0.4 mg = 1 cap(s), Oral, Daily, # 30 cap(s), Refills(s) 11, Pharmacy: [facility] [id number], 175, cm, 03/29/23 11:17:00 EDT, Height/Length Dosing, [...] Will monitor Pt wanted order faxed to [facility]. He said he would get it next week. Normal [facility] Ambulatory Visit Summaryon 0 01-24-2024 Ambulatory Visit [...] [facility] [address], [place] [address]- [phone] Medications What How Much When Instructions Unchanged [...] that i (more content not included)... Normal [facility] Urology Office/Clinic Noteon 01-24-2024 Urology Office/Clinic Note [...] [facility] [address], [place] [address] [id number] Additional Instructions: 1 year w/ PSA from [...] Recorded in (more content not included)... Normal [facility] Comment on above: Result Comment: Elec tronically Signed By: Abdi MCINTOSH MD\.br\Date and Time Signed: 01/24/24 14:26 EDT\.br\Electronically Co-Signed By: Kiera Escalante\.br\Date and Time Co-Signed: 01/24/24 14:25 EDT Lab Reportson 01-12-2024 Lab Reports [id number]#[id number] TIFF Normal [facility] Basophils Auto (Bld) [#/Vol] on 12-20-2023 Basophils (Bld) [#/Vol] 0.1 10 3/uL 0.0-0.1 [facility] Basophils/100 WBC Auto (Bld) on 12-20-2023 Basophils/100 WBC (Bld) 1.1 % 0.2-2.0 [facility] Cholesterol in LDL Calc [Mas s/Vol]on 12-20-2023 Cholesterol in LDL [Mass/Vol] 98.2 mg/dL [facility] Comment on above: <100 mg/dl [id number] 0-129 mg/dl NEAR OR ABOVE [id number] mg/dl BORDERLINE [id number] mg/dl HIGH>190 mg/dl VERY HIGH Cholesterol in VLDL Calc [Ma ss/Vol]on 12-20-2023 Cholesterol in VLDL [Mass/Vol] 16.8 mg/dL [facility] Eosinophils/100 WBC Auto (Bl d)on 12-20-2023 Eosinophils/100 WBC (Bld) 4.6 % 0.9-7.0 [facility] Erythrocyte distribution wid th Auto (RBC) [Ratio]on 12-20-2023 Erythrocyte distribution width (RBC) [Ratio] 13.3 % 11.0-15.0 [facility] Estimated glomerular filtrat ion rate (GFR) non- Americanon 12-20-2023 GFR/1.73 sq M.predicted among non-blacks MDRD (S/P/Bld) [Vol rate/Area] mL/min/{1.73_m2} >=60 [facility] Globulin Calc (S) [Mass/Vol] on 12-20-2023 Globulin (S) [Mass/Vol] 3.6 g/dL [facility] Hematocrit Auto (Bld) [Volum e fraction]on 12-20-2023 Hematocrit (Bld) [Volume fraction] 45.4 % 42.0-54.0 [facility] Hemoglobin [Mass/volume] in Bloodon 12-20-2023 Hemoglobin (Bld) [Mass/Vol] 15.1 g/dL 14.0-18.0 [facility] Laboratory - Chemistry and C hemistry - challengeon 12-20-2023 Albumin [Mass/Vol] 4.1 g/dL 3.4-5.0 [facility] ALP [Catalytic activity/Vol] 84 U/L 46-116 [facility] ALT [Catalytic activity/Vol] 43 U/L 16-63 [facility] AST [Catalytic activity/Vol] 29 U/L 15-37 [facility] Bilirubin [Mass/Vol] 1.3 mg/dL 0.2-1.0 [facility] Calcium [Mass/Vol] 9.8 mg/dL 8.5-10.1 [facility] Chloride [Moles/Vol] 104 mmol/L 98-107 [facility] Cholesterol [Mass/Vol] 173 mg/dL <=200 [facility] Cholesterol in HDL [Mass/Vol] 58 mg/dL 40-60 [facility] Comment on above: > or =60 mg/dl - LOW CARDIOVASCULAR RISK<40 mg/dl - HIGH CARDIOVASCULAR RISK CO2 [Moles/Vol] 28.8 mmol/L 21.0-32.0 [facility] Creatinine [Mass/Vol] 0.96 mg/dL 0.70-1.30 [facility] GFR/1.73 sq M.predicted MDRD (S/P/Bld) [Vol rate/Area] mL/min/{1.73_m2} >=60 [facility] Glucose [Mass/Vol] 100 mg/dL 74-106 [facility] Potassium [Moles/Vol] 4.4 mmol/L 3.5-5.1 [facility] Protein [Mass/Vol] 7.7 g/dL 6.4-8.2 [facility] Sodium [Moles/Vol] 142 mmol/L 136-145 [facility] Triglyceride [Mass/Vol] 84 mg/dL <=150 [facility] Urea nitrogen [Mass/Vol] 7.0 mg/dL 7.0-18.0 [facility] Urea nitrogen/Creatinine [Mass ratio] 7.3 mg/mg [facility] Laboratory - Hematology and Cell countson 12-20-2023 Immature granulocytes/100 WBC (Bld) 0.2 % 0.0-0.5 [facility] Leukocytes [#/volume] correc sophia for nucleated erythrocytes in Blood by Automated counon 12-20-2023 WBC corrected for nucl RBC Auto (Bld) [#/Vol] 5.5 10 3/uL 4.0-11.0 [facility] Lymphocytes Auto (Bld) [#/Vo l]on 12-20-2023 Lymphocytes (Bld) [#/Vol] 1.8 10 3/uL 1.2-3.8 [facility] Lymphocytes/100 WBC Auto (Bl d)on 12-20-2023 Lymphocytes/100 WBC (Bld) 32.7 % 20.5-60.0 [facility] MCH Auto (RBC) [Entitic mass ]on 12-20-2023 MCH (RBC) [Entitic mass] 30.6 pg 25.9-34.0 [facility] MCHC Auto (RBC) [Mass/Vol]on 12-20-2023 MCHC (RBC) [Mass/Vol] 33.3 g/dL 29.9-35.2 [facility] MCV Auto (RBC) [Entitic vol] on 12-20-2023 MCV (RBC) [Entitic vol] 92.1 fL 80.0-94.0 [facility] Monocytes Auto (Bld) [#/Vol] on 12-20-2023 Monocytes (Bld) [#/Vol] 0.6 10 3/uL 0.3-0.8 [facility] Monocytes/100 WBC Auto (Bld) on 12-20-2023 Monocytes/100 WBC (Bld) 11.5 % 1.7-12.0 [facility] Neutrophils Auto (Bld) [#/Vo l]on 12-20-2023 Neutrophils (Bld) [#/Vol] 2.7 10 3/uL 1.4-6.5 [facility] Neutrophils/100 WBC Auto (Bl d)on 12-20-2023 Neutrophils/100 WBC (Bld) 49.9 % 43.0-75.0 [facility] No Panel Informationon 12-19 Eosinophils # (Auto) 0.3 10 3/uL 0.0-0.7 [facility] Immature Granulocyte # (Auto) 0.01 10 3/uL 0.00-0.03 [facility] Prostate Specific Antigen Screen 2.87 ng/mL <=4.00 [facility] Platelet mean volume Auto (B ld) [Entitic vol]on 12-20-2023 Platelet mean volume (Bld) [Entitic vol] 9.4 fL 9.5-13.5 [facility] Platelets Auto (Bld) [#/Vol] on 12-20-2023 Platelets (Bld) [#/Vol] 268 10 3/uL 150-450 [facility] RBC Auto (Bld) [#/Vol]on RBC (Bld) [#/Vol] 4.93 10 6/uL 4.70-6.10 [facility] Serum or plasma albumin/glob ulin mass ratioon 12-20-2023 Albumin/Globulin [Mass ratio] 1.1 {ratio} [facility] Serum or plasma anion gap de terminationon 12-20-2023 Anion gap [Moles/Vol] 13.6 mmol/L [facility] Serum or plasma total choles terol/high density lipoprotein (HDL) cholesterol mass kaci 12-20-2023 Cholesterol.total/Ch olesterol in HDL [Mass ratio] 3.0 {ratio} [facility] Comment on above: 3.3 - 4.4 LOW RISK4. 4 - 7.1 AVERAGE RISK7.1 - 11.0 MODERATE RISK>11.0 HIGH RISK Basic Metabolic Profon 02-10 Anion gap [Moles/Vol] 16 mmol/L Normal 9-17 [facility] Comment on above: Performed By: #### C DWAYNE BMP, TROPI #### [facility] [address] [place] [address] [place] [address] Service Support Representative: Ming Costello MD BUN/CRE Ratio 15 Normal 9-20 [facility] Comment on above: Performed By: #### C DWAYNE BMP, TROPI #### [facility] [address] [place] [address] [place] [address] Service Support Representative: Ming Costello MD Calcium [Mass/Vol] 9.3 mg/dL Normal 8.6-10.4 [facility] Comment on above: Performed By: #### C DWAYNE BMP, TROPI #### [facility] [address] [place] [address] Service Support Representative: Ming Costello MD Chloride [Moles/Vol] 93 mmol/L Low 98-107 [facility] Comment on above: Performed By: #### C DP BMP, TROPI #### [facility] [address] [place] [address] Service Support Representative: Ming Costello MD CO2 [Moles/Vol] 22 mmol/L Normal 20-31 [facility] Comment on above: Performed By: #### C DWAYNE BMP, TROPI #### [facility] [address] [place] [address] Service Support Representative: Ming Costello MD Creatinine [Mass/Vol] 0.8 mg/dL Normal 0.7-1.2 [facility] Comment on above: Performed By: #### C DWAYNE BMP, TROPI #### [facility] [address] [place] [address] Service Support Representative: Ming Costello MD GFR/1.73 sq M.predicted among non-blacks MDRD (S/P/Bld) [Vol rate/Area] mL/min/{1.73_m2} Normal >60 [facility] Comment on above: Result Comment: These results [...] By: #### C DINORA RICE, TROPI #### [facility] [address] [place] [address] [place] [address] Service Support Representative: Ming Costello MD Glucose [Mass/Vol] 123 mg/dL High 70-99 [facility] Comment on above: Performed By: #### C DWAYNE BMP, TROPI #### [facility] [address] [place] [address] Service Support Representative: Ming Costello MD Potassium [Moles/Vol] 3.9 mmol/L Normal 3.7-5.3 [facility] Comment on above: Performed By: #### C DWAYNE BMP, TROPI #### [facility] [address] [place] [address] Service Support Representative: Ming Costello MD Sodium [Moles/Vol] 131 mmol/L Low 135-144 [facility] Comment on above: Performed By: #### C DP, BMP, TROPI #### [facility] [address] [place] [address] Service Support Representative: Ming Costello MD Urea nitrogen [Mass/Vol] 12 mg/dL Normal 8-23 [facility] Comment on above: Performed By: #### C DP, BMP, TROPI #### [facility] [address] [place], [place] [address] Service Support Representative: Ming Costello MD CBC with Diffon 02-10-2023 Abs. Basophil 0.06 k/uL Normal 0.00-0.20 [facility] Comment on above: Performed By: #### C DP, BMP, TROPI #### [address] [place] [address] Service Support Representative: Ming Costello MD Abs.Imm.Granulocyte 0.03 k/uL Normal 0.00-0.30 [facility] Comment on above: Performed By: #### C DP, BMP, TROPI #### [address] [place] [address] Service Support Representative: Ming Costello MD Abs.Neutrophil (Seg) 5.01 k/uL Normal 1.50-8.10 [facility] Comment on above: Performed By: #### C DP, BMP, TROPI #### [facility] [address] [place], [place] [address] Service Support Representative: Ming Costello MD Basophils/100 WBC (Bld) 1 % Normal 0-2 [facility] Comment on above: Performed By: #### C DP, BMP, TROPI #### [facility] [address] [place], [facility]83 Service Support Representative: Ming Costello MD Eosinophils (Bld) [#/Vol] 0.39 10*3/uL Normal 0.00-0.44 [facility] Comment on above: Performed By: #### C DP, BMP, TROPI #### [facility] [address] [place], [place] [address] Service Support Representative: Ming Costello MD Eosinophils/100 WBC (Bld) 4 % Normal 1-4 [facility] Comment on above: Performed By: #### C DP, BMP, TROPI #### [facility] [address] [place], [place] [address] Service Support Representative: Ming Costello MD Erythrocyte distribution width (RBC) [Ratio] 12.8 % Normal 11.8-14.4 [facility] Comment on above: Performed By: #### C DP, BMP, TROPI #### [facility] [address] [place] [address] Dr. [place], [place] [address] Service Support Representative: Ming Costello MD Hematocrit (Bld) [Volume fraction] 45.4 % Normal 40.7-50.3 [facility] Comment on above: Performed By: #### C DP, BMP, TROPI #### [address] [place], [place] [address] Service Support Representative: Ming Costello MD Hemoglobin (Bld) [Mass/Vol] 15.3 g/dL Normal 13.0-17.0 [facility] Comment on above: Performed By: #### C DP, BMP, TROPI #### [facility] [address] [place] [address] Dr. [place], [place] [address] Service Support Representative: Ming Costello MD Immature granulocytes/100 WBC (Bld) 0 % Normal 0 [facility] Comment on above: Performed By: #### C DP, BMP, TROPI #### [facility] [address] [place], [facility]83 Service Support Representative: Ming Costello MD Lymphocytes (Bld) [#/Vol] 2.63 10*3/uL Normal 1.10-3.70 [facility] Comment on above: Performed By: #### C DP, BMP, TROPI #### [facility] [address] [place], [place] [id number] Service Support Representative: Ming Costello MD Lymphocytes/100 WBC (Bld) 29 % Normal 24-43 [facility] Comment on above: Performed By: #### C DP, BMP, TROPI #### [facility] [address] [place], [facility]83 Service Support Representative: Ming Costello MD MCH (RBC) [Entitic mass] 30.8 pg Normal 25.2-33.5 [facility] Comment on above: Performed By: #### C DP, BMP, TROPI #### [address] [place], [facility]83 Service Support Representative: Ming Costello MD MCHC (RBC) [Mass/Vol] 33.7 g/dL Normal 28.4-34.8 [facility] Comment on above: Performed By: #### C DP, BMP, TROPI #### [address] [place], [facility]83 Service Support Representative: Ming Costello MD MCV (RBC) [Entitic vol] 91.5 fL Normal 82.6-102.9 [facility] Comment on above: Performed By: #### C DP, BMP, TROPI #### [address] [place], [place] [address] Service Support Representative: Ming Costello MD Monocytes (Bld) [#/Vol] 1.08 10*3/uL Normal 0.10-1.20 [facility] Comment on above: Performed By: #### C DP, BMP, TROPI #### [facility] [address] [place], [place] [id number] Service Support Representative: Ming Costello MD Monocytes/100 WBC (Bld) 12 % Normal 3-12 [facility] Comment on above: Performed By: #### C DP, BMP, TROPI #### [facility] [address] [place], [place] [id number] Service Support Representative: Ming Costello MD Neutrophil (Seg) 54 % Normal 36-65 [facility] Comment on above: Performed By: #### C DP, BMP, TROPI #### [facility] [address] [place], [place] [id number] Service Support Representative: Ming Costello MD NRBC Automated 0.0 per 100 WBC Normal 0.0 [facility] Comment on above: Performed By: #### C DP, BMP, TROPI #### [facility] [address] [place], [place] [id number] Service Support Representative: Ming Costello MD Platelet mean volume (Bld) [Entitic vol] 9.6 fL Normal 8.1-13.5 [facility] Comment on above: Performed By: #### C DP, BMP, TROPI #### [address] [place], [place] [id number] Service Support Representative: Ming Costello MD Platelets (Bld) [#/Vol] 289 10*3/uL Normal 138-453 [facility] Comment on above: Performed By: #### C DP, BMP, TROPI #### [address] [place], [place] [id number] Service Support Representative: Ming Costello MD RBC (Bld) [#/Vol] 4.96 10*6/uL Normal 4.21-5.77 [facility] Comment on above: Performed By: #### C DP, BMP, TROPI #### [facility] [address] [place] [address] Service Support Representative: Ming Costello MD WBC (Bld) [#/Vol] 9.2 10*3/uL Normal 3.5-11.3 [facility] Comment on above: Performed By: #### C DP, BMP, TROPI #### [facility] [address] [place] [address] Service Support Representative: Ming Costello MD CT HEAD WO CONTRASTon [...] Shayy Muse MD 02/10/23 Final result Normal [facility] Ethanol Alcoholon 02-10-2023 Ethanol [Mass/Vol] 159 mg/dL High <10 [facility] Comment on above: Performed By: #### A LCB #### [facility] [address] [place] [address] Service Support Representative: Ming Costello MD Ethanol percent 0.159 % High <0.010 [facility] Comment on above: Performed By: #### A LCB #### [facility] [address] [place] [address] Service Support Representative: Ming Costello MD Troponinon 02-10-2023 Troponin, High Sens 17 ng/L Normal 0-22 [facility] Comment on above: Result Comment: High Sensitivity Troponin values cannot be compared with other Troponin methodologies. Performed By: #### C DP, BMP, TROPI #### [facility] [address] [place] [address] Service Support Representative: Ming Costello MD XR CHEST PORTABLEon 02-11-20 [...] Shayy Muse MD 02/10/23 Final result Normal [facility] CBC AUTO DIFFon 11-23-2022 BASO # 0.1 103/ul Normal 0.0-0.1 [facility] Comment on above: Performed By: #### C BC #### [facility] [address] [place] [address] Dr. Micheline Ventura Basophils/100 WBC (Bld) 1.0 % Normal 0.2-2.0 [facility] Comment on above: Performed By: #### C BC #### [facility] [address] [place] [address] Dr. Micheline Ventura EO # 0.3 103/ul Normal 0.0-0.7 [facility] Comment on above: Performed By: #### C BC #### [facility] [address] [place] [address] Dr. Micheline Ventura Eosinophils/100 WBC (Bld) 5.8 % Normal 0.9-7.0 [facility] Comment on above: Performed By: #### C BC #### [facility] [address] [place] [address] Dr. Micheline Ventura Erythrocyte distribution width (RBC) [Ratio] 13.3 % Normal 11.0-15.0 [facility] Comment on above: Performed By: #### C BC #### [facility] [address] [place] [address] Dr. Micheline Ventura Hematocrit (Bld) [Volume fraction] 45.8 % Normal 42.0-54.0 [facility] Comment on above: Performed By: #### C BC #### [facility] [address] [place] [address] Dr. Micheline Ventura Hemoglobin (Bld) [Mass/Vol] 15.3 g/dL Normal 14.0-18.0 [facility] Comment on above: Performed By: #### C BC #### [facility] [address] [place] [address] Dr. Micheline Ventura IG # 0.00 10e3/ul Normal 0.00-0.03 [facility] Comment on above: Performed By: #### C BC #### [facility] [address] [place] [address] Dr. Micheline Ventura IG % 0.0 % Normal 0.0-0.5 [facility] Comment on above: Performed By: #### C BC #### [facility] [address] [place] [address] Dr. Micheline Ventura LYMPH # 1.9 103/ul Normal 1.2-3.8 [facility] Comment on above: Performed By: #### C BC #### [facility] [address] [place] [address] Dr. Micheline Ventura Lymphocytes/100 WBC (Bld) 37.1 % Normal 20.5-60.0 [facility] Comment on above: Performed By: #### C BC #### [facility] [address] [place] [address] Dr. Micheline Ventura MANUAL DIFF REQ NO Normal [facility] Comment on above: Performed By: #### C BC #### [facility] [address] [place] [address] Dr. Micheline Ventura MCH (RBC) [Entitic mass] 30.7 pg Normal 25.9-34.0 [facility] Comment on above: Performed By: #### C BC #### [facility] [address] [place] [address] Dr. Micheline Ventura MCHC (RBC) [Mass/Vol] 33.4 g/dL Normal 29.9-35.2 [facility] Comment on above: Performed By: #### C BC #### [facility] [address] [place] [address] [address] Micheline Ventura MCV (RBC) [Entitic vol] 91.8 fL Normal 80.0-94.0 [facility] Comment on above: Performed By: #### C BC #### [facility] [address] [place] [address] [address] Micheline Ventura MONO # 0.6 103/ul Normal 0.3-0.8 [facility] Comment on above: Performed By: #### C BC #### [facility] [address] [place] [address] [address] Micheline Ventura Monocytes/100 WBC (Bld) 11.3 % Normal 1.7-12.0 [facility] Comment on above: Performed By: #### C BC #### [facility] [address] [place] [address] Dr. Micheline Ventura NEUT # 2.3 103/ul Normal 1.4-6.5 [facility] Comment on above: Performed By: #### C BC #### [facility] [address] [place] [address] Dr. Micheline Ventura Neutrophils/100 WBC (Bld) 44.8 % Normal 43.0-75.0 [facility] Comment on above: Performed By: #### C BC #### [facility] [address] [place] [address] [address] Micheline Ventura Platelet mean volume (Bld) [Entitic vol] 9.5 fL Normal 9.5-13.5 [facility] Comment on above: Performed By: #### C BC #### [facility] [address] [place] [address] [address] Micheline Ventura PLT 292 103/ul Normal 150-450 [facility] Comment on above: Performed By: #### C BC #### [facility] [address] [place] [address] [address] Micheline Ventura RBC 4.99 106/ul Normal 4.70-6.10 [facility] Comment on above: Performed By: #### C BC #### [facility] [address] [place] [address] [address] Micheline Ventura WBC 5.2 103/ul Normal 4.0-11.0 [facility] Comment on above: Performed By: #### C BC #### [facility] [address] [place] [address] [address] Micheline Ventura LIPID PROFILEon 11-23-2022 CHOL-HDL RATIO NORM SEE BELOW Normal [facility] Comment on above: Result Comment: 3.3 - 4.4 LOW RISK 4.4 - 7.1 AVERAGE RISK 7.1 - 11.0 MODERATE RISK >11.0 HIGH RISK Performed By: #### C MP, LIPID #### [facility] [address] [place] [address] Dr. Micheline Ventura Cholesterol [Mass/Vol] 169 mg/dL Normal <=200 [facility] Comment on above: Performed By: #### C MP, LIPID #### [facility] [address] [place] [address] Dr. Micheline Ventura Cholesterol in HDL [Mass/Vol] 49 mg/dL Normal 40-60 [facility] Comment on above: Performed By: #### C MP, LIPID #### [facility] [address] [place] [address] Dr. Micheline Ventura Cholesterol in LDL [Mass/Vol] 97.6 mg/dL Normal [facility] Comment on above: Performed By: #### C MP, LIPID #### [facility] [address] [place] [address] Dr. Micheline Ventura Cholesterol.total/Ch olesterol in HDL [Mass ratio] 3.4 {ratio} Normal [facility] Comment on above: Performed By: #### C MP, LIPID #### [facility] [address] [place] [address] Dr. Micheline Ventura HDL NORMAL > or = 60 mg/dl - LO W CARDIOVASCULAR RISK <40 mg/dl - HIGH CARDIOVASCULAR RISK Normal [facility] Comment on above: Performed By: #### C MP, LIPID #### [facility] [address] [place] [address] Dr. Micheline Ventura LDL CALC NORMAL SEE BELOW Normal [facility] Comment on above: Result Comment: <100 mg/dl OPTIMAL 100 - 129 mg/dl NEAR OR ABOVE OPTIMAL 130 - 159 mg/dl BORDERLINE HIGH 160 - 189 mg/dl HIGH >190 mg/dl VERY HIGH Performed By: #### C MP, LIPID #### [facility] [address] [address] [address] Micheline Ventura Triglyceride [Mass/Vol] 112 mg/dL Normal <=150 [facility] Comment on above: Performed By: #### C MP, LIPID #### [facility] [address] [address] [address] Micheline Ventura VLDL CALC 22.4 mg/dL Normal [facility] Comment on above: Performed By: #### C MP, LIPID #### [facility] [address] [place] [address] Dr. Micheline Ventura PROF 14(COMP METB)on 023 Albumin [Mass/Vol] 4.0 g/dL Normal 3.4-5.0 [facility] Comment on above: Performed By: #### C MP, LIPID #### [facility] [address] [address] [address] Micheline Ventura Albumin/Globulin [Mass ratio] 1.1 {ratio} Normal [facility] Comment on above: Performed By: #### C MP, LIPID #### [facility] [address] [address] [address] Micheline Ventura ALP [Catalytic activity/Vol] 70 U/L Normal 46-116 [facility] Comment on above: Performed By: #### C MP, LIPID #### [facility] [address] [address] [address] Micheline Ventura ALT [Catalytic activity/Vol] 80 U/L Critically high 16-63 [facility] Comment on above: Performed By: #### C MP, LIPID #### [facility] [address] [address] [address] Micheline Ventura Anion gap [Moles/Vol] 12.6 mmol/L Normal [facility] Comment on above: Performed By: #### C MP, LIPID #### [facility] [address] [address] [address] Micheline Ventura AST [Catalytic activity/Vol] 37 U/L Normal 15-37 [facility] Comment on above: Performed By: #### C MP, LIPID #### [facility] [address] [address] [address] Micheline Ventura Bilirubin [Mass/Vol] 1.1 mg/dL Critically high 0.2-1.0 [facility] Comment on above: Performed By: #### C MP, LIPID #### [facility] [address] [address] [address] Micheline Ventura Calcium [Mass/Vol] 9.5 mg/dL Normal 8.5-10.1 [facility] Comment on above: Performed By: #### C MP, LIPID #### [facility] [address] [place] [address] Dr. Micheline Ventura Chloride [Moles/Vol] 105 mmol/L Normal 98-107 [facility] Comment on above: Performed By: #### C MP, LIPID #### [facility] [address] [place] [address] Dr. Micheline Ventura CO2 [Moles/Vol] 29.8 mmol/L Normal 21.0-32.0 [facility] Comment on above: Performed By: #### C MP, LIPID #### [facility] [address] [place] [address] Dr. Micheline Ventura Creatinine [Mass/Vol] 0.99 mg/dL Normal 0.70-1.30 [facility] Comment on above: Performed By: #### C MP, LIPID #### [facility] [address] [place] [address] Dr. Micheline Ventura EGFR-AF AFGHAN >60 Normal >=60 [facility] Comment on above: Performed By: #### C MP, LIPID #### [facility] [address] [address] [address] Micheline Ventura EGFR-NON AF AFGHAN >60 Normal >=60 [facility] Comment on above: Performed By: #### C MP, LIPID #### [facility] [address] [address] [address] Micheline Ventura Globulin (S) [Mass/Vol] 3.8 g/dL Normal [facility] Comment on above: Performed By: #### C MP, LIPID #### [facility] [address] [address] [address] Micheline Ventura Glucose [Mass/Vol] 99 mg/dL Normal 74-106 [facility] Comment on above: Performed By: #### C MP, LIPID #### [facility] [address] [address] [address] Micheline Ventura Potassium [Moles/Vol] 4.4 mmol/L Normal 3.5-5.1 [facility] Comment on above: Performed By: #### C MP, LIPID #### [facility] [address] [place] [address] Dr. Micheline Ventura Protein [Mass/Vol] 7.8 g/dL Normal 6.4-8.2 [facility] Comment on above: Performed By: #### C MP, LIPID #### [facility] [address] [address] [address] Micheline Ventura Sodium [Moles/Vol] 143 mmol/L Normal 136-145 [facility] Comment on above: Performed By: #### C MP, LIPID #### [facility] [address] [address] [address] Micheline Ventura Urea nitrogen [Mass/Vol] 8.0 mg/dL Normal 7.0-18.0 [facility] Comment on above: Performed By: #### C MP, LIPID #### [facility] [address] [address] [address] Micheline Ventura Urea nitrogen/Creatinine [Mass ratio] 8.1 mg/mg Normal [facility] Comment on above: Performed By: #### C MP, LIPID #### [facility] [address] [address] [address] Micheline Ventura Basic Metabolic Panelon 08-2 Anion gap [Moles/Vol] 12 mmol/L 9 - 17 mmol/L [facility] [place] Bun/Cre Ratio 15 [place] Calcium [Mass/Vol] 10.3 mg/dL 8.6 - 10. 4 mg/dL [place] Chloride [Moles/Vol] 100 mmol/L 98 - 10 7 mmol/L [place] CO2 [Moles/Vol] 28 mmol/L 20 - 31 mmol/L [place] Creatinine [Mass/Vol] 0.79 mg/dL 0.7 - 1.2 mg/dL [place] GFR >60 >60 mL/min [place] GFR Non- >60 >60 mL/min [place] Glucose [Mass/Vol] 96 mg/dL 70 - 99 mg/dL [place] Potassium [Moles/Vol] 4.4 mmol/L 3.7 - 5.3 mmol/L [place] Sodium [Moles/Vol] 140 mmol/L 135 - 144 mmol/L [place] Urea nitrogen [Mass/Vol] 12 mg/dL 8 - 23 mg/dL [place] CBC Auto Differentialon -2 Basophils (Bld) [#/Vol] 0.05 10*3/uL [place] Basophils/100 WBC (Bld) 1 % 0 - 2 % [place] Differential Type NOT REPORTED [place] Eosinophils (Bld) [#/Vol] 0.35 10*3/uL [place] Eosinophils/100 WBC (Bld) 6 % High 1 - 4 % [place] Erythrocyte distribution width (RBC) [Ratio] 13.2 % 11.8 - 14.4 % [place] Hematocrit (Bld) [Volume fraction] 48.2 % 40.7 - 50.3 % [place] Hemoglobin (Bld) [Mass/Vol] 15.9 g/dL 13 - 17 g/dL [place] Immature granulocytes (Bld) [#/Vol] 0 % 0 [place] Immature granulocytes (Bld) [#/Vol] 10*3/uL [place] Interpretation and review of laboratory results Abnormal [place] Lymphocytes (Bld) [#/Vol] 2.00 10*3/uL [place] Lymphocytes/100 WBC (Bld) 32 % 24 - 43 % [place] MCH (RBC) [Entitic mass] 30.5 pg 25.2 - 33.5 pg [place] MCHC (RBC) [Mass/Vol] 33.0 g/dL 28.4 - 34.8 g/dL [place] MCV (RBC) [Entitic vol] 92.3 fL 82.6 - 102.9 fL [place] Monocytes (Bld) [#/Vol] 0.78 10*3/uL [place] Monocytes/100 WBC (Bld) 12 % 3 - 12 % [place] Platelet mean volume (Bld) [Entitic vol] 9.5 fL 8.1 - 13.5 fL [place] Platelets (Bld) [#/Vol] 248 10*3/uL [place] Platelets (Bld) [#/Vol] NOT REPORTED [place] RBC (Bld) [#/Vol] 5.22 10*6/uL 4.21 - 5.7 7 m/uL [place] RBC morphology finding Nom (Bld) NOT REPORTED [place] Segmented neutrophils/100 WBC (Bld) 49 % 36 - 65 % [place] Segs Absolute 3.13 [place] WBC (Bld) [#/Vol] 0.0 10*3/uL 0.0 per 10 0 WBC [place] WBC (Bld) [#/Vol] 6.3 10*3/uL [place] WBC Morphology NOT REPORTED [place], [place] Metabolic Panelon 03-08-2019 GFR/1.73 sq M predicted among non-blacks MDRD (S/P/Bld) [Vol rate/Area] [place] Comment on above: Stage 1: Some [...] body mass. Additional eGFR calculator available at: http://[email or web address]/multiple_crcl_2012.htm XR CHEST STANDARD (2 VW)on 0 03-08-2019 No acute cardiopulmonary process. [facility]: TWO XRA Y VIEWS OF THE [...] the costophrenic angles on the lateral view. [facility] Abran, pn Incoming Radiant Results From [employer] - 03/08/2019 10:48 AM EDT EXAMINATION: TWO [...] lateral view. IMPRESSION: No acute cardiopulmonary process. [facility] Kamari 10-05-2018 L -- ---- Specimen: [id number] Received: 10/05/18 Status: LEIDA Bates Num: [id number] Spec Type: Surgical Subm Dr: Julius Carson DO Tissues: A Colon - Polyp (COLON POLYP @ 70 CM) Procedures: HE Stain/2, Gross/Micro L4 ---- Patient Age/Sex Location Account Attending Physician ---- Merlin Johnston 68/M RT4 [id number] Julisu Carson DO ---- SPEC NUM: [id number] RECD: 10/05/18 STATUS: LEIDA OCAMPOLora NUM: [id number] VAMSI: 10/05/18- SUBM DR: Julius Carson DO [...] microscopic findings support the above pathologic diagnosis. [address]1049 A. - - COLON POLYP @ 70 CM ---- ---- Specimen: [id number] Received: 10/05/18 Status: LEIDA Bates Num: [id number] Spec Type: Surgical Subm Dr: Julius Carson DO Tissues: A Colon - Polyp (COLON POLYP @ 70 CM) Procedures: HE Stain/2, Gross/Micro L4 ---- Patient: FrancoMerlin [id number] (Continued) ---- Signed (signature on file) Chalo Ibrahim MD 10/06/18 1330 Normal [facility] Vital Signs Date Time Vital Sign Value Performing Clinician Facility 01-24-2024 13:26-0400 Blood Pressure Location Abdi MCINTOSH [facility] 01-24-2024 13:26-0400 Diastolic blood pressure 83 mm[Hg] Abdi MCINTOSH [facility] 01-24-2024 13:26-0400 Heart rate 106 /min Abdi MCINTOSH [facility] 01-24-2024 13:26-0400 Respiratory rate 16 /min Abdi MCINTOSH [facility] 01-24-2024 13:26-0400 Systolic blood pressure 136 mm[Hg] Abdi MCINTOSH [facility] 12-27-2023 11:14-0400 Body height 177.8 cm [facility] 12-27-2023 11:14-0400 Body mass index (BMI) [Ratio] 26.1 kg/m2 [facility] 12-27-2023 11:140400 Body weight 82.55 kg [facility] 12-27-2023 11:14-0400 Diastolic blood pressure 80 mm[Hg] [facility] 12-27-2023 11:14-0400 Heart rate 76 /min [facility] 12-27-2023 11:14-0400 Systolic blood pressure 130 mm[Hg] [facility] 11-03-2023 11:[id number] Body height 177.8 cm [facility] 11-03-2023 11:06-0400 Body mass index (BMI) [Ratio] 26.5 kg/m2 [facility] 11-03-2023 11:06-0400 Body temperature 97.8 [degF] [facility] 11-03-2023 11:06-0400 Body weight 83.91 kg [facility] 11-03-2023 11:06-0400 Diastolic blood pressure 80 mm[Hg] [facility] 11-03-2023 11:06-0400 Heart rate 77 /min [facility] 11-03-2023 11:06-0400 SaO2% (BldA) [Mass fraction] 97 % [facility] 11-03-2023 11:06-0400 Systolic blood pressure 130 mm[Hg] [facility] 06-28-2023 11:08-0500 Blood Pressure Location Abdi MCINTOSH [facility] 06-28-2023 11:08-0500 Diastolic blood pressure 72 mm[Hg] Abdi MCINTOSH [facility] 06-28-2023 11:08-0500 Heart rate 69 /min Abdi MCINTOSH [facility] 06-28-2023 11:08-0500 Respiratory rate 16 /min Abdi MCINTOSH [facility] 06-28-2023 11:08-0500 Systolic blood pressure 129 mm[Hg] Abdi MCINTOSH [facility] 05-10-2023 09:30-0400 Body height 177.8 cm Smitha Snowden Other [employer] Other 05-10-2023 09:30-0400 Body mass index (BMI) [Ratio] 25.54 kg/m2 Smitha Snowden Other [employer] Other 05-10-2023 09:30-0400 Body weight 80.74 kg Smitha Snowden Other [employer] Other 05-10-2023 09:30-0400 Diastolic blood pressure 86 mm[Hg] Smitha Snowden Other [employer] Other 05-10-2023 09:30-0400 Systolic blood pressure 146 mm[Hg] Smitha Snowden Other [employer] Other 01-18-2023 10:45-0400 Body height 177.8 cm Smitha Snowden Other [employer] Other 01-18-2023 10:45-0400 Body mass index (BMI) [Ratio] 25.54 kg/m2 Smitha Snowden Other [employer] Other 01-18-2023 10:45-0400 Body weight 80.74 kg Smitha Snowden Other [employer] Other 01-18-2023 10:45-0400 Diastolic blood pressure 79 mm[Hg] Smitha Snowden Other [employer] Other 01-18-2023 10:45-0400 Systolic blood pressure 129 mm[Hg] Smitha Snowden Other [employer] Other 11-09-2022 11:00-0400 Diastolic blood pressure 66 mm[Hg] Kathi Francisco Javier DO Work Phone: [employer] 11-09-2022 11:00-0400 Heart rate 74 /min Kathi Francisco Javier DO Work Phone: [employer] 11-09-2022 11:00-0400 Respiratory rate 20 /min Kathi Francisco Javier DO Work Phone: [employer] 11-09-2022 11:00-0400 SaO2% (BldA) [Mass fraction] 94 % Kathi Her DO Work Phone: [facility] [address] 11-09-2022 11:00-0400 Systolic blood pressure 123 mm[Hg] Kathi Her DO Work Phone: [employer] 11-09-2022 10:30-0400 Body temperature 98.01 [degF] Kathi Her DO Work Phone: [facility] [address] 11-09-2022 08:56-0400 Body height 177.8 cm Kathi Her DO Work Phone: [facility] [address] 10-23-2022 13:11-0400 Body mass index (BMI) [Ratio] 40.18 kg/m2 Kathi Her DO Work Phone: [facility] [address] 10-23-2022 13:11-0400 Body weight 127.01 kg Kathi Her DO Work Phone: [facility] [address] Encounters Encounter Date Encounter Type Care Provider Facility Start: 01-26-2025 ambulatory Abdi Resendez ty:[facility] Start: 06-12-2024 End: 06-12-2024 ambulatory Mercy Vincent MD Facility: [facility] Start: 02-01-2024 End: 02-01-2024 ambulatory MICHAEL LENZ Not Available Start: 01-24-2024 End: 01-24-2024 ambulatory Abdi MCINTOSH Facility:[facility] Start: 01-24-2024 End: 01-24-2024 Patient encounter procedure Abdi MCINTOSH [facility] Start: 01-03-2024 End: 01-03-2024 ambulatory Mercy Vincent MD Facility: [facility] Start: 12-27-2023 End: 12-27-2023 ambulatory [facility] Work Phone: Start: 12-27-2023 End: 12-27-2023 Patient encounter procedure [facility] Physician [facility] Work Phone: Start: 12-20-2023 Non-patient / Non-visit [facility] Physician [facility] Work Phone: Start: 12-20-2023 End: 12-20-2023 ambulatory Mercy Vincent MD Facility:[facility] Start: 11-26-2023 Patient encounter status [facility] Start: 11-03-2023 End: 11-03-2023 ambulatory [facility] Work Phone: Start: 11-03-2023 End: 11-03-2023 Patient encounter procedure [facility] Physician [facility] Work Phone: Start: 08-25-2023 End: 08-25-2023 ambulatory Smitha Snowden Other [facility] Other Start: 08-25-2023 Telephone encounter Smitha Snowden [facility] Start: 08-24-2023 End: 08-24-2023 ambulatory Smitha Snowden Other [facility] Other Start: 08-24-2023 Telephone encounter Smitha Snowden [facility] Start: 06-30-2023 (Televisit) Televisit Smitha Snowden [facility] Start: 06-30-2023 End: 06-30-2023 ambulatory Smitha Snowden Other [facility] Other Start: 06-28-2023 End: 06-28-2023 Patient encounter procedure Abdi MCINTOSH [facility] Start: 05-10-2023 End: 05-10-2023 ambulatory Smitha Snowden Other [facility] Other Start: 05-10-2023 Office outpatient visit 15 minutes Smitha Snowden [facility] Start: 04-12-2023 End: 04-13-2023 ambulatory [facility] Start: 04-01-2023 End: 04-01-2023 ambulatory Smitha Snowden Other [facility] Other Start: 04-01-2023 Telephone encounter Smitha Snowden [facility] Start: 02-10-2023 End: 02-10-2023 Emergency department [facility] Start: 01-18-2023 End: 01-18-2023 ambulatory Smitha Snowden Other [facility] Other Start: 01-18-2023 Office outpatient visit 25 minutes Smitha Snowden [facility] Start: 01-18-2023 Telephone encounter Smitha Snowden [facility] Start: 01-08-2023 End: 01-08-2023 ambulatory Smitha Snowden Other [facility] Other Start: 01-08-2023 Telephone encounter Smitha Snowden [facility] Start: 12-29-2022 End: 12-30-2022 ambulatory SMITHA [facility] Start: 11-23-2022 End: 11-23-2022 ambulatory SMITHA [facility] Start: 11-23-2022 End: 11-24-2022 ambulatory SMITHA [facility] Facility: Start: 11-09-2022 End: 11-09-2022 ambulatory SMITHA God[facility] Start: 11-09-2022 End: 11-09-2022 Subsequent hospital visit by physician Kathi Her DO Work Phone: [facility] Start: 03-08-2019 End: 03-10-2019 Subsequent hospital visit by physician Nikos Hansen Dr Room 2 [facility] Comment on above: Acute medial menisca l tear, left, subsequent encounter Start: 10-05-2018 End: 10-05-2018 Patient encounter procedure Julius Carson Facility:[facility] Procedures Date Procedure Procedure Detail Performing Clinician Start: 11-23-2022 PSA screening SMITHA ALEXANDRA MATOS Comment on above: Performed By: #### P [facility] #### [facility] [address] [place] [address] Dr. Micheline Ventura Start: 03-08-2019 Radiologic exam [...] Influenza vaccination Flu vacc ine (Season Ended) [facility] Start: 11-09-2022 End: 11-09-2022 Xcapsl ctrc rmvl insj io lens prosth w/o ecp EYE CATARACT EMULSIFICATION IOL IMPLANT Nuclear sclerotic cataract of both eyes 11/09/2022 10:05 AM EDT [facility] Start: 03-19-2019 Influenza vaccination Flu vaccine (# 1) [place] Start: 01-15-2016 Abdominal aortic aneurysm screening AAA screen [facility] Start: 01-15-2016 Pneumococcal 65+ yea rs Vaccine (1 - PCV) Pneumococcal 65+ years Vaccine (1 - PCV) [facility] Start: 01-15-2016 Pneumococcal 65+ yea rs Vaccine (1 of 2 - PCV13) Pneumococcal 65+ years Vaccine (1 of 2 - PCV13) [place] Start: 2001 Colon cancer screen colonoscopy Colon cancer screen colonoscopy [place] Start: 2001 Shingles Vaccine (1 of 2) Shingles Vaccine (1 of 2) [facility] Start: 01-15-1996 Screening for malign ant neoplasm of colon [facility] Start: 1991 Lipid panel Lipids [facility] Start: 1991 Lipid screen Lipid screen [place], [place] Start: 1970 DTaP/Tdap/Td vaccine (1 - Tdap) DTaP/Tdap/Td vaccine (1 - Tdap) [facility] Start: 1969 Hepatitis C screening Hepatitis C sc reen [facility] Start: 1963 Depression Screen Depression Screen [facility] Start: 1950 COVID-19 Vaccine (#1) COVID-19 Vacci ne (#1) [facility] Start: 1950 AAA screen AAA screen [place], [place] Start: 1950 Hepatitis C screen Hepatitis C scree [place] EKG 12 Lead EKG 12 Lead ECG Routine 03/08/2019 9:20 AM EDT [place] Oxygen therapy [[facility] Data Set] Initiate Oxygen Therapy Protocol Respiratory Care Routine Daily until discontinued starting 11/09/2022 [facility] Work Phone: Comment on above: Daily until disconti nued starting 11/09/2022 Immunizations Immunization Date Immunization Notes Care Provider Jitendra sargent 06-24-2023 influenza virus vacc ine, unspecified formulation [facility] 05-11-2022 influenza virus vacc ine, unspecified formulation [facility] 03-11-2022 zoster vaccine recombinant [facility] 12-25-2021 zoster vaccine recombinant [facility] 07-24-2021 influenza virus vacc ine, unspecified formulation [facility] 07-24-2021 pneumococcal conjuga te vaccine, 13 valent Abdi MCINTOSH [facility] 07-03-2021 SARS-CoV-2 (COVID-19 ) mRNA-1273 vaccine Abdi MCINTOSH [facility] 10-16-2020 SARS-CoV-2 (COVID-19 ) mRNA-1273 vaccine [facility] 09-17-2020 SARS-CoV-2 (COVID-19 ) mRNA-1273 vaccine [facility] Comment on above: Result Comment: 2022: [id number] 06-08-2019 tetanus toxoid, redu triston diphtheria toxoid, and acellular pertussis vaccine, adsorbed Abdi MCINTOSH [facility] 04-24-2019 influenza virus vacc ine, unspecified formulation [facility] 05-13-2018 influenza virus vacc ine, unspecified formulation [facility] 05-13-2018 pneumococcal polysaccharide vaccine, 23 valent Abdi MCINTOSH [facility] 04-22-2017 influenza virus vacc ine, unspecified formulation [facility] 04-22-2017 pneumococcal conjuga te vaccine, 13 valent Abdi MCINTOSH [facility] 04-25-2016 influenza virus vacc ine, unspecified formulation [facility] 05-05-2014 influenza virus vacc ine, unspecified formulation Abdi MCINTOSH [facility] 05-18-2013 influenza virus vacc ine, unspecified formulation Abdi MCINTOSH [facility] Payers Date Payer Category Payer Medicare 2022 Unknown 2018 Medicare [id number] 2018 Self-pay 2018 Medicare MEDICARE MEDICAR E PART A AND B xxxxxxxxxxx 2018-Present [phone] [place] [address] xxxxxxxxxxx [id number] 2018 Unknown GENERIC COMMERCI AL GENERIC COMMERCIAL xxxxxxxxxx 2018-Present Indemnity xxxxxxxxxx [id number] 1959 Medicare [id number] 1959 Unknown [id number] 1951 Unknown [id number] 1951 Unknown [id number] [id number] 1951 Unknown [id number] [id number] 1951 Unknown [id number] [id number] 1951 Unknown [id number] [id number] 1951 Unknown [id number] [id number] 1951 Unknown [id number] [id number] 9 1951 Unknown [id number] [id number] 1951 Unknown [id number] [id number] 1951 Unknown [id number] [id number] 1951 Unknown [id number] [id number] 1951 Unknown [id number] [id number] Unknown [id number] [id number] Unknown [facility] [id number] Social History Date Type Detail Facility Start: 01-13-2014 End: 01-24-2024 Tobacco smoking status NHIS Former smoker [facility] [place] Start: 1950 Sex Assigned At Not on file [place] History of tobacco use Current smoker [employer] Phone: Start: 11-09-2022 Alcohol intake Current drinke r of alcohol (finding) [employer] Phone: Start: 11-09-2022 Alcohol intake [facility] [employer] Work Phone: Start: 11-09-2022 Alcohol Comment daily [employer] [employer] [employer] Phone: Start: 10-30-2022 End: 11-09-2022 Exposure to SARS-CoV-2 (event) Not sure [employer] Phone: Sex Assigned At [facility] Tobacco smoking status Never [facility] Start: 1950 Sex Assigned At Male F [facility] Medical Equipment Procedure Code Equipment Code Equipment Origin al Text Equipment Identifier Dates Lens Intraocular Bcnvx 22+ Diopt 6x12.5 Mm Acryl [employer] - [id number] Start: 11-09-2022 Functional Status Date Assessment Result Facility 01-24-2024 Functional Status N/A [facility] 06-28-2023 Functional Status N/A [facility] Clinical Notes 10-23-2022 to 01-24-2024 Note [...] you get to a healthy weight. Take hsrn-vby-kjhjuhi and prescription medicines only as told by [...] provider. Document Revised: 10/12/2022 Document Reviewed: 02/24/2022 [employer] Patient Education 2022 [employer]. Follow Up Care 06/28/2023 12:08:24 With:KEHINDE CRUZ, Abdi Santana, URL Address: [facility] [address] , [place] [address]- [phone] When: Unknown Comments:1 year w/ PSA from PCP (PSA in 6 mos as well, will call with reuslts) [facility] 01-24-2024 Note Patient Education Immunology Proteinuria [...] get to a healthy weight. ? Take truc-ghz-emewxkx and prescription medicines only as told by [...] ? Proteinuria m (more content not included)... [facility] 08-25-2023 Evaluation note Encounter Date Diagnosis Assessment Notes Aug, Colon cancer screening (ICD-10 - Z12.11) [facility] Other 12-13-2023 Evaluation note* Encounter Date Diagnosis [...] verbalized understanding and agreement with treatment plan. [facility] Other 12-11-2023 Hospital Discharge instructions Patient Education [...] provider. Document Revised: 06/10/2020 Document Reviewed: 06/10/2020 [employer] Patient Education 2022 [employer]. 06/28/2023 11:53:29 Spermatocele Spermatocele A spermatocele is [...] provider. Document Revised: 02/23/2022 Document Reviewed: 02/23/2022 [employer] Patient Education 2022 [employer]. Follow Up Care 03/29/2023 12:07:33 With:KEHINDE CRUZ, Abdi Santana, URL Address: [facility] [address], [place] [address]- When:Within 6 Month(s) Comments:w/PSA [facility]* Encounter Date Diagnosis Assessment [...] that can be had with CPAP use. [facility] Other 07-03-2023 Evaluation note* Encounter Date Diagnosis [...] test. He declines followup on this at [facility] at this time. Jan, Itching (ICD-10 - L29.9) Requests decreased dose of med. Educated him that it would make him tired. [facility] Other 07-03-2023 Evaluation note* Encounter Date Diagnosis Assessment Notes Treatment Notes Treatment Clinical Notes Jan, Lumbar pain (ICD-10 - M54.50) Jan, Right hip pain (ICD-10 - M25.551) [facility] Other 04-24-2023 Hospital Discharge instructions* Discharge Instructions* [...] the healing period. The office number is [phone]. Take surgery bag and all eye drops to Dr. Her's office tomorrow at 9:05am. You may resume your normal diet. Start your eye drops tomorrow after your post-op appointment: Ofloxacin/Polytrim one drop to the operated eye 4 times daily Prednisolone one drop to the operated eye 4 times daily [facility] Phone: [phone]) 170-354604-07-2023 History of Present illness Narrative* Lori Weir [...] 5 days of surgery. [facility] Phone: evalguebpt + Plan note Future Appointments Appointment Date:01/03/2024 10:45:00 AM Scheduled Provider:Abdi MCINTOSH MD Location:[facility] Appointment Type:URO Office Visit Diagnostic Tests Pending * PSA Total 06/28/23 [facility] evaluation + Plan note Future Appointments Appointment Date:01/26/2025 08:30:00 AM Scheduled Provider:Abdi MCINTOSH MD Location:[facility] Appointment Type:URO Office Visit Diagnostic Tests Pending * PSA Total 01/24/24 [facility] evalueqhqz note* Diagnosis 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 documented in this encounter [facility] Phone: evaluation noteNo [facility] Other Evaluation noteNo assessment information available [facility] Work Phone: Evaluation note* Diagnosis Onset Date Resolution Status Abnormal carotid ultrasound acute [facility] Work Phone: History general Narrative - Reported* Type Description Date Medical History Essential (primary) hypertension Medical History Borderline low oxygen saturation level Medical History Low back pain, unspecified Medical History Atopic dermatitis Medical History Insomnia, persistent Medical History Family history of malignant neop lasm of breast Surgical History KNEE ARTHROSCOPY X2 Surgical History CATARACT SURGERY Hospitalization History SEE SURGICAL HX [facility] Other Hospital course Narrative No data available for this section [facility] progress note No data available for this section [facility] Summary Purpose Family History No Family History Records Found Relationship Condition Age at Onset Recorded Date/T manoj father Malignant neoplasm Unknown Family history of lung cancer Unknown Not Specified Malignant neoplasm of breast Unknown Malignant neoplasm Unknown Advance Directives No Advanced Directives Records FoundDocuments on File Type Date Recorded 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 Thanks Diagnosis 1 Lumbar pain (M54.50) Referral Organization [facility] von Referring Provider First Name Smitha Referring Provider Last Name Sp Referring Provider Specialty Family [facility] Referred Organization [facility] Referred Address [address], [place],[address] Referred Provider Specialty Pain Medicin e Referral Priority Routine Referral Appointment Date 2023-01-25 General Notes Jessica Mason 06:43:12 AM >received today, attachments made, referral faxed Jessica Mason 01/20/2023 03:44:38 PM >received fax with appt date Clinical Notes F: [id number] Chief Complaint and Reason for Visit Chief Complaint Referred carotid art nidia narrowing; duplex at [facility] Chief Complaint Referred carotid art nidia narrowing; duplex at [facility] MA[facility] Reason for Visit Abnormal carotid ult rasound Additional Source Comments (unrecognized sect ion and content) No Status Records FoundNo Status Records FoundNo Status Records FoundNo Status Records FoundNo Status Records FoundNo Status Records Found INFORMATION SOURCE (unrecogn ized section and content) DATE CREATED AUTHOR 10/20/2018 [facility] DATE CREATED AUTHOR AUTHOR'S ORGANIZ ATION 11/27/2022 [facility] DATE CREATED AUTHOR AUTHOR'S ORGANIZ ATION 04/20/2023 [facility] DATE CREATED AUTHOR AUTHOR'S ORGANIZ ATION 02/05/2024 [facility] EPIC DATE CREATED AUTHOR AUTHOR'S ORGANIZ ATION 06/18/2024 [facility] DATE CREATED AUTHOR AUTHOR'S ORGANIZ ATION 06/30/2024 [facility] Reason for Visit (unrecogniz ed section and content) Specialty Diagnoses / Procedures Referred By Rasheed funes Referred To Contact Diagnoses Nuclear sclerotic cataract of both eyes AGE RELATED NUCLEAR CAT 2+NS Procedures [place] XCAPSL CTRC RMVL INSJ IO LENS PROSTH W/O ECP EYE CATARACT EMULSIFICATION IOL IMPLANT Kathi Her Y, DO [address] [place] [address] [facility] [address] [place] [address] Referral ID Status Reason Start Date Expiration Date Visits Re quested Visits Authorized [id number] 1 1 Scheduled Active and Recently Administ [...] (NoRateChange - Provider: Eden Jurado APRN - RETAIL ASSISTANT MANAGER)1036 (Rate/Dose Change - Provider: SHANA Tracey RETAIL ASSISTANT MANAGER)1100 (Stopped - Provider: Rosy Shearer RN) PRN [...] Care Teams (unrecognized sec tion and content) [place] [facility] Relationship Specialty Start Date End Date Smitha Snowden MD [address] [place] [id number] PCP - General 01/13/14 Team Status: [...] BE BASED ON THE PRIMARY CLINICAL RECORDS. [facility] provides no warranty or guarantee of the accuracy or completeness of information in this document.
== END 2024-07-06 09:11 | disposition home or self-care (01) ==
LOC: PM 09:11
PROVIDERS: PCP Family Medicine; Visit Provider Nurse Practitioner
DX: M48.062 Spinal stenosis, lumbar region with neurogenic claudication (principal); M53.3 Sacrococcygeal disorders, not elsewhere classified
CPT/HCPCS: G0463

== ENCOUNTER 2024-10-05 09:49 | Outpatient (OUT) | payer MEDICARE, SELFPAY ==
--- OUTSIDE RECORDS SUMMARY | 2024-10-05 10:10 | XMS_ITS | CCD ---
Author Organization [facility] ion [facility] Care Team Providers Care Ict Trainer Name Role Phone Julius Carson Admitting Unavailable Julius Carson Attending Unavailable Smitha Snowden Primary Care Unavailable Smitha Snowden Primary Care Provider [phone] Smitha Snowden MD Primary Care Provider [phone] SMITHA SNOWDEN Attending Unavailable SMITHA SNOWDEN Consulting [...] Attending Unavailable SMITHA SNOWDEN Primary Care Physician MICHAEL LENZ Attending Unavailable Melisa CRUZ, Mercy Gomes Attending Unavailable Melisa CRUZ, Andlefty Gomes Attending Unavailable Melisa CRUZ, Andrius Gomes Attending Unavailable Melisa CRUZ, Isidrarius Gomes Attending Unavailable Abdi MCINTOSH Attending Unavailable Abdi MCINTOSH Attending Unavailable Abdi MCINTOSH Attending Unavailable Allergies Allergy Classification Reported Allergen(s) Allergy Type Date of Onset Reaction(s) Facility (7 sources) Acetaminophen / oxyCODONE Drug Allergy itching [facility] Other (1 source) No Known Medication Allergies; Translations: [No Known Medication Allergies] Propensity to adverse reactions (disorder) [facility] Repository Medications Current Medications Medication Drug [...] 0 Active Multi Vitamin+ (2 sources) Start: 023 Multi Vitamin+ Start Date: 03/29/23 [...] Start: 07-02-2023 take 1 capsule by [facility] twice daily tamsulosin 0.4 mg Cap 0.4 mg = 1 cap(s), Oral, BID, # 60 cap(s), Refills(s) 11, Pharmacy: [facility] [id number], 175, cm, 06/28/23 11:11:00 EST, Height/Length Dosing, 78, kg, 06/28/23 11:11:00 EST, Weight Dosing Start Date: 07/02/23 Status: Ordered Start: 03-29-2023 take 1 capsule by [facility] once daily tamsulosin 0.4 mg Cap 0.4 mg = 1 cap(s), Oral, Daily, # 30 cap(s), Refills(s) 11, Pharmacy: [facility] [id number], 175, cm, 03/29/23 11:17:00 EDT, Height/Length Dosing, [...] Name Value Interpretation Reference Range Facility Reminderson 08-08-2024 Reminders Reminders From: Kiera Escalante To: [facility] - Claudia Mcintosh; Sent: 01/24/2024 14:26:44 EDT Show up: [...] Will monitor Pt wanted order faxed to [facility]. He said he would get it next week. PSA dropped a lot, 0.69 Can f/u next summer as planned Completed Normal [facility] Ambulatory Visit Summaryon 0 01-24-2024 Ambulatory Visit Summary Ambulatory Visit Summary MERLIN JOHNSTON :1950 Visit Date:01/24/2024 Ambulatory Visit Instructions Your Diagnosis Rising PSA level BPH with urinary obstruction Proteinuria Spermatocele Hydrocele Former smoker Your Care Team Attending Physician - KEHINDE [...] Follow Up with KEHINDE CRUZ, Abdi Santana, JOHN When: Comments: 1 year w/ PSA from PCP (PSA in 6 mos as well, will call with reuslts) Where: [facility] [address], [place] [address]- [phone] Medications What How Much When Instructions Unchanged [...] that i (more content not included)... Normal [facility] Urology Office/Clinic Noteon 01-24-2024 Urology Office/Clinic [...] Santana, URL [facility] [address], [place] [address]- [phone] Additional Instructions: 1 year w/ PSA from PCP (PSA in 6 mos as well, will call with reuslts) Patient Education Proteinuria Kiera Beaver, personally scribed for Dr. Mcintosh on 01/24/2024 14:22:46. . Documentation recorded by the scribeKiera, accurately reflects the services(s) I performed and [...] Recorded in (more content not included)... Normal [facility] Comment on above: Result Comment: Elec tronically Signed By: Abdi MCINTOSH MD\.br\Date and Time Signed: 01/24/24 14:26 EDT\.br\Electronically Co-Signed By: Kiera Escalante\.br\Date and Time Co-Signed: 01/24/24 14:25 EDT Lab Reportson 01-12-2024 Lab Reports [id number] [facility] Basophils Auto (Bld) [#/Vol] on 12-20-2023 Basophils (Bld) [#/Vol] 0.1 10 3/uL 0.0-0.1 [facility] Basophils/100 WBC Auto (Bld) on 12-20-2023 Basophils/100 WBC (Bld) 1.1 % 0.2-2.0 [facility] Cholesterol in LDL Calc [Mas s/Vol]on 12-20-2023 Cholesterol in LDL [Mass/Vol] 98.2 mg/dL [facility] Comment on above: <100 mg/dl [id number] 0-129 mg/dl NEAR OR ABOVE [id number] mg/dl BORDERLINE QARD859-197 mg/dl HIGH>190 mg/dl VERY HIGH Cholesterol in VLDL Calc [Ma ss/Vol]on 12-20-2023 Cholesterol in VLDL [Mass/Vol] 16.8 mg/dL [facility] Eosinophils/100 WBC Auto (Bl d)on 12-20-2023 Eosinophils/100 WBC (Bld) 4.6 % 0.9-7.0 [facility] Erythrocyte distribution wid th Auto (RBC) [Ratio]on 12-20-2023 Erythrocyte distribution width (RBC) [Ratio] 13.3 % 11.0-15.0 [facility] Estimated glomerular filtrat ion rate (GFR) non- Americanon 12-20-2023 GFR/1.73 sq M.predicted among non-blacks MDRD (S/P/Bld) [Vol rate/Area] mL/min/{1.73_m2} >=60 [facility] Globulin Calc (S) [Mass/Vol] on 12-20-2023 Globulin (S) [Mass/Vol] 3.6 g/dL [facility] Hematocrit Auto (Bld) [Volum e fraction]on 12-20-2023 Hematocrit (Bld) [Volume fraction] 45.4 % 42.0-54.0 [facility] Hemoglobin [Mass/volume] in Bloodon 12-20-2023 Hemoglobin (Bld) [Mass/Vol] 15.1 g/dL 14.0-18.0 [facility] Laboratory - Chemistry and C hemistry - challengeon 12-20-2023 Albumin [Mass/Vol] 4.1 g/dL 3.4-5.0 [facility] ALP [Catalytic activity/Vol] 84 U/L 46-116 [facility] ALT [Catalytic activity/Vol] 43 U/L 16-63 [facility] AST [Catalytic activity/Vol] 29 U/L 15-37 [facility] Bilirubin [Mass/Vol] 1.3 mg/dL 0.2-1.0 [facility] Calcium [Mass/Vol] 9.8 mg/dL 8.5-10.1 [facility] Chloride [Moles/Vol] 104 mmol/L 98-107 [facility] Cholesterol [Mass/Vol] 173 mg/dL <=200 [facility] Cholesterol in HDL [Mass/Vol] 58 mg/dL 40-60 [facility] Comment on above: > or =60 mg/dl - LOW CARDIOVASCULAR RISK<40 mg/dl - HIGH CARDIOVASCULAR RISK CO2 [Moles/Vol] 28.8 mmol/L 21.0-32.0 [facility] Creatinine [Mass/Vol] 0.96 mg/dL 0.70-1.30 [facility] GFR/1.73 sq M.predicted MDRD (S/P/Bld) [Vol rate/Area] mL/min/{1.73_m2} >=60 [facility] Glucose [Mass/Vol] 100 mg/dL 74-106 [facility] Potassium [Moles/Vol] 4.4 mmol/L 3.5-5.1 [facility] Protein [Mass/Vol] 7.7 g/dL 6.4-8.2 [facility] Sodium [Moles/Vol] 142 mmol/L 136-145 [facility] Triglyceride [Mass/Vol] 84 mg/dL <=150 [facility] Urea nitrogen [Mass/Vol] 7.0 mg/dL 7.0-18.0 [facility] Urea nitrogen/Creatinine [Mass ratio] 7.3 mg/mg [facility] Laboratory - Hematology and Cell countson 12-20-2023 Immature granulocytes/100 WBC (Bld) 0.2 % 0.0-0.5 [facility] Leukocytes [#/volume] correc sophia for nucleated erythrocytes in Blood by Automated counon 12-20-2023 WBC corrected for nucl RBC Auto (Bld) [#/Vol] 5.5 10 3/uL 4.0-11.0 [facility] Lymphocytes Auto (Bld) [#/Vo l]on 12-20-2023 Lymphocytes (Bld) [#/Vol] 1.8 10 3/uL 1.2-3.8 [facility] Lymphocytes/100 WBC Auto (Bl d)on 12-20-2023 Lymphocytes/100 WBC (Bld) 32.7 % 20.5-60.0 [facility] MCH Auto (RBC) [Entitic mass ]on 12-20-2023 MCH (RBC) [Entitic mass] 30.6 pg 25.9-34.0 [facility] MCHC Auto (RBC) [Mass/Vol]on 12-20-2023 MCHC (RBC) [Mass/Vol] 33.3 g/dL 29.9-35.2 [facility] MCV Auto (RBC) [Entitic vol] on 12-20-2023 MCV (RBC) [Entitic vol] 92.1 fL 80.0-94.0 [facility] Monocytes Auto (Bld) [#/Vol] on 12-20-2023 Monocytes (Bld) [#/Vol] 0.6 10 3/uL 0.3-0.8 [facility] Monocytes/100 WBC Auto (Bld) on 12-20-2023 Monocytes/100 WBC (Bld) 11.5 % 1.7-12.0 [facility] Neutrophils Auto (Bld) [#/Vo l]on 12-20-2023 Neutrophils (Bld) [#/Vol] 2.7 10 3/uL 1.4-6.5 [facility] Neutrophils/100 WBC Auto (Bl d)on 12-20-2023 Neutrophils/100 WBC (Bld) 49.9 % 43.0-75.0 [facility] No Panel Informationon 12-19 Eosinophils # (Auto) 0.3 10 3/uL 0.0-0.7 [facility] Immature Granulocyte # (Auto) 0.01 10 3/uL 0.00-0.03 [facility] Prostate Specific Antigen Screen 2.87 ng/mL <=4.00 [facility] Platelet mean volume Auto (B ld) [Entitic vol]on 12-20-2023 Platelet mean volume (Bld) [Entitic vol] 9.4 fL 9.5-13.5 [facility] Platelets Auto (Bld) [#/Vol] on 12-20-2023 Platelets (Bld) [#/Vol] 268 10 3/uL 150-450 [facility] RBC Auto (Bld) [#/Vol]on RBC (Bld) [#/Vol] 4.93 10 6/uL 4.70-6.10 [facility] Serum or plasma albumin/glob ulin mass ratioon 12-20-2023 Albumin/Globulin [Mass ratio] 1.1 {ratio} [facility] Serum or plasma anion gap de terminationon 12-20-2023 Anion gap [Moles/Vol] 13.6 mmol/L [facility] Serum or plasma total choles terol/high density lipoprotein (HDL) cholesterol mass kaci 12-20-2023 Cholesterol.total/Ch olesterol in HDL [Mass ratio] 3.0 {ratio} [facility] Comment on above: 3.3 - 4.4 LOW RISK4. 4 - 7.1 AVERAGE RISK7.1 - 11.0 MODERATE RISK>11.0 HIGH RISK Basic Metabolic Profon 02-10 Anion gap [Moles/Vol] 16 mmol/L Normal 9-17 [facility] Comment on above: Performed By: #### C DP, BMP, TROPI #### [facility] [address] [place] [address] Scheduling Representative: Ming Costello MD BUN/CRE Ratio 15 Normal 9-20 [facility] Comment on above: Performed By: #### C DP, BMP, TROPI #### [facility] [address] [place] [address] Scheduling Representative: Ming Costello MD Calcium [Mass/Vol] 9.3 mg/dL Normal 8.6-10.4 [facility] Comment on above: Performed By: #### C DP, BMP, TROPI #### [facility] [address] [place] [address] Scheduling Representative: Ming Costello MD Chloride [Moles/Vol] 93 mmol/L Low 98-107 [facility] Comment on above: Performed By: #### C DP, BMP, TROPI #### [facility] [address] [place] [address] Scheduling Representative: Ming Costello MD CO2 [Moles/Vol] 22 mmol/L Normal 20-31 [facility] Comment on above: Performed By: #### C DP, BMP, TROPI #### [facility] [address] [place] [address] Scheduling Representative: Ming Costello MD Creatinine [Mass/Vol] 0.8 mg/dL Normal 0.7-1.2 [facility] Comment on above: Performed By: #### C DP, BMP, TROPI #### [facility] [address] [address] Scheduling Representative: Ming Costello MD GFR/1.73 sq M.predicted among non-blacks MDRD (S/P/Bld) [Vol rate/Area] mL/min/{1.73_m2} Normal >60 [facility] Comment on above: Result Comment: These results [...] renal tubular secretion. Performed By: #### C DP BMP, TROPI #### [facility] [address] [place] [address] Scheduling Representative: Ming Costello MD Glucose [Mass/Vol] 123 mg/dL High 70-99 [facility] Comment on above: Performed By: #### C DP, BMP, TROPI #### [facility] [address] [address] Scheduling Representative: Ming Costello MD Potassium [Moles/Vol] 3.9 mmol/L Normal 3.7-5.3 [facility] Comment on above: Performed By: #### C DP, BMP, TROPI #### [facility] [address] [place] [address] Scheduling Representative: Ming Costello MD Sodium [Moles/Vol] 131 mmol/L Low 135-144 [facility] Comment on above: Performed By: #### C DP, BMP, TROPI #### [facility] [address] [place] [address] Scheduling Representative: Ming Costello MD Urea nitrogen [Mass/Vol] 12 mg/dL Normal 8-23 [facility] Comment on above: Performed By: #### C DP, BMP, TROPI #### [facility] [address] [place], [place] [id number] Scheduling Representative: Ming Costello MD CBC with Diffon 02-10-2023 Abs. Basophil 0.06 k/uL Normal 0.00-0.20 [facility] Comment on above: Performed By: #### C DP, BMP, TROPI #### [facility] [address] [place] [address] [place] [place], [place] [id number] Scheduling Representative: Ming Costello MD Abs.Imm.Granulocyte 0.03 k/uL Normal 0.00-0.30 [facility] Comment on above: Performed By: #### C DP, BMP, TROPI #### [address] [place] [address] Scheduling Representative: Ming Costello MD Abs.Neutrophil (Seg) 5.01 k/uL Normal 1.50-8.10 [facility] Comment on above: Performed By: #### C DP, BMP, TROPI #### [facility] [address] [place], [place] [address] Scheduling Representative: Ming Costello MD Basophils/100 WBC (Bld) 1 % Normal 0-2 [facility] Comment on above: Performed By: #### C DP, BMP, TROPI #### [facility] [address] [place], [facility]83 Scheduling Representative: Ming Costello MD Eosinophils (Bld) [#/Vol] 0.39 10*3/uL Normal 0.00-0.44 [facility] Comment on above: Performed By: #### C DP, BMP, TROPI #### [facility] [address] [place], [place] [address]83 Scheduling Representative: Ming Costello MD Eosinophils/100 WBC (Bld) 4 % Normal 1-4 [facility] Comment on above: Performed By: #### C DP, BMP, TROPI #### [facility] [address] [place], [place] 1536383 Scheduling Representative: Ming Costello MD Erythrocyte distribution width (RBC) [Ratio] 12.8 % Normal 11.8-14.4 [facility] Comment on above: Performed By: #### C DP, BMP, TROPI #### [address] [place], [facility] Scheduling Representative: Ming Costello MD Hematocrit (Bld) [Volume fraction] 45.4 % Normal 40.7-50.3 [facility] Comment on above: Performed By: #### C DP, BMP, TROPI #### [address] [place], [place] [address]83 Scheduling Representative: Ming Costello MD Hemoglobin (Bld) [Mass/Vol] 15.3 g/dL Normal 13.0-17.0 [facility] Comment on above: Performed By: #### C DP, BMP, TROPI #### [address] [place], [place] [address]83 Scheduling Representative: Ming Costello MD Immature granulocytes/100 WBC (Bld) 0 % Normal 0 [facility] Comment on above: Performed By: #### C DP, BMP, TROPI #### [facility] [address] [place] [address] Scheduling Representative: Ming Costello MD Lymphocytes (Bld) [#/Vol] 2.63 10*3/uL Normal 1.10-3.70 [facility] Comment on above: Performed By: #### C DP, BMP, TROPI #### [facility] [address] [place] [address] Scheduling Representative: Ming Costello MD Lymphocytes/100 WBC (Bld) 29 % Normal 24-43 [facility] Comment on above: Performed By: #### C DP, BMP, TROPI #### [facility] [address] [place] [address] Scheduling Representative: Ming Costello MD MCH (RBC) [Entitic mass] 30.8 pg Normal 25.2-33.5 [facility] Comment on above: Performed By: #### C DWAYNE, BMP, TROPI #### [facility] [address] [place], [facility] Scheduling Representative: Ming Costello MD MCHC (RBC) [Mass/Vol] 33.7 g/dL Normal 28.4-34.8 [facility] Comment on above: Performed By: #### C DP, BMP, TROPI #### [address] [place] [address] Scheduling Representative: Ming Costello MD MCV (RBC) [Entitic vol] 91.5 fL Normal 82.6-102.9 [facility] Comment on above: Performed By: #### C DP, BMP, TROPI #### [facility] [address] [place] [address] Scheduling Representative: Ming Costello MD Monocytes (Bld) [#/Vol] 1.08 10*3/uL Normal 0.10-1.20 [facility] Comment on above: Performed By: #### C DP, BMP, TROPI #### [facility] [address] [place] [address] Scheduling Representative: Ming Costello MD Monocytes/100 WBC (Bld) 12 % Normal 3-12 [facility] Comment on above: Performed By: #### C DP, BMP, TROPI #### [facility] [address] [place] [address] Scheduling Representative: Ming Costello MD Neutrophil (Seg) 54 % Normal 36-65 [facility] Comment on above: Performed By: #### C DP, BMP, TROPI #### [facility] [address] [place] [address] Scheduling Representative: Ming Costello MD NRBC Automated 0.0 per 100 WBC Normal 0.0 [facility] Comment on above: Performed By: #### C DP, BMP, TROPI #### [address] [place], [place] [id number] Scheduling Representative: Ming Costello MD Platelet mean volume (Bld) [Entitic vol] 9.6 fL Normal 8.1-13.5 [facility] Comment on above: Performed By: #### C DP, BMP, TROPI #### [address] [place] [address] Scheduling Representative: Ming Costello MD Platelets (Bld) [#/Vol] 289 10*3/uL Normal 138-453 [facility] Comment on above: Performed By: #### C DP, BMP, TROPI #### [address] [place] [address] Scheduling Representative: Ming Costello MD RBC (Bld) [#/Vol] 4.96 10*6/uL Normal 4.21-5.77 [facility] Comment on above: Performed By: #### C DP, BMP, TROPI #### [address] [place] [address] Scheduling Representative: Ming Costello MD WBC (Bld) [#/Vol] 9.2 10*3/uL Normal 3.5-11.3 [facility] Comment on above: Performed By: #### C DP, DINORA, TROPI #### [facility] [address] [address] Scheduling Representative: Ming Costello MD CT HEAD WO [...] Shayy Muse MD 02/10/23 Final result Normal [facility] Ethanol Alcoholon 02-10-2023 Ethanol [Mass/Vol] 159 mg/dL High <10 [facility] Comment on above: Performed By: #### A LCB #### [facility] [address] [address] Scheduling Representative: Ming Costello MD Ethanol percent 0.159 % High <0.010 [facility] Comment on above: Performed By: #### A LCB #### [facility] [address] [address] Scheduling Representative: Ming Costello MD Troponinon 02-10-2023 Troponin, High Sens 17 ng/L Normal 0-22 [facility] Comment on above: Result Comment: High Sensitivity Troponin values cannot be compared with other Troponin methodologies. Performed By: #### C DP, BMP, TROPI #### [facility] [address] [place] [address] Scheduling Representative: Ming Costello MD XR CHEST PORTABLEon [...] Shayy Muse MD 02/10/23 Final result Normal [facility] CBC AUTO DIFFon 11-23-2022 BASO # 0.1 103/ul Normal 0.0-0.1 [facility] Comment on above: Performed By: #### C BC #### [facility] [address] [address] [address] Micheline Ventura Basophils/100 WBC (Bld) 1.0 % Normal 0.2-2.0 [facility] Comment on above: Performed By: #### C BC #### [facility] [address] [place] [address] Dr. Micheline Ventura EO # 0.3 103/ul Normal 0.0-0.7 [facility] Comment on above: Performed By: #### C BC #### [facility] [address] [address] [address] Micheline Ventura Eosinophils/100 WBC (Bld) 5.8 % Normal 0.9-7.0 [facility] Comment on above: Performed By: #### C BC #### [facility] [address] [address] [address] Micheline Ventura Erythrocyte distribution width (RBC) [Ratio] 13.3 % Normal 11.0-15.0 [facility] Comment on above: Performed By: #### C BC #### [facility] [address] [place] [address] Dr. Micheline Ventura Hematocrit (Bld) [Volume fraction] 45.8 % Normal 42.0-54.0 [facility] Comment on above: Performed By: #### C BC #### [facility] [address] [place] [address] Dr. Micheline Ventura Hemoglobin (Bld) [Mass/Vol] 15.3 g/dL Normal 14.0-18.0 [facility] Comment on above: Performed By: #### C BC #### [facility] [address] [place] [address] Dr. Micheline Ventura IG # 0.00 10e3/ul Normal 0.00-0.03 [facility] Comment on above: Performed By: #### C BC #### [facility] [address] [place] [address] Dr. Micheline Ventura IG % 0.0 % Normal 0.0-0.5 [facility] Comment on above: Performed By: #### C BC #### [facility] [address] [place] [address] Dr. Micheline Ventura LYMPH # 1.9 103/ul Normal 1.2-3.8 [facility] Comment on above: Performed By: #### C BC #### [facility] [address] [place] [address] Dr. Micheline Ventura Lymphocytes/100 WBC (Bld) 37.1 % Normal 20.5-60.0 [facility] Comment on above: Performed By: #### C BC #### [facility] [address] [place] [address] Dr. Micheline Ventura MANUAL DIFF REQ NO Normal [facility] Comment on above: Performed By: #### C BC #### [facility] [address] [place] [address] Dr. Micheline Ventura MCH (RBC) [Entitic mass] 30.7 pg Normal 25.9-34.0 [facility] Comment on above: Performed By: #### C BC #### [facility] [address] [address] [address] Micheline Ventura MCHC (RBC) [Mass/Vol] 33.4 g/dL Normal 29.9-35.2 [facility] Comment on above: Performed By: #### C BC #### [facility] [address] [place] [address] Dr. Micheline Ventura MCV (RBC) [Entitic vol] 91.8 fL Normal 80.0-94.0 [facility] Comment on above: Performed By: #### C BC #### [facility] [address] [place] [address] Dr. Micheline Ventura MONO # 0.6 103/ul Normal 0.3-0.8 [facility] Comment on above: Performed By: #### C BC #### [facility] [address] [place] [address] Dr. Micheline Ventura Monocytes/100 WBC (Bld) 11.3 % Normal 1.7-12.0 [facility] Comment on above: Performed By: #### C BC #### [facility] [address] [place] [address] Dr. Micheline Ventura NEUT # 2.3 103/ul Normal 1.4-6.5 [facility] Comment on above: Performed By: #### C BC #### [facility] [address] [place] [address] Dr. Micheline Ventura Neutrophils/100 WBC (Bld) 44.8 % Normal 43.0-75.0 [facility] Comment on above: Performed By: #### C BC #### [facility] [address] [place] [address] Dr. Micheline Ventura Platelet mean volume (Bld) [Entitic vol] 9.5 fL Normal 9.5-13.5 [facility] Comment on above: Performed By: #### C BC #### [facility] [address] [place] [address] Dr. Micheline Ventura PLT 292 103/ul Normal 150-450 [facility] Comment on above: Performed By: #### C BC #### [facility] [address] [place], [place] [address] Dr. Micheline Ventura RBC 4.99 106/ul Normal 4.70-6.10 [facility] Comment on above: Performed By: #### C BC #### [facility] [address] [address] [address] Micheline Ventura WBC 5.2 103/ul Normal 4.0-11.0 [facility] Comment on above: Performed By: #### C BC #### [facility] [address] [address] [address] Micheline Ventura LIPID PROFILEon 11-23-2022 CHOL-HDL RATIO NORM SEE BELOW Normal [facility] Comment on above: Result Comment: 3.3 - 4.4 LOW RISK 4.4 - 7.1 AVERAGE RISK 7.1 - 11.0 MODERATE RISK >11.0 HIGH RISK Performed By: #### C MP, LIPID #### [facility] [facility] [address] [place] [address] Dr. Micheline Ventura Cholesterol [Mass/Vol] 169 mg/dL Normal <=200 [facility] Comment on above: Performed By: #### C MP, LIPID #### [facility] [address] [place] [address] Dr. Micheline Ventura Cholesterol in HDL [Mass/Vol] 49 mg/dL Normal 40-60 [facility] Comment on above: Performed By: #### C MP, LIPID #### [facility] [address] [place] [address] Dr. Micheline Ventura Cholesterol in LDL [Mass/Vol] 97.6 mg/dL Normal [facility] Comment on above: Performed By: #### C MP, LIPID #### [facility] [address] [place] [address] Dr. Micheline Ventura Cholesterol.total/Ch olesterol in HDL [Mass ratio] 3.4 {ratio} Normal [facility] Comment on above: Performed By: #### C MP, LIPID #### [facility] [address] [place] [address] Dr. Micheline Ventura HDL NORMAL > or = 60 mg/dl - LO W CARDIOVASCULAR RISK <40 mg/dl - HIGH CARDIOVASCULAR RISK Normal [facility] Comment on above: Performed By: #### C MP, LIPID #### [facility] [address] [address] [address] Micheline Ventura LDL CALC NORMAL SEE BELOW Normal [facility] Comment on above: Result Comment: <100 mg/dl OPTIMAL 100 - 129 mg/dl NEAR OR ABOVE OPTIMAL 130 - 159 mg/dl BORDERLINE HIGH 160 - 189 mg/dl HIGH >190 mg/dl VERY HIGH Performed By: #### C MP, LIPID #### [facility] [address] [place] [address] Dr. Micheline Ventura Triglyceride [Mass/Vol] 112 mg/dL Normal <=150 [facility] Comment on above: Performed By: #### C MP, LIPID #### [facility] [address] [place] [address] Dr. Micheline Ventura VLDL CALC 22.4 mg/dL Normal [facility] Comment on above: Performed By: #### C MP, LIPID #### [facility] [address] [place] [address] Dr. Micheline Ventura PROF 14(COMP METB)on 023 Albumin [Mass/Vol] 4.0 g/dL Normal 3.4-5.0 [facility] Comment on above: Performed By: #### C MP, LIPID #### [facility] [address] [place] [address] Dr. Micheline Ventura Albumin/Globulin [Mass ratio] 1.1 {ratio} Normal [facility] Comment on above: Performed By: #### C MP, LIPID #### [facility] [address] [place] [address] Dr. Micheline Ventura ALP [Catalytic activity/Vol] 70 U/L Normal 46-116 [facility] Comment on above: Performed By: #### C MP, LIPID #### [facility] [address] [place] [address] Dr. Micheline Ventura ALT [Catalytic activity/Vol] 80 U/L Critically high 16-63 [facility] Comment on above: Performed By: #### C MP, LIPID #### [facility] [address] [place] [address] Dr. Micheline Ventura Anion gap [Moles/Vol] 12.6 mmol/L Normal [facility] Comment on above: Performed By: #### C MP, LIPID #### [facility] [address] [place] [address] Dr. Micheline Ventura AST [Catalytic activity/Vol] 37 U/L Normal 15-37 [facility] Comment on above: Performed By: #### C MP, LIPID #### [facility] [address] [place] [address] Dr. Micheline Ventura Bilirubin [Mass/Vol] 1.1 mg/dL Critically high 0.2-1.0 [facility] Comment on above: Performed By: #### C MP, LIPID #### [facility] [address] [place] [address] Dr. Micheline Ventura Calcium [Mass/Vol] 9.5 mg/dL Normal 8.5-10.1 [facility] Comment on above: Performed By: #### C MP, LIPID #### [facility] [address] [place] [address] Dr. Micheline Ventura Chloride [Moles/Vol] 105 mmol/L Normal 98-107 [facility] Comment on above: Performed By: #### C MP, LIPID #### [facility] [address] [place] [address] Dr. Micheline Ventura CO2 [Moles/Vol] 29.8 mmol/L Normal 21.0-32.0 [facility] Comment on above: Performed By: #### C MP, LIPID #### [facility] [address] [place] [address] Dr. Micheline Venutra Creatinine [Mass/Vol] 0.99 mg/dL Normal 0.70-1.30 [facility] Comment on above: Performed By: #### C MP, LIPID #### [facility] [address] [place] [address] Dr. Micheline Ventrua EGFR-AF URUGUAYAN >60 Normal >=60 [facility] Comment on above: Performed By: #### C MP, LIPID #### [facility] [address] [place] [address] Dr. Micheline Ventura EGFR-NON AF URUGUAYAN >60 Normal >=60 [facility] Comment on above: Performed By: #### C MP, LIPID #### [facility] [address] [place] [address] Dr. Micheline Ventura Globulin (S) [Mass/Vol] 3.8 g/dL Normal [facility] Comment on above: Performed By: #### C MP, LIPID #### [facility] [address] [place] [address] Dr. Micheline Ventura Glucose [Mass/Vol] 99 mg/dL Normal 74-106 [facility] Comment on above: Performed By: #### C MP, LIPID #### [facility] [address] [place] [address] Dr. Micheline Ventura Potassium [Moles/Vol] 4.4 mmol/L Normal 3.5-5.1 [facility] Comment on above: Performed By: #### C MP, LIPID #### [facility] [address] [place] [address] Dr. Micheline Ventura Protein [Mass/Vol] 7.8 g/dL Normal 6.4-8.2 [facility] Comment on above: Performed By: #### C MP, LIPID #### [facility] [address] [place] [address] Dr. Micheline Ventura Sodium [Moles/Vol] 143 mmol/L Normal 136-145 [facility] Comment on above: Performed By: #### C MP, LIPID #### [facility] [address] [place] [address] Dr. Micheline Ventura Urea nitrogen [Mass/Vol] 8.0 mg/dL Normal 7.0-18.0 [facility] Comment on above: Performed By: #### C MP, LIPID #### [facility] [address] [place] [address] Dr. Micheline Ventura Urea nitrogen/Creatinine [Mass ratio] 8.1 mg/mg Normal [facility] Comment on above: Performed By: #### C MP, LIPID #### [facility] [address] [place] [address] Dr. Micheline Ventura Basic Metabolic Panelon 02-17 Anion gap [Moles/Vol] 12 mmol/L 9 - 17 mmol/L [place] Bun/Cre Ratio 15 [place] Calcium [Mass/Vol] 10.3 mg/dL 8.6 - 10. 4 mg/dL [place] Chloride [Moles/Vol] 100 mmol/L 98 - 10 7 mmol/L [place] CO2 [Moles/Vol] 28 mmol/L 20 - 31 mmol/L [place] Creatinine [Mass/Vol] 0.79 mg/dL 0.7 - 1.2 mg/dL [place] GFR >60 >60 mL/min [place] GFR Non- >60 >60 mL/min [place] Glucose [Mass/Vol] 96 mg/dL 70 - 99 mg/dL [place] Potassium [Moles/Vol] 4.4 mmol/L 3.7 - 5.3 mmol/L [place] Sodium [Moles/Vol] 140 mmol/L 135 - 144 mmol/L [place] Urea nitrogen [Mass/Vol] 12 mg/dL 8 - 23 mg/dL [place] CBC Auto Differentialon 02-17 Basophils (Bld) [#/Vol] 0.05 10*3/uL [place] Basophils/100 WBC (Bld) 1 % 0 - 2 % [place] Differential Type NOT REPORTED [place] Eosinophils (Bld) [#/Vol] 0.35 10*3/uL [place] Eosinophils/100 WBC (Bld) 6 % High 1 - 4 % [place] Erythrocyte distribution width (RBC) [Ratio] 13.2 % 11.8 - 14.4 % [place] Hematocrit (Bld) [Volume fraction] 48.2 % 40.7 - 50.3 % [place] Hemoglobin (Bld) [Mass/Vol] 15.9 g/dL 13 - 17 g/dL [place] Immature granulocytes (Bld) [#/Vol] 0 % 0 [place] Immature granulocytes (Bld) [#/Vol] 10*3/uL [place] Interpretation and review of laboratory results Abnormal [place] Lymphocytes (Bld) [#/Vol] 2.00 10*3/uL [place] Lymphocytes/100 WBC (Bld) 32 % 24 - 43 % [place] MCH (RBC) [Entitic mass] 30.5 pg 25.2 - 33.5 pg [place] MCHC (RBC) [Mass/Vol] 33.0 g/dL 28.4 - 34.8 g/dL [place] MCV (RBC) [Entitic vol] 92.3 fL 82.6 - 102.9 fL [place] Monocytes (Bld) [#/Vol] 0.78 10*3/uL [place] Monocytes/100 WBC (Bld) 12 % 3 - 12 % [place] Platelet mean volume (Bld) [Entitic vol] 9.5 fL 8.1 - 13.5 fL [place] Platelets (Bld) [#/Vol] 248 10*3/uL [place] Platelets (Bld) [#/Vol] NOT REPORTED [place] RBC (Bld) [#/Vol] 5.22 10*6/uL 4.21 - 5.7 7 m/uL [place] RBC morphology finding Nom (Bld) NOT REPORTED [place] Segmented neutrophils/100 WBC (Bld) 49 % 36 - 65 % [place] Segs Absolute 3.13 [place] WBC (Bld) [#/Vol] 0.0 10*3/uL 0.0 per 10 0 WBC [place] WBC (Bld) [#/Vol] 6.3 10*3/uL [place] WBC Morphology NOT REPORTED [place], [place] Metabolic Panelon 03-08-2019 GFR/1.73 sq M predicted among non-blacks MDRD (S/P/Bld) [Vol rate/Area] [facility] Comment on above: Stage 1: Some kidney [...] body mass. Additional eGFR calculator available at: http://www.WhoJam/multiple_crcl_2012.htm XR CHEST STANDARD (2 VW)on 0 03-08-2019 No acute cardiopulmonary process. [facility] EXAMINATION: TWO XRA Y VIEWS OF THE [...] costophrenic angles on the lateral view. [facility] Abran, pn Incoming Radiant Results From [employer] - 03/08/2019 10:48 AM EDT EXAMINATION: TWO [...] lateral view. IMPRESSION: No acute cardiopulmonary process. [facility] Kamari 10-05-2018 L -- ---- Specimen: [id number] Received: 10/05/18 Status: LEIDA Bates Num: [id number] Spec Type: Surgical Subm Dr: Julius Carson DO Tissues: A Colon - Polyp (COLON POLYP @ 70 CM) Procedures: HE Stain/2, Gross/Micro L4 ---- Patient Age/Sex Location Account Attending Physician ---- Merlin Johnston 68/M RT4 [id number] Julius Carson DO ---- SPEC NUM: [id number] RECD: 10/05/18 STATUS: LEIDA BATES NUM: [id number] VAMSI: 10/05/18- SUBM DR: Julius Carson DO [...] microscopic findings support the above pathologic diagnosis. [id number] A. - - COLON POLYP @ 70 CM ---- ---- Specimen: [id number] Received: 10/05/18 Status: LEIDA Bates Num: [id number] Spec Type: Surgical Subm Dr: Julius Carson DO Tissues: A Colon - Polyp (COLON POLYP @ 70 CM) Procedures: HE Stain/2, Gross/Micro L4 ---- Patient: Merlin Johnston [id number] (Continued) ---- Signed (signature on file) Chalo Ibrahim MD 10/06/18 1330 Normal [facility] Vital Signs Date Time Vital Sign Value Performing Clinician Facility 01-24-2024 13:26-0400 Blood Pressure Location Abdi MCINTOSH [facility] 01-24-2024 13:26-0400 Diastolic blood pressure 83 mm[Hg] Abdi MCINTOSH [facility] 01-24-2024 13:26-0400 Heart rate 106 /min Abdi MCINTOSH [facility] 01-24-2024 13:26-0400 Respiratory rate 16 /min Abdi MCINTOSH [facility] 01-24-2024 13:26-0400 Systolic blood pressure 136 mm[Hg] Abdi MCINTOSH [facility] 12-27-2023 11:140400 Body height 177.8 cm [facility] 12-27-2023 11:14-0400 Body mass index (BMI) [Ratio] 26.1 kg/m2 [facility] 12-27-2023 11:14-0400 Body weight 82.55 kg [facility] 12-27-2023 11:14-0400 Diastolic blood pressure 80 mm[Hg] [facility] 12-27-2023 11:14-0400 Heart rate 76 /min [facility] 12-27-2023 11:14-0400 Systolic blood pressure 130 mm[Hg] [facility] 11-03-2023 11:06-0400 Body height 177.8 cm [facility] 11-03-2023 11:06-0400 Body mass index (BMI) [Ratio] 26.5 kg/m2 [facility] 11-03-2023 11:06-0400 Body temperature 97.8 [degF] [facility] 11-03-2023 11:06-0400 Body weight 83.91 kg [facility] 11-03-2023 11:06-0400 Diastolic blood pressure 80 mm[Hg] [facility] 11-03-2023 11:06-0400 Heart rate 77 /min [facility] 11-03-2023 11:06-0400 SaO2% (BldA) [Mass fraction] 97 % [facility] 11-03-2023 11:06-0400 Systolic blood pressure 130 mm[Hg] [facility] 06-28-2023 11:08-0500 Blood Pressure Location Abdi MCINTOSH [facility] 06-28-2023 11:08-0500 Diastolic blood pressure 72 mm[Hg] Abdi MCINTOSH [facility] 06-28-2023 11:08-0500 Heart rate 69 /min Abdi MCINTOSH [facility] 06-28-2023 11:08-0500 Respiratory rate 16 /min Abdi MCINTOSH [facility] 06-28-2023 11:08-0500 Systolic blood pressure 129 mm[Hg] Abdi MCINTOSH [facility] 05-10-2023 09:30-0400 Body height 177.8 cm Smitha Snowden Other [facility] Other 05-10-2023 09:30-0400 Body mass index (BMI) [Ratio] 25.54 kg/m2 Smitha Snowden Other [facility] Other 05-10-2023 09:30-0400 Body weight 80.74 kg Smitha Snowden Other [facility] Other 05-10-2023 09:30-0400 Diastolic blood pressure 86 mm[Hg] Smitha Snowden Other [facility] Other 05-10-2023 09:30-0400 Systolic blood pressure 146 mm[Hg] Smitha Snowden Other [facility] Other 01-18-2023 10:45-0400 Body height 177.8 cm Smitha Snowden Other [facility] Other 01-18-2023 10:45-0400 Body mass index (BMI) [Ratio] 25.54 kg/m2 Smitha Snowden Other [facility] Other 01-18-2023 10:45-0400 Body weight 80.74 kg Smitha Snowden Other [facility] Other 01-18-2023 10:45-0400 Diastolic blood pressure 79 mm[Hg] Smitha Snowden Other [facility] Other 01-18-2023 10:45-0400 Systolic blood pressure 129 mm[Hg] Smitha Snowden Other [facility] Other 11-09-2022 11:00-0400 Diastolic blood pressure 66 mm[Hg] Kathi Her DO Work Phone: [employer] 11-09-2022 11:00-0400 Heart rate 74 /min Kathi Her DO Work Phone: [facility] 11-09-2022 11:00-0400 Respiratory rate 20 /min Kathi Her DO Work Phone: [facility] 11-09-2022 11:00-0400 SaO2% (BldA) [Mass fraction] 94 % Kathi Her DO Work Phone: [facility] 11-09-2022 11:00-0400 Systolic blood pressure 123 mm[Hg] Kathidarren Her DO Work Phone: [facility] 11-09-2022 10:30-0400 Body temperature 98.01 [degF] Kathi Her DO Work Phone: [facility] 11-09-2022 08:56-0400 Body height 177.8 cm Kathi Francisco Javier DO Work Phone: [facility] 10-23-2022 13:11-0400 Body mass index (BMI) [Ratio] 40.18 kg/m2 Kathi Her Work Phone: [facility] 10-23-2022 13:11-0400 Body weight 127.01 kg Kathi Her DO Work Phone: [facility] Encounters Encounter Date Encounter Type Care Provider Facility Start: 01-26-2025 ambulatory Abdi Resendez ty:[facility] Start: 01-16-2025 ambulatory Abdi Resendez ty:CROW Rodriges Start: 06-26-2024 End: 06-26-2024 [facility] Start: 06-12-2024 End: 06-12-2024 ambulatory Mercy Vincent MD Facility:[facility] Start: 02-01-2024 End: 02-01-2024 ambulatory MICHAEL LENZ Not Available Start: 01-24-2024 End: 01-24-2024 ambulatory Abdi MCINTOSH Facility:[facility] Start: 01-24-2024 End: 01-24-2024 Patient encounter procedure Abdi MCINTOSH [facility] Start: 01-03-2024 End: 01-03-2024 ambulatory Mercy Vincent MD Facility:[facility] Start: 12-27-2023 End: 12-27-2023 ambulatory [facility] Work Phone: Start: 12-27-2023 End: 12-27-2023 Patient encounter procedure [facility] Physician [facility] Work Phone: Start: 12-20-2023 Non-patient / Non-visit [facility] Physician [facility] Work Phone: Start: 12-20-2023 End: 12-20-2023 ambulatory Mercy Vincent MD Facility:[facility] Start: 11-26-2023 Patient encounter status [facility] Start: 11-03-2023 End: 11-03-2023 ambulatory [facility] Work Phone: Start: 11-03-2023 End: 11-03-2023 Patient encounter procedure [facility] Work Phone: Start: 08-25-2023 End: 08-25-2023 ambulatory Smitha Snowden Other [facility] Other Start: 08-25-2023 Telephone encounter Smitha Snowden [facility] Start: 08-24-2023 End: 08-24-2023 ambulatory Smitha Snowden Other [facility] Other Start: 08-24-2023 Telephone encounter Smitha Snowden [facility] Start: 06-30-2023 (Televisit) Televisit Smitha Snowden [facility] Start: 06-30-2023 End: 06-30-2023 ambulatory Smitha Snowden Other [facility] Other Start: 06-28-2023 End: 06-28-2023 Patient encounter procedure Abdi Santana KEHINDE [facility] Start: 05-10-2023 End: 05-10-2023 ambulatory Smitha Sp Other [facility] Other Start: 05-10-2023 Office outpatient visit 15 minutes Smitha Sp [facility] Start: 04-12-2023 End: 04-13-2023 ambulatory SMITHA SNOWDEN [facility] Start: 04-01-2023 End: 04-01-2023 ambulatory Smitha Snowden Other [facility] Other Start: 04-01-2023 Telephone encounter Smitha Sp [facility] Start: 02-10-2023 End: 02-10-2023 Emergency department patient visit SMITHA SP [facility] Start: 01-18-2023 End: 01-18-2023 ambulatory Smitha Sp Other [facility] Other Start: 01-18-2023 Office outpatient visit 25 minutes Smitha Snowden [facility] Start: 01-18-2023 Telephone encounter Smitha Snowden [facility] Start: 01-08-2023 End: 01-08-2023 ambulatory Smitha Snowden Other [facility] Other Start: 01-08-2023 Telephone encounter Smitha Snowden [facility] Start: 12-29-2022 End: 12-30-2022 [facility] Start: 11-23-2022 End: 11-23-2022 ambulatory [facility] Start: 11-23-2022 End: 11-24-2022 ambulatory SMITHA Charles SP Facility: Start: 11-09-2022 End: 11-09-2022 ambulatory [facility] SNOW[facility] Start: 11-09-2022 End: 11-09-2022 Subsequent hospital visit by physician Kathi Her DO Work Phone: [facility] Start: 03-08-2019 End: 03-10-2019 Subsequent hospital visit by physician Nikos Hansen Dr Room 2 [facility] Comment on above: Acute medial menisca l tear, left, subsequent encounter Start: 10-05-2018 End: 10-05-2018 Patient encounter procedure Julius [facility]he[facility]odora Facility:[facility] Procedures Date Procedure Procedure Detail Performing Clinician Start: 11-23-2022 PSA screening SMITHA MATOS Comment on above: Performed By: #### P [facility] #### [facility] [address] [address] [address] Micheline Ventura Start: 03-08-2019 Radiologic exam [...] Influenza vaccination Flu vacc ine (Season Ended) [facility] Start: 11-09-2022 End: 11-09-2022 Xcapsl ctrc rmvl insj io lens prosth w/o ecp EYE CATARACT EMULSIFICATION IOL IMPLANT Nuclear sclerotic cataract of both eyes 11/09/2022 10:05 AM EDT [facility] Start: 03-19-2019 Influenza vaccination Flu vaccine (# 1) [facility] [place] Start: 01-15-2016 Abdominal aortic aneurysm screening AAA screen [facility] Start: 01-15-2016 Pneumococcal 65+ yea rs Vaccine (1 - PCV) Pneumococcal 65+ years Vaccine (1 - PCV) [facility] Start: 01-15-2016 Pneumococcal 65+ yea rs Vaccine (1 of 2 - PCV13) Pneumococcal 65+ years Vaccine (1 of 2 - PCV13) [place], [place] Start: 2001 Colon cancer screen colonoscopy Colon cancer screen colonoscopy [place], [place] Start: 2001 Shingles Vaccine (1 of 2) Shingles Vaccine (1 of 2) [facility] Start: 01-15-1996 Screening for malign ant neoplasm of colon [facility] Start: 1991 Lipid panel Lipids [facility] Start: 1991 Lipid screen Lipid screen [place], [place] Start: 1970 DTaP/Tdap/Td vaccine (1 - Tdap) DTaP/Tdap/Td vaccine (1 - Tdap) [facility] Start: 1969 Hepatitis C screening Hepatitis C sc reen [facility] Start: 1963 Depression Screen Depression Screen [facility] Start: 1951 COVID-19 Vaccine (#1) COVID-19 Vacci ne (#1) [facility] Start: 1951 AAA screen AAA screen [place], [place] Start: 1951 Hepatitis C screen Hepatitis C scree n [place] EKG 12 Lead EKG 12 Lead ECG Routine 03/08/2019 9:20 AM EDT [place] Oxygen therapy [[facility] Data Set] Initiate Oxygen Therapy Protocol Respiratory Care Routine Daily until discontinued starting 11/09/2022 [facility] Work Phone: Comment on above: Daily until disconti nued starting 11/09/2022 Immunizations Immunization Date Immunization Notes Care Provider Jitendra sargent 06-24-2023 influenza virus vacc ine, unspecified formulation Abdi MCINTOSH [facility] 05-11-2022 influenza virus vacc ine, unspecified formulation Abdi MCINTOSH [facility] 08-24-2022 zoster vaccine recombinant Abdi MCINTOSH [facility] 12-25-2021 zoster vaccine recombinant Abdi MCINTOSH [facility] 07-24-2021 influenza virus vacc ine, unspecified formulation [employer] [facility] 07-24-2021 pneumococcal conjuga te vaccine, 13 valent Abdi MCINTOSH [facility] 07-03-2021 SARS-CoV-2 (COVID-19 ) mRNA-1273 vaccine Abdi MCINTOSH [facility] 10-16-2020 SARS-CoV-2 (COVID-19 ) mRNA-1273 vaccine Abdi MCINTOSH [facility] 09-17-2020 SARS-CoV-2 (COVID-19 ) mRNA-1273 vaccine Abdi MCINTOSH [facility] Comment on above: Result Comment: 202211: [id number] 06-08-2019 tetanus toxoid, redu triston diphtheria toxoid, and acellular pertussis vaccine, adsorbed Abdi MCINTOSH [facility] 04-24-2019 influenza virus vacc ine, unspecified formulation Abdi MCINTOSH [facility] 05-13-2018 influenza virus vacc ine, unspecified formulation Abdi MCINTOSH [facility] 05-13-2018 pneumococcal polysaccharide vaccine, 23 valent Abdi MCINTOSH [facility] 04-22-2017 influenza virus vacc ine, unspecified formulation Abdi KEHINDE [facility] 04-22-2017 pneumococcal conjuga te vaccine, 13 valent Abdi KEHINDE [facility] 04-25-2016 influenza virus vacc ine, unspecified formulation Abdi MCINTOSH [facility] 05-05-2014 influenza virus vacc ine, unspecified formulation Abdi KEHINDE [facility] 05-18-2013 influenza virus vacc ine, unspecified formulation Abdi KEHINDE [facility] Payers Date Payer Category Payer Medicare 2022 Unknown 2018 Medicare [id number] 2018 Self-pay 2018 Medicare MEDICARE MEDICAR E PART A AND B xxxxxxxxxxx 2018-Present [phone] [place] [address] xxxxxxxxxxx [id number] 2018 Unknown GENERIC [employer]ERCIAL xxxxxxxxxx 2018-Present Indemnity xxxxxxxxxx [id number] 1959 Medicare [id number] 1959 Unknown [id number] 1951 Unknown [id number] 1951 Unknown [id number] 1951 Unknown [id number] 1951 Unknown [id number] 1951 Unknown [id number] 1951 Unknown [id number] 1951 Unknown [id number] 9 1951 Unknown [id number] 1951 Unknown [id number] 1951 Unknown [id number] 1950 Unknown [id number] 1950 Unknown [id number] 1950 Unknown [id number] 1950 Unknown [id number] Unknown [id number] Unknown [facility] [id number] Social History Date Type Detail Facility Start: 01-13-2014 End: 01-24-2024 Tobacco smoking status NHIS Former smoker [place], [place] Start: 1950 Sex Assigned At Not on file M [place], [place] History of tobacco use [facility] Start: 11-09-2022 Alcohol intake Current drinke r of alcohol (finding) [facility] [employer] Phone: Start: 11-09-2022 Alcohol intake [facility] Work Phone: Start: 11-09-2022 Alcohol Comment daily [facility] Work Phone: Start: 10-30-2022 End: 11-09-2022 Exposure to SARS-CoV-2 (event) Not sure [facility] Work Phone: Sex Assigned At [facility] Tobacco smoking status Never [facility] Start: 1950 Sex Assigned At Male F [facility] Medical Equipment Procedure Code Equipment Code Equipment Origin al Text Equipment Identifier Dates Lens Intraocular Bcnvx 22+ Diopt 6x12.5 Mm Ac[employer] - [id number] Start: 11-09-2022 Functional Status Date Assessment Result Facility 01-24-2024 Functional Status N/A [facility] 06-28-2023 Functional Status N/A [facility] Clinical Notes 10-23-2022 to 01-24-2024 Note [...] you get to a healthy weight. Take kmvo-jsq-kciwzfi and prescription medicines only as told by [...] provider. Document Revised: 10/12/2022 Document Reviewed: 02/24/2022 babberly Patient Education 2022 [employer]. Follow Up Care 06/28/2023 12:08:24 With:KEHINDE CRUZ, Abdi Santana, URL Address: [facility] [address] , [place] [address]- [id number] When: Unknown Comments:1 year w/ PSA from PCP (PSA in 6 mos as well, will call with joshua) [facility] 01-24-2024 Note Patient Education Immunology Proteinuria [...] get to a healthy weight. ? Take kqpy-jak-rutjilb and prescription medicines only as told by [...] ? Proteinuria m (more content not included)... [facility] 08-25-2023 Evaluation note Encounter Date Diagnosis Assessment Notes Aug, Colon cancer screening (ICD-10 - Z12.11) [facility] Other 12-13-2023 Evaluation note* Encounter Date Diagnosis [...] verbalized understanding and agreement with treatment plan. [facility] Other 12-11-2023 Hospital Discharge instructions Patient Education [...] provider. Document Revised: 06/10/2020 Document Reviewed: 06/10/2020 babberly Patient Education 2022 [employer]. 06/28/2023 11:53:29 Spermatocele Spermatocele A spermatocele is [...] provider. Document Revised: 02/23/2022 Document Reviewed: 02/23/2022 babberly Patient Education 2022 [employer]. Follow Up Care 03/29/2023 12:07:33 With:KEHINDE CRUZ, Abdi Santana, URL Address: [facility] [address] , [place] [address]- When:Within 6 Month(s) Comments:w/HILLARY [facility] 10-23-2023 Evaluation note* Encounter Date Diagnosis Assessment [...] that can be had with CPAP use. [facility] Other 07-03-2023 Evaluation note* Encounter Date Diagnosis [...] test. He declines followup on this at [facility] at this time. Jan, Itching (ICD-10 - L29.9) Requests decreased dose of med. Educated him that it would make him tired. [facility] Other 07-03-2023 Evaluation note* Encounter Date Diagnosis Assessment Notes Treatment Notes Treatment Clinical Notes Jan, Lumbar pain (ICD-10 - M54.50) Jan, Right hip pain (ICD-10 - M25.551) [facility] Other 04-24-2023 Hospital Discharge instructions* Discharge Instructions* [...] the healing period. The office number is [phone]. Take surgery bag and all eye drops to Dr. Her's office tomorrow at 9:05am. You may resume your normal diet. Start your eye drops tomorrow after your post-op appointment: Ofloxacin/Polytrim one drop to the operated eye 4 times daily Prednisolone one drop to the operated eye 4 times daily documented in this [facility] Phone: [phone]) [phone] History of Present illness Narrative* Lori Weir [...] 5 days of surgery. [facility]: evaluation + Plan note Future Appointments Appointment Date:01/03/2024 10:45:00 AM Scheduled Provider:Abdi MCINTOSH MD Location:[facility] Appointment Type:URO Office Visit Diagnostic Tests Pending * PSA Total 06/28/23 [facility] evaluation + Plan note Future Appointments Appointment Date:01/26/2025 08:30:00 AM Scheduled Provider:Abdi MCINTOSH MD Location:[facility] Appointment Type:URO Office Visit Diagnostic Tests Pending * PSA Total 01/24/24 [facility] evaluation note* Diagnosis 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 documented in this encounter [facility] Work Phone: evalgitobp noteNo InformationNortConem[facility] [employer] Other Evaluation noteNo assessment information available [facility] [employer] [place] Work Phone: Evaluation note* Diagnosis Onset Date Resolution Status Abnormal carotid ultrasound acute [facility] Work Phone: History general Narrative - Reported* Type Description Date Medical History Essential (primary) hypertension Medical History Borderline low oxygen saturation level Medical History Low back pain, unspecified Medical History Atopic dermatitis Medical History Insomnia, persistent Medical History Family history of malignant neop lasm of breast Surgical History KNEE ARTHROSCOPY X2 Surgical History CATARACT SURGERY Hospitalization History SEE SURGICAL HX [facility] [employer] Other Hospital course Narrative No data available for this section [facility] progress note No data available for this section [facility] Summary Purpose Family History No Family History Records Found Relationship Condition Age at Onset Recorded Date/T manoj father Malignant neoplasm Unknown Family history of lung cancer Unknown Not Specified Malignant neoplasm of breast Unknown Malignant neoplasm Unknown Advance Directives No Advanced Directives Records FoundDocuments on File Type Date Recorded Patient Coronary Clinical Specialist Expl anation Advance Directives and Living Will Power of Drop Man Latest Code Status on File Code Status Date Activated Date Inactivated Comments Full Code 11/09/2022 8:44 AM Advance Directive Response Recorded Date/ Time Advance Directives No October 03, 2 019 2:25pm Assessments Diagnosis Acute medial meniscal tear, left, subsequent encounter Reason for Referral Reason 01/25/23 Last OV a nd xrays from today. Thanks Diagnosis 1 Lumbar pain (M54.50) Referral Organization [facility] Rafael longoria Referring Provider First Name Smitha Referring Provider Last Name Sp Referring Provider Specialty Family [facility] cine Referred Organization [facility] Referred Address [address] [place], [place],[address] Referred Provider Specialty Pain Medicin e Referral Priority Routine Referral Appointment Date 2023-01-25 General Notes Jessica Mason 06:43:12 AM >received today, attachments made, referral faxed Jessica Mason 01/20/2023 03:44:38 PM >received fax with appt date Clinical Notes F: [id number] Chief Complaint and Reason for Visit Chief Complaint Referred carotid art nidia narrowing; duplex at [facility] Chief Complaint Referred carotid art nidia narrowing; duplex at [facility] MA[facility] Reason for Visit Abnormal carotid ult rasound Additional Source Comments (unrecognized sect ion and content) No Status Records FoundNo Status Records FoundNo Status Records FoundNo Status Records FoundNo Status Records FoundNo Status Records Found INFORMATION SOURCE (unrecogn ized section and content) DATE CREATED AUTHOR 10/20/2018 [facility] DATE CREATED AUTHOR AUTHOR'S ORGANIZ ATION 11/27/2022 [facility] DATE CREATED AUTHOR AUTHOR'S ORGANIZ ATION [facility] DATE CREATED AUTHOR AUTHOR'S ORGANIZ ATION 02/05/2024 [facility] d[facility] Specialists [facility] DATE CREATED AUTHOR AUTHOR'S ORGANIZ ATION 07/10/2024 [facility] DATE CREATED AUTHOR AUTHOR'S ORGANIZ ATION 08/10/2024 [facility] Reason for Visit (unrecogniz ed section and content) Specialty Diagnoses / Procedures Referred By Rasheed funes Referred To Contact Diagnoses Nuclear sclerotic cataract of both eyes AGE RELATED NUCLEAR CAT 2+NS Procedures OK XCAPSL CTRC RMVL INSJ IO LENS PROSTH W/O ECP EYE CATARACT EMULSIFICATION IOL IMPLANT Kathi Her Y, DO [address] [place] [address] [facility] [address] [place] [address] Referral ID Status Reason Start Date Expiration Date Visits Re quested Visits Authorized [id number] 1 1 Scheduled Active and Recently Administ [...] 09 (Given - Provid er: Justina Gardner RN)[phone] [...] 09 (Given - Provid er: Justina Gardner RN)0907 [...] Gardner RN)1004 (NoRateChange - Provider: SHANA Tracey NUTRITIONIST)1036 (Rate/Dose Change - Provider: SHANA Tracey CRNA)1100 [...] Care Teams (unrecognized sec tion and content) Ict Trainer Relationship Specialty Start Date End Date Smitha Snowden MD [facility] [place] [address] PCP - General 01/13/14 Team [...] BE BASED ON THE PRIMARY CLINICAL RECORDS. [facility] [employer] [facility]. provides no warranty or guarantee of the accuracy or completeness of information in this document.
--- NOTE | 2024-10-05 10:21 | P.CN_ITS ---
Consult Note: HPI Data of Consult Patient: known to practice within the last 3 years Requesting Physician: Bozena Carty NP Primary Care Provider: Smitha Cartagena MD Consult Narrative Reason for consult: right low back, leg pain Narrative: 74yom who presents for assessment. increasing pain throughout low back and right leg, similar to pain prior to lumbar tfesi and sij injection. these provide >50% relief for >3 months at a time. imaging significant for stenosis at l4-5 and l5- s1. continues in series of provider directed home exercises >6 weeks. uses otc pain meds and baclofen 10mg BID as needed. pt underwent repeat right L4-5 L5-S1 TFESI with >50% improvement ongoing. [facility] 10% cc:: CC: Bozena Carty NP Review of Systems ROS Status of ROS 10 or more systems reviewed and unremark able except as noted in history and below Musculoskeletal Denies: back pain or joint pain PFSH PFSH Medical History Surgical History History of tonsillectomy and adenoidectomy ?Z90.89 - Acquired absence of other organs (ICD-10) H/O elbow surgery ?Z98.890 - Other specified postprocedural states (ICD-10) Meds Home Medications and Allergies Home Medications ?Medication ?Instructions ?Recorded ?Confirmed ?Type bupropion HCl 150 mg 24 hr tablet, 150 mg PO DAILY 01/25/23 06/26/24 History extended release ibuprofen 200 mg tablet 200 mg PO TID 01/25/23 06/26/24 History baclofen 10 mg tablet mg 06/26/24 History baclofen 10 mg tablet 10 mg PO BID PRN muscle spasm #180 08/14/24 Rx tabs Allergies Allergy/AdvReac Type Severity Reaction Status Date / Time oxycodone (From Percocet) Allergy Mild ITCH Verified 06/26/24 09:31 Exam Constitutional Documenting provider has reviewed patient's vital signs: yes Common normals: no apparent distress, oriented x3, healthy appearing, alert and well nourished General appearance: cooperative HENMT Common normals: normocephalic, hearing grossly normal bilaterally and moist oral mucous membranes Head and scalp: normocephalic Eye Common normals: PERRL Pupil: PERRL Neck & C-Spine Common normals: full ROM General: normal visual inspection Chest Common normals: inspection of chest normal Respiratory Common normals: normal respiratory effort, no retractions and no use of accessory muscles Back & Pelvis Lumbar spine/lower back: normal to inspection and lumbar ROM normal; no pain with ROM Sacroiliac joints: SI joints normal Neuro Common normals: oriented x3, CN's II-XII intact bilaterally, moves all extremities, no focal motor deficits, no sensory deficits noted and deep tendon reflexes 2+ bilaterally Sensorium/orientation: alert Motor exam: strength 5/5 throughout and no movement abnormalities noted Psych Common normals: mental status grossly normal, thought process normal, cooperativ e, affect normal, speech normal and activity/motor behavior normal Speech: normal speech Thought process: normal thought process Results Additional Findings Additional findings: If on a controlled substance or opioids, I have checked an [place] report on this patient and there are no aberrancies noted in the prescribing history.??If on a controlled substance or opioid a drug screen was completed and reviewed within the last year, and if there has not been a drug screen completed we ordered one today to monitor higher risk, state monitored pain medication use. As part of providing excellent, safe, comprehensive care, the following was completed at our patient's visit: 1. A medication reconciliation and review to ensure accurate knowledge of current/active medications, including asking our patients to inform us about any ecor-vyk-rprsngt medications or herbal remedies/nutritional supplements/alternative remedies. 2. A review to specifically ensure our patients have had annual screening for screening for depression, screening for tobacco use, and screening for unhealthy alcohol use. For concerning screenings had a discussion with the patient, provided patient education, and recommended follow-up with primary care provider when appropriate. If patient noted with a risk of falling, they received education on strength, gait, and balance training to prevent future risk of falling. Portions of this note may have been carried over from the previous visit and updated as appropriate. Please note this office utilizes paper charting in addition to the electronic medical record. A list of current medications, vitals, and PMH is available there as the clinical staff outside of myself do not have access to [employer] charting during the clinic day operations. As part of providing quality comprehensive care the current medications, vitals, and PMH were reviewed in the paper chart. Assessment and Plan Assessment and Plan (1) Lumbar stenosis with neurogenic claudication: (2) Sacroiliac pain: Plan continue current medications continue HEP as tolerated f/u 6 months, sooner if needed
== END 2024-10-05 09:50 | disposition home or self-care (01) ==
LOC: PM 09:49
PROVIDERS: PCP Family Medicine; Visit Provider Nurse Practitioner
DX: M48.062 Spinal stenosis, lumbar region with neurogenic claudication (principal); M53.3 Sacrococcygeal disorders, not elsewhere classified
CPT/HCPCS: G0463

== ENCOUNTER 2025-01-01 08:53 | Outpatient (OUT) | payer MEDICARE, SELFPAY ==
--- OUTSIDE RECORDS SUMMARY | 2025-01-01 08:59 | XMS_ITS | Clinical Summary ---
Author Organization [facility] Address [address] [place] [address] Care Team Providers Care Senior [employer] Developer Name Role Phone Smitha Cartagena MD Primary Care Provider [phone] Allergies No known active allergies Medications buPROPion (WELLBUTRIN) 75 MG tablet Take 1 tablet by mouth daily Active ibuprofen (ADVIL;MOTRIN) 200 MG tablet Take 1 tablet by mouth every 6 hours as needed for Pain Active Active Problems No known active problems Resolved Problems Problem Noted Date Diagnosed Date Resolved Date Age-related nuclear cataract of right eye 11/22/2022 11/23/2022 Age-related nuclear cataract of left eye 11/08/2022 11/09/2022 Social History Tobacco Use Types Packs/Day Years Used Date Smoking Tobacco: Former Smokeless Tobacco: Former Snuff Tobacco Cessation:Counseling Given: Not Answered Alcohol Use Standard Drinks/Week Comments Yes 4 (1 standard drink = 0.6 oz pur e alcohol) daily Interpersonal Safety Domain Source: IP Abuse Scr eening Answer Date Recorded Read-Only, Retired: Physical Abuse Denies 11/23/2022 Read-Only, Retired: Verbal Abuse Denies 11/23/2022 Read-Only, Retired: Emotional abuse Denies 11/23/2022 Read-Only, Retired: Financial Abuse Denies 11/23/2022 Read-Only, Retired: Sexual abuse Denies 11/23/2022 Sex and Gender Information Value Date Recorded Sex Assigned at Not on file Legal Sex Male 10:58 AM EST Gender Identity Not on file Sexual Orientation Not on file Last Filed Vital Signs Vital Sign Reading Time Taken Comments Blood Pressure 106/65 02/10/2023 6:45 PM EDT Pulse 70 02/10/2023 6:45 PM EDT Temperature 36.6 C (97.9 F) 02/10/2023 6:29 PM EDT Respiratory Rate 11 02/10/2023 6:45 PM EDT Oxygen Saturation 90% 02/10/2023 6:45 PM EDT Inhaled Oxygen Concentration - - Weight 85.7 kg (189 lb) 04/12/2023 9:10 PM EDT Height 177.8 cm (5' 10 ) 04/12/2023 9:10 PM EDT Body Mass Index 27.12 04/12/2023 9:10 PM EDT Plan of Treatment Health Maintenance Due Date Last Done Comments Depression Screen 1963 Hepatitis C screen 1969 DTaP/Tdap/Td vaccine (1 - Tdap) 1970 Lipids 1991 Colonoscopy 01/15/1996 Colorectal Cancer Screen 01/15/1996 FIT/FOBT: Average risk 01/15/1996 Fecal-DNA (Cologuard): Average risk 01/15/1996 Sigmoidoscopy/CT colonography 01/15/1996 Pneumococcal 50+ years Vacci ne (1 of 1 - PCV) 2001 Shingles vaccine (1 of 2) 2001 AAA screen 01/15/2016 Annual Wellness Visit (Medicare) 06/14/2023 COVID-19 Vaccine (1 - 2023-2 5 season) 2024 Flu vaccine (Season Ended) 2025 Respiratory Syncytial Virus (RSV) or age 60 yrs+ (1 - 1-dose 75+ series) 2026 Hepatitis A vaccine Aged Out No longe r eligible based on patient's age to complete this topic Hepatitis B vaccine Aged Out No longe r eligible based on patient's age to complete this topic Hib vaccine Aged Out No longer eligi ble based on patient's age to complete this topic Meningococcal (ACWY) vaccine Aged Out No longer eligible based on patient's age to complete this topic Meningococcal B vaccine Aged Out No l onger eligible based on patient's age to complete this topic Polio vaccine Aged Out No longer elig ible based on patient's age to complete this topic Medical Devices Implanted Type Area Civil Litigation Attorney Device Identifier Shelf Expiration Date Model / Serial / Lot Lens Intraocular Bcnvx 22+ Diopt 6x12.5 Mm Ac[employer] - [id number] Implanted:Qty: 1 on 11/09/2022 by Bismark Mcintyre DO at [facility] Left: Eye [employer] 04/17/2025 [id number] / [id number] / Lens Intraocular Bcnvx 22+ Diopt 6x12.5 Mm [employer] - [id number] Implanted:Qty: 1 on 11/23/2022 by Bismark Mcintyre DO at [facility] Right: Eye [employer] 02/15/2025 [id number] / [id number] / Insurance MEDICARE Advance Directives * Full Code (Latest Code Status on File) Date Activated Date Inactivated Comments 11/23/2022 1:13 PM 11/23/2022 5:31 PM * Full Code Date Activated Date Inactivated Comments 11/09/2022 8:44 AM 11/09/2022 1:10 PM Care Teams Senior [employer] Developer Relationship Specialty Start Date End Date Smitha Cartagena MD [address] [place] [id number] PCP - General 01/13/14
[2025-01-01 09:11] LABS: Basophils Absolute Auto 0.1 10^3/uL (0.0-0.1); Basophils Percent Auto 0.9 % (0.2-2.0); Eosinophils Absolute Auto 0.3 10^3/uL (0.0-0.7); Eosinophils Percent Auto 4.5 % (0.9-7.0); Hematocrit 44.1 % (42.0-54.0); Immature Granulocytes Abs Auto 0.01 10^3/uL (0.00-0.03); Immature Granulocytes Pct Auto 0.2 % (0.0-0.5); Lymphocytes Absolute Auto 1.8 10^3/uL (1.2-3.8); Lymphocytes Percent Auto 32.1 % (20.5-60.0); Mean Corpuscular Hemoglobin 30.4 pg (25.9-34.0); Mean Corpuscular Volume 89.5 fL (80.0-94.0); Mean Platelet Volume 9.5 fL (9.5-13.5); Monocytes Absolute Auto 0.7 10^3/uL (0.3-0.8); Monocytes Percent Auto 12.2 % (1.7-12.0); Neutrophils Absolute Auto 2.8 10^3/uL (1.4-6.5); Neutrophils Percent Auto 50.1 % (43.0-75.0); Platelet Count 284 10^3/uL (150-450); Red Blood Count 4.93 10^6/uL (4.70-6.10); Red Cell Distribution Width 13.2 % (11.0-15.0); White Blood Count 5.5 10^3/uL (4.0-11.0)
[2025-01-01 09:59] LABS: Anion Gap 13.1; BUN Creatinine Ratio 14.6; Calcium 9.5 mg/dL (8.5-10.1); Carbon Dioxide 28.2 mmol/L (21.0-32.0); Chloride 103 mmol/L (98-107); Estimated GFR (African America >60 (>=60 mL/min/1.73m^2); Estimated GFR (Non-African Ame >60 (>=60 mL/min/1.73m^2); Glucose 103 mg/dL (74-106); Potassium 4.3 mmol/L (3.5-5.1); Sodium 140 mmol/L (136-145); Thyroid Stimulating Hormone 1.826 uIU/mL (0.358-3.740)
[2025-01-01 10:32] LABS: Free T4 1.26 ng/dL (0.76-1.46)
[2025-01-02 04:07] LABS: Vitamin B12 264 pg/mL (232-1245)
== END 2025-01-01 08:54 | disposition home or self-care (01) ==
PROVIDERS: PCP Family Medicine; Visit Provider Family Medicine
DX: Z00.00 Encounter for general adult medical examination without abnormal findings (principal); R53.83 Other fatigue; I10 Essential (primary) hypertension
CPT/HCPCS: 36415; 80048; 82607; 82746; 84439; 84443; 85025

== ENCOUNTER 2025-06-28 09:08 | Outpatient (OUT) | payer MEDICARE, SELFPAY ==
--- OUTSIDE RECORDS SUMMARY | 2025-06-28 09:18 | XMS_ITS | CCD ---
Author Organization [facility] Care Team Providers Care Tube Cleaner Name Role Phone Julius Carson Admitting Unavailable Julius Carson Attending Unavailable Yves Snowden Primary Care Unavailable Yves Snowden Primary Care Provider Yves Snowden MD Primary Care Provider YVES SNOWDEN Attending Unavailable YVES SNOWDEN Consulting Unavailable YVES SNOWDEN Primary Care Unavailable YVES SNOWDEN Admitting Unavailable Yves Snowden Unavailable YVES SONWDEN Primary Care Unavailable KATHI HER Admitting Unavailable KATHI HER Attending Unavailable YVES SNOWDEN Primary Care Unavailable YVES SNOWDEN Referring Unavailable YVES SNOWDEN Primary Care Unavailable YVES SNOWDEN Referring Unavailable YVES SNOWDEN Primary Care Unavailable YVES SNOWDEN Primary Care Unavailable KATHI HER Admitting Unavailable KATHI HER Attending Unavailable YVES SNOWDEN Primary Care Physician Melisa CRUZ, Mercy Gomes Attending Unavailable Melisa CRUZ, Isidrarius Gomes Attending Unavailable Melisa CRUZ, Isidrarius Mireya Attending Unavailable Melisa CRUZ, Mercy Gomes Attending Unavailable Unavailable Primary Care Provider UnavailYves Manuel MD Primary Care Provider [phone] Yves Snowden MD Attending Provider Abdi MCINTOSH Attending Unavailable Abdi MCINTOSH Attending Unavailable KEHINDE, Abdi Santana Admitting Unavailable Abdi MCINTOSH Attending Unavailable Abdi MCINTOSH Attending Unavailable Abdi MCINTOSH Admitting Unavailable Abdi MCINTOSH Attending Unavailable JILLIAN LENZ Attending Unavailable JILLIAN LENZ Attending Unavailable JILLIAN LENZ Attending Unavailable JILLIAN LENZ Attending Unavailable Allergies Allergy ClassificationReported Allergen(s)Allergy TypeDate of OnsetReaction(s) Facility (7 sources)Acetaminophen / oxyCODONEDrug AllergyC[facility] Other (1 source)AcetaminophenDrug Uvzovxd97-27-5308epgepizRfskmjcrxMartins [facility]erry Hospital (1 source)oxyCODONEDrug Pvgdxem84-09-8632hucwnbfDjlqfcqaxMartins Ferry Hospital (2 sources)No Known Medication Allergies; Translations: [No Known Medication Allergies]Propensity to adverse reactions (disorder)[facility] Repository Medications Current Medications MedicationDrug Class(es)DatesSig (Normalized)Sig (Original)azithromycin 250 mg oral tablet (4 sources)Macrolide AntimicrobialStart: 64-96-9439Ohjqwnvfzxpk 250 MG as directed Orally 2 tabs po today, then 1 tab daily x 4 more days for 5 Jun, ActiveStart: 50-15-2905Xktnflkfzckm 250 MG as directed Orally 2 tabs po today, then 1 tab daily x 4 more days for 5 Mar, Activebaclofen 10 mg oral tablet (10 sources)gamma-Aminobutyric Acid-ergic AgonistStart: 21-89-2789semqbrmj (Lioresal) 10 MG tablet Refills(s) 0 01/26/2025 ActiveStart: 72-50-9394lqrn 1 tablet by mouth twice dailyBaclofen 10 mg tablet Active 10 MG PO Twice daily November 27, 2024 12:00am Complies with drug ulvqdha09 hr buPROPion hydrochloride 150 mg extended release oral tablet (20 sources)AminoketoneStart: 72-12-3289Htdcbnihm Hcl 150 mg tablet extended release 24 hr Active 0 .ROUTE .COMPLEX January 24, 2024 10:22am TAKE 1 TABLET EVERY DAY Complies with drug therapyStart: 55-85-6848Eqprxbgvo Hcl 150 mg tablet extended release 24 hr Active 0 .ROUTE .COMPLEX January 24, 2024 10:22am TAKE 1 TABLET EVERY DAYStart: 58-97-8328yyvf 1 tablet by mouth every twenty-four hours in the morningbuPROPion XL (Wellbutrin XL) 150 MG 24 hr tablet Take 150 mg by mouth in the morning. 04/10/2023 ActiveStart: 07-30-8516ppbj 1 tablet by mouth twice dailyWellbutrin SR 150 mg Tab-ER 150 mg = 1 tab(s), Oral, BID Start Date: 03/29/23 Status: Ordered Repeatnumber: 1Start: 09-09-2018 End: 22-23-4336wcvh 1 tablet by mouth once daily in the morningBupropion Hcl (Wellbutrin Xl) 300 mg Tablet Extended Release 24 Hr Discontinued 300 MG PO Every morning September 09, 2018 1:00am January 24, 2024 10:22ambuPROPion HCl ER (XL) 150 MG TAKE 1 TABLET EVERY DAY for 90 Activetake 1 tablet by mouth once dailybuPROPion (WELLBUTRIN) 75 MG tablet Take 1 tablet by mouth daily 0 Active calcium chloride 0.0014 meq/ml / potassium chloride 0.004 meq/ml / sodium chloride 0.103 meq/ml / sodium lactate 0.028 meq/ml injectable solution (1 source)Start: 37-54-0630vibivfzw ringers IV soln infusionhydrOXYzine hydrochloride 10 mg oral tablet (20 sources)AntihistamineStart: 35-92-1606bjqp 1 tablet by mouth three times daily as neededhydrOXYzine HCl (Atarax) 10 MG tablet Indications: Other pruritus Take 1 tablet, by mouth 3 times aday as needed for itching, 30 day supply 30 tablet 11 02/07/2025 ActiveStart: 38-99-7169evmv 0.5 tablet by mouth once daily Hydroxyzine Hcl 25 mg tablet Active 0.5 TAB PO Daily January 10, 2025 12:00am FreeTextSi/2 tab Orally Once a day; Note: Source Status: Taking; Provider: Sp Soto Complies with drug therapyStart: 78-09-3394lprn 1 tablet by mouth every eight hours as needed for anxietyhydrOXYzine HCl (Atarax) 25 MG tablet Take 25 mg by mouth every 8 (eight) hours if needed for anxiety 11/05/2022 ActiveStart: 92-81-7529vrff 0.5 tablet by mouth once dailyhydrOXYzine HCl 25 MG 1/2 tab Orally Once a day for 90 days Oct, ActiveStart: 95-06-2179smck 1 tablet by mouth once daily at bedtime as neededhydrOXYzine HCl 25 MG 1 tablet at bedtime as needed for itching Orally Once a day for 90 days Oct, Active ibuprofen 200 mg oral tablet (12 sources)Nonsteroidal Anti-inflammatory Drugtake 2 tablets by mouth every six hours as needed for painibuprofen 200 MG tablet Take 400 mg by mouth every 6 (six) hours if needed for moderate pain Activetake 1 tablet by mouth every six hours as needed for painibuprofen (ADVIL;MOTRIN) 200 MG tablet Take 1 tablet by mouth every 6 hours as needed for Pain 0 ActiveMulti Vitamin+ (5 sources)Start: 23-43-2154Oiyth Vitamin+ Start Date: 03/29/23 Status: Ordered Repeat number: 1Start: 72-71-4073Idjyb Vitamin+ Start Date: 03/29/23 Status: Orderedphenylephrine hydrochloride 25 mg/ml ophthalmic solution (1 source)alpha-1 Adrenergic AgonistStart: 05-28-8052sjqyvvukboxgn (MYDFRIN) 2.5 % ophthalmic solution 1 droppredniSONE 20 mg oral tablet (1 source)Start: 87-79-4740bvpt 2 tablets by mouth every twenty-four hours predniSONE 20 MG 2 tablets Orally Once a day for 5 days Dec, Active pregabalin 50 mg oral capsule (11 sources)Start: 32-18-9095yoxqdbfqle (Lyrica) 50 MG capsule Take 50 mg by mouth 02/01/2023 Activeproparacaine hydrochloride 5 mg/ml ophthalmic solution (1 source)Local AnestheticStart: 86-13-5015phvjxrrlvcuk (ALCAINE) 0.5 % ophthalmic solution 1 sxjn2273 ml sodium chloride 9 mg/ml injection (4 sources)Start: .9 % sodium chloride infusionStart: 11-09-2022 sodium chloride flush 0.9 % injection 5-40 mLtamsulosin hydrochloride 0.4 mg oral capsule (20 sources)alpha-Adrenergic BlockerStart: 32-04-1774Jpwwaalwyw Active MG PO November 03, 2023 12:00amStart: 07-02-2023 End: 67-27-8495dtra 1 capsule by mouth twice dailytamsulosin 0.4 mg Cap 0.4 mg = 1 cap(s), Oral, BID, X 90 day(s), # 180 cap(s), Refills(s) 3, Pharmacy: [facility] [id number], 175, cm, 01/24/24 13:29:00 EDT, Height/Length Dosing, 78, kg, 01/23/2413:29:00 EDT, Weight Dosing Start Date: 09/06/24 Stop Date: 09/01/25 Status: Ordered Quantity: 180.0 Unit: cap(s) Repeat number: 4Start: 03-29-2023 take 1 capsule by mouth every twenty-four hours in the morningtamsulosin (Flomax) 0.4 MG 24 hr capsule Take 0.4 mg by mouth in the morning. 03/29/2023 ActiveStart: 38-99-5812hkca 1 capsule by mouth once dailytamsulosin (Flomax) 0.4 MG 24 hr capsule Take 0.4 mg by mouth Daily 03/29/2023 ActiveFlomax Active tetracaine hydrochloride 5 mg/ml ophthalmic solution (1 source)Mary Local AnestheticStart: 61-25-9445gqgvjmxghr (TETRAVISC) 0.5 % ophthalmic solution 1 droptraMADol hydrochloride 50 mg oral tablet (8 sources)Opioid AgonistStart: 78-39-4192gfxb 1 tablet by mouth three times daily as neededTramadol 50 mg tablet Active 50 MG PO Three times daily January 10, 2025 12:00am FreeTextSi tablet as needed Orally tid prn; Note: Source Status: Taking; Refills: 0; Provider: Sp Soto Complies with drug therapy Start: 54-35-7862xjpc 1 tablet by mouth three times daily as neededtraMADol HCl 50 MG 1 tablet as needed Orally tid prn for 7 days Jan, Active triamcinolone acetonide 1 mg/ml topical cream (20 sources)CorticosteroidStart: 05-49-3875slevfpnztttkv (Kenalog) 0.1 % cream Indications: Other pruritus Apply to affected areas, up to twice a day when flared, do not use one the face, groin, or underarms, 30 day supply 80 g 1 02/07/2025 ActiveStart: 35-24-3905Dpihaqh-40 November, 60 mgtriamcinolone (Kenalog) 0.1 % ointment Apply topically as needed in the morning and as needed in the evening for irritation. Activetropicamide 10 mg/ml ophthalmic solution (1 source)AnticholinergicStart: 96-87-8270ujlrxotnhnq (MYDRIACYL) 1 % ophthalmic solution 1 dropzolpidem tartrate 10 mg oral tablet (20 sources)gamma-Aminobutyric Acid-ergic AgonistStart: 11-05-2022 End: 56-62-3878vqijrxih (Ambien) 10 MG tablet Take 10 mg by mouth as needed at bedtime 11/05/2022 Active Completed/Discontinued Medications MedicationDrug Class(es)DatesSig (Normalized)Sig (Original)cephalexin 500 mg oral capsule (5 sources)Cephalosporin AntibacterialStart: 01-13-2014 End: 71-16-3733zine 1 capsule by mouth three times dailycephALEXin (KEFLEX) 500 MG capsule Take 1 capsule by mouth 3 times daily. 10 capsule 0 01/13/2014 Discontinued (Therapy completed)diclofenac sodium 75 mg delayed release oral tablet (4 sources)Nonsteroidal Anti-inflammatory DrugStart: 09-09-2018 End: 57-36-8211xlqo 1 tablet by mouth once dailyDiclofenac Sodium 75 mg Tablet,Delayed Release (Dr/Ec) Discontinued 1 TAB PO Daily September 09, 2018 1:00am November 03, 2023 11:03am Problems Active Problems Problem ClassificationProblemDateDocumented DateEpisodic/ChronicAllergic reactions (8 sources)Atopic dermatitis; Translations: [Atopic dermatitis, unspecified] ChronicCataract (6 sources)Age-related nuclear cataract of left eye; Translations: [Age-related nuclear cataract, left eye]Onset: 11-08-2022 Resolved: 53-27-5112LkbtbezQgkxctbzk hypertension (17 sources)Essential (primary) hypertension; Translations: [Essential hypertension]Onset: 35-49-1552XpzjwrlOwlvodkygzkzn symptoms and ill-defined conditions (1 source)Proteinuria; Translations: [Proteinuria, unspecified]Onset: 01-24-2024 EpisodicHyperplasia of prostate (16 sources)Benign prostatic hypertrophy with outflow obstruction; Translations: [Benign prostatic hyperplasia with lower urinary tract symptoms]Onset: 22-86-8285CtmsuqaKvzbeys and fatigue (4 sources)Fatigue; Translations: [Other fatigue]91-32-8109XjkoxgjwAnrr disorders (5 sources)Depressive udovafya00-29-5368TzohgzjPrwqi and unspecified benign neoplasm (4 sources)Melanocytic nevus of trunk; Translations: [Melanocytic nevi of trunk] 97-77-6844IhfrwxoiGjote circulatory disease (1 source)Hypotension, unspecified; Translations: [Hypotension, unspecified] Onset: 73-08-0437QktmywvfAfxsp circulatory disease (4 sources)Carotid bruit; Translations: [Other specified symptoms and signs involving the circulatory and respiratory systems]18-33-5214QlhzbgbsOwigm diseases of kidney and ureters (8 sources)Disorder of urinary tract; Translations: [Other obstructive and reflux uropathy]EpisodicOther inflammatory condition of skin (1 source)Pruritus, unspecifiedEpisodicOther inflammatory condition of skin (2 sources)Itching of skin; Translations: [Other pruritus]42-46-1858Pnvypgwv Other inflammatory condition of skin (3 sources)Erythema of skin; Translations: [Other specified erythematous conditions]85-97-8827XxhduxxxDwsyg male genital disorders (3 sources)Hydrocele of testis; Translations: [Hydrocele, unspecified]Onset: 95-69-7589CmuwrfqlRyvmz male genital disorders (8 sources)Spermatocele; Translations: [Spermatocele of epididymis, unspecified] Onset: 40-73-8154OtqhqggkMshhi male genital disorders (5 sources)Disorder of male genital yntjd81-63-8350AwrxrcepYuzqw non-epithelial cancer of skin (2 sources)History of squamous cell carcinoma of skin; Translations: [Personal history of other malignant neoplasm of skin]40-83-2190AypjnxmiUwyli non- traumatic joint disorders (2 sources)Pain in right hipEpisodicOther screening for suspected conditions (not mental disorders or infectious disease) (5 sources)Carotid artery finding; Translations: [Abnormal findings on diagnostic imaging of other specified body structures]56-19-5161AdnrhsvZtqpi screening for suspected conditions (not mental disorders or infectious disease) (16 sources)Encounter for screening for malignant neoplasm of prostate; Translations: [Abnormal arterial blood gas]Onset: 82-53-5263BctiqixaNysmk skin disorders (7 sources)Inflamed seborrheic keratosis; Translations: [Inflamed seborrheic keratosis]97-50-8632HkcyqcceQwovh skin disorders (2 sources)Actinic keratosis; Translations: [Actinic keratosis]02-07-2025 EpisodicOther skin disorders (2 sources)Seborrheic keratosis; Translations: [Other seborrheic keratosis] 29-97-9014VjiltolpKakbt upper respiratory disease (8 sources)Allergic rhinitis due to pollen; Translations: [Allergic rhinitis due to pollen]ChronicOther upper respiratory infections (1 source)Acute maxillary sinusitis, unspecifiedEpisodicResidual codes; unclassified (8 sources)Obstructive sleep apnea syndrome; Translations: [Obstructive sleep apnea (adult) (pediatric)]ChronicResidual codes; unclassified (4 sources)Obstructive sleep apnea (adult) (pediatric); Translations: [Obstructive sleep apnea (adult) (pediatric)]Onset: 81-73-6129IththqvZaulsndw codes; unclassified (8 sources)Insomnia; Translations: [Insomnia, unspecified]EpisodicResidual codes; unclassified (8 sources)Family history of breast cancer; Translations: [Family history of malignant neoplasm of breast]EpisodicResidual codes; unclassified (2 sources)Pain; Translations: [Pain, unspecified]90-23-5254OrykkdbkTmllkczus and history of mental health and substance abuse codes (8 sources)H/O: Disorder; Translations: [Personal history of nicotine dependence]Onset: 49-47-7146QmfnizrnNkboaqkxtcl; intervertebral disc disorders; other back problems (16 sources)Low back pain; Translations: [Low back pain, unspecified]Episodic Syncope (1 source)Syncope and collapse; Translations: [Syncope and collapse]Onset: 97-29-1482EgldsuwqYfnylntltmos (1 source)Z12.11 - Encounter for screening for malignant neoplasm of colon; Translations: [Z12.11 - Encounterfor screening for malignant neoplasm of colon] Onset: 93-83-9385Eafyztcxohmh (1 source)Acute tear of medial meniscus of left knee; Translations: [Acute medial meniscal tear, left, subsequent encounter]Unclassified (4 sources)Measurement olscdwv94-64-4567Qbtqn infection (5 sources)Verruca vulgaris; Translations: [Other viral warts]29-77-8346Xbizkwrb Past or Other Problems Problem ClassificationProblemDateDocumented DateEpisodic/ChronicUnclassified (1 source)Lumbar pain M54.50 Results Test NameValueInterpretationReference RangeFacilityCryotherapy, skin lesionon 54-78-4163HUOOCarteret Health CareNo Panel Informationon 59-51-5686CRFJFreeman Orthopaedics & Sports Medicine HealthcareNo Panel Informationon 62-60-7008CSUMAspirus [facility] HealthcareAmbulatory Visit Summaryon 01-26-2025 Ambulatory Visit SummaryAmbulatory Visit Summary MERLIN JOHNSTON :1950 Visit Date:01/26/2025 Ambulatory Visit Instructions Your Diagnosis BPH with urinary obstruction Rising PSA level Spermatocele Hydrocele Former smoker Your Care Team Attending Physician - Abdi MCINTOSH MD Primary Care Physician - YVES SNOWDEN MD This Is Your Medications List tamsulosin (tamsulosin 0.4 mg Cap) Contact prescribing physician if questions or concerns baclofen (baclofen 10 mg Tab) buPROPion (Wellbutrin SR 150 mg Tab-ER) multivitamin (Multi Vitamin+) Procedures Performed Cataract, Colonoscopy, Tonsillectomy. Discharge Vitals Temperature (Temporal Artery) 37 ???C Heart Rate (Peripheral) 76 Respiratory Rate 16 Blood Pressure 137/85 Height 175 cm Height 69 in Weight 86.6 kg Weight 190.92 lb BMI 28.28 What to do next Scheduled Follow-Up Appointments Wednesday2025 10:15 AM EDT With: Abdi MCITNOSH MD Where: [facility] [address] [place] [address]- You Need to Schedule the Following Appointments Follow Up with Abdi MCINTOSH MD, URL When: Where: [facility] [place] [address]- You Need to Complete the Following PSA Total, Blood, Routine collect, 12/17/25, Order for future visit, Lab Collect, Rising PSA level,Required & Missing, Print Label By Order Location Medications What How Much When Instructions Unchanged tamsulosin (tamsulosin 0.4 mg Cap) 1 Capsules By Mouth 2 times a day Duration: 90 Days Unchanged baclofen (baclofen 10 mg Tab) Contact prescribing physician if questions or concerns Unchanged buPROPion (Wellbutrin SR 150 mg Tab-ER) [...] choosing us for your care. Education Materials Benign Prostatic Hyperplasia Benign prostatic hyperplasia (BPH) is an enlarged prostate gland that is caused by the normal agingprocess. The prostate may get bigger as a man gets older. The condition is not caused by cancer. The prostate is a walnut-sized gland that is involved in the production of semen. It is located in front of the rectum and below the bladder. The bladder stores urine. The urethra carries stored urine ou t of the body. An enlarged prostate can press on the urethra. This can make it harder to pass urine. The buildup of urine in the bladder can cause infection. Back pressure and infection may progress to bladder damage and kidney (renal) failure. What are the causes? This condition is part of the normal aging process. However, not all men develop problems from thiscondition. If the prostate enlarges away from the urethra, urine flow will not be blocked. If it enlarges toward the urethra and compresses it, there will be problems passing urine. What increases the risk? This condition is more likely to develop in men older than 50 years. What are the signs or symptoms? Symptoms of this condition include: ??? Getting up often during the night to urinate. ??? Needing to urinate frequently during the day. ??? Difficulty starting urine flow. ??? Decrease in size and strength of your urine stream. ??? Leaking (dribbling) after urinating. ??? Inability to pass urine. This needs immediate treatment. ??? Inability to completely empty your bladder. ??? Pain when you pass urine. This is more common if there is also an infection. ??? Urinary tract infection (UTI). How is this diagnosed? This condition is diagnosed based on your medical history, a physical exam, and your symptoms. Tests will also be done, such as: ??? A post-void bladder scan. This measures any amount of urine that may remain in your bladder after you finish urinating. ??? A digital rectal exam. In a rectal exam, your health care provider checks your prostate by putting a lubricated, gloved finger into your rectum to feel the back of your prostate gland. This exam detects the size of your gland and any abnormal lumps or growths. ??? An exam of your urine (urinalysis). ??? A prostate specific antigen (PSA) screening. This is a blood test used to screen for prostate cancer. ??? An ultrasound. This test uses sound waves to electronically produce a picture of your prostate gland. Your health care provider may refer you to a speci (more content not included)...[facility] HospitalUrology Office/Clinic Noteon [id number] Office/Clinic NoteUrology Office/Clinic Note Chief Complaint 1 year with PSA HPI Staff 75 year old male here for a 1 year follow up with PSA Dx: BPH with obstruction, spermatocele, hydrocele *Tamsulosin 0.4mg BID PSA 12/20/23 - 2.87 01/16/25 - 2.1 IPSS score today is 10. Urgency about half the time. Incomplete emptying and frequency less than half the time. Nocturia x1. Denies any visible blood or pain of any kind. History of Present Illness Tests reviewed: reviewed UA and PSA. I have reviewed the previous health record information and history for this patient from Dr. Mcintosh I have reviewed and verified the staff [...] See HPI. Physical Exam Vitals & Measurements T: 37 ???C(Temporal Artery) HR: 76(Peripheral) RR: 16 BP: 137/85 HT: 175 cm HT: 69 in WT: 86.6 kg WT: 190.92 lb BMI: 28.28 General Appearance: alert, no distress, well nourished, well developed male. Assessment/Plan MOON 1 1. BPH with urinary obstruction (N40.1: Benign prostatic hyperplasia with lower urinary tract symptoms) UA today shows trace leuks. IPSS 10. Taking Flomax 0.4 mg bid (AM/PM). Normally has to double void in the morning. Denies burning with urination or gross hematuria. Discussed UA results with pt. He may have a low grade infection. Encouraged pt to drastically increase his water intake, aim for 6 bottles of water daily. -Increase water intake, aim for 6 bottles 2. Rising PSA level (R97.20: Elevated prostate specific antigen [PSA]) PSA 07/09/22 - 1.70 11/23/22 - 2.45 12/20/23 - 2.87 01/16/25 - 2.1 PSA continues to fluctuate. Decrease is favorable. No further workup warranted at this point. Will cont to closely monitor PSA over time. He is in agreement. -PSA in 1 year 3. Spermatocele (N43.40: Spermatocele of epididymis, unspecified) PE 03/29/23 - Spermatocele on L epididymis Scrotal US 03/31/23 - 1.2 cm L epididymal cyst or spermatocele, heterogeneous Rt epididymis, nonspecific w/no hypervascularity to suggest epididymitis [1] 4. Hydrocele (N43.3: Hydrocele, unspecified) Scrotal US 03/31/23 - small bilateral hydroceles. [2] 5. Former smoker (Z87.891: Personal history of nicotine dependence) Quit in 2012, Smoked 1 PPD. [3] Follow-up With When Contact Information KEHINDE CRUZ, Abdi Santana, URL [address] [place] [address]- Additional Instructions: 1 year w/ PSA Patient Education Benign Prostatic Hyperplasia I, Rebecca Aguilar, personally scribed for Dr. Mcintosh on 01/26/2025 08:43:18. . Documentation recorded by the Rebecca hernandez, accurately reflects the services(s) I performed and decisions made by me. Authenticated by Dr. Mcintosh on 01/26/2025 08:45:51. Problem List/Past Medical History Ongoing BPH with urinary obstruction Depression Former smoker Hydrocele Rising PSA level Spermatocele Historical No qualifying data Procedure/Surgical History Cataract, Colonoscopy, Tonsillectomy. Medications baclofen 10 mg Tab Multi Vitamin+ tamsulosin 0.4 mg Cap, 0.4 mg= 1 cap(s), Oral, BID, 3 refills Wellbutrin SR 150 mg Tab-ER, 150 mg= 1 tab(s), Oral, BID Allergies No Known Medication Allergies Social History Alcohol Never., 01/25/2025 Tobacco Former smoker, quit more than 30 days ago Tobacco Use:. Never Smokeless Tobacco Use:. Cigarettes, Yes, 01/26/2025 Family History Primary malignant neoplasm of bone: [...] 2023-06-28: TPV65 diphtheria/pertussis, acel/tetanus adult 06/08/2019 Recorded influenza virus vaccine, inactivated 04/24/2019 Recorded pneumococcal 23-valent vaccine 05/13/2018 Joe (more content not included)... [facility] HospitalComment on above:Result Comment: Electronically Signed By: KEHINDE CRUZ, Abdi Santana\.br\Date and Time Signed: 01/26/25 08:45 EDT\.br\Electronically Co-Signed By: Rebecca Aguilar\Date and Time Co- Signed: 01/27/2508:43 EDTCHEMISTRYOrdered By: SYSTEM SYSTEM on 01-16-2025 Prostate specific Ag [Mass/Vol]2.1 ng/mLNormal0.1 - 3.5 ng/mLRemisol ChemComment on above:Interpretive Data: The concentration of PSA determined by different manufacturers can vary due to differences in assay methods and reagent specificity. Values obtained from different assay methods cannot be used interchangeably. The methodology used for this result was chemiluminescence using [employer] Eleph[employer]'s Access Hybritech PSA reagent.PSA Totalon [id number] Total2.1 ng/mLNormal0.1-3.5Fisher [facility] CampusComment on above:Result Comment: The concentration of PSA determined by different manufacturers can vary due to differences in assay methods and reagent specificity. Values obtained from different assay methods cannot be used interchangeably. The methodology used for this result was chemiluminescence using Lamine Margie's Access Hybritech PSA reagent.Performed By: #### [id number] #### [facility] [address] [place], [place] [address]Acayfzxmg Auto (Bld) [#/Vol]on 46-24-8536Bveaiznzn (Bld) [#/Vol]0.1 10 3/uL0.0-0.1FKettering Health DaytonBasophils/100 WBC Auto (Bld)on 42-00-6087Wsnrkcbjj/100 WBC (Bld)0.9 %0.2-2.0[facility] CenterEosinophils/100 WBC Auto (Bld)on 35-64-1419Uruevqsfafn/100 WBC (Bld)4.5 % 0.9-7.0[facility] CenterErythrocyte distribution width Auto (RBC) [Ratio]on 67-47-9465Gvqouzyizpk distribution width (RBC) [Ratio]13.2 % 11.0-15.0[facility] CenterEstimated glomerular filtration rate (GFR) non- Americanon 20-81-0841AQD/1.73 sq M.predicted among non-blacks MDRD (S/P/Bld) [Vol rate/Area]mL/min/{1.73_m2}>=60 mL/min/1.73m 2FKettering Health DaytonHematocrit Auto (Bld) [Volume fraction]on 01-01-2025 Hematocrit (Bld) [Volume fraction]44.1 %42.0-54.0[facility] CenterHemoglobin [Mass/volume] in Bloodon 37-54-9167Kbtukpvqjp (Bld) [Mass/Vol] 15.0 g/dL14.0-18.0[facility] CenterLaboratory - Chemistry and Chemistry - challengeon 42-96-0751Pwooiqm [Mass/Vol]9.5 mg/dL8.5-10.1FKettering Health DaytonChloride [Moles/Vol]103 mmol/R30-124OasdihphbAshtabula County Medical CenterCO2 [Moles/Vol]28.2 mmol/L21.0-32.0[facility] CenterCreatinine [Mass/Vol]0.82 mg/dL0.70-1.30[facility] Free T4 [Mass/Vol]1.26 ng/dL0.76-1.46[facility] CenterGFR/1.73 sq M.predicted MDRD (S/P/Bld) [Vol rate/Area]mL/min/{1.73_m2}>=60 mL/min/1.73m 2 [facility] CenterGlucose [Mass/Vol]103 mg/oH51-178WyvanevwrAshtabula County Medical CenterPotassium [Moles/Vol]4.3 mmol/L3.5-5.1FProtestant Deaconess Hospitalodium [Moles/Vol]140 mmol/F741-894WxgmuobszAshtabula County Medical CenterTSH Qn1.826 m[IU]/L0.358-3.740[facility] CenterUrea nitrogen [Mass/Vol]12.0 mg/dL7.0-18.0[facility] CenterUrea nitrogen/Creatinine [Mass ratio]14.6 mg/mgAshtabula County Medical Center Laboratory - Chemistry and Chemistry - challengeOrdered By: Yves Snowden on 60-27-4423Fcazlplxh (Vitamin B12) [Mass/Vol]264 pg/gZ599-7255XlrerroiiAshtabula County Medical CenterComment on above:Performed at: - [facility] [address] [id number] Director: Gustavo Olivier PhD, Phone: [phone] Laboratory - Hematology and Cell countson 38-08-1537Wwyjamtc granulocytes/100 WBC (Bld)0.2 %0.0-0.5FKettering Health DaytonLeukocytes [#/volume] corrected for nucleated erythrocytes in Blood by Automated counon 98-04-7169TQH corrected for nucl RBC Auto (Bld) [#/Vol]5.5 10 3/uL4.0-11.0[facility] CenterLymphocytes Auto (Bld) [#/Vol]on 46-05-5215Cqaoafunsxg (Bld) [#/Vol]1.8 10 3/uL1.2-3.8[facility] CenterLymphocytes/100 WBC Auto (Bld)on 33-22-7806Ivzzwchiryc/100 WBC (Bld)32.1 %20.5-60.0[facility] CenterMCH Auto (RBC) [Entitic mass]on 58-40-7584MYE (RBC) [Entitic mass]30.4 pg25.9-34.0[facility] Medical CenterMCHC Auto (RBC) [Mass/Vol]on 86-70-3816OGNO (RBC) [Mass/Vol]34.0 g/dL29.9-35.2FKettering Health DaytonMCV Auto (RBC) [Entitic vol]on 18-22-3107BMM (RBC) [Entitic vol] 89.5 fL80.0-94.0[facility] CenterMonocytes Auto (Bld) [#/Vol]on 88-89-9044Oqisovrgn (Bld) [#/Vol]0.7 10 3/uL0.3-0.8[facility] CenterMonocytes/100 WBC Auto (Bld)on 13-38-3922Gtshevqae/100 WBC (Bld)12.2 %High 1.7-12.0[facility] CenterNeutrophils Auto (Bld) [#/Vol]on 55-69-3119Xgdssqxmqdz (Bld) [#/Vol]2.8 10 3/uL1.4-6.5FKettering Health DaytonNeutrophils/100 WBC Auto (Bld)on 16-51-7068Asrldxafnln/100 WBC (Bld)50.1 % 43.0-75.0[facility] CenterNo Panel Informationon 01-01-2025 Eosinophils # (Auto)0.3 10 3/uL0.0-0.7FKettering Health DaytonFolate 11.50 ng/mL8.60-58.90[facility] CenterImmature Granulocyte # (Auto)0.01 10 3/uL0.00-0.03[facility] CenterPlatelet mean volume Auto (Bld) [Entitic vol]on 26-39-0032Qbyytxvx mean volume (Bld) [Entitic vol] 9.5 fL9.5-13.5FKettering Health DaytonPlatelets Auto (Bld) [#/Vol]on 82-05-3212Dqzujggby (Bld) [#/Vol]284 10 3/cU039-219UznoimwyxAshtabula County Medical CenterRBC Auto (Bld) [#/Vol]on 57-62-1935AEV (Bld) [#/Vol]4.93 10 6/uL4.70-6.10 [facility] Northerum or plasma anion gap determinationon 78-76-2765Eclak gap [Moles/Vol]13.1 mmol/LFKettering Health DaytonNo Panel Informationon 13-17-6109LZZF HealthcareBasophils Auto (Bld) [#/Vol]on 78-46-9081Wrwgewttb (Bld) [#/Vol]0.1 10 3/uL0.0-0.1FKettering Health DaytonBasophils/100 WBC Auto (Bld)on 48-72-3622Pngiypsuy/100 WBC (Bld)1.1 % 0.2-2.0[facility] CenterCholesterol in LDL Calc [Mass/Vol]on 70-21-0503Fgqfdiirllu in LDL [Mass/Vol]98.2 mg/dLAshtabula County Medical CenterComment on above:<100 mg/dl VMTNBRP221-891 mg/dl NEAR OR ABOVE BXMTHKT360- 159 mg/dl BORDERLINE IYGZ193-354 mg/dl HIGH>190 mg/dl VERY HIGHCholesterol in VLDL Calc [Mass/Vol]on 16-21-5069Wyvrwwlzsna in VLDL [Mass/Vol]16.8 mg/dL [facility] CenterEosinophils/100 WBC Auto (Bld)on 12-20-2023 Eosinophils/100 WBC (Bld)4.6 %0.9-7.0[facility] Erythrocyte distribution width Auto (RBC) [Ratio]on 73-85-3660Roadeqjhgbb distribution width (RBC) [Ratio]13.3 %11.0-15.0[facility] Estimated glomerular filtration rate (GFR) non- Americanon 12-20-2023 GFR/1.73 sq M.predicted among non-blacks MDRD (S/P/Bld) [Vol rate/Area] mL/min/{1.73_m2}>=60[facility] CenterGlobulin Calc (S) [Mass/Vol]on 92-40-5197Dzurqkya (S) [Mass/Vol]3.6 g/dLAshtabula County Medical CenterHematocrit Auto (Bld) [Volume fraction]on 84-85-6865Muhvmqsalf (Bld) [Volume fraction]45.4 %42.0-54.0[facility] CenterHemoglobin [Mass/volume] in Bloodon 18-16-7383Ccjwmzllbu (Bld) [Mass/Vol]15.1 g/dL14.0-18.0 [facility] CenterLaboratory - Chemistry and Chemistry - challengeon 00-76-5185Rvnzolu [Mass/Vol]4.1 g/dL3.4-5.0[facility] CenterALP [Catalytic activity/Vol]84 U/W61-434KqqxsizyrAshtabula County Medical CenterALT [Catalytic activity/Vol]43 U/L10-11EovgnhdnlAshtabula County Medical Center AST [Catalytic activity/Vol]29 U/I85-38CwvubvkqpAshtabula County Medical Center Bilirubin [Mass/Vol]1.3 mg/dL0.2-1.0[facility] CenterCalcium [Mass/Vol]9.8 mg/dL8.5-10.1FKettering Health DaytonChloride [Moles/Vol] 104 mmol/D89-336QadwtnmbnAshtabula County Medical CenterCholesterol [Mass/Vol]173 mg/dL <=200[facility] CenterCholesterol in HDL [Mass/Vol]58 mg/dL40-60 [facility] CenterComment on above:> or =60 mg/dl - LOW CARDIOVASCULAR RISK<40 mg/dl - HIGH CARDIOVASCULAR RISKCO2 [Moles/Vol]28.8 mmol/L21.0-32.0[facility] CenterCreatinine [Mass/Vol]0.96 mg/dL 0.70-1.30[facility] CenterGFR/1.73 sq M.predicted MDRD (S/P/Bld) [Vol rate/Area]mL/min/{1.73_m2}>=60[facility] CenterGlucose [Mass/Vol]100 mg/qP04-312UtricxfecAshtabula County Medical CenterPotassium [Moles/Vol] 4.4 mmol/L3.5-5.1FKettering Health DaytonProtein [Mass/Vol]7.7 g/dL 6.4-8.2FProtestant Deaconess Hospitalodium [Moles/Vol]142 mmol/V577-813 [facility] CenterTriglyceride [Mass/Vol]84 mg/dL<=150[facility] CenterUrea nitrogen [Mass/Vol]7.0 mg/dL7.0-18.0[facility] CenterUrea nitrogen/Creatinine [Mass ratio]7.3 mg/mgAshtabula County Medical CenterLaboratory - Hematology and Cell countson 12-20-2023 Immature granulocytes/100 WBC (Bld)0.2 %0.0-0.5FKettering [facility] Dayton Leukocytes [#/volume] corrected for nucleated erythrocytes in Blood by Automated counon 99-62-5054SNB corrected for nucl RBC Auto (Bld) [#/Vol]5.5 10 3/uL 4.0-11.0[facility] CenterLymphocytes Auto (Bld) [#/Vol]on 69-62-3421Tqcoomyzfwt (Bld) [#/Vol]1.8 10 3/uL1.2-3.8[facility] CenterLymphocytes/100 WBC Auto (Bld)on 62-54-4872Ivncddjnsui/100 WBC (Bld)32.7 % 20.5-60.0[facility] HospitalH Auto (RBC) [Entitic mass]on 88-16-5217MZY (RBC) [Entitic mass]30.6 pg25.9-34.0[facility] CenterMCHC Auto (RBC) [Mass/Vol]on 92-19-1092LGWR (RBC) [Mass/Vol]33.3 g/dL 29.9-35.2FKettering Health DaytonMCV Auto (RBC) [Entitic vol]on 63-11-4540KWD (RBC) [Entitic vol]92.1 fL80.0-94.0[facility] CenterMonocytes Auto (Bld) [#/Vol]on 93-24-9112Dresrrvwv (Bld) [#/Vol]0.6 10 3/uL0.3-0.8[facility] CenterMonocytes/100 WBC Auto (Bld)on 09-43-6319Yskgktmed/100 WBC (Bld)11.5 %1.7-12.0[facility] Neutrophils Auto (Bld) [#/Vol]on 79-90-3725Rhcninoxtpj (Bld) [#/Vol]2.7 10 3/uL 1.4-6.5FKettering Health DaytonNeutrophils/100 WBC Auto (Bld)on 94-54-9159Upbmkmnrkmi/100 WBC (Bld)49.9 %43.0-75.0[facility] CenterNo Panel Informationon 94-75-0334Tdimjwljgcg # (Auto)0.3 10 3/uL0.0-0.7 [facility] CenterImmature Granulocyte # (Auto)0.01 10 3/uL 0.00-0.03[facility] CenterProstate Specific Antigen Screen2.87 ng/mL<=4.00[facility] CenterPlatelet mean volume Auto (Bld) [Entitic vol]on 74-51-5325Ljukyexr mean volume (Bld) [Entitic vol]9.4 fL9.5-13.5 [facility] CenterPlatelets Auto (Bld) [#/Vol]on 12-20-2023 Platelets (Bld) [#/Vol]268 10 3/hD231-766ZeqhwpyuiAshtabula County Medical CenterRBC Auto (Bld) [#/Vol]on 64-78-9462SFA (Bld) [#/Vol]4.93 10 6/uL4.70-6.10[facility] Northerum or plasma albumin/globulin mass ratioon 12-20-2023 Albumin/Globulin [Mass ratio]1.1 {ratio}[facility] Northerum or plasma anion gap determinationon 64-78-1962Esktg gap [Moles/Vol]13.6 mmol/L [facility] Northerum or plasma total cholesterol/high density lipoprotein (HDL) cholesterol mass kaci 73-05-9390Qqwyzmbezgp.total/Cholesterol in HDL [Mass ratio]3.0 {ratio}[facility] CenterComment on above:3.3 - 4.4 LOW RISK4.4 - 7.1 AVERAGE RISK7.1 - 11.0 MODERATE RISK>11.0 HIGH RISKBasic Metabolic Profon 08-35-8511Zowrc gap [Moles/Vol]16 mmol/LNormal9-17 [facility], AvonComment on above:Performed By: #### DEBORAH, BMP, TROPI #### [facility] [address] [place] [address] [place] [address] Continuous Process Rotary Drum Tanner: Ming Costello MDBUN/CRE Babol19Fjdmoq8-53[facility] Comment on above:Performed By: #### DEBORAH, BMP, TROPI #### [facility] [address] [place] [address] Continuous Process Rotary Drum Tanner: ДМИТРИЙ Ambrosioalcium [Mass/Vol]9.3 mg/dLNormal8.6-10.4[facility], AvonComment on above:Performed By: #### DEBORAH, BMP, TROPI #### [facility] [address] [place] [address] Dr. Hernandez, [place] [id number] Continuous Process Rotary Drum Tanner: ДМИТРИЙ Ambrosiohloride [Moles/Vol]93 mmol/UCzx47-777UgqkgSelect Medical [facility] Rehabilitation Hospital, AvonComment on above:Performed By: #### DINORA CABRERA, TROPI #### [address] Hernandez, [place] [id number] Continuous Process Rotary Drum Tanner: ДМИТРИЙ AmbrosioO2 [Moles/Vol]22 mmol/LBwglrc74-03AwetnSelect Medical [facility] Hospital, AvonComment on above:Performed By: #### DINORA CABRERA, TROPI #### [address] Hernandez, [facility]83 Continuous Process Rotary Drum Tanner: ДМИТРИЙ Ambrosioreatinine [Mass/Vol]0.8 mg/dLNormal0.7-1.2MSt. Mary's Medical Center, Ironton CampusComment on above:Performed By: #### DINORA CABRERA TROPI #### [address] Hernandez, [facility]83 Continuous Process Rotary Drum Tanner: Ming Costello MDGFR/1.73 sq M.predicted among non-blacks MDRD (S/P/Bld) [Vol rate/Area]mL/min/{1.73_m2}Normal>60[facility], AvonComment on above:Result Comment: These results are not intended for [...] or following therapy that affects renal tubular secretion.Performed By: #### DINORA CABRERA, TROPI #### [address] [place] [address] Continuous Process Rotary Drum Tanner: Ming Costello MDGlucose [Mass/Vol]123 mg/wAGxbi27-24RnypdSt. Mary's Medical Center, Iront[place] CampusComment on above:Performed By: #### DINORA CABRERA, TROPI #### [address] Hernandez, [facility]83 Continuous Process Rotary Drum Tanner: SERENE Ambrosiootassium [Moles/Vol]3.9 mmol/LNormal3.7-5.3[facility] HospitalComment on above:Performed By: #### CDP, BMP, TROPI #### [address] Hernandez, [facility]83 Continuous Process Rotary Drum Tanner: PARVEZ Ambrosioodium [Moles/Vol]131 mmol/YGnl172-145Ynftn [facility]iffin HospitalComment on above:Performed By: #### CDP, BMP, TROPI #### [address] [place] [address] Continuous Process Rotary Drum Tanner: Darryl Ambrosio nitrogen [Mass/Vol]12 mg/dLNormal8-23[facility] HospitalComment on above:Performed By: #### DEBORAH, BMP, TROPI #### [address] Hernandez, [place] [address] Continuous Process Rotary Drum Tanner: ДМИТРИЙ Ambrosio with Diffon 38-67-5495Pza. Basophil0.06 k/uL Normal0.00-0.20MerMount Carmel Health System HospitalComment on above:Performed By: #### CDP, BMP, TROPI #### [address] [place] [address] Continuous Process Rotary Drum Tanner: Shahid Ambrosio.Imm.Granulocyte0.03 k/uLNormal0.00-0.30MerMount Carmel Health System HospitalComment on above:Performed By: #### CDP, BMP, TROPI #### [address] [place] [address] Continuous Process Rotary Drum Tanner: Shahid Ambrosio.Neutrophil (Seg)5.01 k/uLNormal1.50-8.10MerMount Carmel Health System HospitalComment on above:Performed By: #### CDP, BMP, TROPI #### [address] Hernandez [place] [address] Continuous Process Rotary Drum Tanner: Ming Costello MDBasophils/100 WBC (Bld)1 %Normal0-2[facility] HospitalComment on above:Performed By: #### CDP, BMP, TROPI #### [address] Hernandez, [place] [address] Continuous Process Rotary Drum Tanner: Ming Costello MDEosinophils (Bld) [#/Vol]0.39 10*3/uLNormal 0.00-0.44MerMount Carmel Health System HospitalComment on above:Performed By: #### CDP, BMP, TROPI #### [address] [place] [address] Continuous Process Rotary Drum Tanner: LB Ambrosioosinophils/100 WBC (Bld)4 %Normal1-4[facility] HospitalComment on above:Performed By: #### CDP, BMP, TROPI #### [address] Hernandez, [place] [address] Continuous Process Rotary Drum Tanner: Ming Costello MDErythrocyte distribution width (RBC) [Ratio]12.8 % Peaaga48.8-14.4[facility] HospitalComment on above:Performed By: #### CDP, BMP, TROPI #### [address] [place] [address] Continuous Process Rotary Drum Tanner: Ming Costello MDHematocrit (Bld) [Volume fraction]45.4 %Normal 40.7-50.3[facility] HospitalComment on above:Performed By: #### CDP, BMP, TROPI #### [address] [place] [id number] Continuous Process Rotary Drum Tanner: Ming Costello MDHemoglobin (Bld) [Mass/Vol]15.3 g/dLNormal 13.0-17.0[facility] HospitalComment on above:Performed By: #### CDP, BMP, TROPI #### [address] [place], [place] [address]83 Continuous Process Rotary Drum Tanner: Cezar Ambrosioture granulocytes/100 WBC (Bld)0 %Dakang7NrmeiSelect Medical Cleveland Clinic Rehabilitation Hospital, AvonComment on above:Performed By: #### CDP, BMP, TROPI #### [address] Hernandez, [place] [id number] Continuous Process Rotary Drum Tanner: Ming Costello MDLymphocytes (Bld) [#/Vol]2.63 10*3/uLNormal 1.10-3.70[facility], AvonComment on above:Performed By: #### DEBORAH, BMP, TROPI #### [address] Hernandez, [facility]83 Continuous Process Rotary Drum Tanner: Duarte Ambrosiomphocytes/100 WBC (Bld)29 %Gsprdi49-50WlgwhSelect Medical Cleveland Clinic Rehabilitation Hospital, AvonComment on above:Performed By: #### DEBORAH, BMP, TROPI #### [address] Hernandez, [facility]83 Continuous Process Rotary Drum Tanner: LESTER Ambrosio (RBC) [Entitic mass]30.8 qjWtqdnb12.2-33.5 [facility] HospitalComment on above:Performed By: #### DEBORAH, BMP, TROPI #### [address] Hernandez, [facility]83 Continuous Process Rotary Drum Tanner: LESTER AmbrosioC (RBC) [Mass/Vol]33.7 g/qEMtyivn15.4-34.8[facility] HospitalComment on above:Performed By: #### DEBORAH, BMP, TROPI #### [address] [place] [address] Continuous Process Rotary Drum Tanner: ARNOLDO AmbrosioCV (RBC) [Entitic vol]91.5 fXHedlob20.6-102.9 [facility] HospitalComment on above:Performed By: #### DEBORAH, BMP, TROPI #### [address] [place] [address] Continuous Process Rotary Drum Tanner: ARNOLDO Ambrosioonocytes (Bld) [#/Vol]1.08 10*3/uLNormal0.10-1.20 [facility] HospitalComment on above:Performed By: #### CDP, BMP, TROPI #### [address] [place] [address] Continuous Process Rotary Drum Tanner: ARNOLDO Ambrosioonocytes/100 WBC (Bld)12 %Normal3-12[facility], AvonComment on above:Performed By: #### CDP, BMP, TROPI #### [address] [place] [address] Continuous Process Rotary Drum Tanner: Ya Ambrosioutrophil (Seg)54 %Ftslwk89-84Ehtdl [facility]iffin HospitalComment on above:Performed By: #### CDP, BMP, TROPI #### [address] [place] [address] Continuous Process Rotary Drum Tanner: Ming Costello MDNRBC Automated0.0 per 100 WBCNormal0.0[facility] HospitalComment on above:Performed By: #### CDP, BMP, TROPI #### [address] [place] [address] Continuous Process Rotary Drum Tanner: Nasim Ambrosiotealexsander mean volume (Bld) [Entitic vol]9.6 fL Normal8.1-13.5[facility], AvonComment on above:Performed By: #### CDP, BMP, TROPI #### [address] [place], [place] [address] Continuous Process Rotary Drum Tanner: SERENE Ambrosiolatelets (Bld) [#/Vol]289 10*3/zXOjiiyr558-978 [facility] HospitalComment on above:Performed By: #### CDP, BMP, TROPI #### [facility] Lab [address] [place], [place] 9[address] Continuous Process Rotary Drum Tanner: SURESH Ambrosio (d) [#/Vol]4.96 10*6/uLNormal4.21-5.77[facility], AvonComment on above:Performed By: #### DINORA CABRERA TROPI #### [facility] [address] [place], [place] [id number] Continuous Process Rotary Drum Tanner: Ming Costello MDCUBA MEMORIAL [facility] ([facility]) [#/Vol]9.2 10*3/uLNormal3.5-11.3MMedina Hospital HospitalComment on above:Performed By: #### DINORA CABRERA, TROPI #### [facility] [address] [place], [place] [id number] Continuous Process Rotary Drum Tanner: Ming Costello MDCT HEAD WO CONTRASTon 20-29-2821QY HEAD WO CONTRASTEXAMINATION: CT OF THE HEAD WITHOUT CONTRAST 02/10/2023 [...] Signed by: Shayy Muse MD 02/10/23 Final resultNormalSelect Medical [facility] Hospital, AvonEthanol Alcoholon 13-51-5777Edkulrh [Mass/Vol]159 mg/dLHigh<10[facility], AvonComment on above:Performed By: #### ALCB #### [facility] Lab [address] [place] [address] Continuous Process Rotary Drum Tanner: Ming Costello MDEthanol percent0.159 %High<0.010[facility], AvonComaleda e. lutz [facility] center on above:Performed By: #### ALCB #### [facility] [address] [place] [address] Continuous Process Rotary Drum Tanner: Ming Costello MDTroponinon 39-32-0755Wdwwmneg, High Sens17 ng/L Normal0-22[facility], AvonComment on above:Result Comment: High Sensitivity Troponin values cannot be compared with other Troponin methodologies.Performed By: #### CDP, BMP, TROPI #### [facility] [address] [place] [address] Continuous Process Rotary Drum Tanner: MAITE AmbrosioR CHEST PORTABLEon 56-13-6950KL CHEST PORTABLE EXAMINATION: ONE XRAY VIEW OF [...] Signed by: Shayy Muse MD 02/10/23 Final resultNormalMerHospital for Special Care AUTO DIFFon 14-58-2645KTVB #0.1 103/ulNormal0.0-0.1Grant HospitalComment on above:Performed By: #### CBC #### [facility] [address] [place] [address] Dr. Micheline Ricosophils/100 WBC (Bld)1.0 %Normal0.2-2.0[facility] Comment on above:Performed By: #### CBC #### [facility] [address] [place] [address] Dr. Micheline Ramirez #0.3 103/ulNormal0.0-0.7The [facility] HospitalComment on above: Performed By: #### CBC #### [facility] [address] [place] [address] Dr. Micheline Tejadaosinophils/100 WBC (Bld)5.8 %Normal0.9-7.0The [facility] Comment on above:Performed By: #### CBC #### [facility] [address] [place] [address] Dr. Micheline Tejadarythrocyte distribution width (RBC) [Ratio]13.3 %Epmkwf45.0-15.0 The [facility] HospitalComment on above:Performed By: #### CBC #### [facility] [address] [place] [address] Dr. Micheline VenturaHematocrit (Bld) [Volume fraction]45.8 %Ryjbse95.0-54.0The [facility] HospitalComment on above:Performed By: #### CBC #### [facility] [address] [place] [address] Dr. Micheline VenturaHemoglobin (Bld) [Mass/Vol]15.3 g/tQWzwbgg00.0-18.0The [facility] Medical Centerment on above:Performed By: #### CBC #### [facility] [address] [place] [address] Dr. Micheline Tellez #0.00 10e3/ulNormal0.00-0.03The [facility] HospitalComment on above:Performed By: #### CBC #### [facility] [address] [place] [address] Dr. Micheline Tellez %0.0 %Normal0.0-0.5The [facility] HospitalComment on above: Performed By: #### CBC #### [facility] [address] [place] [address] Dr. Micheline GormanH #1.9 103/ulNormal1.2-3.8The [facility] HospitalComment on above:Performed By: #### CBC #### [facility] [address] [place] [address] Dr. Micheline Sheikhmphocytes/100 WBC (Bld)37.1 %Vzwvhm53.5-60.0The [facility] HospitalComment on above:Performed By: #### CBC #### [facility] [address] [place] [address] Dr. Micheline MillerUAL DIFF REQNONormalThe [facility] HospitalComment on above: Performed By: #### CBC #### [facility] [address] [place] [address] Dr. Micheline Shankar (RBC) [Entitic mass]30.7 bgZgsusl69.9-34.0The [facility] HospitalComment on above:Performed By: #### CBC #### [facility] [address] [place] [address] Dr. Micheline Shankar (RBC) [Mass/Vol]33.4 g/lVDotxen76.9-35.2The [facility] HospitalComment on above:Performed By: #### CBC #### [facility] [address] [place] [address] Dr. Micheline Shankar (RBC) [Entitic vol]91.8 wGAludou18.0-94.0The [facility] Rehabilitation HospitalComment on above:Performed By: #### CBC #### [facility] [address] [place] [address] Dr. Micheline Martínez #0.6 103/ulNormal0.3-0.8The [facility] HospitalComment on above:Performed By: #### CBC #### [facility] [address] [place] [address] Dr. Micheline Cardenasocytes/100 WBC (Bld)11.3 %Normal1.7-12.0The [facility] Comment on above:Performed By: #### CBC #### [facility] [address] [place] [address] Dr. Micheline Cheng #2.3 103/ulNormal1.4-6.5The [facility] HospitalComment on above:Performed By: #### CBC #### [facility] [address] [place] [address] Dr. Micheline Izaguirreutrophils/100 WBC (Bld)44.8 %Qfjeco82.0-75.0The [facility] on above:Performed By: #### CBC #### [facility] [address] [place] [address] Dr. Micheline Jacksonlet mean volume (Bld) [Entitic vol]9.5 fLNormal9.5-13.5The [facility] HospitalComment on above:Performed By: #### CBC #### [facility] [address] [place] [address] Dr. Micheline VenturaPLT292 103/qaRtkibo654-607Aau [facility] HospitalComaleda e. [facility] on above: Performed By: #### CBC #### [facility] [address] [place] [address] Dr. Micheline VenturaRBC4.99 106/ulNormal4.70-6.10The [facility] HospitalComment on above:Performed By: #### CBC #### [facility] [address] [place] [address] Dr. Micheline VenturaWBC5.2 103/ulNormal4.0-11.0The [facility] HospitalComment on above: Performed By: #### CBC #### [facility] [address] [place] [address] Dr. Micheline BishopID PROFILEon 10-82-1212MESK-HDL RATIO NORMSTrinity Health System Twin City Medical CenterComment on above:Result Comment: 3.3 - 4.4 LOW RISK 4.4 - 7.1 AVERAGE RISK 7.1 - 11.0 MODERATE RISK >11.0 HIGH RISKPerformed By: #### CMP, LIPID #### [facility] [address] [place] [address] Dr. Micheline VenturaCholesterol [Mass/Vol]169 mg/dLNormal<=200The [facility] Comment on above:Performed By: #### CMP, LIPID #### [facility] [address] [place] [address] Dr. Yilan ChangCholesterol in HDL [Mass/Vol]49 mg/zWWvqhpo32-85UbnGrant HospitalComment on above:Performed By: #### CMP, LIPID #### [facility] [address] [place] [address] Dr. Micheline VenturaCholesterol in LDL [Mass/Vol]97.6 mg/dLNoKeenan Private HospitalComment on above:Performed By: #### CMP, LIPID #### [facility] [address] [place] [address] Dr. Micheline Fajardo.total/Cholesterol in HDL [Mass ratio]3.4 {ratio} NormalThe [facility] HospitalComment on above:Performed By: #### CMP, LIPID #### [facility] [address] [place] [address] Dr. Micheline Raymond NORMAL> or = 60 mg/dl - LOW CARDIOVASCULAR RISK <40 mg/dl - HIGH CARDIOVASCULAR RISKNoKeenan Private HospitalComment on above:Performed By: #### CMP, LIPID #### [facility] [address] [place] [address] Dr. Micheline Bowling CALC NORMALSEE BELOWAccess Hospital DaytonComment on above:Result Comment: <100 mg/dl OPTIMAL 100 - 129 mg/dl NEAR OR ABOVE OPTIMAL 130 - 159 mg/dl BORDERLINE HIGH 160 - 189 mg/dl HIGH >190 mg/dl VERY HIGH Performed By: #### CMP, LIPID #### [facility] [address] [place] [address] Dr. Micheline VenturaTriglyceride [Mass/Vol]112 mg/dLNormal<=150The [facility] Comment on above:Performed By: #### CMP, LIPID #### [facility] [address] [place] [address] Dr. Micheline CantorLDL CALC22.4 mg/dLNoKeenan Private HospitalComment on above: Performed By: #### CMP, LIPID #### [facility] [address] [place] [address] Dr. Micheline VenturaPROF 14(COMP METB)on 41-48-3602Otmekzf [Mass/Vol]4.0 g/dLNormal 3.4-5.0The [facility] HospitalComment on above:Performed By: #### CMP, LIPID #### [facility] [address] [place] [address] Dr. Micheline VenturaAlbumin/Globulin [Mass ratio]1.1 {ratio}NormalThe [facility] HospitalComment on above:Performed By: #### CMP, LIPID #### [facility] [address] [place] [address] Dr. Micheline Fine [Catalytic activity/Vol]70 U/YJdzezw78-888Psj [facility] HospitalComment on above:Performed By: #### CMP, LIPID #### [facility] [address] [place] [address] Dr. Micheline Stewart [Catalytic activity/Vol]80 U/LCritically akua17-14Dqt [facility] HospitalComment on above:Performed By: #### CMP, LIPID #### [facility] [address] [place] [address] Dr. Micheline Thomas gap [Moles/Vol]12.6 mmol/LNormalThe [facility] Comment on above:Performed By: #### CMP, LIPID #### [facility] [address] [place] [address] Dr. Micheline Burns [Catalytic activity/Vol]37 U/GYyjswq10-50Ftc [facility] HospitalComment on above:Performed By: #### CMP, LIPID #### [facility] [address] [place] [address] Dr. Micheline VenturaBilirubin [Mass/Vol]1.1 mg/dLCritically high0.2-1.0The [facility] HospitalComment on above:Performed By: #### CMP, LIPID #### [facility] [address] [place] [address] Dr. Micheline VenturaCalcium [Mass/Vol]9.5 mg/dLNormal8.5-10.1[facility] Comment on above:Performed By: #### CMP, LIPID #### [facility] [address] [place] [address] Dr. Micheline VenturaChloride [Moles/Vol]105 mmol/NJrhdhn32-814Rwt [facility] Comment on above:Performed By: #### CMP, LIPID #### [facility] [address] [place] [address] Dr. Micheline VenturaCO2 [Moles/Vol]29.8 mmol/GJwxhks68.0-32.0The [facility] Comment on above:Performed By: #### CMP, LIPID #### [facility] [address] [place] [address] Dr. Micheline VenturaCreatinine [Mass/Vol]0.99 mg/dLNormal0.70-1.30The [facility] HospitalComment on above:Performed By: #### CMP, LIPID #### [facility] [address] [place] [address] Dr. Micheline TejadaGFR-AF COSTA RICAN>60Normal>=60The [facility] HospitalComment on above:Performed By: #### CMP, LIPID #### [facility] [address] [place] [address] Dr. Micheline TejadaGFR-NON AF COSTA RICAN>60Normal>=60The [facility] HospitalComment on above:Performed By: #### CMP, LIPID #### [facility] [address] [place] [address] Dr. Micheline VenturaGlobulin (S) [Mass/Vol]3.8 g/dLNormalThe [facility] HospitalComment on above:Performed By: #### CMP, LIPID #### [facility] [address] [place] [address] Dr. Micheline VenturaGlucose [Mass/Vol]99 mg/kGWnfiug64-197Ljb [facility] Comment on above:Performed By: #### CMP, LIPID #### [facility] [address] [place] [address] Dr. Micheline VenturaPotassium [Moles/Vol]4.4 mmol/LNormal3.5-5.1The [facility] Comment on above:Performed By: #### CMP, LIPID #### [facility] [address] [place] [address] Dr. Yilan ChangProtein [Mass/Vol]7.8 g/dLNormal6.4-8.2[facility] Comment on above:Performed By: #### CMP, LIPID #### [facility] [address] [address] [address] Micheline Hsiehdium [Moles/Vol]143 mmol/CKztpsh019-841Jxp [facility] Comment on above:Performed By: #### CMP, LIPID #### [facility] [address] [address] [address] Micheline VenturaUrea nitrogen [Mass/Vol]8.0 mg/dLNormal7.0-18.0The [facility] HospitalComment on above:Performed By: #### CMP, LIPID #### [facility] [address] [address] [address] Micheline Lopez nitrogen/Creatinine [Mass ratio]8.1 mg/mgNormalThe [facility] HospitalComment on above:Performed By: #### CMP, LIPID #### [facility] [address] [address] [address] Micheline Manzoc Metabolic Panelon 59-84-0870Oyfpp gap [Moles/Vol]12 mmol/L9 - 17 mmol/LMmercy health kings mills hospitaly [facility]- [place], KYBun/Cre Tocbg14Ghfay Health- [place], KYCalcium [Mass/Vol]10.3 mg/dL8.6 - 10.4 mg/dLWilson [facility]- [place], KYChloride [Moles/Vol]100 mmol/L98 - 107 mmol/LMadams county regional medical center Health- [place], KYCO2 [Moles/Vol]28 mmol/L20 - 31 mmol/L [facility], KYCreatinine [Mass/Vol]0.79 mg/dL0.7 - 1.2 mg/dLMiddletown Hospital Health- [place], KYGFR >60>60 mL/minMiddletown Hospital Health- [place], KYGFR Non->60>60 mL/minMiddletown Hospital Health- [place], KYGlucose [Mass/Vol]96 mg/dL70 - 99 mg/dL [facility]- [place], KYPotassium [Moles/Vol]4.4 mmol/L3.7 - 5.3 mmol/LMercy Health- [place], KYSodium [Moles/Vol]140 mmol/L135 - 144 mmol/LMKettering Health [place], KYUrea nitrogen [Mass/Vol]12 mg/dL8 - 23 mg/dLMercy Health [facility], MACBC Auto Differential on 98-28-7107Kdbnaagxo (Bld) [#/Vol]0.05 10*3/[facility], [place] Basophils/100 WBC (Bld)1 %0 - 2 %[facility], MADifferential TypeNOT REPORTEDMercy Health [facility], KYEosinophils (Bld) [#/Vol]0.35 10*3/[facility], KYEosinophils/100 WBC (Bld)6 %High1 - 4 %[facility], MAErythrocyte distribution width (RBC) [Ratio]13.2 %11.8 - 14.4 %[facility], [place] Hematocrit (Bld) [Volume fraction]48.2 %40.7 - 50.3 %[facility], [place] Hemoglobin (Bld) [Mass/Vol]15.9 g/dL13 - 17 g/dLMercy Health [facility], MAImmature granulocytes (Bld) [#/Vol]0 %0[facility], MAImmature granulocytes (Bld) [#/Vol]10*3/[facility], MAInterpretation and review of laboratory resultsAbnormUC [facility], MALymphocytes (Bld) [#/Vol]2.00 10*3/[facility], SIENALymphocytes/100 WBC (Bld)32 %24 - 43 %[facility], MAMCH (RBC) [Entitic mass]30.5 pg25.2 - 33.5 pgMercy Health – [facility], MAMCHC (RBC) [Mass/Vol]33.0 g/dL28.4 - 34.8 g/dLMercy Health – [facility], MAMCV (RBC) [Entitic vol] 92.3 fL82.6 - 102.9 fLMercy Health – [facility], SIENAMonocytes (Bld) [#/Vol]0.78 10*3/uL [facility], KYMonocytes/100 WBC (Bld)12 %3 - 12 %[facility] HospitalSIENA Platelet mean volume (Bld) [Entitic vol]9.5 fL8.1 - 13.5 fLMercy Health – [facility] Hospital MA Platelets (Bld) [#/Vol]248 10*3/uLMercy Health – [facility] Hospital MAPlatelets (Bld) [#/Vol]NOT REPORTEDMercy Health – [facility] MARBC (Bld) [#/Vol]5.22 10*6/uL4.21 - 5.77 m/uLWaterville, KYRBC morphology finding Nom (Bld)NOT REPORTEDWaterville, [place] Segmented neutrophils/100 WBC (Bld)49 %36 - 65 %[facility] HospitalSIENASegs Absolute3.13[place], KYWBC (Bld) [#/Vol]0.0 10*3/uL0.0 per 100 WBCWaterville, KYWBC (Bld) [#/Vol]6.3 10*3/uLMercy Health – [facility], SIENAWBC MorphologyNOT REPORTEDSelect Medical [facility] SIENAMetabolic Panelon 09-16-7692MAJ/1.73 sq M predicted among non-blacks MDRD (S/P/Bld) [Vol rate/Area][facility] MAComment on above:Stage 1: Some kidney damage normal GFR Stage 2: Mild kidney damage GFR 60-89 Stage 3: Moderate kidney damage GFR 30-59 Stage 4: Severe kidney damage GFR 15-29 Stage 5: Severe kidney damage GFR <15 ESRD - chronic treatment by dialysis or transplant Average GFR for 60-69 years old: 85 mL/min/1.73sq m Chronic Kidney Disease: <60 mL/min/1.73sq m Kidney failure: <15 mL/min/1.73sq m eGFR calculated using average adult body mass. Additional eGFR calculator available at: http://www.[facility]/multiple_crcl_2011.htm XR CHEST STANDARD (2 VW)on 92-18-5399Wy acute cardiopulmonary process.[place], KYEXAMINATION: TWO XRAY VIEWS OF THE CHEST 03/08/2019 9:49 am COMPARISON: None. HISTORY: ORDERING SYSTEM PROVIDED HISTORY: Acute medial meniscal tear, left, subsequent encounter TECHNOLOGIST PROVIDED HISTORY: left knee meniscus tear FINDINGS: The cardiomediastinal contours are within normal limits. The lungs are clear bilaterally. There is no evidence of focal consolidation, pulmonary edema, pleuraleffusion or pneumothorax. There is no blunting of the costophrenic angles on the lateral view.[facility] Jewish HospitalArturo Mhpn Incoming Radiant Results From [employer] - 03/08/2019 10:48 AM EDT EXAMINATION: TWO [...] lateral view. IMPRESSION: No acute cardiopulmonary process. [facility] Jewish HospitalCarli 10-05-2018L Specimen: [id number] Received: 10/05/18 Status: LEIDA Bates Num: [id number] Spec Type: Surgical Subm Dr: Julius Carson DO Tissues: A Colon - Polyp (COLON POLYP @ 70 CM) Procedures: HE Stain/2, Gross/Micro L4 Patient Age/Sex Location Account Attending Physician JohnstonMerlin 68/M RT4 [id number] Julius Carson DO SPEC NUM: [id number] RECD: 10/05/18 STATUS: LEIDA KARTHIKEYAN NUM: [id number] VAMSI: 10/05/18- SUBM DR: Julius Carson DO ENTERED: 10/05/18-[address] [facility] [address]: BASIM TYPE: Surgical DEPT: S ORDERED: HE [...] microscopic findings support the above pathologic diagnosis. [address] A. - - COLON POLYP @ 70 CM Specimen: [id number] Received: 10/05/18 Status: LEIDA Bates Num: [id number] Spec Type: Surgical Subm Dr: Julius Carson DO Tissues: A Colon - Polyp (COLON POLYP @ 70 CM) Procedures: HE Stain/2, Gross/Micro L4 Patient: Merlin Johnston [id number] (Continued) Signed (signature on file) Chalo Ibrahim MD 10/06/18 1330 [facility] Vital Signs Date TimeVital SignValuePerforming RoqfefvyzLssskvab47-80-9796 09:55-0400Body xzjurm426.8 cmYves Snowden MD Work Phone: [facility]06-27-2025 09:55-0400 Body mass index (BMI) [Ratio]27.3 kg/v9MteitiYves Snowden MD Work Phone: [facility]06-27-2025 09:55-0400 Body fihelz61.35 kgYves Snowden MD Work Phone: [facility]06-27-2025 09:55-0400 Diastolic blood corgyuvi52 mm[Hg]Yves Snowden MD Work Phone: [facility]06-27-2025 09:55-0400 Heart rate84 /Yeimi Snowden MD Work Phone: [phone]46[facility]06-27-2025 09:55-0400 Respiratory rate12 /Yeimi Snowden MD Work Phone: [phone]17[facility]06-27-2025 09:55-0400 SaO2% (BldA) [Mass fraction]97 %Yves Snowden MD Work Phone: [phone]06-27-2025 09:55-0400 Systolic blood ckazcbfv471 mm[Hg]Yves Snowden MD Work Phone: [phone]05-12-2025 10:29-0400 Body zmyhyn196.8 cmAshtabula County Medical Center05-12-2025 10:29-0400Body mass index (BMI) [Ratio]27.5 kg/v7VwtaovjjtAshtabula County Medical Center05-12-2025 10:29-0400Body xrumok34.08 kgAshtabula County Medical Center05-12-2025 10:29-0400Diastolic blood rrehtrhg64 mm[Hg][facility] 11-27-2024 10:29-0400Heart rate71 /[facility] 11-27-2024 10:29-0400Systolic blood enrtewhk631 mm[Hg][facility]07-08-2024 13:26-0400Blood Pressure LocationTuba City [facility]07-08-2024 13:26-0400Diastolic blood trtjioco96 mm[Hg]Abdi MCINTOSH [facility]07-08-2024 13:26-0400Heart uzpu253 /minPatrick MCINTOSH [facility]07-08-2024 13:26-0400Respiratory rate16 /minPatrick MCINTOSH [facility]07-08-2024 13:26-0400Systolic blood kacmqtpd768 mm[Hg]Abdi MCINTOSH [facility]06-10-2024 11:14-0400Body .8 cmAshtabula [facility] Center06-10-2024 11:14-0400Body mass index (BMI) [Ratio]26.1 kg/i8AlvzldocjAshtabula County Medical Center06-10-2024 11:14-0400Body wiqgdu72.55 kgAshtabula County Medical Center06-10-2024 11:14-0400Diastolic blood mfholoqh21 mm[Hg] [facility]06-10-2024 11:14-0400Heart rate76 /[facility]06-10-2024 11:14-0400Systolic blood xgppfogb414 mm[Hg] [facility]04-17-2024 11:06-0400Body kfhwqi338.8 cm [facility]04-17-2024 11:06-0400Body mass index (BMI) [Ratio]26.5 kg/i5ZrscvnqtaAshtabula County Medical Center04-17-2024 11:06-0400Body mwqbqyysece46.8 [degF][facility]04-17-2024 11:06-0400Body mnizfw75.91 kgAshtabula County Medical Center04-17-2024 11:06-0400Diastolic blood mm[Hg][facility]04-17-2024 11:06-0400 Heart rate77 /[facility]04-17-2024 11:06-5669EaF0% (BldA) [Mass fraction]97 %[facility]04-17-2024 11:06-0400 Systolic blood nvoqyaue162 mm[Hg][facility]12-11-2023 11:08-0500Blood Pressure LocationPabharathi Mirror42 [facility]12-11-2023 11:08-0500Diastolic blood eqacaztb73 mm[Hg]Abdi Mirror42 [facility]12-11-2023 11:08-0500Heart rate69 /minPROSimity [facility]12-11-2023 11:08-0500Respiratory rate16 /minPROSimity [facility]12-11-2023 11:08-0500Systolic blood mm[Hg]Abdi Mirror42 [facility]10-23-2023 09:30-0400Body bmjwou607.8 cmYves Snowden Other QA on Request Other 10-23-2023 09:30-0400Body mass index (BMI) [Ratio] 25.54 kg/g9KfhwstYves Snowden Other QA on Request Other 10-23-2023 09:30-0400Body yefjtv45.74 kgYves Snowden Other noLinio Other 10-23-2023 09:30-0400Diastolic blood psfpwqiy86 mm[Hg] Yves Snowden Other QA on Request Other 10-23-2023 09:30-0400Systolic blood ayjzvjuq007 mm[Hg] Yves Snowden Other QA on Request Other 07-03-2023 10:45-0400Body iwpiwg136.8 cmYves Sp Other noLinio Other 07-03-2023 10:45-0400Body mass index (BMI) [Ratio] 25.54 kg/c3Uapmij Sp Other noLinio Other 07-03-2023 10:45-0400Body mjhvcu02.74 kgYves Sp Other QA on Request Other 07-03-2023 10:45-0400Diastolic blood mm[Hg] Yvesguanaco Snowden Other QA on Request Other 07-03-2023 10:45-0400Systolic blood zspicttd625 mm[Hg] Yves Sp Other noLinio Other 04-24-2023 11:00-0400Diastolic blood xwndrqji68 mm[Hg] Kathi Her DO Work Phone: [employer]04-24-2023 11:00-0400Heart rate74 /minKathi Her DO Work Phone: [employer]04-24-2023 11:00-0400 Respiratory rate20 /minKathi Her DO Work Phone: [employer]04-24-2023 11:00-5446VnZ3% (BldA) [Mass fraction]94 %Kathi Her DO Work Phone: [email or web address]04-24-2023 11:00-0400Systolic blood mm[Hg]Kathi Her DO Work Phone: [employer]04-24-2023 10:30-0400Body .01 [degF]Kathi Her DO Work Phone: [facility] SpecifiedByCRHKBB40-89-0618 08:56-0400Body buajix945.8 cmKathi Her DO Work Phone: [facility]ENTERQwaq UGVQYT03-36-1945 13:11-0400Body mass index (BMI) [Ratio]40.18 kg/k2FxesrKathi Her DO Work Phone: [facility]ENTERGrow04-07-2023 13:11-0400Body eoskhg235.01 kgBlair Her DO Work Phone: [facility] Encounters Encounter DateEncounter TypeCare ProviderFacilityStart: 17-78-6863kdxuayalag Abdi MCINTOSHFacility:CROW BellevueStart: 04-16-2025 End: 77-79-2210Brtake flowsheetAlison L Yoanna PA Work Phone: [facility]atologyStart: 04-16-2025 End: 04-45-9274Bpxctf flowsheetAlison L Yoanna PA Work Phone: [facility] [place] [facility]ermatologyStart: 04-16-2025 End: 58-69-8186Ezwjodq encounter procedureAlison L Yoanna PA Work Phone: [facility] [place] DermatologyComment on above:Common wart (Primary Dx); Other specified erythematous conditions; Inflamed seborrheic keratosisStart: 04-16-2025 End: 86-62-7374nqlveanvpiOMDGIN L WINANSNot AvailableStart: 03-13-2025 End: 11-78-3015Fwkmca flowsheetAlison L Yoanna PA Work Phone: [facility] [place] [facility]ermatologyStart: 03-13-2025 End: 28-51-7655Csaozr flowsheetAlison L Yoanna PA Work Phone: [facility] [place] [facility]ermatologyStart: 03-13-2025 End: 62-48-1483Cssnwfu encounter procedureAlison L Yoanna PA Work Phone: [facility] [place] DermatologyComment on above:Common wart (Primary Dx); Inflamed seborrheic keratosis; Other specified erythematous conditionsStart: 03-13-2025 End: 38-60-2864ljslsoluhoBWNXJP L YOANNANot AvailableStart: 02-07-2025 End: 57-79-5453Ojjjuy flowsheetAlison Virgil Lenz PA Work Phone: [facility] DERMStart: 02-07-2025 End: 42-73-9511Qjieaj flowsheetAlison L Yoanna PA Work Phone: [facility] DERMStart: 02-07-2025 End: 13-72-5093Nmwset outpatient visit 15 minutesAlison Virgil Lenz PA Work Phone: [facility] DERMComment on above:Seborrheic keratosis (Primary Dx); Personal history of squamous cell carcinoma of skin; Actinic keratosis; Common wart; Pain; Melanocytic nevus of trunk; Other pruritus; Seborrheic keratosis, inflamedStart: 02-07-2025 End: 69-03-4009dbcpzvyqocTXHWEG L YOANNANot AvailableStart: 01-26-2025 End: 01-00-0790vlqxmthvgkRbtaqiu R WATERSFacility:EU tart: 01-26-2025 End: 46-27-2522Csycorv encounter procedureAbdi MCINTOSH [facility] start: 01-16-2025 End: 54-14-0807Eok Drop offAbdi MCINTOSH [facility] Start: 01-16-2025 End: 48-97-3147kodpiauoufZoqrpdv R WATERSFacility:EU BellevueStart: 01-16-2025 End: 50-85-9572Fgasqeh encounter procedureAbdi MCINTOSH [facility] start: 01-12-2025 End: 62-91-2198ecshhyurwqOohxht E Braun MD Work Phone: [facility] Work Phone: Start: 01-12-2025 End: 53-67-0768Lmwobwz encounter procedureYves Snowden MD-[facility] Work Phone: Start: 73-46-5867Cri-patient / Non-visitYves Snowden MD-[facility] Work Phone: Start: 11-27-2024 End: 54-54-2345ubjqptdmglEkyzvwfudSelect [facility] Work Phone: Start: 11-27-2024 End: 49-01-8799Aclhjrt encounter procedureFormerly [facility]1983[facility] Work Phone: Start: 10-17-2024 End: 10-83-1904Nxakmw flowsheetAlison L Yoanna PA Work Phone: [facility] DERMStart: 10-17-2024 End: 00-82-8954Nqdxvi flowsheetAlison L Yoanna PA Work Phone: [facility] DERMStart: 10-17-2024 End: 89-85-8739Xuyyrs outpatient visit 10 minutesAlison L Yoanna PA Work Phone: [facility]oms [facility] DERMComment on above:Melanocytic nevus of trunk (Primary Dx); Inflamed seborrheic keratosisStart: 10-17-2024 End: 97-80-4575nzccrettcyGQIVQH L WINANSNot AvailableStart: 06-26-2024 End: 80-16-7817dqkoxcsyonRjwzbui Vytautas Giedraitis MDFacility:PM Leo Start: 06-12-2024 End: 24-84-3492rhjwvynwjqMfuagvs Vytautas Giedraitis MDFacility:PM Zahira Start: 01-24-2024 End: 34-28-4870Wghxtlo encounter procedurePabharathi Esther MCINTOSH [facility] start: 01-03-2024 End: 48-32-6545zmoflyudmxTxlaszl Vytautas Giedraitis MDFacility:PM Leo Start: 96-90-1657Whicvqj encounter procedureAs[facility] Start: 12-27-2023 End: 79-91-7496mxvqwjgplrIprsmvomeSelect Medical [facility] Work Phone: Start: 12-27-2023 End: 13-29-7968Pxkkddo encounter procedureNov[facility] Work Phone: Start: 14-26-4690Ulm-patient / Non-visitNovant Health Rehabilitation Hospital [facility] Work Phone: Start: 12-20-2023 End: 66-98-2447xqpwqualgxMoumyyc Vytautas Oliviaedraitis MDFacility:PM Leo Start: 09-35-8931Lrzpyqu encounter statusPremier Health Miami [facility] Hospital Northtart: 11-03-2023 End: 54-81-8089qudyhskusiWyinpdtqtSelect Medical Specialty [facility] Work Phone: Start: 11-03-2023 End: 62-38-1085Kolycpn encounter procedureNovant Health [facility] Work Phone: Start: 08-25-2023 End: 47-90-0479bchbxnofcoCilvqv Braun Other noJOOR [employer] Other Start: 13-49-6870Ptplbilrm encounterMarcia [facility] Centertart: 08-24-2023 End: 86-42-4509wldefckdvhPsuqeh Sp Other noJOOR [employer] Other Start: 13-24-5977Djykpcwho encounterMarcia SpBrown Memorial Hospitaltart: 06-30-2023(Televisit) TelevisitMarcia Clare [facility] Hospitaltart: 06-30-2023 End: 68-64-7587izixylwttqSzrwiy Snowden Other noLinio Other Start: 06-28-2023 End: 57-97-2063Imdysxo encounter procedurePatrick Esther MCINTOSH [facility] start: 05-10-2023 End: 93-00-4379uhrjohdwumSyzobn Sp Other noLinio Other Start: 17-70-5104Kwcwfv outpatient visit 15 minutes Yves Sparks [facility] Hospitaltart: 04-12-2023 End: 42-92-7905ecslzskmceBLBRFJ [facility]: 04-01-2023 End: 69-45-2345ouelbfooxhOnqiyt Snowden Other noLinio Other Start: 06-88-1588Ickrxkunk encounterMarcia Clare [facility] Hospitaltart: 02-10-2023 End: 09-07-5772Rcjwmylkv department patient visitMARCIA [facility] Hospitaltart: 01-18-2023 End: 24-21-7620qmoereiwagNdfvbl Snowden Other noLinio Other Start: 83-36-6651Rmolpy outpatient visit 25 minutes [facility]ves [facility] ClinicStart: 31-84-9881Pjoqwoxru encounterMarcia Clare [facility] Hospitaltart: 01-08-2023 End: 35-17-7148vihbuhiyguNnjmlm Snowden Other noLinio Other Start: 44-98-8148Hrdwbzzpi encounterMarcia SpBrown Memorial Hospitaltart: 12-29-2022 End: 40-41-0875mmhxkukfasMCXZRK SPSelect Medical Specialty [facility] HospitalStart: 11-23-2022 End: 97-19-0311yeqyuxyqkaKCAUGB SPSelect Medical Specialty Hospital [facility] South HospitalStart: 11-23-2022 End: 23-97-1481sbontzftmvBMPJXG Charles SPFacility:W6Ujeyd: 11-09-2022 End: 21-03-1400nihudvxaykXFRMLE SPCoshocton Regional Medical Centerdomingo [facility] HospitalStart: 11-09-2022 End: 29-52-1504Iejqpxenhx hospital visit by Dirk Her DO Work Phone: mtHZ ORStart: 03-08-2019 End: 55-79-1644Oyphjvlpte hospital visit by Maria Skinner 2MTHZ LaboratoryComment on above:Acute medial meniscal tear, left, subsequent encounterStart: 10-05-2018 End: 93-13-3610Mtqqqft encounter procedureFredric ItzkowitzFacility:[facility] Procedures DateProcedureProcedure DetailPerforming ClinicianStart: 04-16-2025 End: 01-70-2111OYYKQJMIWSS SKIN LESIONAlison L Yoanna PA Work Phone: Start: 03-13-2025 End: 72-53-7901WCNGEKJMFFV SKIN LESIONAlison L Yoanna PA Work Phone: Start: 02-07-2025 End: 74-23-2127NFNMSVFCERN SKIN LESIONAlison L Yoanna PA Work Phone: Start: 38-57-3365NTWZKVGVDHT SKIN LESIONAlison L Yoanna PA Work Phone: Start: 43-42-5877YWP screeningMARCIA BRAUNComment on above:Performed By: #### PSASC #### [facility] [address] [place] [address] Dr. Micheline VenturaStart: 55-72-7308Jwojwbqirc exam chest 2 viewsBruce Arslan Heck Work Phone: Start: 16-57-2089Juh routine ecg w/least 12 lds w/i&r Trever Crystal Work Phone: [phone]: 36-08-8032Uxqxr metabolic panel calcium total Trever Crystal Work Phone: [phone]: 25-16-9917Siica count complete auto&auto difrntl wbcBruce Arslan Crystal Work Phone: [phone]: 83-90-7837BmomfzvzjuaDqjdbo Yoanna MOREIRA Work Phone: cataract (disorder)Abdi MCINTOSH ColonoscopyPatrick KEHINDE TonsillectomyPatricjames MCINTOSH Plan of Treatment DateCare ActivityDetailAuthorStart: 08-83-6195Ghnsgbyrr for malignant neoplasm of colonNOMS HealthcareStart: 98-43-0841Dvhlupoir for malignant neoplasm of colonFIT-DNANOMS HealthcareStart: 02-08-2026 End: 11-17-7998Jarpipp encounter procedureNOMS TSR DERMStart: 05-16-2025 End: 56-09-7573Iytywud encounter zfnmfdoiv94/29/2025 8:40 AM EDT Office Visit [facility] [address] [place] [address] Jillian Lenz PA [address] [place] [address] NOMIliana Hernandez DermatologyStart: 04-16-2025 End: 91-55-9281Xredhod encounter procedureNOMS [place]atur DermatologyComment on above:ArrivedStart: 89-93-8166Dzsrpdlyo vaccinationInfluenza Vaccine (#1)[facility] HealthcareStart: 03-13-2025 End: 88-28-2936Rgvwrgs encounter procedureNOMS TSR DERMComment on above:Arrived Start: 02-07-2025 End: 73-85-0280Nhkghrn encounter procedureNOMS TSR DERMComment on above:Arrived Start: 10-17-2024 End: 13-92-7079Wkayrsa encounter hnwsioxiy64/01/2025 9:10 AM EDT Office Visit [facility] [address] [place] [address] Jillian Lenz, PA [address] [place] [address] ArrivedNOMS TSR DERMComment on above:ArrivedStart: 02-16-2023 Influenza vaccinationFlu vaccine (Season Ended)[facility]: 11-09-2022 End: 45-64-3825Tdjmmj ctrc rmvl insj io lens prosth w/o ecpEYE CATARACT EMULSIFICATION IOL IMPLANT Nuclear sclerotic cataract of both eyes 11/09/2022 10:05 AMEDOhioHealth [facility] HospitalStart: 43-29-9070Icgktlatu vaccinationFlu vaccine (#1)[facility]: 14-15-5327Aepzkwosb aortic aneurysm screeningAAA screenBON [facility]: 17-44-2462Wxsijbnnfoip 65+ years Vaccine (1 - PCV)Pneumococcal 65+ years Vaccine (1 - PCV)[facility]: 61-61-7402Wrkugmnseijf 65+ years Vaccine (1 of 2 - PCV13) Pneumococcal 65+ years Vaccine (1 of 2 - PCV13)[facility]: 73-93-6933Nylwp cancer screen colonoscopyColon cancer screen colonoscopyBlanchard Valley Health System: 95-67-0210Tvngehgv Vaccine (1 of 2)Shingles Vaccine (1 of 2)[facility]: 92-20-6135Eechkjadl for malignant neoplasm of colonBON [facility]: 96-68-3889Gfqne panelLipidsBON [facility]: 07-46-2645Cdwkq screenLipid screenBlanchard Valley Health System: 75-32-9050MOkM/Tdap/Td vaccine (1 - Tdap)DTaP/Tdap/Td vaccine (1 - Tdap)[facility]: 40-89-2500Lawwhxgsq C screeningHepatitis C screenBON [facility]: 76-11-8031Jskdaaltmh ScreenDepression ScreenBON [facility]ENTERStart: 71-04-2970RPKMU-19 Vaccine (#1)COVID-19 Vaccine (#1) BON [facility]ENTERStart: 68-09-1356QOR screenAAA screenWaterville, [place]Start: 96-93-1440Uyvuizpzx C screenHepatitis C screenWaterville, [place] Start: 97-68-7383Nickghrsq for malignant neoplasm of colonBEAVER VALLEY [facility] HealthcareEKG 12 LeadEKG 12 Lead ECG Routine 03/08/2019 9:20 AM [place], [place]Oxygen therapy [Minimum Data Set]Initiate Oxygen Therapy Protocol Respiratory Care Routine Daily until discontinued starting 3BON [facility] Work Phone: comment on above:Daily until discontinued starting 11/09/2022[facility] Immunizations Immunization DateImmunizationNotesCare GfxpsownQfbmgdvm49-20-6746dsrvzcmvu virus vaccine, unspecified formulationMeion Yoanna MOREIRA Work Phone: [facility] SystemJwlidhjdhi30-53-3552dhikswaxs virus vaccine, unspecified formulationPatrick Mirror42 [facility]10-24-2022influenza virus vaccine, unspecified formulationPatrick Mirror42 [facility]08-24-2022zoster vaccine recombinantPatrick Mirror42 [facility]06-09-2022zoster vaccine recombinantPatrick Mirror42 [facility]01-06-2022influenza virus vaccine, unspecified formulationPatrick Mirror42 [facility]01-06-2022pneumococcal conjugate vaccine, 13 valentPaHaul Zing. [facility]12-16-2021SARS-CoV-2 (COVID-19) mRNA-1273 vaccinePROSimity [facility]03-31-2021SARS-CoV-2 (COVID-19) mRNA-1273 vaccinePROSimity [facility]03-02-2021SARS-CoV-2 (COVID-19) mRNA-1273 vaccinePROSimity [facility] HospitalComment on above:Result Comment: 2023-06-28: GPT6840-92-0091mdngbmt toxoid, reduced diphtheria toxoid, and acellular pertussis vaccine, adsorbed Abdi MCINTOSH [facility]10-07-2019influenza virus vaccine, unspecified formulationPaHaul Zing. [facility]10-26-2018influenza virus vaccine, unspecified formulationPaHaul Zing. [facility]10-26-2018pneumococcal polysaccharide vaccine, 23 valentPROSimity [facility]10-05-2017influenza virus vaccine, unspecified formulationPaHaul Zing. [facility]10-05-2017pneumococcal conjugate vaccine, 13 valentPROSimity [facility]10-08-2016influenza virus vaccine, unspecified formulationPROSimity [facility]10-18-2014influenza virus vaccine, unspecified formulationPaHaul Zing. [facility]10-31-2013influenza virus vaccine, unspecified formulationPaHaul Zing. [facility] Payers DatePayer CategoryPayerPolicy [id number] Health Insurance [id number] [id number] 2019Self-pay2019MedicareMEDICARE MEDICARE PART A AND B xxxxxxxxxxx 2018-Present [phone] [address] [place] [address] xxxxxxxxxxx [id number] COMMERCIAL GENERIC COMMERCIAL xxxxxxxxxx 2018-Present Indemnityxxxxxxxxxx [id number] 2016Medicare1960Medicare [id number] 2.840.1.304886.3.57[id number] 2.840.1.966643.3.57[id number] 2.840.1.576575.3.57[id number] 2.840.1.258025.3.57[id number] 2.16.840.1.633399.3.57[id number] 2.16840.1.128382.3.57[id number] 2.16840.1.797490.3.57[id number] 2.840.1.805370.3.57[id number] 2.840.1.659727.3.57[id number] 2.840.1.329566.3.57[id number] 2.840.1.363947.3.57[id number] 2.16840.1.737230.3.57[id number] 2.840.1.469521.3.57[id number] 2.840.1.852387.3.57[id number] 2.840.1.170312.3.57[id number] 2.16840.1.404736.3.57[id number] 2.16840.1.911327.3.57[id number] 2.16840.1.70[id number] 2.16840.1.693947.3.579.2.531Unknown [id number] [id number]-[id number]-[id number] Social History DateTypeDetailFacilityStart: 01-13-2014 End: 33-55-4672Axvufpf smoking status NHISFormer smokerMercy Health [facility], [place] Start: 14-28-3681Rkw Assigned At BirthNot on fileWaterville, KYHistory of tobacco useCurrent smokerBON [employer] Phone: start: 53-36-9430Vyvuzpw intakeCurrent drinker of alcohol (finding)[facility] [employer] Phone: start: 11-09-2022 End: 12-93-9666Mssjdde intakeFLORENCE COMMUNITY HEALTHCARE [employer] Phone: start: 88-59-4641Iaawkws CommentdailyZane [employer] Phone: start: 10-30-2022 End: 64-36-1026Jaeijcsj to SARS-CoV-2 (event)Not sureZane [employer] Phone: start: 02-01-2024 End: 74-41-3228Ysc Assigned At [facility] HealthTobacco smoking statusNeverExec[facility] of [facility] BellevueStart: 13-55-8206Tal Assigned At [facility] CenterHistory of tobacco useCigarette SmokerNOMS HealthcareStart: 99-66-0267Iogwlnc use and exposureSmokeless tobacco non-userNOMS HealthcareStart: 36-27-2616Ujvqwl identityIdentifies as male gender (finding)[facility] HealthcareStart: 05-03-2023 Sexual orientationHeterosexual (finding)NOMS HealthcareTobacco smoking status NHISUnknown if ever smokedAshtabula General Hospital Work Phone: Start: 33-60-4843XpuAhtn (finding)[facility] Northexual OrientationExec[facility] of [facility] Medical Equipment Procedure CodeEquipment CodeEquipment Original TextEquipment IdentifierDatesLens Intraocular Bcnvx 22+ Diopt 6x12.5 Mm Acryl [employer] - [id number] Start: 11-09-2022 Functional Status BsxnZhckxsbizpAzzeqwNgwxmwzs11-40-2412Zltbawpofg StatusN/AExec[facility]12-11-2023Functional StatusN/AExec[facility] Clinical Notes 10-23-2022 to 04-16-2025 Note Date & WzozDhjfUatzesxc33-95-2917 History of Present illness Narrative* LILLIE Chavis - 04/16/2025 9:10 AM EDT Images from the original note were not included. Follow up Diagnosis: Wart Location: right dorsal hand Last visit: 03/13/2025 Symptoms: rough, raised Status: slightly smaller Procedure performed: Cryotherapy Date of procedure: 02/07/2025 Number of treatments to date: 2 Lesions: Location: Right anterior shoulder, left lateral abdomen Duration: months Quality: denies bleeding Modifying factors: aggravated by picking Associated symptoms: rough, itchy Treatments: none All pertinent medical history, medications, and allergies were reviewed. General Exam: alert, oriented to person, place, and time, normal affect, well appearing Unaccompanied A focused exam completed based on patient reported problems, see below: Skin Exam 1. COMMON WART Right Dorsal Hand Residual erythematous verrucous papule Patient elected for cryotherapy today, see procedure note. Encouraged OTC wart removers in between appointments to hasten resolution. Diagnosis: Verruca Indication: Inflamed Consent: Verbal consent was obtained and risks were discussed, including, but not limited to risks of scarring, darker or game tester pigmentary changes, recurrence, incomplete removal and infection. Method: Liquid nitrogen was used to treat the lesion(s) with two 5-10 second freeze-thaw cycles Number of lesions treated: 1 Post-procedure instructions: Instructions were given orally and in writing. The office will be contacted if the lesion fails to resolve despite treatment, or if a side effect develops such as abnormal crusting, scabbing, redness or tenderness Cryotherapy, skin lesion - Right Dorsal Hand 2. OTHER SPECIFIED ERYTHEMATOUS CONDITIONS 3. INFLAMED SEBORRHEIC KERATOSIS (4) Left Flank, Right Shoulder - Anterior (3) Brown stuck on verrucous scaly papules, inflamed The patient was informed that symptomatic seborrheic keratoses are benign growths that become inflamed, itchy, tender, traumatized, caught on clothing, or bleed. Symptomatic lesions can be treated with cryotherapy or curretage. Thicker lesions treated with cryotherapy may require more than one treatment. The patient was instructed to notify the office if abnormal redness or tenderness develops atthe treatment site. Cryotherapy today, see procedure note. Diagnosis: Inflamed seborrheic keratosis Indication: Inflamed Consent: Verbal consent was obtained and risks were discussed, including, but not limited to risks of scarring, darker or game tester pigmentary changes, recurrence, incomplete removal and infection. Method: Liquid nitrogen was used to treat the lesion(s) with two 5-10 second freeze-thaw cycles Number of lesions treated: 4 Post-procedure instructions: Instructions were given verbally. The office will be contacted if the lesion fails to resolve despite treatment, or if a side effect develops such as abnormal crusting, scabbing, redness or tenderness Cryotherapy, skin lesion - Left Flank, Right Shoulder - Anterior (3) Next Visit: 1 month documented in this encounterSaint Luke's Health SystemQrzbtoyesa16-45-4995 History of Present illness Narrative* LILLIE Chavis - 03/13/2025 9:00 AM EDT Follow up #1 Diagnosis: Wart Location: right dorsal hand Last visit: 1 month ago Symptoms: less raised Status: improved Procedure performed: Cryotherapy Date of procedure: 02/07/2025 Number of treatments to date: 1 Follow up #2 Diagnosis: ISKs Location: upper back x6 Last visit: 1 month ago Symptoms: smaller; patient would like spots checked to be sure they are clear Status: improved Procedure performed: Cryotherapy Date of procedure: 02/07/2025 All pertinent medical history, medications, and allergies were reviewed. General Exam: alert, oriented to person, place, and time, normal affect, well appearing A focused exam completed based on patient reported problems, see below: Skin Exam 1. COMMON WART Right Dorsal Hand Flatter erythematous verrucous papule. Improved but not clear Patient elected for cryotherapy today, see procedure note. Diagnosis: Verruca Indication: Inflamed Consent: Verbal consent was obtained and risks were discussed, including, but not limited to risks of scarring, darker or game tester pigmentary changes, recurrence, incomplete removal and infection. Method: Liquid nitrogen was used to treat the lesion(s) with two 5-10 second freeze-thaw cycles Number of lesions treated: 1 Post-procedure instructions: Instructions were given orally and in writing. The office will be contacted if the lesion fails to resolve despite treatment, or if a side effect develops such as abnormal crusting, scabbing, redness or tenderness Cryotherapy, skin lesion - Right Dorsal Hand 2. INFLAMED SEBORRHEIC KERATOSIS (3) Left Upper Back (2), Mid Back Inflamed seborrheic keratoses: thinner pink and brown stuck on verrucous scaly papules with surrounding erythema and bloody crust. The patient was informed that symptomatic seborrheic keratoses are benign growths that become inflamed, itchy, tender, traumatized, caught on clothing, or bleed. Symptomatic lesions can be treated with cryotherapy or curretage. Thicker lesions treated with cryotherapy may require more than one treatment. The patient was instructed to notify the office if abnormal redness or tenderness develops atthe treatment site. Cryotherapy today, see procedure note. Diagnosis: Inflamed seborrheic keratosis Indication: Inflamed Consent: Verbal consent was obtained and risks were discussed, including, but not limited to risks of scarring, darker or game tester pigmentary changes, recurrence, incomplete removal and infection. Method: Liquid nitrogen was used to treat the lesion(s) with two 5-10 second freeze-thaw cycles Number of lesions treated: 3 Post-procedure instructions: Instructions were given orally and in writing. The office will be contacted if the lesion fails to resolve despite treatment, or if a side effect develops such as abnormal crusting, scabbing, redness or tenderness Cryotherapy, skin lesion - Left Upper Back (2), Mid Back 3. OTHER SPECIFIED ERYTHEMATOUS CONDITIONS Next Visit: 1 month wart follow up documented in this encounterSaint Luke's Health SystemSaobshxnob31-26-6089 History of Present illness Narrative* LILLIE Chavis - 02/07/2025 9:00 AM EDT Skin Check Location: Patient requests a skin examination from the waist up, A full body skin exam was offered,patient declined Dermatologic history: history of Squamous Cell Carcinoma Last visit: 1 year ago Established patient Lesions: Location: right dorsal hand, chest back Duration: months Quality: itchy Modifying factors: aggravated by picking Associated symptoms: rough Treatments: Hydroxyzine for the itching All pertinent medical history, medications, and allergies were reviewed. General Exam: alert, oriented to person, place, and time, normal affect, well appearing Unaccompanied A complete skin exam was offered, pt declined. Areas not examined despite medical recommendation: From the waist down Scalp, Examined Head, Face Examined Neck Examined Chest Examined Back Examined Abdomen Examined Right arm Examined Left arm Examined Hands Examined Digits,nails: Examined Lymphatics: Not examined Skin Exam 1. SEBORRHEIC KERATOSIS (3) Arms, Head - Anterior (Face), Trunk Stuck on verrucous, variably pigmented papules and plaques. Patient was counseled regarding these benign growths. Removal is normally not necessary, but they may be removed if they are symptomatic or for cosmetic reasons. 2. PERSONAL HISTORY OF SQUAMOUS CELL CARCINOMA OF SKIN Mid chest No evidence of recurrence at SCC scar. The patient was counseled that scars from excisional sites of nonmelanoma skin cancers should be monitored closely for recurrence. The patient was instructed to contact the office for any new, changing, or symptomatic moles. The patient was also instructed to contact the office for any new lesions that develop within or around the previous surgery scar. 3. ACTINIC KERATOSIS Mid Parietal Scalp Erythematous scaly papules Patient was counseled regarding these sun-induced growths that can develop into squamous cell carcinoma if left untreated. Discussed treatment with cryotherapy. It was emphasized that any treated lesions that fail to resolve should be re- evaluated. Cryotherapy performed today; see procedure note Diagnosis: Actinic keratosis Indication: Precancerous Location: see skin exam Consent: Verbal consent was obtained and risks were discussed, including, but not limited to risks of scarring, darker or game tester pigmentary changes, recurrence, incomplete removal and infection. Method: Liquid nitrogen was used to treat the lesion(s) with two 5-10 second freeze-thaw cycles. Number of lesions treated: 1 Post-procedure instructions: Instructions were given orally and in writing. The office will be contacted if the lesion fails to resolve despite treatment, or if a side effect develops such as abnormal crusting, scabbing, redness or tenderness Cryotherapy, skin lesion - Mid Parietal Scalp 4. COMMON WART Right Dorsal Hand Erythematous verrucous papule(s). Patient and/or family member was counseled regarding warts. Treatment options were discussed including cryotherapy, raulito antigen injections, and topical Cantharidin. It was explained that it typically requires multiple treatments before the wart(s) completely resolve. The importance of followingup every 3-4 weeks was emphasized. Encouraged OTC wart removers in between appointments to hasten resolution. Patient elected for cryotherapy today, see procedure note. Diagnosis: Verruca Indication: Inflamed Consent: Verbal consent was obtained and risks were discussed, including, but not limited to risks of scarring, darker or game tester pigmentary changes, recurrence, incomplete removal and infection. Method: Liquid nitrogen was used to treat the lesion(s) with two 5-10 second freeze-thaw cycles Number of lesions treated: 1 Post-procedure instructions: Instructions were given orally and in writing. The office will be contacted if the lesion fails to resolve despite treatment, or if a side effect develops such as abnormal crusting, scabbing, redness or tenderness Cryotherapy, skin lesion - Right Dorsal Hand 5. PAIN 6. MELANOCYTIC NEVUS OF TRUNK Trunk Scattered benign appearing, regular brown to light brown melanocytic papules and macules with similar morphology Counseled regarding these benign growths. Rarely, a nevus can develop into malignant melanoma, so any changing nevi should be promptly re-evaluated. 7. OTHER PRURITUS Trunk Skin appears normal in areas of itching Continue Hydroxyzine 10 mg PRN, counseled on proper use of prescribed medication. hydrOXYzine HCl (Atarax) 10 MG tablet - Trunk Take 1 tablet, by mouth 3 times a day as needed for itching, 30 day supply triamcinolone (Kenalog) 0.1 % cream - Trunk Apply to affected areas, up to twice a day when flared, do not use one the face, groin, or underarms, 30 day supply 8. SEBORRHEIC KERATOSIS, INFLAMED (7) Left Upper Back (3), Right Buccal Cheek, Right Upper Back (3) Sour John and brown stuck on verrucous scaly papule with surrounding erythema The patient was informed that symptomatic seborrheic keratoses are benign growths that become inflamed, itchy, tender, traumatized, caught on clothing, or bleed. Symptomatic lesions can be treated with cryotherapy or curretage. Thicker lesions treated with cryotherapy may require more than one treatment. The patient was instructed to notify the office if abnormal redness or tenderness develops atthe treatment site. Cryotherapy today, see procedure note. Diagnosis: Inflamed seborrheic keratosis Indication: Inflamed Consent: Verbal consent was obtained and risks were discussed, including, but not limited to risks of scarring, darker or game tester pigmentary changes, recurrence, incomplete removal and infection. Method: Liquid nitrogen was used to treat the lesion(s) with two 5-10 second freeze-thaw cycles Number of lesions treated: 7 Post-procedure instructions: Instructions were given orally and in writing. The office will be contacted if the lesion fails to resolve despite treatment, or if a side effect develops such as abnormal crusting, scabbing, redness or tenderness Cryotherapy, skin lesion - Left Upper Back (3), Right Buccal Cheek, Right Upper Back (3) Related Procedures Cryotherapy, skin lesion Next Visit: 1 year documented in this encounterSaint [facility] [id number] Hospital Discharge instructions Patient Education 01/26/2025 08:40:26 Benign Prostatic Hyperplasia Benign Prostatic Hyperplasia Benign prostatic hyperplasia (BPH) is an enlarged prostate gland that is caused by the normal agingprocess. The prostate may get bigger as a man gets older. The condition is not caused by cancer. The prostate is a walnut-sized gland that is involved in the production of semen. It is located in front of the rectum and below the bladder. The bladder stores urine. The urethra carries stored urine ou t of the body. An enlarged prostate can press on the urethra. This can make it harder to pass urine. The buildup of urine in the bladder can cause infection. Back pressure and infection may progress to bladder damage and kidney (renal) failure. What are the causes? This condition is part of the normal aging process. However, not all men develop problems from thiscondition. If the prostate enlarges away from the urethra, urine flow will not be blocked. If it enlarges toward the urethra and compresses it, there will be problems passing urine. What increases the risk? This condition is more likely to develop in men older than 50 years. What are the signs or symptoms? Symptoms of this condition include: Getting up often during the night to urinate. Needing to urinate frequently during the day. Difficulty starting urine flow. Decrease in size and strength of your urine stream. Leaking (dribbling) after urinating. Inability to pass urine. This needs immediate treatment. Inability to completely empty your bladder. Pain when you pass urine. This is more common if there is also an infection. Urinary tract infection (UTI). How is this diagnosed? This condition is diagnosed based on your medical history, a physical exam, and your symptoms. Tests will also be done, such as: A post-void bladder scan. This measures any amount of urine that may remain in your bladder after you finish urinating. A digital rectal exam. In a rectal exam, your health care provider checks your prostate by putting a lubricated, gloved finger into your rectum to feel the back of your prostate gland. This exam detects the size of your gland and any abnormal lumps or growths. An exam of your urine (urinalysis). A prostate specific antigen (PSA) screening. This is a blood test used to screen for prostate cancer. An ultrasound. This test uses sound waves [...] severity of your condition. Treatment may include: Observation and yearly exams. This may be the only treatment needed if your condition and symptoms are mild. Medicines to relieve your symptoms, including: ?Medicines to shrink the prostate. ?Medicines to relax the muscle of the prostate. Surgery in severe cases. Surgery may include: ?Prostatectomy. In this procedure, the prostate tissue is removed completely through an open incision or with a laparoscope or robotics. ?Transurethral resection of the prostate (TURP). In this procedure, a tool is inserted through the opening at the tip of the penis (urethra). It is used to cut away tissue of the inner core of the prostate. The pieces are removed through the same opening of the penis. This removes the blockage. ?Transurethral incision (TUIP). In this procedure, small cuts are made in the prostate. This lessens the prostate's pressure on the urethra. ?Transurethral microwave thermotherapy (TUMT). This procedure uses microwaves to create heat. The heat destroys and removes a small amount of prostate tissue. ?Transurethral needle ablation (TUNA). This procedure uses radio frequencies to destroy and remove a small amount of prostate tissue. ?Interstitial laser coagulation (ILC). This procedure uses a laser to destroy and remove a small amount of prostate tissue. ?Transurethral electrovaporization (TUVP). This procedure uses electrodes to destroy and remove a small amount of prostate tissue. ?Prostatic urethral lift. This procedure inserts an implant to push the lobes of the prostate away from the urethra. Follow these instructions at home: Take hsdy-eck-mdhkqam and prescription medicines only as told by your health care provider. Monitor your symptoms for any changes. Contact your health care provider with any changes. Avoid drinking large amounts of liquid before going to bed or out in public. Avoid or reduce how much caffeine or alcohol you drink. Give yourself time when you urinate. Keep all follow-up visits. This is important. Contact a health care provider if: You have unexplained back pain. Your symptoms do not get better with treatment. You develop side effects from the medicine you are taking. Your urine becomes very dark or has a bad smell. Your lower abdomen becomes distended and you have trouble passing urine. Get help right away if: You have a fever or chills. You suddenly cannot urinate. You feel light-headed or very dizzy, or you faint. There are large amounts of blood or clots in your urine. Your urinary problems become hard to manage. You develop moderate to severe low back or flank pain. The flank is the side of your body between the ribs and the hip. These symptoms may be an emergency. Get help right away. Call 911. Do not wait to see if the symptoms will go away. Do not drive yourself to the hospital. Summary Benign prostatic hyperplasia (BPH) is an enlarged prostate that is caused by the normal aging process. It is not caused by cancer. An enlarged prostate can press on the urethra. This can make it hard to pass urine. This condition is more likely to develop in men older than 50 years. Get help right away if you suddenly cannot urinate. This information is not intended to replace advice given to you by your health care provider. Make sure you discuss any questions you have with your health care provider. Document Revised: 01/21/2022 Document Reviewed: 01/21/2022 [employer] Patient Education 2023 Testif. Follow Up Care 01/24/2024 14:29:13 With:KEHINDE CRUZ, Abdi Santana, URL Address: [address] [place], [place] [id number] When: Unknown [facility] 07-11-2025 NotePatient Education Urology Benign Prostatic Hyperplasia Benign prostatic hyperplasia (BPH) is an enlarged prostate gland that is caused by the normal agingprocess. The prostate may get bigger as a man gets older. The condition is not caused by cancer. The prostate is a walnut-sized gland that is involved in the production of semen. It is located in front of the rectum and below the bladder. The bladder stores urine. The urethra carries stored urine ou t of the body. An enlarged prostate can press on the urethra. This can make it harder to pass urine. The buildup of urine in the bladder can cause infection. Back pressure and infection may progress to bladder damage and kidney (renal) failure. What are the causes? This condition is part of the normal aging process. However, not all men develop problems from thiscondition. If the prostate enlarges away from the urethra, urine flow will not be blocked. If it enlarges toward the urethra and compresses it, there will be problems passing urine. What increases the risk? This condition is more likely to develop in men older than 50 years. What are the signs or symptoms? Symptoms of this condition include: ??? Getting up often during the night to urinate. ??? Needing to urinate frequently during the day. ??? Difficulty starting urine flow. ??? Decrease in size and strength of your urine stream. ??? Leaking (dribbling) after urinating. ??? Inability to pass urine. This needs immediate treatment. ??? Inability to completely empty your bladder. ??? Pain when you pass urine. This is more common if there is also an infection. ??? Urinary tract infection (UTI). How is this diagnosed? This condition is diagnosed based on your medical history, a physical exam, and your symptoms. Tests will also be done, such as: ??? A post-void bladder scan. This measures any amount of urine that may remain in your bladder after you finish urinating. ??? A digital rectal exam. In a rectal exam, your health care provider checks your prostate by putting a lubricated, gloved finger into your rectum to feel the back of your prostate gland. This exam detects the size of your gland and any abnormal lumps or growths. ??? An exam of your urine (urinalysis). ??? A prostate specific antigen (PSA) screening. This is a blood test used to screen for prostate cancer. ??? An ultrasound. This test uses sound waves [...] severity of your condition. Treatment may include: ??? Observation and yearly exams. This may be the only treatment needed if your condition and symptoms are mild. ??? Medicines to relieve your symptoms, including: ? Medicines to shrink the prostate. ? Medicines to relax the muscle of the prostate. ??? Surgery in severe cases. Surgery may include: ? Prostatectomy. In this procedure, the prostate tissue is removed completely through an open incision or with a laparoscope or robotics. ? Transurethral resection of the prostate (TURP). In this procedure, a tool is inserted through theopening at the tip of the penis (urethra). [...] procedure uses radio frequencies to destroy and removea small amount of prostate tissue. ? Interstitial laser coagulation (ILC). This procedure uses a laser to destroy and remove a small amount of prostate tissue. ? Transurethral electrovaporization (TUVP). This procedure uses electrodes to destroy and remove a small amount of prostate tissue. ? Prostatic urethral lift. This procedure inserts an implant to push the lobes of the prostate awayfrom the urethra. Follow these instructions at home: ??? Take lssf-rgf-xcrkksb and prescription medicines only as told by your health care provider. ??? Monitor your symptoms for any changes. Contact your health care provider with any changes. ??? Avoid drinking large amounts of liquid before going to bed or out in public. ??? Avoid or reduce how much caffeine or alcohol you drink. ??? Give yourself time when you urinate. ??? Keep all follow-up visits. This is important. Contact a health care provider if: ??? You have unexplained back pain. ??? Your symptoms do not get (more content not included)...[facility]05-12-2025 Evaluation note* Diagnosis Onset Date Resolution Status Admit Date Essential (primary) hypertension acuteMay 2024 10:23amFatigueacuteMay 2024 10:23am [facility] Work Phone: 1(855) 886-212904-01-2025 History of Present illness Narrative* LILLIE Chavis - 10/17/2024 9:10 AM EDT Images from the original note were not included. Lesion #1 Location: scalp Duration: years Quality: tender Modifying factors: aggravated by hair comb Associated symptoms: rough, raised Treatments: none Lesion #2 Location left abdomen Duration: years Quality: denies pain, denies itch Associated symptoms: brown Treatments: none Established patient; has skin exam scheduled 02/07/2025 All pertinent medical history, medications, and allergies were reviewed. General Exam: alert, oriented to person, place, and time, normal affect, well appearing A focused exam completed based on patient reported problems, see below: 1. Melanocytic nevus of trunk Left Abdomen (side) - Lower Hyperpigmented macule with no concerning features. See photo for future reference Counseled regarding these benign growths. Rarely, a nevus can develop into malignant melanoma, so any changing nevi should be promptly re-evaluated. 2. Inflamed seborrheic keratosis (6) Mid Frontal Scalp, Mid Parietal Scalp (4), Right Parietal Scalp Inflamed seborrheic keratoses: pink and brown stuck on verrucous scaly papules with surrounding erythema and bloody crust. The patient was informed that symptomatic seborrheic keratoses are benign growths that become inflamed, itchy, tender, traumatized, caught on clothing, or bleed. Symptomatic lesions can be treated with cryotherapy or curretage. Thicker lesions treated with cryotherapy may require more than one treatment. The patient was instructed to notify the office if abnormal redness or tenderness develops atthe treatment site. Cryotherapy today, see procedure note. Diagnosis: Inflamed seborrheic keratosis Indication: Inflamed Consent: Verbal consent was obtained and risks were discussed, including, but not limited to risks of scarring, darker or game tester pigmentary changes, recurrence, incomplete removal and infection. Method: Liquid nitrogen was used to treat the lesion(s) with two 5-10 second freeze-thaw cycles Number of lesions treated: 6 Post-procedure instructions: Instructions were given orally and in writing. The office will be contacted if the lesion fails to resolve despite treatment, or if a side effect develops such as abnormal crusting, scabbing, redness or tenderness Cryotherapy, skin lesion - Mid Frontal Scalp, Mid Parietal Scalp (4), Right Parietal Scalp Next Visit: as scheduled documented in this encounterSaint Luke's Health [id number] Hospital Discharge instructions Patient Education 01/24/2024 14:18:17 Proteinuria Proteinuria [...] from leaving the blood and ending up inthe urine. What are the causes? This condition [...] or risk factors for kidney disease. You mayalso have: Blood tests to measure the level [...] of protein in your urine at home. Identifyingproteinuria early is important so that the cause [...] that can help you get to a healthyweight. Take ryup-pkj-uoknuay and prescription medicines only as told by [...] provider. Document Revised: 10/12/2022 Document Reviewed: 02/24/2022 [employer] Patient Education 2022 Testif. Follow Up Care 06/28/2023 12:08:24 With:KEHINDE CRUZ, Abdi Santana, URL Address: [facility] [address], [place] [phone] When: Unknown Comments:1 year w/ PSA from PCP (PSA in 6 mos as well, will call with joshua) [facility] 02-07-2024 Evaluation note* Encounter Date Diagnosis Assessment Notes Treatment Notes Treatment Clinical Notes Aug, Colon cancer screening (ICD-10 - Z12.11) QA on Request Other 12-13-2023 Evaluation note* Encounter Date Diagnosis Assessment Notes Treatment Notes Treatment Clinical Notes Jun, Acute non-recurrent maxillary si nusitis (ICD-10 - J01.00) Sinus infections can be triggered by a secondary infection from a viral URI or even seasonal allergies. Take medications as directed. Use saline nasal spray prior to presciption nasal spray. Take medications as directed, and complete all doses of medication even if you start to feel better. Patientadvised to follow up with PCP if symptoms persist or worsen. Patient verbalized understanding and agreement with treatment plan. QA on Request Other 12-11-2023 Hospital Discharge instructions Patient Education [...] provider. Document Revised: 06/10/2020 Document Reviewed: 06/10/2020 [employer] Patient Education 2022 Testif. 06/28/2023 11:53:29 Spermatocele Spermatocele A spermatocele is [...] provider. Document Revised: 02/23/2022 Document Reviewed: 02/23/2022 [employer] Patient Education 2022 Testif. Follow Up Care 03/29/2023 12:07:33 With:KEHINDE CRUZ, Abdi Santana, URL Address: [facility] [address], [place] [address]- When:Within 6 Month(s) Comments:w/HILLARY [facility] 10-23-2023 Evaluation note* Encounter Date Diagnosis Assessment Notes Treatment Notes Treatment Clinical Notes Apr, MEHDI (obstructive sleep apnea) (I CD-10 - G47.33) Discussed MEHDI in detail today. Discussed contributing factors and how we can make lifestyle changesto improve outcomes. Discussed sleep studies as well as sleep medicine referral. Discussed CPAP andequipment briefly today. Discussed the countless benefits that can be had with CPAP use. QA on Request Other 07-03-2023 Evaluation note* Encounter Date Diagnosis Assessment Notes Treatment Notes Treatment Clinical Notes Jan, Lumbago of lumbar region with sc iatica (ICD-10 - M54.40) Pt agrees to pain med for short term and will get xray today. Will call w xray result patito Jan,Right hip pain (ICD-10 - M25.551)as above Jan,OSA (obstructive sleep apnea) (ICD-10 - G47.33)Discussed moderately + sleep test. He declines followup on this at [facility] at this time. Jan,Itching (ICD-10 - L29.9)Requests decreased dose of med. Educated him that it would make him tired. QA on Request Other 07-03-2023 Evaluation note* Encounter Date Diagnosis Assessment Notes Treatment Notes Treatment Clinical Notes Jan, Lumbar pain (ICD-10 - M54.50) Jan,Right hip pain (ICD-10 - M25.551) QA on Request Other 04-24-2023 Hospital Discharge instructions* Discharge Instructions* Kathi Her DO - 11/09/2022 10:35 AM EDT SAME [...] the healing period. The office number is [phone]. Take surgery bag and all eye drops to Dr. Her's office tomorrow at 9:05am. You may resume your normal diet. Start your eye drops tomorrow after your post-op appointment: Ofloxacin/Polytrim one drop to the operated eye 4 times daily Prednisolone one drop to the operated eye 4 times daily documented [facility] [employer] Work Phone: 1(244) 291-985504-07-2023 History of Present illness Narrative* Lori Weir [...] 5 days of surgery. documented in this encounterBON [facility] HOSPITALLindsey Shell Phone: evaluation + Plan note Future Appointments Appointment Date:01/03/2024 10:45:00 AM Scheduled Provider:Abdi MCINTOSH MD Location:[facility] Appointment Type:URO Office Visit Diagnostic Tests Pending * PSA Total 06/28/23 [facility] evaluation + Plan note Future Appointments Appointment Date:01/26/2025 08:30:00 AM Scheduled Provider:Abdi MCINTOSH MD Location:[facility] Appointment Type:URO Office Visit Diagnostic Tests Pending * PSA Total 01/24/24 [facility] evaluation + Plan note Future Appointments Appointment Date:01/26/2025 08:30:00 AM Scheduled Provider:Abdi MCINTOSH MD Location:[facility] Appointment Type:URO Office Visit [facility] evaluation + Plan note Future Appointments Appointment Date:01/28/2026 10:15:00 AM Scheduled Provider:Abdi MCINTOSH MD Location:[facility] Appointment Type:URO Office Visit Future Scheduled Tests Laboratory* PSA Total 12/17/25 [facility] evaluation note* Diagnosis 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 documented in this encounter [facility] [email or web address] Work Phone: [email or web address] noteNo InformationNort [employer] Other Evaluation noteNo assessment information available [facility] Work Phone: Evaluation note* Diagnosis Onset Date Resolution Status Abnormal carotid ultrasound acute [facility] Work Phone: Evaluation note* Diagnosis Melanocytic nevus of trunk- Primary Benign neoplasm of skin of trunk, except scrotum Inflamed seborrheic keratosis [facility] Diagnosis Onset Date Resolution Status Admit Date Essential (primary) hypertension acuteMay 2024 10:23amFatigueacuteMay 2024 10:23am [facility] Work Phone: Evaluation note* Diagnosis Seborrheic keratosis- Primary Personal history of squamous cell carcinoma of skin Personal history of other malignant neoplasm of skin Actinic keratosis Common wart Other specified viral warts Pain Generalized pain Melanocytic nevus of trunk Benign neoplasm of skin of trunk, except scrotum Other pruritus Seborrheic keratosis, inflamed [facility]* Diagnosis Common wart- Primary Other specified viral warts Inflamed seborrheic keratosis Other specified erythematous conditions [facility]* Diagnosis Common wart- Primary Other specified viral warts Other specified erythematous conditions Inflamed seborrheic keratosis documented in this encounter [facility] Narrative - Reported* Type Description Date Medical History Essential (primary) hypertension Medical HistoryBorderline low oxygen saturation levelMedical HistoryLow back pain, unspecifiedMedical HistoryAtopic dermatitisMedical HistoryInsomnia, persistentMedical HistoryFamily history of malignant neoplasm of breastSurgical HistoryKNEE ARTHROSCOPY [id number] HistoryCATARACT SURGERYHospitalization HistorySEE SURGICAL [facility] [employer] Other Hospital course Narrative No data available for this section [facility] Hospital Discharge instructions No data available for this section [facility] progress note No data available for this section [facility] reason for referral (narrative)No reason for referral information availableAshtabula [facility] Work Phone: Summary Purpose Family History No Family History Records Found Relationship Condition Age at Onset Recorded Date/T manoj father Malignant neoplasm Unknown Family history of lung cancerUnknownNot SpecifiedMalignant neoplasm of breast UnknownMalignant neoplasmUnknown Relationship Condition Age at Onset Recorded Date/T manoj father Malignant neoplasm Unknown Family history of lung cancerUnknownmotherMalignant neoplasm of breastUnknown Malignant neoplasmUnknown Advance Directives No Advanced Directives Records FoundDocuments on File TypeDate RecordedPatient RepresentativeExplanationAdvance Directives and Living WillPower of AttorneyCode StatusDate ActivatedDate InactivatedCommentsFull Code 11/09/2022 8:44 AM Advance Directive Response Recorded Date/ Time Advance Directives No October 03 2:25pm Assessments Diagnosis Acute medial meniscal tear, left, subsequent encounter Reason for Referral Reason 01/25/23 Last OV a nd xrays from today. Thanks Diagnosis 1 Lumbar pain (M54.50) Referral Organization [facility] Jessy longoria Referring Provider First Name Yves Referring Provider Last Name Sp Referring Provider Specialty Family [facility] Referred Organization [facility] Referred Address [address], [place],[address] Referred Provider Specialty Pain Medicin e Referral Priority Routine Referral Appointment Date 2023-01-25 General Notes Jessica Mason 06:43:12 AM >received today, attachments made, referral faxed Jessica Mason 01/20/2023 03:44:38 PM >received fax with appt dateClinical NotesF: [id number] Chief Complaint and Reason for Visit Chief Complaint Admit Date fatigue November 27, 2024 10:23 am MAWV January 12, 2025 9:50 am Reason for Visit Admit Date Essential (primary) hypertension November 10:23am Fatigue November 27, 2024 10:23 am Chief Complaint Referred carotid art nidia narrowing; duplex at [facility] Chief Complaint Referred carotid art nidia narrowing; duplex at [facility] MAWVReason for VisitAbnormal carotid ultrasound Chief Complaint Admit Date fatigue November 27, 2024 10:23 am Additional Source Comments (unrecognized sect ion and content) No Status Records FoundNo Status Records FoundNo Status Records FoundNo Status Records FoundNo Status Records FoundNo Status Records FoundNo Status Records Found INFORMATION SOURCE (unrecogn ized section and content) DATE CREATED AUTHOR 10/20/2018 [facility] DATE CREATED AUTHOR AUTHOR'S ORGANIZ ATION 11/27/2022 [facility] DATE CREATED AUTHOR AUTHOR'S ORGANIZ ATION 04/20/2023 [facility] [place] DATE CREATED AUTHOR AUTHOR'S ORGANIZ ATION 07/10/2024 [facility] DATE CREATED AUTHOR AUTHOR'S ORGANIZ ATION 01/28/2025 [facility] DATE CREATED AUTHOR AUTHOR'S ORGANIZ ATION 04/21/2025 [facility] EPIC Reason for Visit (unrecogniz ed section and content) SpecialtyDiagnoses / ProceduresReferred By ContactReferred To Contact Diagnoses Nuclear sclerotic cataract of both eyes AGE RELATED NUCLEAR CAT 2+NS Procedures [place] XCAPSL CTRC RMVL INSJ IO LENS PROSTH W/O ECP EYE CATARACT EMULSIFICATION IOL IMPLANT Kathi Her Y, DO [address] [place] [address] [facility] [id number] [place] [address] Referral IDStatusReasonStart DateExpiration DateVisits RequestedVisits [id number] Skin LesionReasonCommentsSkin Check ReasonCommentsFollow-up Scheduled Active and Recently Administ ered Medications (unrecognized section and content) Medication Order// phenylephrine (MYDFRIN) 2.5 % ophthalmic solution 1 drop 1 drop, Left Eye, SEE ADMIN INSTRUCTIONS, 5 doses, Starting on Wed11/09/22 at 0844, Until Discontinued, To operative eye(s) for 3-5 doses every 5 minutes, starting 30 minutes prior to surgery until dilated, RPh - enter number of doses based on parameters defined by the physician in the admin. comments., Pre-op (day of surgery) * 0901 (Given - Provider: Justina Gardner RN) * 0907 (Given - Provider: Justina Gardner RN) * 0914 (Given - Provider: Justina Gardner RN) proparacaine (ALCAINE) 0.5 % ophthalmic solution 1 drop 1 drop, Left Eye, SEE ADMIN INSTRUCTIONS, Starting on Wed11/09/22 at 0844, Until Discontinued, Intothe operative eye(s) every 5 minutes for PRN doses starting 30 minutes prior to surgery., Pre-op (day of surgery) * 0901 (Given - Provider: Justina Gardner RN) * 0907 (Given - Provider: Justina Gardner RN) * 0914 (Given - Provider: Justina Gardner RN) sodium chloride flush 0.9 % injection 5-40 mL 5-40 mL, IntraVENous, EVERY 12 HOURS SCHEDULED (2 times per day), First dose on Wed11/09/22 at 0900, Until Discontinued, For Line Patency: Peripheral IV = 5 mL; Midline or Central Line = 10 mL/lumen.If following IV push medication, administer flush at same rate as the IV push. Flush volume is determined by type of infusion therapy being given. For non-viscous solutions use: Peripheral IV = 5 mL Midline or Central Line = 10 mL/lumen For viscous solutions (i.e. blood components, parenteral nutrition, contrast media, or after obtaining blood sample) use: Peripheral IV = 10 mL Midline or CentralLine = 20 mL/lumen, Pre-op (day of surgery) * 0900 (Due) * 2100 (Due) tetracaine (TETRAVISC) 0.5 % ophthalmic solution 1 drop 1 drop, Left Eye, SEE ADMIN INSTRUCTIONS, Starting on Wed11/09/22 at 0844, Until Discontinued, Intothe operative eye(s) every 5 minutes for PRN [...] the admin. comments., Pre-op (day of surgery) * 0901 (Given - Provider: Justina Gardner RN) * 0907 (Given - Provider: Justina Gardner RN) * 0914 (Given - Provider: Justina Gardner RN) Medication Order// 0.9 % sodium chloride infusion IntraVENous, at 125 mL/hr, CONTINUOUS, Starting on Wed11/09/22 at 0900, Pre-op (day of surgery) * 0900 (Due) lactated ringers IV soln infusion IntraVENous, at 100 mL/hr, CONTINUOUS, Starting on Wed11/09/22 at 0900, Pre-op (day of surgery) * 0913 (New Bag - Provider: Justina Gardner, CRISTY) * 1004 (NoRateChange - Provider: Eden Jurado APRN - [employer]) * 1036 (Rate/Dose Change - Provider: Eden Jurado APRN - [employer]) * 1100 (Stopped - Provider: Rosy Shearer RN) Medication Order// 0.9 % sodium chloride infusion IntraVENous, at [...] less into rate field of order., Pre-op (dayof surgery) balanced salts (BSS) 500 mL, EPINEPHrine (EPINEPHrine HCL) 1 mg/mL 0.5 mg (CANCELED) PRN, Starting on Wed11/09/22 at 1017, Intra-op * 1017 (Given - Provider: Kathi Her DO) lidocaine PF 1 % injection (CANCELED) PRN, Starting on Wed11/09/22 at 1017, Until Wed11/09/22 at 1035, Intra-op * 1017 (Given - Provider: Kathi Her DO) sodium chloride flush 0.9 [...] For viscous solutions (i.e. blood components, parenteral nutrition,contrast media, or after obtaining blood sample) use: Peripheral IV = 10 mL Midline or Central Line= 20 mL/lumen, Pre-op (day of surgery) tetracaine (TETRAVISC) 0.5 % ophthalmic solution (CANCELED) PRN, Starting on Wed11/09/22 at 1018, Until Wed11/09/22 at 1035, Intra-op * 1018 (Given - Provider: Kathi Her DO) Care Teams (unrecognized sec tion and content) Team MemberRelationshipSpecialtyStart DateEnd Date Yves Snowden MD [address] [place] [phone] PCP - [facility]01/13/14 Team Status: Active Member Role Status Dates Yves Snowden MD Primary Care Provider Active Team Status: Inactive Member Role Status Dates Yves Snowden MD Primary Care Provide r, Referring Provider Active Start: November 03, 2023 End: November 03, 2023Kavita Prasadending ProviderActiveStart: November 03, 2023 End: November 03, 2023 Team Status: Active Member Role Status Dates Yves Snowden MD Primary Care Provide r, Attending Provider Active Start: December 20, 2023 Team Status: Inactive Member Role Status Dates Yves Snowden MD Primary Care Provide r, Attending Provider Active Start: December 27, 2023 End: December 27, 2023 Team Status: Inactive Member Role Status Dates Yves Snowden MD Primary Care Provide r, Attending Provider Active Start: November 27, 2024 End: November 27, 2024 Team Status: Inactive Member Role Status Dates Yves Snowden MD Primary Care Provider Active Start: November 27, 2024 End: November 27, 2024Yves Snowden Dory ProviderActiveStart: November 27, 2024 End: November 27, 2024 Team Status: Active Member Role Status Dates Yves Snowden MD Primary Care Provider Active Start: January 01, 2025 Dory Lee ProviderActiveStart: January 01, 2025 Team Status: Inactive Member Role Status Dates Yves Snowden MD Primary Care Provider Active Start: January 12, 2025 End: January 12, 2025Dory Lee ProviderActiveStart: January 12, 2025 End: January 12, 2025 Goals (unrecognized section and content) Goals may [...] BE BASED ON THE PRIMARY CLINICAL RECORDS. [facility] [employer] [facility]. provides no warranty or guarantee of the accuracy or completeness of information in this document.
--- NOTE | 2025-06-28 09:40 | PM.CN ---
Consult Note: HPI Data of Consult Patient: known to practice within the last 3 years Consult date: 06/28/25 Requesting Physician: Bozena Carty NP Primary Care Provider: Bhavani Dukes NP Consult Narrative Reason for consult: right low back, leg pain Narrative: 74yom who presents for assessment. increasing pain throughout low back and right leg, similar to pain prior to lumbar tfesi and sij injection. these provide >50% relief for >3 months at a time. imaging significant for stenosis at l4-5 and l5-s1. continues in series of provider directed home exercises >6 weeks. uses otc pain meds and baclofen 10mg BID as needed for pain and spasms. since last visit denies injury/falls. noting pain significantly well controlled with current treatment plan. pain today 010. cc:: CC: Bozena Carty NP Review of Systems ROS Musculoskeletal Denies: back pain, extremity pain or joint pain PFSH PFSH Medical History Surgical History History of tonsillectomy and adenoidectomy ?Z90.89 - Acquired absence of other organs (ICD-10) H/O elbow surgery ?Z98.890 - Other specified postprocedural states (ICD-10) Meds Home Medications and Allergies Home Medications ?Medication ?Instructions ?Recorded ?Confirmed ?Type bupropion HCl 150 mg 24 hr tablet, 150 mg PO DAILY 01/25/23 06/26/24 History extended release ibuprofen 200 mg tablet 200 mg PO TID 01/25/23 06/26/24 History baclofen 10 mg tablet mg 06/26/24 History baclofen 10 mg tablet 10 mg PO BID PRN muscle spasm #180 08/14/24 Rx tabs baclofen 10 mg tablet 10 mg PO BID PRN muscle spasm #60 11/20/24 Rx tabs Allergies Allergy/AdvReac Type Severity Reaction Status Date / Time oxycodone (From Percocet) Allergy Mild ITCH Verified 06/26/24 09:31 Exam Constitutional Documenting provider has reviewed patient's vital signs: yes Common normals: no apparent distress, oriented x3, healthy appearing, alert and well nourished General appearance: cooperative HENMT Common normals: normocephalic, hearing grossly normal bilaterally and moist oral mucous membranes Head and scalp: normocephalic Eye Common normals: PERRL Pupil: PERRL Neck & C-Spine Common normals: full ROM General: normal visual inspection Chest Common normals: inspection of chest normal Respiratory Common normals: normal respiratory effort, no retractions and no use of accessory muscles Back & Pelvis Lumbar spine/lower back: normal to inspection and lumbar ROM normal; no pain with ROM and no lumbar spinal tenderness Sacroiliac joints: SI joints normal Other: sensation intact BLE strength 5/5 in BLE Neuro Common normals: oriented x3, CN's II-XII intact bilaterally, moves all extremities, no focal motor deficits, no sensory deficits noted and deep tendon reflexes 2+ bilaterally Sensorium/orientation: alert Motor exam: strength 5/5 throughout and no movement abnormalities noted Psych Common normals: mental status grossly normal, thought process normal, cooperative, affect normal, speech normal and activity/motor behavior normal Speech: normal speech Thought process: normal thought process Results Additional Findings Additional findings: If on a controlled substance or opioids, I have checked an [place] report on this patient and there are no aberrancies noted in the prescribing history.??If on a controlled substance or opioid a drug screen was completed and reviewed within the last year, and if there has not been a drug screen completed we ordered one today to monitor higher risk, state monitored pain medication use. As part of providing excellent, safe, comprehensive care, the following was completed at our patient's visit: 1. A medication reconciliation and review to ensure accurate knowledge of current/active medications, including asking our patients to inform us about any [id number] medications or herbal remedies/nutritional supplements/alternative remedies. 2. A review to specifically ensure our patients have had annual screening for screening for depression, screening for tobacco use, and screening for unhealthy alcohol use. For concerning screenings had a discussion with the patient, provided patient education, and recommended follow-up with primary care provider when appropriate. If patient noted with a risk of falling, they received education on strength, gait, and balance training to prevent future risk of falling. Portions of this note may have been carried over from the previous visit and updated as appropriate. Please note this office utilizes paper charting in addition to the electronic medical record. A list of current medications, vitals, and PMH is available there as the clinical staff outside of myself do not have access to [employer] charting during the clinic day operations. As part of providing quality comprehensive care the current medications, vitals, and PMH were reviewed in the paper chart. Assessment and Plan Assessment and Plan (1) Myofascial pain: (2) Lumbar stenosis with neurogenic claudication: (3) Sacroiliac pain: Plan continue baclofen 10mg BID PRN pain/spasms, denies side effects continue HEP as tolerated f/u 6 months, sooner if needed
== END 2025-06-28 09:09 | disposition home or self-care (01) ==
PROVIDERS: PCP Nurse Practitioner Family; Visit Provider Nurse Practitioner
DX: M79.18 Myalgia, other site (principal); M48.062 Spinal stenosis, lumbar region with neurogenic claudication; M53.3 Sacrococcygeal disorders, not elsewhere classified
CPT/HCPCS: G0463